=== PATIENT | female | born 1935 | race Caucasian/White ===

== ENCOUNTER → 2020-03-10 11:10 | Outpatient (CLI) | payer MEDICARE, SELFPAY ==
--- NOTE | ~2020-03-10 | XR_ITS ---
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 TECHNIQUE: Right foot dorsoplantar, lateral and oblique projections obtained and reviewed. There is no prior study for comparison. FINDINGS: There is moderate right hallux valgus and 1st MTP primary osteoarthritis. There is an ulcer overlying 1st metatarsal head medially which has a bandage. There are no bony erosions identified. There are no acute fractures identified. IMPRESSION: 1. Right 1st toe moderate hallux valgus, moderate 1st MTP osteoarthritis. 2. Soft tissue ulceration. Reviewed, dictated and finalized at location B. SALES ADVISOR
== END ==
PROVIDERS: PCP Internal Medicine; Visit Provider Internal Medicine
DX: L97.509 Non-pressure chronic ulcer of other part of unspecified foot with unspecified severity (principal); M19.071 Primary osteoarthritis, right ankle and foot; M20.11 Hallux valgus (acquired), right foot
CPT/HCPCS: 73630

== ENCOUNTER 2020-04-22 07:37 | Outpatient (RCR) | payer MEDICARE, BC, SELFPAY ==
[2020-03-16 10:38] VITALS: BMI 26.6
--- NOTE | 2020-05-11 10:03 | PCWOUND ---
WOCN NOTE spoke with Mariela, patient's daughter who was calling to cancel appointment for 05/13/20. Patient had vascular procedure done on Monday05/08/[address] Zambrano. Patient has a followup appointment tomorrow with Dr Zambrano. Patient's daughter will contact the wound center if they need another appointment.
== END 2020-06-14 23:59 | disposition home or self-care (01) ==
LOC: ANHWOC 07:37
PROVIDERS: PCP Internal Medicine; Visit Provider Internal Medicine
DX: L98.499 Non-pressure chronic ulcer of skin of other sites with unspecified severity (principal)
CPT/HCPCS: 99212; G0463

== ENCOUNTER 2020-05-12 09:23 | Outpatient (CLI) | payer MEDICARE, BC, SELFPAY | END 2020-05-12 09:24 | disposition home or self-care (01) | LOC: ANHCOVIDVC 09:23 | PROVIDERS: PCP Internal Medicine | DX: Z23 Encounter for immunization (principal) | CPT/HCPCS: 0001A; 91300 ==

== ENCOUNTER → 2020-05-20 12:42 | Outpatient (CLI) | payer MEDICARE, SELFPAY ==
--- NOTE | ~2020-05-20 | MR_ITS ---
EXAMINATION: MR foot RT wo con DATE: 05/20/2020 14:36 INDICATION: Peripheral vascular disease with open wound/ulceration and worsening pain at the medial a spect of the great toe. TECHNIQUE: Magnetic resonance imaging (MRI) of the right fore/mid foot was performed without intraven ous contrast. Sequences axial, sagittal and coronal sagittal T1-weighted FSE, axial and coronal T2-we ighted FS FSE and sagittal fluid sensitive FSE STIR. COMPARISON: Radiographs dated 03/10/2020 FINDINGS: Moderate hallux valgus including lateral subluxation of the first metatarsal sesamoids. Moderate oste oarthritis at the first metatarsophalangeal joint along with hypertrophic changes along the medial he ad of the first metatarsal. There is bandaging at a shallow skin ulceration overlying the medial head of the first metatarsal. There is prominent marrow edema at the head of the first metatarsal bone wi thout definitive cortical erosion or geographic loss of T1 marrow fat signal to more specifically sug gest osteomyelitis. No fracture. Additional moderate osteoarthritis at the second-fifth tarsal metata rsal joints with scattered subarticular edema and cystic changes. Mild osteoarthritis of the first ta rsal metatarsal joint. The medial collateral ligament at the first metatarsophalangeal joint appears intact but stretched and attenuated consistent with likely chronic degeneration. Remaining collateral ligament complex at the metatarsophalangeal joints appear normal. The flexor and extensor tendons ap pear normal. Mild subcutaneous edema over the dorsum of the foot and about the head of the first meta tarsal. Physiologic amount fluid in the joint spaces. No tenosynovitis, abscess or other abnormal flu id collections. IMPRESSION: 1. Likely reactive marrow edema at the head of the right first metatarsal underlying a shallow skin u lceration. Early osteomyelitis cannot be excluded although there is no evident cortical erosion or ge ographic loss of T1 fat signal to more specifically suggest this. 2. Hallux valgus with moderate osteoarthritis at the first metatarsophalangeal joint. 3. Additional moderate polyarticular osteoarthritis at the tarsal metatarsal joints. Reviewed, dictated and finalized at location A. IMPRESSION: 1. Likely reactive marrow edema at the head of the right first metatarsal under lying a shallow skin ulceration. Early osteomyelitis cannot be excluded althoug h there is no evident cortical erosion or geographic loss of T1 fat signal to m ore specifically suggest this. 2. Hallux valgus with moderate osteoarthritis at the first metatarsophalangeal joint. 3. Additional moderate polyarticular osteoarthritis at the tarsal metatarsal wilfredo ints.
== END ==
PROVIDERS: PCP Internal Medicine; Visit Provider Internal Medicine
DX: I73.9 Peripheral vascular disease, unspecified (principal); L97.509 Non-pressure chronic ulcer of other part of unspecified foot with unspecified severity; M79.89 Other specified soft tissue disorders; M20.11 Hallux valgus (acquired), right foot; M19.071 Primary osteoarthritis, right ankle and foot
CPT/HCPCS: 73718

== ENCOUNTER 2020-08-10 11:55 | Outpatient (CLI) | payer MEDICARE, BC, SELFPAY ==
--- NOTE | ~2020-08-10 | MR_ITS ---
EXAMINATION: MR foot RT wo/w con DATE: 08/10/2020 13:29 INDICATION: Osteomyelitis TECHNIQUE: Magnetic resonance imaging (MRI) of the right fore/mid foot was performed without and with 15 mL Multihance intravenous contrast. Sequences included axial, sagittal and coronal T1-weighted FS E and T2-weighted FS FSE, axial T1-weighted FS FSE and post contrast axial, sagittal and coronal T1-w eighted FS FSE. COMPARISON: 05/20/2020 FINDINGS: There is no ulceration medial to the head of the first metatarsal with prominent surrounding soft tis cherry edema and enhancement consistent with cellulitis. There is a nonenhancing sinus tract extending f rom the ulceration to the plantar aspect of the first metatarsophalangeal joint space between the hea d of the first metatarsal and the tibial sesamoid. There is cortical erosion and osteolysis at the me dial head of the first metatarsal. There is diffuse intramedullary enhancement on loss of T1 marrow f at signal throughout the head of the first metatarsal consistent with advanced osteomyelitis. Similar loss of T1 fat signal and enhancement within the tibial sesamoid and at the base of the first proxim al phalanx consistent additional osteomyelitis and by implication associated septic arthritis. Modera te osteoarthritis at the second-fifth tarsal metatarsal joints with mild subarticular edema and cysti c changes. Mild osteoarthritis at the first tarsal metatarsal joint. Prominent soft tissue swelling a nd subcutaneous edema over the dorsum of the foot. There is also diffuse edema and enhancement throug hout the intrinsic musculature of the forefoot which is new since the prior study consistent with lester sitis which could be either septic or aseptic and reactive. No abscess. The flexor and extensor tendo ns remain normal. No tenosynovitis. IMPRESSION: 1. Septic arthritis at the first metatarsophalangeal joint with osteomyelitis throughout the head of the first metatarsal, at the base of the first proximal phalanx involving the tibial sesamoid. Reviewed, dictated and finalized at location A. IMPRESSION: 1. Septic arthritis at the first metatarsophalangeal joint with osteomyelitis t hroughout the head of the first metatarsal, at the base of the first proximal p halanx involving the tibial sesamoid.
[2020-08-10 12:50] LABS: Estimated Glomerular Filt Rate > 60
== END 2020-08-10 11:56 | disposition home or self-care (01) ==
PROVIDERS: PCP Internal Medicine; Visit Provider Internal Medicine
DX: M86.9 Osteomyelitis, unspecified (principal); M00.9 Pyogenic arthritis, unspecified
CPT/HCPCS: 73720; A9577

== ENCOUNTER 2020-09-18 08:29 | Outpatient (CLI) | payer MEDICARE, BC, SELFPAY ==
--- NOTE | ~2020-09-18 | MR_ITS ---
EXAMINATION: MR foot RT wo con DATE: 09/18/2020 09:34 INDICATION: Right foot osteomyelitis TECHNIQUE: Magnetic resonance imaging (MRI) of the right fore/mid foot was performed without intraven ous contrast. Sequences included sagittal T1-weighted FSE, sagittal fluid sensitive FSE STIR, coronal PD-weighted FS FSE, coronal T1-weighted FSE, axial PD-weighted FS FSE, and axial PD-weighted FSE. COMPARISON: 08/10/2020 FINDINGS: Interval transmetatarsal amputation at the proximal metadiaphyseal region of the first metatarsal. No rmal marrow signal appears to extend all the way to the relatively sharply marginated osteotomy macho n without significant edema or geographic loss of T1 marrow fat signal to suggest residual osteomyeli tis. Bone alignment is otherwise normal. Moderate osteoarthritis at the second and third tarsal metat arsal joints with minimal subarticular edema and subarticular cystic changes. A severe mild osteoarth ritis at the remaining tarsal metatarsal joints as well as at several of the interphalangeal joints. No joint effusions. Lisfranc ligament complex is normal. The collateral ligament complex at the metat arsophalangeal and interphalangeal joints appear unremarkable. Aside from the surgically transected f lexor and extensor tendons to the amputated great toe at the remaining flexor and extensor tendons in the foot are normal. There is soft tissue swelling with subcutaneous edema over the dorsum of the fo ot. Intermediate signal intensity likely healing granulation tissue at the amputation bed distal to t he first metatarsal osteotomy. No abscess. IMPRESSION: 1. 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 If not previously obtained following the surgery would consider obtaining plain radiog raphs to establish a baseline for any future assessment for osteomyelitis. Reviewed, dictated and finalized at location A. IMPRESSION: 1. 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 If not previously obtained following the s urgery would consider obtaining plain radiographs to establish a baseline for a ny future assessment for osteomyelitis.
== END 2020-09-18 08:30 | disposition home or self-care (01) ==
PROVIDERS: PCP Internal Medicine; Visit Provider Specialist
DX: M86.68 Other chronic osteomyelitis, other site (principal); Z89.411 Acquired absence of right great toe
CPT/HCPCS: 73718

== ENCOUNTER 2020-09-23 08:33 | Outpatient (CLI) | payer MEDICARE, BC, SELFPAY ==
[2020-09-23 09:09] LABS: Basophils Absolute Auto 0.1 K/mm3 (0.0-0.1); Basophils Percent Auto 1.1 % (0.2-1.2); Eosinophils Absolute Auto 0.1 K/mm3 (0-0.3); Eosinophils Percent Auto 1.3 % (0-4.4); Hematocrit 36.6 % (37.0-47.0); Hemoglobin 11.8 g/dL (12.0-15.0); Immature Granulocyte Absolute 0.01 K/mm3 (0.00-0.031); Immature Granulocyte Percent A 0.1 % (0-0.5); Lymphocytes Absolute Auto 2.59 K/mm3 (0.9-3.2); Lymphocytes Percent Auto 36.6 % (18.3-44.2); Mean Corpuscular HGB Conc 32.2 g/dl (32-36); Mean Corpuscular Hemoglobin 31.4 pg (26-34); Mean Corpuscular Volume 97.3 fl (80-100); Mean Platelet Volume 8.4 fl (7.4-10.4); Monocytes Absolute Auto 0.9 K/mm3 (0.1-0.6); Monocytes Percent Auto 12.4 % (2.6-8.5); Neutrophils Absolute Auto 3.4 K/mm3 (1.3-6.7); Neutrophils Percent Auto 48.5 % (45.5-73.1); Platelet Count Result 352 k/mm3 (150-375); Red Blood Count 3.76 M/mm3 (4.2-5.4); Red Cell Distribution Width 15.1 % (11.5-14.5); White Blood Count 7.1 K/mm3 (4.5-10.0)
[2020-09-23 10:33] LABS: Folic Acid 5.7 ng/mL (2.76->20)
[2020-09-23 10:38] LABS: Creatinine Urine 58.1 mg/dL; MALB Creatinine Ratio 11.2 mg/g (0-30); Microalbumin Urine Random 6.5 mg/L (0-16.7)
[2020-09-23 11:19] LABS: Hemoglobin A1C 6.3 % (<5.7)
[2020-09-23 11:23] LABS: Alanine Aminotransferase 12 U/L (4-35); Albumin Level 4.3 g/dL (3.5-5.1); Alkaline Phosphatase 65 U/L (38-126); Anion Gap 12 mmol/L (8-16); Aspartate Amino Transferase 26 U/L (14-36); Bilirubin,Total 0.5 mg/dL (0.2-1.3); Blood Urea Nitrogen 17 mg/dL (7-17); Calcium 9.6 mg/dL (8.4-10.2); Carbon Dioxide 20 mmol/L (22-30); Chloride 107 mmol/L (98-107); Estimated Glomerular Filt Rate > 60; Glucose 99 mg/dL (65-110); Potassium 4.8 mmol/L (3.4-5.0); Sodium 139 mmol/L (137-145)
[2020-09-23 11:25] LABS: Free T4 Free Thyroxine 1.31 ng/mL (0.78-2.19)
== END 2020-09-23 08:34 | disposition home or self-care (01) ==
PROVIDERS: PCP Internal Medicine; Visit Provider Internal Medicine
DX: E11.9 Type 2 diabetes mellitus without complications (principal); R53.83 Other fatigue; E03.8 Other specified hypothyroidism; E78.5 Hyperlipidemia, unspecified
CPT/HCPCS: 36415; 80053; 82043; 82607; 82746; 83036; 84439; 84443; 85025

== ENCOUNTER → 2021-01-11 14:22 | Outpatient (CLI) | payer MEDICARE, SELFPAY ==
--- NOTE | ~2021-01-11 | XR_ITS ---
EXAMINATION: XR shoulder LT min 2V DATE: 01/11/2021 14:48 INDICATION: Left shoulder pain. TECHNIQUE: 6 views of left shoulder were obtained. COMPARISON: None. FINDINGS: Bone alignment is normal. No fracture. There is moderate osteoarthritis of glenohumeral skylar nt and severe osteoarthritis of acromioclavicular joint. IMPRESSION: 1. Polyarticular osteoarthritis. Reviewed, dictated and finalized at location A. ING MACHINE MECHANIC
== END ==
PROVIDERS: PCP Internal Medicine; Visit Provider Internal Medicine
DX: M19.012 Primary osteoarthritis, left shoulder (principal)
CPT/HCPCS: 73030

== ENCOUNTER 2021-04-13 12:14 | Outpatient (CLI) | payer MEDICARE, BC, SELFPAY ==
[2021-04-13 14:59] LABS: Add Urine Microscopic? YES; Appearance Urine Cloudy (Clear); Bacteria Urine 2+ /hpf; Bilirubin Urine Negative (Negative); Blood Urine Negative (Negative); Color Urine Yellow (Yellow); Glucose Urine UA 3+ mg/dL (Negative); Ketones Urine Negative (Negative); Leukocyte Esterase Ur 3+ LEU/UL (NEGATIVE); Mucus Urine Rare /lpf; Nitrate Urine Positive (Negative); Protein Urine Negative (Negative); Specific Grav Ur 1.013 (1.001-1.035); Squamous Epithelial Cell Urine Occasional /hpf (Few); Urobilinogen Urine Negative mg/dL (<2.0); WBC Clumps Urine Present /HPF; WBC Urine >75 /hpf (0-3)
== END 2021-04-13 12:15 | disposition home or self-care (01) ==
PROVIDERS: PCP Internal Medicine; Visit Provider Physician Assistant
DX: R30.0 Dysuria (principal)
CPT/HCPCS: 81001; 87077; 87086; 87186

== ENCOUNTER 2021-04-29 09:12 | Outpatient (CLI) | payer MEDICARE, BC, SELFPAY ==
[2021-04-29 09:51] LABS: Basophils Absolute Auto 0.1 K/mm3 (0.0-0.1); Basophils Percent Auto 0.8 % (0.2-1.2); Eosinophils Absolute Auto 0.2 K/mm3 (0-0.3); Eosinophils Percent Auto 1.6 % (0-4.4); Hematocrit 38.4 % (37.0-47.0); Immature Granulocyte Absolute 0.04 K/mm3 (0.00-0.031); Immature Granulocyte Percent A 0.4 % (0-0.5); Lymphocytes Absolute Auto 3.08 K/mm3 (0.9-3.2); Lymphocytes Percent Auto 33.2 % (18.3-44.2); Mean Corpuscular HGB Conc 31.3 g/dl (32-36); Mean Corpuscular Hemoglobin 31.2 pg (26-34); Mean Corpuscular Volume 99.7 fl (80-100); Mean Platelet Volume 8.5 fl (7.4-10.4); Monocytes Percent Auto 10.5 % (2.6-8.5); Neutrophils Percent Auto 53.5 % (45.5-73.1); Platelet Count Result 450 k/mm3 (150-375); Red Blood Count 3.85 M/mm3 (4.2-5.4); White Blood Count 9.3 K/mm3 (4.5-10.0)
[2021-04-29 10:30] LABS: Creatinine Urine 69.5 mg/dL
[2021-04-29 10:33] LABS: MALB Creatinine Ratio 21.7 mg/g (0-30); Microalbumin Urine Random 15.1 mg/L (0-16.7)
[2021-04-29 10:42] LABS: Alanine Aminotransferase 14 U/L (4-35); Albumin Level 4.4 g/dL (3.5-5.1); Alkaline Phosphatase 93 U/L (38-126); Anion Gap 14 mmol/L (8-16); Aspartate Amino Transferase 28 U/L (14-36); Bilirubin,Total 0.5 mg/dL (0.2-1.3); Blood Urea Nitrogen 10 mg/dL (7-17); Calcium 9.1 mg/dL (8.4-10.2); Carbon Dioxide 19 mmol/L (22-30); Chloride 106 mmol/L (98-107); Cholesterol 190 mg/dL (0-200); Estimated Glomerular Filt Rate > 60; Glucose 146 mg/dL (65-110); HDL Direct 46 mg/dL; Potassium 4.9 mmol/L (3.4-5.0); Sodium 139 mmol/L (137-145); Triglycerides 159 mg/dL (<150)
[2021-04-29 10:49] LABS: LDL Cholesterol Direct 110 mg/dL
[2021-04-29 10:52] LABS: Free T4 Free Thyroxine 1.32 ng/mL (0.78-2.19)
[2021-04-29 11:13] LABS: Folic Acid 12.4 ng/mL (2.76->20)
== END 2021-04-29 09:13 | disposition home or self-care (01) ==
LOC: ANHLAB 09:13
PROVIDERS: PCP Internal Medicine; Visit Provider Internal Medicine
DX: E03.9 Hypothyroidism, unspecified (principal); M25.519 Pain in unspecified shoulder; E11.9 Type 2 diabetes mellitus without complications; R53.83 Other fatigue
CPT/HCPCS: 36415; 80053; 80061; 82043; 82607; 82746; 84439; 84443; 85025

== ENCOUNTER 2021-05-31 08:45 | Outpatient (CLI) | payer MEDICARE, BC, SELFPAY ==
--- NOTE | ~2021-05-31 | NM_ITS ---
EXAMINATION: NM miles stress w perfusion DATE: 05/31/2021 11:19 INDICATION: Chest pain TECHNIQUE: Rest images were obtained following intravenous administration of 10.6 mCi Tc99m tetrofosm in (Myoview). The patient was infused intravenously with Lexiscan (Regadenoson). Then, 33.6 mCi Tc99m tetrofosmin (Myoview) was administered intravenously, and stress images were obtained. Data was nelli nstructed into short axis and horizontal and vertical long axis SPECT images. Gated SPECT images were also obtained. COMPARISON: None. FINDINGS: There is no definite reversible or fixed perfusion abnormality to suggest ischemia or infar ction. There is normal left ventricular chamber size, wall motion and ejection fraction. Left ventr icular ejection fraction measures >70%. IMPRESSION: 1. Normal myocardial perfusion at rest and during stress. 2. Left ventricular ejection fraction measuring >70%. Reviewed, dictated and finalized at location B.
--- NOTE | 2021-05-31 09:31 | EST_ITS ---
Patient Info Name: Marisela Franz Age: 85 years : 1935 Gender: Female Ht: 64 in Wt: 160 lbs BSA: 1.83 m2 HR: 77 bpm BP: 146 / 82 mmHg Heart Rhythm: Sinus Rhythm Exam Date: 05/31/2021 10:19 AM Exam Location: [facility] Stress Patient Status: Outpatient Admit Date: 05/31/2021 Staff Ordering Physician: Joseph Meeks DO Attending Provider: Joseph Meeks DO Exercise Technologist: Sheree Guzman CT Exercise Physician: Kee Melgar DO Exam Type: CA stress miles w NM Study Info Indications R06.02 - Shortness of breath A regadenoson stress test was performed. Summary 1. 1. Negative lexiscan stress test for ischemic ST changes by ECG criteria. 2. 2. Baseline hypertension. 3. 3. Nuclear scan to follow and will be reported separately. Please correlate with it. 4. 4. Patient informed of the above results. Protocol: Lexiscan Stress ECG Details Stage: REST Duration (min): 11 min : 58 sec HR (bpm): 74 SBP (mmHg): 146 DBP (mmHg): 82 Stage: REST Duration (min): 12 min : 16 sec HR (bpm): 78 SBP (mmHg): 146 DBP (mmHg): 82 Stage: STAGE 1 Duration (min): 1 min : 0 sec HR (bpm): 89 SBP (mmHg): 142 DBP (mmHg): 86 Stage: RECOVERY Duration (min): 1 min : 0 sec HR (bpm): 99 SBP (mmHg): 142 DBP (mmHg): 86 Stage: RECOVERY Duration (min): 2 min : 0 sec HR (bpm): 101 SBP (mmHg): 156 DBP (mmHg): 74 Stage: RECOVERY Duration (min): 2 min : 1 sec HR (bpm): 101 SBP (mmHg): 156 DBP (mmHg): 74 Rest HR: 78 bpm Peak HR: 101 bpm Rest Sys BP: 146 mmHg Peak Sys BP: 156 mmHg Max Pred HR: 136 bpm % Max Pred HR: 74 % Target HR: 116 bpm Max RPP: 15,756 bpm*mmHg Termination Reason: Completed protocol Cardiac Symptoms: Shortness of breath Total Time: 1 min : 0 sec Rest Weller BP: 82 mmHg Peak Weller BP: 74 mmHg Total Dose: 0.4 mg Resting ECG Sinus rhythm, borderline ST-T wave in diffuse leads. Stress ECG No ST changes. Arrhythmias None. Report Signatures
== END 2021-05-31 08:46 | disposition home or self-care (01) ==
LOC: ANHCARD 08:47
PROVIDERS: PCP Internal Medicine; Visit Provider Internal Medicine
DX: R07.9 Chest pain, unspecified (principal)
CPT/HCPCS: 78452; 93017; A9502; J2785

== ENCOUNTER 2023-08-01 10:53 | Outpatient (CLI) | payer MEDICARE, SELFPAY ==
[2023-08-01 13:27] LABS: Basophils Absolute Auto 0.1 K/mm3 (0.0-0.1); Basophils Percent Auto 0.9 % (0.2-1.2); Eosinophils Absolute Auto 0.1 K/mm3 (0-0.3); Eosinophils Percent Auto 1.4 % (0-4.4); Hematocrit 38.3 % (37.0-47.0); Hemoglobin 12.3 g/dL (12.0-15.0); Immature Granulocyte Absolute 0.02 K/mm3 (0.00-0.031); Immature Granulocyte Percent A 0.3 % (0-0.5); Lymphocytes Absolute Auto 1.75 K/mm3 (0.9-3.2); Lymphocytes Percent Auto 27.3 % (18.3-44.2); Mean Corpuscular HGB Conc 32.1 g/dl (32-36); Mean Corpuscular Hemoglobin 31.8 pg (26-34); Mean Platelet Volume 9.3 fl (7.4-10.4); Monocytes Percent Auto 15.2 % (2.6-8.5); Neutrophils Absolute Auto 3.5 K/mm3 (1.3-6.7); Neutrophils Percent Auto 54.9 % (45.5-73.1); Platelet Count Result 285 k/mm3 (150-375); Red Blood Count 3.87 M/mm3 (4.2-5.4); Red Cell Distribution Width 15.4 % (11.5-14.5); White Blood Count 6.4 K/mm3 (4.5-10.0)
[2023-08-01 13:33] LABS: Alanine Aminotransferase 11 U/L (6-35); Albumin Level 4.4 g/dL (3.5-5.1); Alkaline Phosphatase 66 U/L (38-126); Anion Gap 9 mmol/L (4-12); Aspartate Amino Transferase 36 U/L (14-36); Bilirubin,Total 0.8 mg/dL (0.2-1.3); Blood Urea Nitrogen 16 mg/dL (7-17); Calcium 9.1 mg/dL (8.4-10.2); Carbon Dioxide 24 mmol/L (22-30); Chloride 107 mmol/L (98-107); Cholesterol 165 mg/dL (0-200); Estimated Glomerular Filt Rate 47; Glucose 162 mg/dL (65-110); HDL Direct 35 mg/dL; Potassium 4.1 mmol/L (3.4-5.0); Sodium 140 mmol/L (137-145); Triglycerides 158 mg/dL (<150)
[2023-08-01 13:44] LABS: LDL Cholesterol Direct 93 mg/dL
[2023-08-01 13:48] LABS: Hemoglobin A1C 6.3 % (<5.7)
[2023-08-01 13:54] LABS: Creatinine Urine 71.9 mg/dL
[2023-08-01 16:10] LABS: MALB Creatinine Ratio < 8.3 mg/g (0-30); Microalbumin Urine Random < 6.0 mg/L (0-16.7)
== END 2023-08-01 10:54 | disposition home or self-care (01) ==
PROVIDERS: PCP Family Medicine; Visit Provider Family Medicine
DX: E03.9 Hypothyroidism, unspecified (principal); E11.9 Type 2 diabetes mellitus without complications
CPT/HCPCS: 36415; 80053; 80061; 82043; 82607; 83036; 84443; 85025

== ENCOUNTER 2023-11-07 11:23 | Outpatient (CLI) | payer MEDICARE, SELFPAY ==
[2023-11-07 12:08] LABS: Basophils Percent Auto 1.3 % (0.2-1.2); Eosinophils Absolute Auto 0.1 K/mm3 (0-0.3); Eosinophils Percent Auto 2.5 % (0-4.4); Hematocrit 34.1 % (37.0-47.0); Hemoglobin 10.9 g/dL (12.0-15.0); Immature Granulocyte Absolute 0.01 K/mm3 (0.00-0.031); Immature Granulocyte Percent A 0.3 % (0-0.5); Lymphocytes Absolute Auto 1.29 K/mm3 (0.9-3.2); Lymphocytes Percent Auto 41.1 % (18.3-44.2); Mean Corpuscular Hemoglobin 31.9 pg (26-34); Mean Corpuscular Volume 99.7 fl (80-100); Mean Platelet Volume 9.3 fl (7.4-10.4); Monocytes Absolute Auto 0.3 K/mm3 (0.1-0.6); Monocytes Percent Auto 8.6 % (2.6-8.5); Neutrophils Absolute Auto 1.5 K/mm3 (1.3-6.7); Neutrophils Percent Auto 46.2 % (45.5-73.1); Platelet Count Result 152 k/mm3 (150-375); Red Blood Count 3.42 M/mm3 (4.2-5.4); Red Cell Distribution Width 16.8 % (11.5-14.5); White Blood Count 3.1 K/mm3 (4.5-10.0)
[2023-11-07 12:22] LABS: Alanine Aminotransferase 12 U/L (6-35); Albumin Level 3.8 g/dL (3.5-5.1); Alkaline Phosphatase 66 U/L (38-126); Anion Gap 12 mmol/L (4-12); Aspartate Amino Transferase 31 U/L (14-36); Bilirubin,Total 0.8 mg/dL (0.2-1.3); Blood Urea Nitrogen 14 mg/dL (7-17); Calcium 8.8 mg/dL (8.4-10.2); Carbon Dioxide 22 mmol/L (22-30); Chloride 102 mmol/L (98-107); Estimated Glomerular Filt Rate 59; Glucose 168 mg/dL (65-110); Potassium 4.5 mmol/L (3.4-5.0); Sodium 136 mmol/L (137-145)
[2023-11-07 14:03] LABS: Amylase 67 U/L (30-110); Lipase 65 U/L (23-300)
[2023-11-09 11:05] LABS: NIL 0.04 IU/mL; Quantiferon TB Plus, 1T NEGATIVE (NEGATIVE); TB1-NIL <0.00 IU/mL; TB2-NIL <0.00 IU/mL
== END 2023-11-07 11:24 | disposition home or self-care (01) ==
LOC: ANHLAB 11:35
PROVIDERS: PCP Family Medicine; Visit Provider Student in an Organized Health Care Education/Training Program
DX: Z11.1 Encounter for screening for respiratory tuberculosis (principal); E11.9 Type 2 diabetes mellitus without complications; R53.1 Weakness; R63.0 Anorexia; R63.4 Abnormal weight loss
CPT/HCPCS: 36415; 80053; 82150; 82607; 83690; 85025; 86480

== ENCOUNTER 2023-11-23 09:13 | Outpatient (CLI) | payer MEDICARE, SELFPAY ==
--- NOTE | ~2023-11-23 | US_ITS ---
EXAMINATION: US abdomen complete DATE: 11/23/2023 09:44 INDICATION: R63.4 - Abnormal weight loss TECHNIQUE: Multiple grayscale and Doppler ultrasound images of the abdomen were obtained. COMPARISON: None available. FINDINGS: The visualized portions of the pancreas are normal. The liver is normal with normal echogen icity and echotexture. No surface nodularity. Normal hepatopetal flow in the main portal vein. The ga llbladder is surgically absent. The common bile duct measures 3 mm. There was no sonographic Chang s ign. The visualized portions of the aorta and inferior vena cava are normal. The right kidney measures 8.2 x 3.9 x 4.7 cm. The left kidney measures 9.2 x 4.4 x 4.3 cm. The kidney s demonstrate normal parenchymal echogenicity. Simple bilateral renal cysts There is no hydronephrosi s. The spleen is normal in appearance and measures 9.6 cm. IMPRESSION: Status post cholecystectomy. Otherwise normal abdominal ultrasound findings. Reviewed, dictated and finalized at location K.
== END 2023-11-23 09:14 | disposition home or self-care (01) ==
LOC: MICIMG 09:15
PROVIDERS: PCP Family Medicine; Visit Provider Student in an Organized Health Care Education/Training Program
DX: R63.4 Abnormal weight loss (principal); Z90.49 Acquired absence of other specified parts of digestive tract
CPT/HCPCS: 76700

== ENCOUNTER 2024-05-09 09:18 | Outpatient (RCR) | payer MEDICARE, SELFPAY ==
[2024-05-09 10:08] VITALS: BMI 23.6
--- NOTE | 2024-05-22 08:36 | PCWOUND ---
WOCN NOTE Voicemail left by daughter to cancel appointment for 05/23/24 as wound to leg is healing well.
== END 2024-07-29 10:30 | disposition home or self-care (01) ==
LOC: ANHWOC 09:18
PROVIDERS: PCP Family Medicine; Visit Provider Family Medicine
DX: S81.802A Unspecified open wound, left lower leg, initial encounter (principal); Z48.00 Encounter for change or removal of nonsurgical wound dressing
CPT/HCPCS: 99213; G0463

== ENCOUNTER 2024-09-02 11:41 | Outpatient (CLI) | payer MEDICARE, SELFPAY ==
--- OUTSIDE RECORDS SUMMARY | 2024-09-02 11:46 | XMS_ITS | Clinical Summary ---
Author Organization [facility] Address [address] [place] [address] Care Team Providers Care Logistics Planning Engineer Name Role Phone Unavailable Primary Care Provider Unavailabl e Source Comments [facility],non-[facility] Affiliates and Associated Physician Practices is amultiple site organization consisting of ambulatory clinics and hospital sitesin [place], [place], [place] and [place]. This disclosure is being madepursuant to the Care Everywhere program and may not contain all information available regarding this patient. Last updated 17.[facility] Social History Tobacco Use Types Packs/Day Years Used Date Smoking Tobacco: Never Assessed Comments Unknown Sex and Gender Information Value Date Recorded Sex Assigned at Not on file Legal Sex Female 4:27 PM CDT Gender Identity Not on file Sexual Orientation Not on file Plan of Treatment Health Maintenance Due Date Last Done Comments BONE DENSITY TESTING 1935 DTAP/TDAP/TD VACCINES (1 - Tdap) 12/11/1954 PNEUMOCOCCAL VACCINE 50+ (1 of 1 - PCV) 1986 ZOSTER VACCINE (1 of 2) 1986 Respiratory Syncytial Virus (RSV) Vaccine Pt: or over 60 yrs (1 - 1-dose 75+ series) 12/11/2011 COVID-19 VACCINE ( - 2023-2 5 season) 2023 DEPRESSION SCREENING 02/28/2024 INFLUENZA VACCINE (#1) 2024 HEPATITIS B VACCINE Aged Out No longe r eligible based on patient's age to complete this topic HIB VACCINE Aged Out No longer eligi ble based on patient's age to complete this topic HPV VACCINE Aged Out No longer eligi ble based on patient's age to complete this topic MENINGOCOCCAL (Group B) VACC INE SHARED DECISION-MAKING Aged Out No longer eligibl e based on patient's age to complete this topic MENINGOCOCCAL GROUPS A/C/Y/W VACCINE Aged Out No longer eligible b ased on patient's age to complete this topic Insurance MEDICARE [facility]
--- OUTSIDE RECORDS SUMMARY | 2024-09-02 11:46 | XMS_ITS | Patient Health Record ---
Author Organization [facility], [facility] Address [address] [place] [id number] Care Team Providers Care Tape Cutting Machine Operator Name Role Phone Provider, Outside Primary Care Provider [phone] Reason For Referral No Information Plan Of Treatment No Information
--- OUTSIDE RECORDS SUMMARY | 2024-09-02 11:47 | XMS_ITS | Clinical Summary ---
Author Organization [facility] Address [address] [place] [address] Care Team Providers Care Customer Business Manager Name Role Phone Joseph Meeks MD Primary Care Provider [phone] Raheem Zambrano MD Unavailable Allergies No known active allergies Medications pravastatin 40 MG tablet Take 40 mg by mouth nightly at bedtime. Active metFORMIN 1000 MG tablet Take 1,000 mg by mouth 2 (two) times daily with meals. Active clonazePAM 1 MG tablet Take 1 mg by mouth nightly as needed. Active gabapentin 600 MG tablet Take 1,200 mg by mouth 3 (three) times daily. Active levothyroxine 50 MCG tablet Take 50 mcg by mouth every morning. Active lisinopril 40 MG tablet Take 40 mg by mouth daily. Active Semaglutide (RYBELSUS) 7 MG Tab Take 7 mg by mouth daily. Active mirabegron ER 50 MG 24 hr tablet Take 50 mg by mouth daily. Active hydrALAZINE 50 MG tablet Take 50 mg by mouth 3 (three) times daily. Active loperamide 2 MG capsule Take 2 mg by mouth 4 (four) times daily as needed for Diarrhea. Active warfarin 3 MG tablet Take 3 mg by mouth daily. Active oxyCODONE-aceta minophen 5-325 MG tabletIndicatio ns:Acute Pain < 7 Day Supply Take 1-2 tablets by mouth every 6 (six) hours as needed for Pain. Indications: Acute Pain < 7 Day Supply 20 tablet 08/14/2020 Active Active Problems Problem Noted Date Diagnosed Date Osteomyelitis ([facility]) 06/01/2020 Family History Medical History Relation Comments Hypertension Mother Relation Status Comments Mother Social History Tobacco Use Types Packs/Day Years Used Date Smoking Tobacco: Former Cigarettes Smokeless Tobacco: Never Comments:after loss of husba nd, socially Alcohol Use Standard Drinks/Week Comments Never 0 (1 standard drink = 0.6 oz pur e alcohol) AUDIT-C Answer Date Recorded Q1: How often do you have a drink containing alc ohol? 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 Gender Identity Not on file Sexual Orientation Not on file Last Filed Vital Signs Vital Sign Reading Time Taken Comments Blood Pressure 133/67 08/14/2020 8:27 AM CDT Pulse 87 08/14/2020 8:27 AM CDT Temperature 37.4 C (99.3 F) 08/14/2020 8:27 AM CDT Respiratory Rate 20 08/14/2020 8:27 AM CDT Oxygen Saturation 96% 08/14/2020 8:27 AM CDT Inhaled Oxygen Concentration - - Weight 72.5 kg (159 lb 13.3 oz) 08/14/2020 4:11 AM CDT Height 162.6 cm (5' 4) 08/11/2020 2:57 PM CDT Body Mass Index 27.44 08/11/2020 2:57 PM CDT Plan of Treatment Health Maintenance Due Date Last Done Comments DTaP, Tdap and Td Vaccines ( 1 - Tdap) 12[birth year]11/1954 Pneumococcal Vaccine: 50+ Ye ars (1 of 1 - PCV) 1986 Zoster Vaccines (1 of 2) 1986 Annual Medicare Wellness Visit 2001 RSV Immunization or 60+ Years (1 - 1-dose 75+ series) 12/11/2011 COVID-19 Vaccine (2 - 2023-2 5 season) 2023 05/12/2020 Meningococcal B Vaccine Aged Out No l onger eligible based on patient's age to complete this topic Meningococcal Vaccine Aged Out No kinsey tiny eligible based on patient's age to complete this topic RSV Immunizations Under 20 Months Aged Out No longer eligible based on patient's age to complete this topic Goals Goal Patient Goal Type Associated Problems Recent Progress Patient-Stated? Author Monitor - able to maintain pain control General No Elsie Perea RN Health - patient able to perform ADLs independently General No Dagmar Zapien, HOSIERY PAIRER Additional Health Concerns Infection Onset Date Last Indicated MRSA Comment:08/12/2020 +MRSA Toe 08/14/2020 08/14/2020 Insurance MEDICARE [facility] Advance Directives * Full Code (Latest Code Status on File) Date Activated Date Inactivated Comments 08/12/2020 4:25 PM 08/14/2020 2:42 PM * Full Code Date Activated Date Inactivated Comments 08/11/2020 9:27 PM 08/12/2020 4:24 PM * Full Code Date Activated Date Inactivated Comments 06/01/2020 1:19 PM 06/05/2020 5:23 PM * Full Code Date Activated Date Inactivated Comments 05/08/2020 2:19 PM 05/09/2020 12:47 AM Care Teams Customer Business Manager Relationship Specialty Start Date End Date Joseph Meeks MD [address] [place] [address] PCP - General INTERNAL MEDICINE 05/08/20 Raheem Zambrano MD [address] [place] [address] [address] [place] [address] Vascular/Brim Plater VASCULAR SURGERY 07/30/20
--- OUTSIDE RECORDS SUMMARY | 2024-09-02 11:47 | XMS_ITS | Encounter Summary ---
Author Organization [facility] Address [address] [place] [address] Care Team Providers Care Carry Out Clerk And Shelf Stocker Name Role Phone Unavailable Primary Care Provider Unavailabl e Encounter Details Date Type Department Care Team (Late st Contact Info) Description 09/07/2020 Lab Requisition [facility] DermPath Lab [address] [place] [address] Mendoza Galdamez MD [address] [place] [address] Social History Tobacco Use Types Packs/Day Years Used Date Smoking Tobacco: Never Assessed Comments Unknown Sex and Gender Information Value Date Recorded Sex Assigned at Not on file Legal Sex Female 4:27 PM CDT Gender Identity Not on file Sexual Orientation Not on file documented as of this encounter Plan of Treatment Not on file documented as of this encounter Procedures Procedure Name Priority Date/Time Associated Diagnosis Comments DERMATOPATHOLOGY Routine 09/03/2020 3:33 AM CDT documented in this encounter Results * DERMATOPATHOLOGY (09/03/2020 3:33 AM CDT) Case Report Dermatopathology Report Case: [id number] Authorizing Provider: Mendoza Galdamez MD Collected: 09/03/2020 03:33 AM Ordering Location: [facility] Derm[facility] Lab Received: 09/07/2020 06:54 AM Pathologist: Diana Eastman MD Specimens: A) - Skin, left nasal SW B) - Skin, lower mid chest 5:27 PM CDT DERMATOPATHOLOGY LABORATORY Final Diagnosis Specimen A. SKIN, left nasal SW: BASAL CELL CARCINOMA, NODULAR TYPE (C44.311) Specimen B. SKIN, lower mid chest: SQUAMOUS CELL CARCINOMA IN SITU, PRESENT AT THE BASE OF THE SPECIMEN (D04.5) (see microscopic description and comment) 5:27 PM T DERMATOPATHOLOGY LABORATORY at 1727 CDT Clinical History A: BCCA. Path# [id number]. B: AK vs SCCA vs SK. Path# [id number]. 1 5:27 PM CDT DERMATOPATHOLOGY LABORATORY Gross Description Specimen A: Received is one formalin filled container labeled with the patient's name and designated left nasal SW. The specimen consists of a shave biopsy measuring [id number]. Jar 0. Specimen B: Received is one formalin filled container labeled with the patient's name and designated lower mid chest. The specimen consists of a shave biopsy measuring [id number]. Jar 0. 1 5:27 PM CDT DERMATOPATHOLOGY LABORATORY Microscopic Description Specimen A. SKIN, left nasal SW: Within the dermis there are aggregates of basaloid cells with a high nuclear to cytoplasmic ratio and peripheral palisading. Specimen B. SKIN, lower mid chest: The epidermis shows parakeratosis, full thickness disorderly maturation of keratinocytes, mitoses at different levels, and dyskeratotic cells. The lesion extends to the base of the biopsy. COMMENT: An invasive squamous cell carcinoma cannot be ruled out. Additional deeper sections were obtained and reviewed. 1 5:27 PM T DERMATOPATHOLOGY LABORATORY Disclaimer An external and internal positive and negative controls are appropriate for the histochemical, immunohistochemical and immunofluorescence stain(s) in this case (if any), except where stated explicitly. The performance characteristics of the stain(s) cited in this report were developed and its performance characteristic determined by the Dermatopathology Laboratory at [facility], directed by Dr. Frankie Eastman. These tests need not be, and therefore are not, approved by the [place] Food and Drug Administration. The tests are used for clinical purposes. Billing Codes Specimen Charges Stain Charges 76276 81210 1 1 1 5:27 PM CDT DERMATOPATHOLOGY LABORATORY Embedded Images 1 5:27 PM CDT DERMATOPATHOLOGY LABORATORY Pathology/Cytology TISSUE SPECIMEN FROM SKIN / Unknown 09/03/2020 3:33 AM CDT 09/07/2020 6:54 AM CDT Miscellaneous samples (specimen) TISSUE SPECIMEN FROM SKIN / Unknown 09/03/2020 3:33 AM CDT 09/07/2020 6:54 AM CDT us Mendoza Galdamez MD LAB - PATHOLOGY/CYTOLOGY ORDER MARISABEL Final Result DERMATOPATHOLOGY LABORATORY [facility] - Department of Dermatology [facility] [address] [place] [address], [address] [phone] documented in this encounter Visit Diagnoses Not on filedocumented in this encounter
--- OUTSIDE RECORDS SUMMARY | 2024-09-02 11:47 | XMS_ITS | Encounter Summary ---
Author Organization [facility] Address [address] [place] [address] Care Team Providers Care Conveyor System Dispatcher Name Role Phone Unavailable Primary Care Provider Unavailabl e Encounter Details Date Type Department Care Team (Late st Contact Info) Description 05/06/2021 Lab Requisition [facility] DermPath Lab [address] [place] [address] Mendoza Galdamez MD [address] [address] Social History Tobacco Use Types Packs/Day Years [...] Priority Date/Time Associated Diagnosis Comments DERMATOPATHOLOGY Routine 05/06/2021 12:0 0 AM CAR 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 Path # [id number]. B: SK vs lentigo vs MM. Path # [id number]. C: SK vs lentigo vs MM. Path # [id number]. 2 4:31 PM T DERMATOPATHOLOGY LABORATORY Gross Description Specimen A: Received is one formalin filled container labeled with the patient's name and designated right forearm. The specimen consists of a shave biopsy measuring [id number], bisected. Jar 0. Specimen B: Received is one formalin filled container labeled with the patient's name and designated right shoulder. The specimen consists of a shave biopsy measuring 0p5j9ct. Jar 0. Specimen C: Received is one formalin filled container labeled with the patient's name and designated right postauricular. The specimen consists of a shave biopsy measuring 7u3a3wj. Jar 0. 4:31 PM [facility] DERMATOPATHOLOGY LABORATORY Microscopic Description Specimen A. SKIN, right forearm: The epidermis shows parakeratosis, full thickness disorderly maturation of keratinocytes, mitoses at different levels, and dyskeratotic cells. There is a column of marked compact hyperkeratosis. Specimen B. SKIN, right shoulder: The epidermis shows parakeratosis, full thickness disorderly maturation of keratinocytes, mitoses at different levels, and dyskeratotic cells. There is prominent pigmentation in some of the keratinocytes. Specimen C. SKIN, right postauricular: Sections show a junctional melanocytic proliferation. There is a lentiginous proliferation of melanocytes between irregular nests. Scattered melanocytes show evidence of upward migration within the epidermis. The melanocytes are highlighted by MART-1/Melan-A.This lesion is present at the margin of the specimen. COMMENT: Because this lesion is present at the margin of the specimen, symmetry and circumscription cannot be evaluated. Therefore, a complete but conservative re-excision is recommended to evaluate this lesion in its entirety. This case was shared with Dr. Carla Cool who agrees. 2 4:31 PM CDT DERMATOPATHOLOGY LABORATORY Disclaimer An external and internal positive and negative controls are appropriate for the histochemical, immunohistochemical and immunofluorescence stain(s) in this case (if any), except where stated explicitly. The performance characteristics of the stain(s) cited in this report were developed and its performance characteristic determined by the Dermatopathology Laboratory at [facility], directed by Dr. Frankie Eastman. These tests need not be, and therefore are not, approved by the [place] Food and Drug Administration. The tests are used for clinical purposes. Billing Codes Specimen Charges Stain Charges 35735 55414 46288 1 1 1 54998 1 2 4:31 PM CDT DERMATOPATHOLOGY LABORATORY Embedded Images 2 4:31 PM CDT DERMATOPATHOLOGY LABORATORY Pathology/Cytology TISSUE SPECIMEN FROM SKIN / Unknown 05/06/2021 05/06/2021 5:00 PM CAR WORKER HELPER Miscellaneous samples (specimen) TISSUE SPECIMEN FROM SKIN / Unknown 05/06/2021 05/06/2021 5:00 PM CAR WORKER HELPER Miscellaneous samples (specimen) TISSUE SPECIMEN FROM SKIN / Unknown 05/06/2021 05/06/2021 5:00 PM CAR WORKER HELPER us Mendoza Galdamez MD LAB - PATHOLOGY/CYTOLOGY ORDER MARISABEL Final Result DERMATOPATHOLOGY LABORATORY [facility] - Department of Dermatology [address], [address] [phone] documented in this encounter Visit Diagnoses Not on filedocumented in this encounter
--- OUTSIDE RECORDS SUMMARY | 2024-09-02 11:47 | XMS_ITS | Data Portability ---
Author Organization [place] [facility] [place], [place] Home Patient Address [address] [place] [address] Care Team Providers Care Agile Scrum Coach Name Role Phone [facility] OTHER Assessment Encounter Date Assessment Date Assessment LastModified by Organization Details LastModified Time 04/18/2023 04/18/2023 spent 60 minutes time discussing care with caregiver, medication reconciliation, physical examination, documenting progress note, reviewing EMR, discussing care with daughter. [email or web address] Not available 04/18/2023 14:22:29 04/25/2023 04/25/2023 spent 75 minutes time discussing care with caregiver, medication reconciliation, physical examination, documenting progress note, reviewing EMR, discussing care with daughter, calling in medications jhartt Not available 04/25/2023 10:46:39 05/23/2023 05/23/2023 Total time spent, exclusive of procedures, for patient care was a minimum of 110 minutes , reviewing test results, discussing findings with patient, examining and evaluating the patient, counseling the patient, reviewing previous provider notes, discussion with PT, medication reconciliation, documenting the progress note, speaking with facility staff and coordinating additional care as needed. [email or web address] Not available 05/23/2023 14:11:20 06/01/2023 06/01/2023 Total time spent, exclusive of procedures, for patient care was a minimum of 60 minutes , reviewing test results, discussing findings with patient, examining and evaluating the patient, counseling the patient, documenting the progress note, speaking with daughter, speaking with facility staff and coordinating additional care as needed. [email or web address] Not available 06/02/2023 18:19:32 Plan of Treatment Reminders Order Date Submit Date Provider Last Modified By Organization Details Last Modified Time Details Appointments None recorded. Lab None recorded. Referral None recorded. Procedures None recorded. Surgeries None recorded. Imaging None recorded. Medication Orders azithromyci n 250 mg tablet 2023 024 [facility] #[id number], [address], [place], [place], [id number], 4 13:32:50 benzonatate 200 mg capsule 2023 024 [facility] #[id number], [address], [place], [place], [id number], 4 13:33:41 prednisone 5 mg tablets in a dose pack 2023 024 [facility] #[id number], [address], [place], [place], [id number], 4 13:36:30 prednisone 5 mg tablets in a dose pack 2023 024 [facility] #[id number], [address], [place], [place], [id number], 4 13:36:40 Patient TargetsNo targets recorded. Patient InstructionsNo instructions recorded. Reason for Referral None Reported. Results Created Date Observation Date Name Description Value Unit Range Abnormal Flag Note LastModifiedBy Organization Detail LastModifiedTime 01/08/20 24 11/04/2022 imagi ng/janice rivera tic resul t No observ ation record ed. [email or web address] Not Available 03:36:45 Result Notes None recorded. Problems Name Problem SNOMED Code Status Onset Date Resolution Date Notes Provider Name and Address Organization Details Recorded Time Type 2 diabetes mellitus without complicatio n 867872446 Active 2023 Elsie Richardson MD [address], [place], [address] , [facility] 17:47:20 Blood coagulation disorder 47831970 Active 2023 Elsie Richardson MD [address], [place], [address], [facility] 4 17:47:20 Adjustment disorder with anxious mood 24242714 Active 2023 Elsie Richardson MD [address], [place], [address], [facility] 4 17:47:20 Major depressive disorder 930144906 Active 2023 Elsie Richardson MD [address], [place], [address], [facility] 4 17:47:20 Chronic pain syndrome 954051548 Active 2023 Elsie Richardson MD [address], [place], [address], [facility] 4 15:33:15 Polyneuropa thy 61393138 Active 2023 Elsie Richardson MD [address], [place], [address], [facility] 4 15:34:02 Type 2 diabetes mellitus 85947265 Active 2023 Elsie Richardson MD [address], [place], [address], [facility] 4 15:34:19 Chronic kidney disease stage 2 026087676 Active 2023 Elsie Richardson MD [address], [place], [address], [facility] 4 15:35:57 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 3209453464197 Active 2023 Elsie Richardson MD [address], [place], [address], [facility] 4 15:36:07 Essential hypertensio n 62972157 Active Elsie Richardson MD [address], [place], [address], [facility] 3 13:56:50 Diabetes mellitus 93167473 Active Elsie MD [address], [place], [address], [facility] 3 13:57:38 Spinal stenosis 87302832 MD [address], [place], [address], [facility] 3 13:57:56 Protein S deficiency disease 0148933 MD [address], [place], [address], [facility] 3 13:58:16 Hypothyroid ism 39255421 MD [address], [place], [address], [facility] 3 13:59:02 Anxiety 43856655 MD [address], [place], [address], [facility] 3 13:59:16 Insomnia 554388367 MD [address], [place], [address], [facility] 3 13:59:33 Retention of urine 605117316 MD [address], [place], [address], [facility] 3 13:59:48 Recurrent urinary tract infection 615815971 MD [address], [place], [address], [facility] 3 14:00:06 Hyperlipide keli 76943360 MD [address], [place], [address], [facility] 3 14:00:20 Depressive disorder 82529793 MD [address], [place], [address], [facility] 3 14:00:34 Problem Notes None recorded. Procedures Surgical History Date Name Laterality Status Provider Name and Address Organization Details Recorded Time replacement of bilateral knee joints completed [facility] 02/21/2023 13:45:42 replacement of bilateral hip joints completed [facility] 02/21/2023 13:45:53 hysterectomy completed [facility] 02/21/2023 13:46:01 partial replacement of joint of right shoulder completed [facility] 02/21/2023 13:46:31 Cholecystectomy completed [facility] 02/21/2023 13:46:45 laminectomy completed [facility] 02/21/2023 13:46:58 Imaging Results None recorded. Procedure Notes None recorded. Medical Equipment None Reported. Allergies No known drug allergies Medications Name Sig Start Date Stop Date Status Note LastModified by Organization Details LastModified Time Prescript ion - Renewal 05/28 completed Prescrip tion Request Not Available Not Available Not Available cyclobenz aprine 10 mg tablet Take 1 tablet 3 times a day by oral route as needed for 90 days. 05/28 completed Not Available Not Available Not Available gabapenti n 600 mg tablet TAKE 1 TABLET BY MOUTH FOUR TIMES DAILY active Not Available Not Available No t Available azithromy edie 250 mg tablet TAKE 2 TABLETS (500 MG) BY ORAL ROUTE ONCE DAILY FOR 1 DAY THEN 1 TABLET (250 MG) BY ORAL ROUTE ONCE DAILY FOR 4 DAYS 05/28 completed Not Available Not Available Not Available pravastat in 40 mg tablet TAKE 1 TABLET BY MOUTH ONCE DAILY Dx:HYPER LIPIDEMI A SELF 2023 active Renewal Request Not Available Not Available Not Available benzonata te 200 mg capsule Take 1 capsule 3 times a day by oral route as needed for 5 days. 05/28 completed Not Available Not Available Not Available clonazepa m 1 mg tablet Take 1 tablet every other day by oral route for 30 days. 05/28 completed Not Available Not Available Not Available acetamino phen 500 mg tablet Take 1 tablet 3 times a day by oral route as needed for 90 days. 05/28 completed Not Available Not Available Not Available glimepiri de 2 mg tablet TAKE 1 TABLET BY MOUTH EVERY DAY WITH A MEAL X 30 DYAS active Renewal Request Not Available Not Available Not Available trazodone 100 mg tablet Take 1 tablet every day by oral route at bedtime for 30 days. 2023 active Not Available Not Available Not Avai lable levothyro xine 50 mcg tablet TAKE 1 TABLET BY MOUTH EVERY MORNING active Renewal Request Not Available Not Available Not Available metformin 1,000 mg tablet Take 1 tablet twice a day by oral route for 90 days. 04/18 completed Not Available Not Available Not Available oxybutyni n chloride ER 5 mg tablet,ex tended release 24 hr Take 1 tablet every day by oral route for 30 days. 2023 active Not Available Not Available Not Avai lable hydralazi ne 50 mg tablet TAKE 1 TABLET BY MOUTH THREE TIMES DAILY DX: HYPERTEN ALYSSA *SELF* 2023 active Renewal Request Not Available Not Available Not Available prednison e 5 mg tablets in a dose pack Take 1 tablet 3 times a day by oral route for 5 days. 05/28 completed Not Available Not Available Not Available lisinopri l 40 mg tablet TAKE 1 TABLET BY MOUTH EVERY DAY DIRECTED active Renewal Request Not Available Not Available Not Available acetamino phen 500 mg capsule Take 2 capsules twice a day by oral route for 90 days. 05/28 completed Not Available Not Available Not Available clonazepa m 1 mg disintegr ating tablet Place 1 tablet every day by translin gual route. 02/06 completed Not Available Not Available Not Available escitalop keyana 5 mg tablet TAKE 1 TABLET BY MOUTH EVERY DAY active Renewal Request Not Available Not Available Not Available levothyro xine 03/23 completed Sodium (50 MCG Tablet)1 tablet in the morning on an empty stomach Once a day , Orally Not Available Not Available Not Available cyclobenz aprine 02/06 completed HCl (10 MG Tablet)1 tablet three times daily as needed for muscle spasm , Orally Not Available Not Available Not Available trazodone 02/21 completed HCl (50 MG Tablet)2 tablet at bedtime as needed Once a day , Orally Not Available Not Available Not Available Myrbetriq 50 mg tablet,ex tended release Take 1 tablet as needed by oral route as directed . 03/31 completed Not Available Not Available Not Available Eliquis 5 mg tablet TAKE 1 TABLET BY MOUTH TWICE DAILY DIRECTED active Renewal Request Not Available Not Available Not Available Rybelsus 14 mg tablet Take 1 tablet every day by oral route. 05/28 completed give at least 30 minutes prior to injestin g food Not Available Not Available Not Available Vitals Date Recorded Oxygen saturation Oxygen saturation in Arterial blood by Pulse oximetry Heart rate Respiratory rate Systolic And Diastolic Provider Name and Address Organization Details Last Updated DateTime 4 95 % 95 % 78 /min 18 /min 142/83 mm[Hg] Elsie Richardson MD [address], [place], [address], [place] [facility] 4 15:22:54 Date Recorded Oxygen saturation Oxygen saturation in Arterial blood by Pulse oximetry Heart rate Respiratory rate Body temperature Systolic And Diastolic Provider Name and Address Organization Details Last Updated DateTime 4 96 % 96 % 66 /min 16 /min 97.8 [degF] 115/61 mm[Hg] Tristona Darian [facility] 4 14:04:16 Date Recorded Oxygen saturation Oxygen saturation in Arterial blood by Pulse oximetry Heart rate Respiratory rate Body temperature Systolic And Diastolic Provider Name and Address Organization Details Last Updated DateTime 4 92 % 92 % 75 /min 16 /min 98.6 [degF] 126/77 mm[Hg] Ronaldoa Hartjh [facility] 4 10:32:47 Date Recorded Oxygen saturation Oxygen saturation in Arterial blood by Pulse oximetry Heart rate Respiratory rate Systolic And Diastolic Provider Name and Address Organization Details Last Updated DateTime 4 98 % 98 % 65 /min 17 /min 115/54 mm[Hg] GAURANG Orta-LETI [address], [place], [address], [place] [facility] 4 14:03:49 Date Recorded Oxygen saturation Oxygen saturation in Arterial blood by Pulse oximetry Heart rate Respiratory rate Systolic And Diastolic Provider Name and Address Organization Details Last Updated DateTime 4 99 % 99 % 70 /min 18 /min 142/66 mm[Hg] Nayeli Sampson [facility] [address], [place], [address], [place] [facility] 4 18:05:33 Social History None recorded. Functional Status None recorded. Mental Status None recorded. Family History Nothing Reported. Medical History No medical history recorded. Gynecological HistoryNo gynecological history recorded. Obstetrics History GPAL:G 0 P 0 0 0 0 Past Encounters Encounter ID Performer Location Encounter Start Date Encounter Closed Date Diagnosis/Indication Diagnosis SNOMED-CT Code Diagnosis ICD10 Code Diagnosis Note 800 Elsie Richardson MD [facility] Main Office [address] [place] [address] 02/06/2023 12:54:48 02/07/2023 13:06:01 Type 2 diabetes mellitus without complication 263321551 E11.9 check A1c - off rybelsus - on glimiperid e Essential hypertension 06715865 I10 BP elevated today but did not take hydralazin e as daughter had refill - given at visit today - monitor 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 h/o protein S - on eliquis Hypothyroidism 66882803 E03.9 continue levothyrox ine - TSH Adjustment disorder with anxious mood 99269275 F43.22 stable History of recurrent urinary tract infection 921028858 Z87.440 stable Hyperlipidemia 63265270 E78.5 continue statin Major depr essive disorder 659870047 F32.9 stable on lexapro Total time spent, including prolonged additional time, exclusive of procedures , for patient care was a minimum of 165 minutes prepping chart the day before, reviewing test results, discussing findings with patient, examining and evaluating the patient, counseling the patient, documentin g the progress note and coordinati ng additional care as needed. Total time was prolonged due prolonged counseling , discussion with daughter, review of labs, ordering labs, chart review 02/05 prior to visit, discussion with facility staff, medication reconcilia tion, pain assessment , review of POC. [id number] Shi Farmer PA-C [facility] Main Office [address] [place] [address] 02/21/2023 13:41:46 02/28/2023 10:11:36 Type 2 diabetes mellitus 82185244 E11.9 educated on diet low in complex carbohydra darron and concentrat ed sweets Protein S deficiency disease 1077321 D68.59 symptoms stable. continue with current eliquis. Recurrent urinary tract infection 224622263 N39.0 symptoms stable today. inform staff of any changes in symptoms. [id number] Shi Farmer PA-C [facility] Main Office [facility] [place] [address] 03/23/2023 15:30:10 03/23/2023 16:00:01 Essential hypertension 62358147 I10 levels elevated on todays visit. patient educated to take her morning meds. will assess levels each visit. Hyperlipidemia 79167013 E78.5 educated on avoiding processed carbohydra darron like crackers, cereal and pasta. will assess levels each lab draw. Hypothyroidism 51777787 E03.9 continue with current medication regiemn. report any changes in symptoms. will assess with each lab draw. [id number] Elsie Richardson MD [facility] Main Office [address] [facility] [place] [address] 04/14/2023 15:31:19 04/17/2023 10:20:34 Blood coagulation disorder 80598744 D53.0 h/o protein S - on eliquis Hypothyroidism 61563748 E03.9 continue levothyrox ine - TSH 2.015 Adjustment disorder with anxious mood 96644486 F43.22 stable History of recurrent urinary tract infection 860149326 Z87.440 stable Hyperlipidemia 14941620 E78.5 continue statin Major depr essive disorder 414612139 F32.9 stable on lexapro Total time spent, including prolonged additional time, exclusive of procedures , for patient care was a minimum of 90 minutes prepping chart the day before, reviewing test results, discussing findings with patient, examining and evaluating the patient, counseling the patient, documentin g the progress note and coordinati ng additional care as needed. Total time was prolonged due prolonged counseling , review of labs, pain assessment , chart review 04/13 prior to visit, discussion with facility staff, medication reconcilia tion, review of POC. Chronic pain syndrome 37 3567276 G89.4 stable on tylenol, flexeril Polyneuropathy 30152454 G62.9 Type 2 hector betes mellitus 68785135 E11.42 A1c 7 good control for age and comorbids - continue metformin, glimiperid e - monitor CrCl Chronic ki dney disease stage 2 290995050 N18.2 Cr 0.9 - avoid nephrotoxi ns Hypertensi ve heart and chronic kidney disease 8890593960 104 I13.10 BP fair control on current regimen [id number] Shi Farmer PA-C [facility] Main Office [address] [place] [address] 04/18/2023 14:03:37 04/18/2023 14:22:59 Protein S deficiency disease 9636285 D68.59 symptoms stable. continue with current eliquis. will continue to monitor for dizziness/ syncope. Type 2 hector betes mellitus 70067312 E11.9 educated on diet low in complex carbohydra darron and concentrat ed sweets. off metformin. Diarrhea 79107107 R19.7 symptoms stable. only to use immodium prn. [id number] Shi Farmer PA-C [facility] Main Office [address] [place] [address] 04/25/2023 10:32:16 04/25/2023 10:48:16 Acute upper respiratory infection 37649736 J06.9 staff to continue to monitor oxygen levels. educated when to send to ED Type 2 hector betes mellitus 09928684 E11.9 monitor blood sugar. educated on diet low in complex carbohydra darron and concentrat ed sweets. off metformin. Essential hypertension 44877570 I10 levels WNL on todays visit. will assess levels each visit. [id number] Nayeli Sampson [facility] Main Office [address] [place] [address] 05/23/2023 14:03:07 05/23/2023 14:12:14 Type 2 diabetes mellitus without complication 299495830 E11.9 Continue medication s as prescribed . Blood sugar control emphasized . Avoid concentrat ed sweets, sweetened beverages and limit intake of complex carbohydra darron, breads, crackers, cereals, pasta, rice, and alcohol. Monitor for symptoms or mental status changes, excessive thirst, or excessive urination. Polyneuropathy 91003952 G62.9 Stable. Monitor for worsening. Hypertensi ve heart and chronic kidney disease 4923743784 104 I13.10 Avoid sodium in diet and use of NSAIDs if possible. Report any swelling, lung congestion , change in mental status. Will monitor lab work and adjust treatment accordingl y. Chronic ki dney disease stage 2 680696923 N18.2 Avoid sodium in diet and use of NSAIDs if possible. Report any swelling, lung congestion , change in mental status. Will monitor lab work and adjust treatment accordingl y. Chronic pain syndrome 37 1379264 G89.4 Stable. Monitor for worsening. Major depr essive disorder 654403569 F32.9 Report worsening depression /anxiety/s leep disturbanc e. Report significan t changes in appetite or weight. 911 for suicidal ideations. Monitor for possible medication side effects. Referral to psych provider as indicated (stable on current mediation regimen). Adjustment disorder with anxious mood 03288500 F43.22 Identify triggers for anxiety and impact of anxious thinking on functionin g. Discussed strategies to regulate symptoms. Avoid stressful situations . Continue medication s as ordered. Monitor for worsening anxiety. Hyperlipidemia 54863693 E78.5 Continue statin as prescribed . Educated on low fat, low cholestero l diet. Limit intake of complex carbohydra darron, bread, crackers, cereal, pasta, rice, and alcohol. Will follow up with labs and manage treatment accordingl y. Essential hypertension 34232665 I10 Educated on low sodium diet. Continue medication s as prescribed . Report vision changes, dizziness, nose bleeds, headache. Call 911 for chest pain, trouble breathing, or signs of stroke. Insomnia 004113641 G47.0 1 Report worsening of symptoms or sleepwalki ng. Encouraged sleep hygiene. Promote adequate sleep, adequate PO intake. Continue medication s as prescribed . Report ineffectiv eness of medication . Nayeli Sampson [facility] Main Office [address] [place] [address] 06/02/2023 18:02:25 06/02/2023 18:20:15 Anxiety 30666034 F41.9 Continue medication s as prescribed . Bleeding precaution s. 911 for signs/symp toms of stroke. Report palpitatio ns, dizziness, light headedness , fatigue, weakness, impaired exercises intoleranc e, angina, dyspnea, and/or irregularl y irregular rhythm. Depressive disorder 1658 900 F32.A Report worsening depression /anxiety/s tete moseley. Report significan t changes in appetite or weight. 911 for suicidal ideations. Monitor for possible medication side effects. Referral to psych provider as indicated (stable on current mediation regimen). Diabetes mellitus 300971 09 E11.9 Continue medication s as prescribed . Blood sugar control emphasized . Avoid concentrat ed sweets, sweetened beverages and limit intake of complex carbohydra darron, breads, crackers, cereals, pasta, rice, and alcohol. Monitor for symptoms or mental status changes, excessive thirst, or excessive urination. Essential hypertension 04494684 I10 Educated on low sodium diet. Continue medication s as prescribed . Report vision changes, dizziness, nose bleeds, headache. Call 911 for chest pain, trouble breathing, or signs of stroke. Hyperlipidemia 58784053 E78.5 Continue statin as prescribed . Educated on low fat, low cholestero l diet. Limit intake of complex carbohydra darron, bread, crackers, cereal, pasta, rice, and alcohol. Will follow up with labs and manage treatment accordingl y. Hypothyroidism 13875679 E03.9 Continue levothyrox ine. Monitor TSH to ensure adequate replacemen t and dose adjustment s as necessary. Report increase in fatigue, changes to bowel pattern, sleep pattern, appetite, or weight. Chronic ki dney disease stage 2 029935208 N18.2 Avoid sodium in diet and use of NSAIDs if possible. Report any swelling, lung congestion , change in mental status. Will monitor lab work and adjust treatment accordingl y. Hypertensi ve heart and chronic kidney disease 0223200936 104 I13.10 Avoid sodium in diet and use of NSAIDs if possible. Report any swelling, lung congestion , change in mental status. Will monitor lab work and adjust treatment accordingl y. Health Concerns Section Related Observation LastModified by Organization Detai ls LastModified Time None Recorded Concern Status LastModified by Organization Details LastModified Time None Recorded Advance Directives Directive None Recorded Payers Insurance Date Sequence Insurance Name Policy Number Policy Fox Covered Member ID Fox Member ID Guarantor Name 08/08/2023 1 [place] Marisela Franz [id number] Marisela Franz 08/08/2023 2 [place] [id number] Marisela Franz [id number] Marisela Franz Notes Date Note Type Note Provider Name and Address Organization Details Recorded Time 04/14/2023 text/html Pleasant 87 year old female with history of DM, HTN, HLD, hypothyroidism, protein S deficiency, OA, recurrent UTI, depression, anxiety, falls, spinal stenosis seen at [facility] for MD followup of comorbidities. The patient is homebound due to functional deficits from above conditions. Transportation to a physician's office is taxing and a barrier to care necessitating home health services. The patient is a fair historian but history also obtained from facility records/staff, MPS progess notes, medical records. The patient continues to do well. She has minimal L>R shoulder pain. Getting scheduled tylenol, flexeril prn, prn voltaren. Using gabapentin for neuropathy. Sitting outside today and feels well. No complaints. Denies SOB, CP. No resumption of dizzy spells. No falls since last visit. Fall safety precautions reviewed. Has a good appetite. Some occasional trouble with swallowing cutting meats. No issues with bowels. Sleep improved. She was having some increased BP in Feb on [facility] visit but did not take am meds. Labs 02/07 reviewed Labs 02/07Cr 0.9Glucose 148TSH 2.015WBC 4.8hgb 11.2Plt 295 Labs 11/25 INR 1.52 Labs 10/07 Cr 0.8 Glucose 178 TC 205 TG 168 LDL 125 TSH 1.28 WBC 4.6 Hgb 12.1 Plt 317 PTT 24.7 INR 2.2. Elsie Richardson MD [address], [place], [address], [facility] 04/14/2023 15:37:28 04/18/2023 text/html 87 year old sada mims is being seen as a follow up patient for management of chronic conditions. patient is home bound due to multiple chronic conditions, qualifying her for home bound services.-*discussed care with staff today. staff denies any changes in appetite, medication non compliance, changes in behaviors or mentation. staff to inform me of any changes in conditions. PROTEIN S DEF - symptoms are stable. patient is doing well on current eliquis, although some dizziness was reported. patient and daughter were educated on side effect of dizziness and syncope with eliquis. will continue to monitor.DM2 - symptoms are stable. patient is no longer taking metformin due to adverse effects. she is now on rybelsus for her condition. will check A1C each blood draw.DIARRHEA - patient was taking immodium for diarrhea. patient reports she is now having BM every other day. daughter manages medications and we discussed holding the immodium and to use PRN for symptoms. LANETTE Cuellar - [facility] 04/18/2023 14:22:43 04/25/2023 text/html 87 year old sada mims is being seen as a follow up patient for management of chronic conditions. patient is home bound due to multiple chronic conditions, qualifying her for home bound services.-*discussed care with staff and daughter today. daughter requests today visit due to patients recent cold. COUGH - patient has had acute cough for about a week now. chest x-ray was done and there were no acute changes found. patient denies any fevers, but reports she cannot stop coughing. discussed antibiotic with daughter for URI, with addition of cough suppresant medications. daughter agrees. staff to check oxygen levels as it was lower than normal today.DM2 - discussed with daughter steriod may be helpful due to acute inflammation of lungs, but steriod will increase the blood sugar. daughter is aware and agrees with continuation of periodically checking blood sugar levels.HTN - levels are well controlled today. educated on hydration due to acute illness. will have staff periodically check levels to ensure properly hydrated. LANETTE Cuellar - [facility] 04/25/2023 10:48:09 05/23/2023 text/html Patient is homeb ound due to multiple chronic conditions requiring the assistance of others for transportation to appointments outside the home. This is taxing on the patient necessitating home care visits.*Patient is a fair historian. History obtained with assistance from EMR and facility staff.*MPS provider notes reviewed.*Pleasant patient being seen face to face for the following: HTN, DM, insomnia.Patient was found up working with PT. No acute distress noted. Denies any worsening in pain, shortness of breath, or changes in sensation. Notes to be eating and sleeping well. Staff denies any concern for mood, mentation, or behavior.HTN - No reported adverse effects to medications. Patient denies any headache, visual changes, dizziness, dyspnea, chest pain, or sensory/motor deficits outside of baseline.Dementia - Patient has a long history of dementia; exact onset unknown. Staff denies any acute concerns or changes to mood, memory, or behavior. No identified concerns with appetite or nutritional intake.Insomnia - Encouraged sleep hygiene. Stable. GAURANG OrtaBC [address], [place], [address], [facility] 05/23/2023 14:11:58 06/01/2023 text/html Patient is homeb ound due to multiple chronic conditions requiring the assistance of others for transportation to appointments outside the home. This is taxing on the patient necessitating home care visits.*Patient is a poor historian. History obtained with assistance from EMR and daughter.*MPS provider notes reviewed.*Pleasant patient being seen face to face in private room for the following: wound, CKD, HLD. Patient was found sitting up in recliner chair. No acute distress noted. Denies any worsening in pain, shortness of breath, or changes in sensation. Notes to be eating and sleeping well. Staff/daughter denies any concern for mood, mentation, or behavior.Wound - Patient with wound to LLE. Patient states that she was attempting to get out of bed and accidentally hit against a part of her walker. Area is tender to palpation. Wound care as ordered.CKD - Patient follows low sodium diet. No history of diabetes. He has well controlled hypertension. Denies oliguria, pruritis, hematuria, abdominal pain or change in mental status.HLD - Denies abdominal pain, nausea/vomiting, increasing muscle weakness or myalgia, chest pain, shortness of breath, or syncope. BALWINDER OrtaBC [address], [place], [address], [facility] 06/02/2023 18:20:03 OBGyn Episode No OBEpisode recorded.
--- OUTSIDE RECORDS SUMMARY | 2024-09-02 11:47 | XMS_ITS | Patient Health Record ---
Author Organization [facility] Address [address] [place] [address] Care Team Providers Care Purchasing Buyer Name Role Phone Manuel Fitch Unavailable [phone] Internet, internet Unavailable Unavailable Reason For Referral No Information Plan Of Treatment No Information Insurance Providers Payer Name Payer Address Payer Phone Subscriber Number Group Number Insured Name Patient Relationship to Insured Coverage Start Date Coverage End Date Medicare Part B [address] [place] [phone] [id number] Marisela Franz Self - patient is the insured [facility] [address] [place] [address] [id number] Marisela Franz Self - patient is the insured
--- OUTSIDE RECORDS SUMMARY | 2024-09-02 11:47 | XMS_ITS | Encounter Summary ---
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 No / Unsure 05/28/2020 3:16 PM CDT documented as of this encounter Functional Status documented as of this encounter Plan of Treatment Not on file documented as of this encounter Results * PRE-SURGICAL/PRE-PROCEDURE CORONAVIRUS (COVID 19) (05/29/2020 10:11 AM CDT) CORONAVIRUS SARS COV 2 PCR (RESP) NOT DETECTED NOT DETECTED 05/30/2020 2:16 PM CDT [facility] Comment: A Not Detected (negative) test result for this test means that SARS-CoV-2 RNA was not present in the specimen above the limit of detection. A negative result does not rule out the possibility of COVID-19 and should not be used as the sole basis for treatment or patient management decisions. If COVID-19 is still suspected, based on exposure history together with other clinical findings, re-testing should be considered in consultation with public health authorities. Laboratory test results should always be considered in the context of clinical observations and epidemiological data in making a final diagnosis and patient management decisions. This patient specimen was tested using an FDA EUA pooling method. Negative results from pooled testing should not be treated as definitive. If the patient's clinical signs and symptoms are inconsistent with a negative result or results are necessary for patient management, then the patient should be considered for individual testing. In very rare cases, estimated at about 8 in 1,000 (0.8%) or less patient specimens with low viral loads may not be detected in sample pools due to the decreased sensitivity of pooled testing. Please review the Fact Sheets and FDA authorized labeling available for health care providers and patients using the following websites: https://www.dxcare.com.com/home/Covid-19/HCP/rc- ymal-miv5-pqlx-sheet.html https://www.dxcare.com.com/home/Covid-19/Patients/ hp-rsyt-hsa0-fact-sheet.html This test has been authorized by the FDA under an Emergency Use Authorization (EUA) for use by authorized laboratories. Due to the current public health emergency, [facility] is receiving a high volume of samples from a wide variety of swabs and media for COVID-19 testing. In order to serve patients during this public health crisis, samples from appropriate clinical sources are being tested. Negative test results derived from specimens received in non-commercially manufactured viral collection and transport media, or in media and sample collection kits not yet authorized by FDA for COVID-19 testing should be cautiously evaluated and the patient potentially subjected to extra precautions such as additional clinical monitoring, including collection of an additional specimen. Methodology: Nucleic Acid Amplification Test (NAAT) includes RT-PCR or TMA Additional information about COVID-19 can be found at the [facility] website: www.[facility].com/Covid19. Test performed at [facility] [address] [address] Director: TONI CISNEROS DO,MPH FIRST TEST NO 05/29/2020 1:59 PM CDT [facility] EMPLOYED IN HEALTHCARE NO 05/29/2020 1:59 PM CDT [facility] SYMPTOMATIC DEFINED BY CDC NO 05/29/2020 1:59 PM CDT [facility] DATE OF SYMPTOM ONSET NO 05/29/2020 2:01 PM CDT [facility] HOSPITALIZATION STATUS NO 05/29/2020 1:59 PM CDT [facility] PATIENT IN ICU NO 05/29/2020 1:59 PM CDT [facility] RESIDENT OF [facility] CARE NO 05/29/2020 1:59 PM CDT [facility] NOT 05/29/2020 2:01 PM CDT [facility] PATIENT'S RACE WHITE OR 05/29/2020 1:59 PM CDT [facility] ETHNICITY NONHISPANIC 05/29/2020 1:59 PM CDT [facility] SOURCE (QST) NASOPHARYNGEAL SWAB 05/29/2020 1:59 PM CDT [facility] NASOPHARYNGEAL SWAB / Unknown 05/29/2020 10:11 AM CDT us Raheem Zambrano MD MICROBIOLOGY - GENERAL ORDERABLE S Final Result [facility] [address] 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
[2024-09-02 13:20] LABS: Hematocrit 37.1 % (37.0-47.0); Hemoglobin 12.0 g/dL (12.0-15.0); Immature Granulocyte Percent A 0.5 % (0-0.5); Lymphocytes Absolute Auto 2.13 K/mm3 (0.9-3.2); Mean Corpuscular HGB Conc 32.3 g/dl (32-36); Mean Corpuscular Hemoglobin 32.0 pg (26-34); Mean Corpuscular Volume 98.9 fl (80-100); Nucleated Red Blood Cells Absolute Auto 0.000 K/mm3 (0.0-0.012); Nucleated Red Blood Cells Perc 0.0 % (0.0-0.2); Platelet Count Result 314 k/mm3 (150-375); Red Blood Count 3.75 M/mm3 (4.2-5.4); White Blood Count 7.8 K/mm3 (4.5-10.0)
[2024-09-02 13:39] LABS: Alanine Aminotransferase 12 U/L (6-35); Albumin Level 4.0 g/dL (3.5-5.1); Alkaline Phosphatase 66 U/L (38-126); Anion Gap 8 mmol/L (4-12); Aspartate Amino Transferase 31 U/L (14-36); Bilirubin,Total 0.5 mg/dL (0.2-1.3); Blood Urea Nitrogen 11 mg/dL (7-17); Calcium 9.2 mg/dL (8.4-10.2); Carbon Dioxide 27 mmol/L (22-30); Chloride 104 mmol/L (98-107); Cholesterol 280 mg/dL (0-200); Estimated Glomerular Filt Rate 54; Glucose 150 mg/dL (65-110); HDL Direct 37 mg/dL; Potassium 4.2 mmol/L (3.4-5.0); Sodium 139 mmol/L (137-145); Total Protein 8.5 g/dL (6.3-8.2); Triglycerides 180 mg/dL (<150)
[2024-09-02 14:00] LABS: MALB Creatinine Ratio < 11.0 mg/g (0-30)
[2024-09-02 14:14] LABS: Thyroid Stimulating Hormone 1.550 uIU/mL (0.465-4.680)
[2024-09-02 14:20] LABS: Ferritin 32.00 ng/mL (11.1-264)
[2024-09-02 14:32] LABS: Vitamin B12 297.0 pg/mL (239-931)
[2024-09-02 17:35] LABS: Hemoglobin A1C 6.7 % (<5.7)
== END 2024-09-02 11:42 | disposition home or self-care (01) ==
PROVIDERS: PCP Family Medicine; Visit Provider Family Medicine
DX: D64.9 Anemia, unspecified (principal); E03.9 Hypothyroidism, unspecified; E78.2 Mixed hyperlipidemia; E11.9 Type 2 diabetes mellitus without complications; R77.9 Abnormality of plasma protein, unspecified; G62.9 Polyneuropathy, unspecified; Z79.01 Long term (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
CPT/HCPCS: 36415; 80053; 80061; 82043; 82607; 82728; 83036; 84443; 85025

== ENCOUNTER 2024-12-12 09:25 | Outpatient (CLI) | payer MEDICARE, SELFPAY ==
--- OUTSIDE RECORDS SUMMARY | 2024-12-12 10:22 | XMS_ITS | Clinical Summary ---
Author Organization [facility] Address [address] [place] [address] Care Team Providers Care Photographic Machine Operator Name Role Phone Unavailable Primary Care Provider Unavailabl e Source Comments [facility],non-[facility] Affiliates and Associated Physician Practices is amultiple site organization consisting of ambulatory clinics and hospital sitesin [place], [place], [place] and [place]. This disclosure is being madepursuant to the Care Everywhere program and may not contain all information available regarding this patient. Last updated 17.[facility] Social History Tobacco Use Types Packs/Day Years [...] yrs (1 - 1-dose 75+ series) 12/11/2011 DEPRESSION SCREENING 02/28/2024 COVID-19 VACCINE (1 - 2023-2 5 season) 2024 INFLUENZA VACCINE (#1) 2024 HEPATITIS B VACCINE [...] age to complete this topic Insurance MEDICARE [facility]
--- OUTSIDE RECORDS SUMMARY | 2024-12-12 10:22 | XMS_ITS | Patient Health Record ---
Author Organization [facility], [facility] Address [address] [place] [address] Care Team Providers Care Wafer Machine Operator Name Role Phone Provider, Outside Primary Care Provider [phone] Reason For Referral No Information Plan Of Treatment No Information
--- OUTSIDE RECORDS SUMMARY | 2024-12-12 10:23 | XMS_ITS | Patient Health Record ---
Author Organization [facility] Address [address] [place] [address] Care Team Providers Care Intake Man Name Role Phone Manuel Fitch Unavailable [phone] Internet, internet Unavailable Unavailable Reason For Referral No Information Plan Of Treatment No Information Insurance Providers Payer Name Payer Address Payer Phone Subscriber Number Group Number Insured Name Patient Relationship to Insured Coverage Start Date Coverage End Date Medicare Part B [address] [place] [phone] [id number] Marisela Franz Self - patient is the insured [facility] [address] [place] [address] [id number] Marisela Franz Self - patient is the insured
--- OUTSIDE RECORDS SUMMARY | 2024-12-12 10:23 | XMS_ITS | Encounter Summary ---
Author Organization [facility] Address [address] [place] [address] Care Team Providers Care Rn Anesthesiology Name Role Phone Unavailable Primary Care Provider Unavailabl e Encounter Details Date Type Department Care Team (Late st Contact Info) Description 09/07/2020 Lab Requisition [facility] [address] [place] [address] Mendoza Galdamez MD [address] [place] [address] Social History Tobacco Use Types Packs/Day Years [...] AM CDT) Case Report Dermatopathology Report Case: [id number] Authorizing Provider: Mendoza Galdamez MD Collected: 09/03/2020 03:33 AM Ordering Location: [facility] Received: 09/07/2020 06:54 AM Pathologist: [...] SPECIMEN (D04.5) (see microscopic description and comment) 1 5:27 PM T DERMATOPATHOLOGY LABORATORY at 1727 CDT 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 B: AK vs SCCA vs SK. Path# [id number]. 1 5:27 PM T DERMATOPATHOLOGY LABORATORY Gross Description Specimen A: Received is one formalin filled container labeled with the patient's name and designated left nasal SW. The specimen consists of a shave biopsy measuring 7m1b5bq. Jar 0. Specimen B: Received is one formalin filled container labeled with the patient's name and designated lower mid chest. The specimen consists of a shave biopsy measuring 1r0p5hx. Jar 0. 5:27 PM T DERMATOPATHOLOGY LABORATORY Microscopic Description Specimen A. SKIN, [...] Additional deeper sections were obtained and reviewed. 5:27 PM T DERMATOPATHOLOGY LABORATORY Disclaimer An external and internal positive and negative controls are appropriate for the histochemical, immunohistochemical and immunofluorescence stain(s) in this case (if any), except where stated explicitly. The performance characteristics of the stain(s) cited in this report were developed and its performance characteristic determined by the Dermatopathology Laboratory at [facility], directed by Dr. Frankie Eastman. These tests need not be, and therefore are not, approved by the [place] Food and Drug Administration. The tests are used for clinical purposes. Billing Codes Specimen Charges Stain Charges 66930 10960 1 1 1 5:27 PM CDT DERMATOPATHOLOGY LABORATORY Embedded Images 5:27 PM CDT DERMATOPATHOLOGY LABORATORY Pathology/Cytology TISSUE SPECIMEN FROM SKIN / Unknown 09/03/2020 3:33 AM CDT 09/07/2020 6:54 AM CDT Miscellaneous samples (specimen) TISSUE SPECIMEN FROM SKIN / Unknown 09/03/2020 3:33 AM CDT 09/07/2020 6:54 AM CDT us Mendoza Galdamez MD LAB - PATHOLOGY/CYTOLOGY ORDER MARISABEL Final Result DERMATOPATHOLOGY LABORATORY [facility] - Department of Dermatology [facility] Specialized Medicine [address] [place] [address], [address] [phone] documented in this encounter Visit Diagnoses Not on filedocumented in this encounter
--- OUTSIDE RECORDS SUMMARY | 2024-12-12 10:23 | XMS_ITS | Clinical Summary ---
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 Gender Identity Not on file Sexual Orientation [...] 75+ series) 12/11/2011 COVID-19 Vaccine (2 - 2024-2 6 season) 2024 05/12/2020 Influenza Adult (#1) 2024 Hepatitis A Vaccines Aged Out No long er eligible based on patient's age to complete this topic Meningococcal B Vaccine Aged Out No l [...] to maintain pain control General No Elsie Perea, RN Health - patient able to perform ADLs independently General No Dagmar Zapien, YOUTH SERVICES SPECIALIST Additional Health Concerns Infection Onset Date Last Indicated MRSA Comment:08/12/2020 +MRSA Toe 08/14/2020 08/14/2020 Insurance MEDICARE [facility] Advance Directives * Full Code (Latest Code [...] 2:19 PM 05/09/2020 12:47 AM Care Teams Application Development Director Relationship Specialty Start Date End Date Joseph Meeks MD [address] [place] [address] PCP - General INTERNAL MEDICINE 05/08/20 Raheem Zambrano MD [address] [place] [address] [address] [place] [address] Vascular/Casino Games Dealer VASCULAR SURGERY 07/30/20
--- OUTSIDE RECORDS SUMMARY | 2024-12-12 10:23 | XMS_ITS | Encounter Summary ---
Author Organization [facility] Address [address] [facility] [place] [address] Care Team Providers Care Tube Coverer Name Role Phone Unavailable Primary Care Provider Unavailabl e Encounter Details Date Type Department Care Team (Late st Contact Info) Description 05/06/2021 Lab Requisition [facility] [address] [place] [address] Mendoza Galdamez MD [address] [place] [address] Social History Tobacco Use Types Packs/Day Years [...] Comments DERMATOPATHOLOGY Routine 05/06/2021 12:0 0 AM PHOTOENGRAVER documented in this encounter Results * DERMATOPATHOLOGY (05/06/2021 12:00 AM PHOTOENGRAVER) Case Report Dermatopathology Report Case: [id number] Authorizing Provider: Mendoza Galdamez MD Collected: 05/06/2021 12:00 AM Ordering Location: [facility] Received: 05/06/2021 05:00 PM [...] MARGIN (D48.5) (see microscopic description and comment) 2 4:31 PM [facility] DERMATOPATHOLOGY LABORATORY at 1631 CDT Clinical History A: AK vs SCCA. Path # [id number]. B: SK vs lentigo vs MM. Path # [id number]. C: SK vs lentigo vs MM. Path # [id number]. 2 4:31 PM [facility] DERMATOPATHOLOGY LABORATORY Gross Description Specimen A: Received is one formalin filled container labeled with the patient's name and designated right forearm. The specimen consists of a shave biopsy measuring 24p1d2nd, bisected. Jar 0. Specimen B: Received is one formalin filled container labeled with the patient's name and designated right shoulder. The specimen consists of a shave biopsy measuring 4w2j4if. Jar 0. Specimen C: Received is one formalin filled container labeled with the patient's name and designated right postauricular. The specimen consists of a shave biopsy measuring 4l4m7mf. Jar 0. 2 4:31 PM [facility] DERMATOPATHOLOGY LABORATORY Microscopic Description Specimen A. SKIN, [...] characteristic determined by the Dermatopathology Laboratory at [facility], directed by Dr. Frankie Eastman. These tests need not be, and therefore are not, approved by the [place] Food and Drug Administration. The tests are used for clinical purposes. Billing Codes Specimen Charges Stain Charges 95194 38812 10458 1 1 1 70507 1 2 4:31 PM CDT DERMATOPATHOLOGY LABORATORY Embedded Images 2 4:31 PM CDT DERMATOPATHOLOGY LABORATORY Pathology/Cytology TISSUE SPECIMEN FROM SKIN / Unknown 05/06/2021 05/06/2021 5:00 PM PHOTOENGRAVER Miscellaneous samples (specimen) TISSUE SPECIMEN FROM SKIN / Unknown 05/06/2021 05/06/2021 5:00 PM PHOTOENGRAVER Miscellaneous samples (specimen) TISSUE SPECIMEN FROM SKIN / Unknown 05/06/2021 05/06/2021 5:00 PM PHOTOENGRAVER us Mendoza Galdamez MD LAB - PATHOLOGY/CYTOLOGY ORDER MARISABEL Final Result DERMATOPATHOLOGY LABORATORY [facility] Department of Dermatology [address], [address] [phone] documented in this encounter Visit Diagnoses Not on filedocumented in this encounter
--- OUTSIDE RECORDS SUMMARY | 2024-12-12 10:23 | XMS_ITS | Encounter Summary ---
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 Due to the current public health emergency, [facility] is receiving a high volume of samples [...] about COVID-19 can be found at the [facility] website: www.[employer].[email or web address]/Covid19. Test performed at [facility] [address] [id number] Director: TONI CISNEROS DO,MPH FIRST TEST NO 05/29/2020 1:[address] [facility] EMPLOYED IN HEALTHCARE NO 05/29/2020 1:[address] [facility] SYMPTOMATIC DEFINED BY CDC NO 05/29/2020 1:[address] [facility] DATE OF SYMPTOM ONSET NO 05/29/2020 2:[address] [facility] HOSPITALIZATION STATUS NO 05/29/2020 1:[address] [facility] PATIENT IN ICU NO 05/29/2020 1:[address] [facility] RESIDENT OF CRITICAL ACCESS HOSPITAL CARE NO 05/29/2020 1:[address] [facility] NOT 05/29/2020 2:[address] [facility] PATIENT'S RACE WHITE OR 05/29/2020 1:[address] [facility] ETHNICITY NONHISPANIC 05/29/2020 1:[address] [facility] SOURCE (QST) NASOPHARYNGEAL SWAB 05/29/2020 1:[address] [facility] NASOPHARYNGEAL SWAB / Unknown 05/29/2020 10:11 AM CDT us Raheem Zambrano MD MICROBIOLOGY - GENERAL ORDERABLE S Final Result [facility] [address] [facility] [place] [address], [facility] [address] [place] [address], documented in this encounter Visit Diagnoses Diagnosis [...] documented as of this encounter Care Teams Industrial Psychology Professor Relationship Specialty Start Date End Date Joseph Meeks MD [id number] [place] [address] PCP - General INTERNAL MEDICINE 05/08/20 Raheem Zambrano MD [address] [place] [address] [address] [place] [address] Vascular/Director Supply VASCULAR SURGERY 07/30/20 documented as of this encounter
[2024-12-12 19:47] LABS: Alanine Aminotransferase 12 U/L (6-35); Albumin Level 4.1 g/dL (3.5-5.1); Alkaline Phosphatase 76 U/L (38-126); Anion Gap 10 mmol/L (4-12); Aspartate Amino Transferase 28 U/L (14-36); Bilirubin,Total 0.5 mg/dL (0.2-1.3); Blood Urea Nitrogen 9 mg/dL (7-17); Calcium 8.8 mg/dL (8.4-10.2); Carbon Dioxide 26 mmol/L (22-30); Chloride 102 mmol/L (98-107); Cholesterol 157 mg/dL (0-200); Estimated Glomerular Filt Rate 60; Glucose 172 mg/dL (65-110); HDL Direct 50 mg/dL; Potassium 4.3 mmol/L (3.4-5.0); Sodium 138 mmol/L (137-145); Total Protein 8.3 g/dL (6.3-8.2); Triglycerides 106 mg/dL (<150)
[2024-12-12 21:57] LABS: Hemoglobin A1C 6.9 % (<5.7)
[2024-12-12 23:42] LABS: MALB Creatinine Ratio 68.6 mg/g (0-30)
== END 2024-12-12 09:26 | disposition home or self-care (01) ==
LOC: ANHGOSHLAB 09:26
PROVIDERS: PCP Family Medicine; Visit Provider Family Medicine
DX: E11.40 Type 2 diabetes mellitus with diabetic neuropathy, unspecified (principal)
CPT/HCPCS: 36415; 80053; 80061; 82043; 83036

== ENCOUNTER 2025-01-10 11:51 | Inpatient (IN) | payer MEDICARE, SELFPAY ==
--- NOTE | ~2025-01-10 | XR_ITS ---
PROCEDURE/PROCEDURES: XR hip RT 2V w AP pelvis HISTORY: Injury and pain COMPARISON(S): None. TECHNIQUE: 3 radiographic images were submitted for interpretation. FINDINGS: Bones: There are no fractures seen. There are no destructive lesions or other lesions identified. Joints: There are no dislocations identified. There is been total hip arthroplasty on both sides. There is marked vascular calcification. Severe degenerative changes in the lower lumbar spine. IMPRESSION: No acute abnormalities are seen. Reviewed, dictated and finalized at location A. STRIAL PAINTER
--- NOTE | ~2025-01-10 | CT_ITS ---
EXAMINATION: CT pelvis wo con COMPARISON: None HISTORY: R hip pain s/p fall TECHNIQUE: Axial images were obtained without IV contrast. Sagittal, coronal reconstruction images were obtained from the axial views. CT scan performed using dose optimization techniques including the following automated exposure control; adjustment of mA and/or kV; use of iterative reconstruction technique. Automatic exposure control was used to reduce radiation dose. Permanent radiation dose record is archived to PACS. FINDINGS: There are moderate to severe degenerative changes of the visualized lumbar spine and sacroiliac joints bilaterally. Bilateral hip arthroplasties appear intact. There is no dislocation. There is a nondisplaced fracture of the right inferior pubic ramus. No aneurysm or lymphadenopathy. The bladder is distended. There is no free fluid. Moderate fecal content. No colitis or diverticulitis. The appendix appears normal. Soft tissues are unremarkable. IMPRESSION: Right inferior pubic ramus fracture. Reviewed, dictated and finalized at location P. RRAGE CLERK
[2025-01-10 11:54] VITALS: BP 149/84; PULSE 69; RESP 18; TEMP 36.6; O2SAT 96
--- NOTE | 2025-01-10 14:19 | ED_ITS ---
HPI - Fall General Chief Complaint: Fall <TORRIE Wheeler Last Filed: 01/10/25 18:48> Stated Complaint: fall <TORRIE Wheeler Last Filed: 01/10/25 18:48> Time Seen by Provider: 01/10/25 13:16 <TORRIE Wheeler Last Filed: 01/10/25 18:48> Source: patient and family <TORRIE Wheeler Last Filed: 01/10/25 18:48> Mode of arrival: ambulatory <TORRIE Wheeler Last Filed: 01/10/25 18:48> Limitations: no limitations <TORRIE Wheeler Last Filed: 01/10/25 18:48> History of Present Illness HPI Narrative: Patient is an 89-year-old female who presents the ED with report of right hip pain. Patient reports she lost her balance and fell onto her right hip this morning. Denied syncope, head injury, LOC. Was unable to bear weight on her right hip throughout the day today. 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 Denies numbness. Denies any other areas of pain. Currently lives at [facility]. Family is wanting patient to transition to assisted living. <TORRIE Wheeler Last Filed: 01/10/25 18:48> Related Data Home Medications: Home Medications ?Medication ?Instructions ?Recorded ?Confirmed ?Last Taken ?Type loperamide 2 mg capsule (Imodium 2 mg PO Q6H PRN loose stool 07/26/23 01/10/25 Unknown History A-D) <TORRIE Wheeler Last Filed: 01/10/25 18:48> Allergies/Adverse Reactions: Allergies Allergy/AdvReac Type Severity Reaction Status Date / Time No Known Allergies Allergy Verified 01/10/25 18:44 <TORRIE Wheeler Last Filed: 01/10/25 18:48> Review of Systems 2 Review of Systems: All systems reviewed & are unremarkable except as noted in HPI. 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 Mother No problems noted. Sibling Myeloma Other Heart disease Thyroid disorder <Vanesa Reeder PA-C - Last Filed: 01/10/25 18:48> Social History Social History: Social History Smoking packs per day: 0.01 Smoking cigarettes per day: 0.2 Years smoked: 4 Smoking pack-years: 0.04 Smoking status: Current some day smoker Tobacco type: cigarettes Additional smoking assessment comments: a pack may last a month, no longer smoking everyday Alcohol intake: never Substance use: never Substance use type: does not use Do You Feel Safe in your Home?: Yes Lack of Transportation: No Lack of Food: Never True Current Housing: I Have Housing Concerned About Future Housing: No Difficulty Paying Gas/Electric Bills: No Difficulty Paying for Meds: No Currently Unemployed: No Education: Trade/Vocational Certificate Difficulty w/ Childcare or Family Care: No Living arrangements: with family Gender identity (if verbalized by the patient): Female Spiritual care concerns: No <TORRIE Wheeler Last Filed: 01/10/25 18:48> Exam 2 Narrative: GENERAL: Elderly, well-nourished, non-toxic, in no acute distress. HEAD: Normocephalic, atraumatic. RESPIRATORY: Airway patent, respirations nonlabored. Clear to auscultation bilaterally, no rales, rhonchi, wheezing. CARDIOVASCULAR: Regular rate and rhythm without murmurs, rubs, or gallops. Pedal pulses intact and easily palpable MUSCULOSKELETAL: Moves all extremities. No gross deformities. Tenderness to palpation over right hip joint. Discomfort reported with any movement of RLE. Sensation intact throughout right lower extremity. Able to wiggle toes. 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 SKIN: Warm, dry, normal color. NEURO: A&O X3. Speech clear. Cranial nerves II-XII grossly intact. No ataxic movements. PSYCHIATRIC: Appropriate mood and affect. Normal interaction. <TORRIE Wheeler Last Filed: 01/10/25 18:48> Course GUEST RELATIONS COORDINATOR/PA Physician Supervision This visit was performed by both a physician and an Advanced Practice Provider. I performed all aspects of the Medical Decision Making as documented. <Rigoberto Murphy DO - Last Filed: 01/10/25 19:37> Vital Signs Vital signs: Vital Signs Temperature 97.8 F 01/10/25 11:54 Pulse Rate 69 01/10/25 11:54 Respiratory Rate 18 01/10/25 11:54 Blood Pressure 149/84 H 01/10/25 11:54 Pulse Oximetry 96 01/10/25 11:54 Oxygen Delivery Room Air 01/10/25 11:54 Temperature 97.8 F 01/10/25 11:54 Pulse Rate 67 01/10/25 16:40 Respiratory Rate 14 01/10/25 16:40 Blood Pressure 140/72 01/10/25 16:40 Pulse Oximetry 93 01/10/25 16:40 Oxygen Delivery Room Air 01/10/25 18:48 <TORRIE Wheeler Last Filed: 01/10/25 18:48> Vital Signs Temperature 97.8 F 01/10/25 11:54 Pulse Rate 69 01/10/25 11:54 Respiratory Rate 18 01/10/25 11:54 Blood Pressure 149/84 H 01/10/25 11:54 Pulse Oximetry 96 01/10/25 11:54 Oxygen Delivery Room Air 01/10/25 11:54 Temperature 97.8 F 01/10/25 11:54 Pulse Rate 67 01/10/25 16:40 Respiratory Rate 14 01/10/25 16:40 Blood Pressure 140/72 01/10/25 16:40 Pulse Oximetry 93 01/10/25 16:40 Oxygen Delivery Room Air 01/10/25 18:48 <Rigoberto Murphy DO - Last Filed: 01/10/25 19:37> MDM - Fall MDM Narrative Medical decision making narrative: Patient presented to ED status post ground level mechanical fall today with pain to right hip, unable to ambulate. History of previous hip replacement. Vital signs stable upon arrival. Patient in no marked distress. Neurovascularly intact. X-ray of right hip with out obvious fracture. Bilateral total hip arthroplasty CT of pelvis was obtained and showing right-sided inferior pubic rami fracture Patient feeling improved after pain medication however still unable to ambulate. Will require admission for PT/OT/possible rehab placement versus care coordination to help facilitate patient to be transitioned to assisted living. Discussed case with Dr. Hopson, orthopedics, will consult Discussed case with Ryele Osorio GUEST RELATIONS COORDINATOR hospitalist, accepted patient for admission. Patient and family in agreement with plan and admission. Care coordination consult, consults for PT/OT placed. <Vanesa Reeder PA-C - Last Filed: 01/10/25 18:48> Patient presented to ED status post ground level mechanical fall today with pain to right hip, unable to ambulate. History of previous hip replacement. Vital signs stable upon arrival. Patient in no marked distress. Neurovascularly intact. X-ray of right hip with out obvious fracture. Bilateral total hip arthroplasty CT of pelvis was obtained and showing right-sided inferior pubic rami fracture Patient feeling improved after pain medication however still unable to ambulate. Will require admission for PT/OT/possible rehab placement versus care coordination to help facilitate patient to be transitioned to assisted living. Discussed case with Dr. Hopson, orthopedics, will consult Discussed case with Rylee Osorio GUEST RELATIONS COORDINATOR hospitalist, accepted patient for admission. Patient and family in agreement with plan and admission. Care coordination consult, consults for PT/OT placed. This visit was performed by both a physician and an Advanced Practice Provider. I performed all aspects of the Medical Decision Making as documented. <Rigoberto Murphy DO - Last Filed: 01/10/25 19:37> Differential Diagnosis Differential diagnosis: Likely other (Fracture, sprain, strain, contusion) <Rigoberto Murphy DO - Last Filed: 01/10/25 19:37> Medical Records Attestation: I reviewed the patient's medical records. <Vanesa Reeder PA-C - Last Filed: 01/10/25 18:48> Lab Data Attestation: I reviewed the patient's lab results. <Vanesa Reeder PA-C - Last Filed: 01/10/25 18:48> Result diagrams: 01/10/25 15:08 01/10/25 15:08 <Vanesa Reeder PA-C - Last Filed: 01/10/25 18:48> Labs: Lab Results 01/10/25 Range/Units 15:08 WBC 12.9 H (4.5-10.0) K/mm3 RBC 3.85 L (4.2-5.4) M/mm3 Hgb 12.4 (12.0-15.0) g/dL Hct 37.7 (37.0-47.0) % MCV 97.9 (80-100) fl MCH 32.2 (26-34) pg MCHC 32.9 (32-36) g/dl RDW 14.4 (11.5-14.5) % Plt Count 280 (150-375) k/mm3 MPV 8.5 (7.4-10.4) fl Immature Gran % (Auto) 0.8 H (0-0.5) % Neut % (Auto) 72.7 (45.5-73.1) % Lymph % (Auto) 15.2 L (18.3-44.2) % [place] % (Auto) 10.4 H (2.6-8.5) % Eos % (Auto) 0.3 (0-4.4) % Baso % (Auto) 0.6 (0.2-1.2) % Lymph # (Auto) 1.96 (0.9-3.2) K/mm3 [place] # (Auto) 1.3 H (0.1-0.6) K/mm3 Eos # (Auto) 0.0 (0-0.3) K/mm3 Baso # (Auto) 0.1 (0.0-0.1) K/mm3 Abs Immat Gran (auto) 0.10 H (0.00-0.031) K/mm3 Absolute Neuts (auto) 9.4 H (1.3-6.7) K/mm3 Absolute Nucleated RBC 0.000 (0.0-0.012) K/mm3 Nucleated RBC % 0.0 (0.0-0.2) % Sodium 137 (137-145) mmol/L Potassium 4.7 (3.4-5.0) mmol/L Chloride 100 (98-107) mmol/L Carbon Dioxide 28 (22-30) mmol/L Anion Gap 9 (4-12) mmol/L BUN 10 (7-17) mg/dL Creatinine 0.94 (0.7-1.0) mg/dL Estim Creat Clear Calc 31 ml/min Estimated GFR 56 L (59 - ) Glucose 139 H (65-110) mg/dL Calcium 9.3 (8.4-10.2) mg/dL Total Bilirubin 0.8 (0.2-1.3) mg/dL AST 27 (14-36) U/L ALT 15 (6-35) U/L Alkaline Phosphatase 74 (38-126) U/L Total Protein 8.3 H (6.3-8.2) g/dL Albumin 4.4 (3.5-5.1) g/dL <Vanesa Reeder PA-C - Last Filed: 01/10/25 18:48> Lab Results 01/10/25 Range/Units 15:08 WBC 12.9 H (4.5-10.0) K/mm3 RBC 3.85 L (4.2-5.4) M/mm3 Hgb 12.4 (12.0-15.0) g/dL Hct 37.7 (37.0-47.0) % MCV 97.9 (80-100) fl MCH 32.2 (26-34) pg MCHC 32.9 (32-36) g/dl RDW 14.4 (11.5-14.5) % Plt Count 280 (150-375) k/mm3 MPV 8.5 (7.4-10.4) fl Immature Gran % (Auto) 0.8 H (0-0.5) % Neut % (Auto) 72.7 (45.5-73.1) % Lymph % (Auto) 15.2 L (18.3-44.2) % Becker % (Auto) 10.4 H (2.6-8.5) % Eos % (Auto) 0.3 (0-4.4) % Baso % (Auto) 0.6 (0.2-1.2) % Lymph # (Auto) 1.96 (0.9-3.2) K/mm3 Becker # (Auto) 1.3 H (0.1-0.6) K/mm3 Eos # (Auto) 0.0 (0-0.3) K/mm3 Baso # (Auto) 0.1 (0.0-0.1) K/mm3 Abs Immat Gran (auto) 0.10 H (0.00-0.031) K/mm3 Absolute Neuts (auto) 9.4 H (1.3-6.7) K/mm3 Absolute Nucleated RBC 0.000 (0.0-0.012) K/mm3 Nucleated RBC % 0.0 (0.0-0.2) % Sodium 137 (137-145) mmol/L Potassium 4.7 (3.4-5.0) mmol/L Chloride 100 (98-107) mmol/L Carbon Dioxide 28 (22-30) mmol/L Anion Gap 9 (4-12) mmol/L BUN 10 (7-17) mg/dL Creatinine 0.94 (0.7-1.0) mg/dL Estim Creat Clear Calc 31 ml/min Estimated GFR 56 L (59 - ) Glucose 139 H (65-110) mg/dL Calcium 9.3 (8.4-10.2) mg/dL Total Bilirubin 0.8 (0.2-1.3) mg/dL AST 27 (14-36) U/L ALT 15 (6-35) U/L Alkaline Phosphatase 74 (38-126) U/L Total Protein 8.3 H (6.3-8.2) g/dL Albumin 4.4 (3.5-5.1) g/dL <Rigoberto Murphy DO - Last Filed: 01/10/25 19:37> Imaging Data Attestation: I personally reviewed and interpreted this imaging study as follows: < TORRIE Wheeler Last Filed: 01/10/25 18:48> Radiologist's impression: ITS Impressions Hip/Pelvis X-Ray 01/10/25 14:00 IMPRESSION: No acute abnormalities are seen. Pelvis CT 01/10/25 15:33 IMPRESSION: Right inferior pubic ramus fracture. <TORRIE Wheeler Last Filed: 01/10/25 18:48> Discharge Plan Discharge Clinical Impression: Fall from ground level, Unable to ambulate Closed fracture of right inferior pubic ramus Qualifiers: Encounter type: initial encounter Qualified Code(s): S32.591A - Other specified fracture of right pubis, initial encounter for closed fracture <TORRIE Wheeler Last Filed: 01/10/25 18:48> Patient Disposition: Still a Patient <TORRIE Wheeler Last Filed: 01/10/25 18:48> Condition: Stable <TORRIE Wheeler Last Filed: 01/10/25 18:48>
--- NOTE | 2025-01-10 14:20 | PC.NURSE ---
Pt. assisted with using the bed pain. Pt. then cleaned with soap and water. Will apply depend after pain medicine has been given.
--- NOTE | 2025-01-10 14:34 | PC.NURSE ---
Vascular access called for IV on pt.
[2025-01-10] MEDS: ACETAMINOPHEN 500 MG TABLET 1000 MG PO (15:03)
[2025-01-10] MEDS: ONDANSETRON INJ 4 MG/2 ML VIAL IV PUSH (15:03)
[2025-01-10] MEDS: MORPHINE SULFATE (*CRX) 4 MG/ML INJ 2 MG IV PUSH (15:03)
[2025-01-10 15:15] LABS: Hematocrit 37.7 % (37.0-47.0); Hemoglobin 12.4 g/dL (12.0-15.0); Immature Granulocyte Percent A 0.8 % (0-0.5); Lymphocytes Absolute Auto 1.96 K/mm3 (0.9-3.2); Mean Corpuscular HGB Conc 32.9 g/dl (32-36); Mean Corpuscular Hemoglobin 32.2 pg (26-34); Mean Corpuscular Volume 97.9 fl (80-100); Nucleated Red Blood Cells Absolute Auto 0.000 K/mm3 (0.0-0.012); Nucleated Red Blood Cells Perc 0.0 % (0.0-0.2); Platelet Count Result 280 k/mm3 (150-375); Red Blood Count 3.85 M/mm3 (4.2-5.4); White Blood Count 12.9 K/mm3 (4.5-10.0)
[2025-01-10 15:26] LABS: Alanine Aminotransferase 15 U/L (6-35); Albumin Level 4.4 g/dL (3.5-5.1); Alkaline Phosphatase 74 U/L (38-126); Anion Gap 9 mmol/L (4-12); Aspartate Amino Transferase 27 U/L (14-36); Bilirubin,Total 0.8 mg/dL (0.2-1.3); Blood Urea Nitrogen 10 mg/dL (7-17); Calcium 9.3 mg/dL (8.4-10.2); Carbon Dioxide 28 mmol/L (22-30); Chloride 100 mmol/L (98-107); Estimated CRCL calculation 31 ml/min; Estimated Glomerular Filt Rate 56; Glucose 139 mg/dL (65-110); Potassium 4.7 mmol/L (3.4-5.0); Sodium 137 mmol/L (137-145); Total Protein 8.3 g/dL (6.3-8.2)
[2025-01-10 16:40] VITALS: BP 140/72; PULSE 67; RESP 14; O2SAT 93
--- NOTE | 2025-01-10 16:44 | PC.NURSE ---
Family of pt. notified this RN at nurses station that pt. had urinated and would need linens changed. Dirty linens removed and clean ones applied. Pt. cleaned with soap and water. Clean depend applied. Pt. tolerated this very well. Pt. refusing a hospital gown at this time stating she prefers the sweatshirt she is in.
--- NOTE | 2025-01-10 17:03 | PC.NURSE ---
Pt. repositioned. Pt. also assisted with finding the [employer] on TV. Pt. has no additional requests at this time. Call light with pt.
--- NOTE | 2025-01-10 17:49 | PC.NURSE ---
Meal tray ordered for pt. to be delivered to bedside.
--- NOTE | 2025-01-10 17:59 | WPCEDHO ---
ED Hand Off Checklist All vitals saved:yes IV Site documented:yes All med administrations documented:yes Triage Note Triage Note Patient to the ED with complaints 01/10/25 13:21 of right hip pain after a fall that occurred this morning. Patient denies head injury. Patient states she landed on her bottom and denies any other complaints. Pt already has 2 artificial hips and 2 knees. Allergies No Known Allergies Allergy (Verified 01/10/25 11:56) Family History (Last Reviewed 01/10/25 @ 17:09 by Vanesa Reeder PA-C) Father No problems noted. Mother No problems noted. Sibling Myeloma Other Heart disease Thyroid disorder Administered/Completed Medications Discontinued Medications Acetaminophen (Acetaminophen 500 Mg Tablet) 1,000 mg PO ONCE STA Stop: 01/10/25 14:18 Last Admin: 01/10/25 15:03 Dose: 1,000 mg Documented By: NORMAN Morphine Sulfate (Morphine Sulfate (*Crx) 4 Mg/Ml Inj) 2 mg IV PUSH ONCE STA Stop: 01/10/25 14:18 Last Admin: 01/10/25 15:03 Dose: 2 mg Documented By: NORMAN Ondansetron HCl (Ondansetron Inj 4 Mg/2 Ml Vial) 4 mg IV PUSH ONCE STA Stop: 01/10/25 14:18 Last Admin: 01/10/25 15:03 Dose: 4 mg Documented By: NORMAN Notes 01/10/25 17:49 Nurse Note by Paula Wilson Meal tray ordered for pt. to be delivered to bedside. Initialized on 01/10/25 17:49 - END OF NOTE 01/10/25 17:03 Nurse Note by Paula Wilson Pt. repositioned. Pt. also assisted with finding the [employer] on TV. Pt. has no additional requests at this time. Call light with pt. Initialized on 01/10/25 17:03 - END OF NOTE 01/10/25 16:44 Nurse Note by Paula Wilson Family of pt. notified this RN at nurses station that pt. had urinated and would need linens changed. Dirty linens removed and clean ones applied. Pt. cleaned with soap and water. Clean depend applied. Pt. tolerated this very well. Pt. refusing a hospital gown at this time stating she prefers the sweatshirt she is in. Initialized on 01/10/25 16:44 - END OF NOTE 01/10/25 14:34 Nurse Note by Deepali Correa Vascular access called for IV on pt. Initialized on 01/10/25 14:34 - END OF NOTE 01/10/25 14:20 Nurse Note by Paula Wilsno Pt. assisted with using the bed pain. Pt. then cleaned with soap and water. Will apply depend after pain medicine has been given. Initialized on 01/10/25 14:20 - END OF NOTE Interventions/Assessments IV / Saline Lock, Insert Start: 01/10/25 14:17 Freq: ONCE Status: Active Protocol: Document 01/10/25 14:17 NORMAN (Rec: 01/10/25 16:00 NORMAN [id number]) IV Assessment Peripheral Access Left Antecubital IV Catheter Access Initiated IV Insertion Date 01/10/25 IV Insertion Time 14:40 Catheter Gauge 20 Ultrasound Used for Yes Placement IV Site Assessment WNL IV Care and WNL Maintenance Last Vital Signs Temperature 97.8 F 01/10/25 11:54 Pulse Rate 67 01/10/25 16:40 Respiratory Rate 14 01/10/25 16:40 Pulse Oximetry 93 01/10/25 16:40 Blood Pressure 140/72 01/10/25 16:40 Blood Pressure Mean 94 01/10/25 16:40 Blood Pressure Position Sitting 01/10/25 16:40 Oxygen Delivery Room Air 01/10/25 11:54 Weight 63.5 kg 01/10/25 13:21 Last Result - Abnormals Only WBC 12.9 K/mm3 (4.5-10.0) H 01/10/25 15:08 RBC 3.85 M/mm3 (4.2-5.4) L 01/10/25 15:08 Immature Gran % (Auto) 0.8 % (0-0.5) H 01/10/25 15:08 Lymph % (Auto) 15.2 % (18.3-44.2) L 01/10/25 15:08 [place] % (Auto) 10.4 % (2.6-8.5) H 01/10/25 15:08 [place] # (Auto) 1.3 K/mm3 (0.1-0.6) H 01/10/25 15:08 Abs Immat Gran (auto) 0.10 K/mm3 (0.00-0.031) H 01/10/25 15:08 Absolute Neuts (auto) 9.4 K/mm3 (1.3-6.7) H 01/10/25 15:08 Estimated GFR 56 (59-) L 01/10/25 15:08 Glucose 139 mg/dL (65-110) H 01/10/25 15:08 Total Protein 8.3 g/dL (6.3-8.2) H 01/10/25 15:08 Most Recent Suicide Severity Rating Suicide Severity Rating NO RISK INDICATED 01/10/25 13:21
[2025-01-10 18:27] VITALS: BMI 25.7
--- NOTE | 2025-01-10 18:40 | ADMGEN ---
This patient, Marisela Franz, was admitted to 3 [facility] Surg Room 317-01. Patient/family oriented to hospital policies and general routines including ID bracelet, bed and alarms, visiting hours, pain management, procedures, bathroom and other care routines, personal items, smoking policy, room service/diet, and visiting hours. Information on how to activate the Rapid Response Team has been discussed. Patient/Family are encouraged to report perceived risks to care and to ask questions if they do not understand what they are told or what they should do.
[2025-01-10] MEDS: traMADol HCL (*CRX) 50 MG TABLET PO (19:27)
[2025-01-10 20:00] VITALS: PULSE 67; RESP 16; O2SAT 90
[2025-01-10 21:46] VITALS: BP 151/61; PULSE 67; RESP 16; TEMP 36.5; O2SAT 90
--- NOTE | 2025-01-10 22:13 | PM.IMHP ---
H&P: HPI History of Present Illness Date/Time: 01/10/25 22:13 Chief Complaint: Fall Narrative: 81-year-old female presents to [facility] ER on 01/10/2025 after a ground level fall on right hip pain. She lost her balance. Lives at [facility]. PMH CKD, peripheral artery disease, osteomyelitis status post amputation of right foot 1st toe, history of CVA, insomnia, [id number] diabetes mellitus, protein S deficiency on Eliquis, tobacco use disorder. ER revealed leukocytosis 12,900, pelvis CT demonstrates right inferior pubic ramus fracture, orthopedic surgery consulted from ER. Administer morphine 2 mg IV x1, Zofran, Tylenol. Review of Systems Review of Systems: All systems reviewed & are unremarkable except as noted in HPI and below (Subjective) [facility] Past Medical History Medical History Allergies Kidney disease Trigger finger of right hand Osteomyelitis Leg wound, right Stroke History of bruising easily Surgical History Surgical History H/O kyphoplasty 08/2022 History of amputation of toe 6.16.21 (PAD/osteomyelitis) History of laminectomy 1967 History of cholecystectomy 1966 History of hysterectomy Total 1980 History of shoulder replacement Right 2013 History of hip replacement Bilateral 2004, 2007 History of knee replacement Bilateral 2002, 2003 Family History Family History Father No problems noted. Mother No problems noted. Sibling Myeloma Other Heart disease Thyroid disorder Social History Social History Smoking packs per day: 0.01 Smoking cigarettes per day: 0.2 Years smoked: 4 Smoking pack-years: 0.04 Smoking status: Current some day smoker Tobacco type: cigarettes Additional smoking assessment comments: a pack may last a month, no longer smoking everyday Alcohol intake: never Substance use: never Substance use type: does not use Do You Feel Safe in your Home?: Yes Lack of Transportation: No Lack of Food: Never True Current Housing: I Have Housing Concerned About Future Housing: No Difficulty Paying Gas/Electric Bills: No Difficulty Paying for Meds: No Currently Unemployed: No Education: Trade/Vocational Certificate Difficulty w/ Childcare or Family Care: No Living arrangements: with family Gender identity (if verbalized by the patient): Female Spiritual care concerns: No Meds Home Medications and Allergies Home Medications ?Medication ?Instructions ?Recorded ?Confirmed ?Type loperamide 2 mg capsule (Imodium 2 mg PO Q6H PRN loose stool 07/26/23 01/10/25 History A-D) orthopedic shoes #1 ea 07/27/23 01/10/25 Rx oxybutynin chloride 5 mg tablet 5 mg PO BID #180 tabs 07/26/24 01/10/25 Rx rosuvastatin 10 mg tablet 10 mg PO DAILY #90 tabs 09/04/24 01/10/25 Rx lisinopril 40 mg tablet 20 mg (1/2 x 40 mg) PO DAILY 3 09/23/24 01/10/25 Rx months #45 tabs gabapentin 600 mg tablet 1,200 mg (2 x 600 mg) PO TID #540 10/18/24 01/10/25 Rx tabs escitalopram oxalate 5 mg tablet See Rx Instructions .Route 10/29/24 01/10/25 Rx .COMPLEX #90 tabs levothyroxine 50 mcg tablet See Rx Instructions .Route 10/29/24 01/10/25 Rx .COMPLEX #90 tabs apixaban 5 mg tablet (Eliquis) See Rx Instructions .Route 11/06/24 01/10/25 Rx .COMPLEX #180 tabs trazodone 100 mg tablet 100 mg PO QHS #90 tabs 11/07/24 01/10/25 Rx semaglutide 7 mg tablet 7 mg PO DAILY #90 tabs 12/17/24 01/10/25 Rx Allergies Allergy/AdvReac Type Severity Reaction Status Date / Time No Known Allergies Allergy Verified 01/10/25 18:44 Vital Signs Vital Signs - 24 hr 01/10/25 11:54 01/10/25 16:40 01/10/25 18:48 Temperature 97.8 F Pulse Rate 69 67 Respiratory Rate 18 14 Blood Pressure 149/84 H 140/72 Pulse Oximetry 96 93 Oxygen Delivery Room Air Room Air 01/10/25 21:46 Temperature 97.7 F Pulse Rate 67 Respiratory Rate 16 Blood Pressure 151/61 H Pulse Oximetry 90 Oxygen Delivery Exam Const: General: comfortable and no acute distress HENMT: Mouth: Yes moist mucous membranes Eyes: Pupils: Equal, round and reactive pupils present Neck: Neck: supple Resp: Effort & Inspection: normal respiratory effort Auscultation: clear to auscultation bilaterally Cardio: Rate: regular rate Rhythm: regular rhythm GI: Inspection: non-distended GI Palp: Yes Soft to palpation Extrem: General: no edema H&P: Results Labs Labs: Short CBC 01/10/25 Range/Units 15:08 WBC 12.9 H (4.5-10.0) K/mm3 Hgb 12.4 (12.0-15.0) g/dL Hct 37.7 (37.0-47.0) % Plt Count 280 (150-375) k/mm3 BMP 01/10/25 15:08 Sodium 137 Potassium 4.7 Chloride 100 Carbon Dioxide 28 BUN 10 Creatinine 0.94 Glucose 139 H Calcium 9.3 Liver Function 01/10/25 Range/Units 15:08 Total Bilirubin 0.8 (0.2-1.3) mg/dL AST 27 (14-36) U/L ALT 15 (6-35) U/L Alkaline Phosphatase 74 (38-126) U/L Albumin 4.4 (3.5-5.1) g/dL Assessment and Plan Assessment and plan (1) Diabetes mellitus with diabetic neuropathy, without long-term current use of insulin: Qualifiers: Diabetes mellitus type: type 2 Qualified Code(s): E11.40 - Type 2 diabetes mellitus with diabetic neuropathy, unspecified Code(s): E11.40 - Type 2 diabetes mellitus with diabetic neuropathy, unspecified Status: Acute (2) Closed fracture of right inferior pubic ramus: Qualifiers: Encounter type: initial encounter Qualified Code(s): S32.591A - Other specified fracture of right pubis, initial encounter for closed fracture Code(s): S32.591A - Other specified fracture of right pubis, initial encounter for closed fracture Status: Acute (3) Leukocytosis: Code(s): D72.829 - Elevated white blood cell count, unspecified Status: Acute Plan 81-year-old female presents to [facility] ER on 01/10/2025 after a ground level fall on right hip pain. She lost her balance. Lives at [facility]. PMH CKD, peripheral artery disease, osteomyelitis status post amputation of right foot 1st toe, history of CVA, insomnia, [id number] diabetes mellitus, hypothyroidism, protein S deficiency on Eliquis, tobacco use disorder. ER revealed leukocytosis 12,900, pelvis CT demonstrates right inferior pubic ramus fracture, orthopedic surgery consulted from ER. Administer morphine 2 mg IV x1, Zofran, Tylenol. ----- Patient declines operative intervention. Wants to pursue medical management, PT/OT. Family believe she should not be an independent living anymore. Pain is controlled with tramadol. Continue Tylenol, tramadol p.r.n.. Patient wants to continue all of her home meds, we discussed she is on a very high dose of gabapentin for the risk versus benefits. Leukocytosis, could be reactive. Check urinalysis. No symptomatology to indicate infection otherwise on comprehensive review systems. 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 SCDs. Diabetic heart healthy diet. Saline lock IV. Accu-Cheks a.c. HS with low-dose insulin sliding scale and hypoglycemia protocol. Patient wishes to be DNR. Fall precautions, ambulate with assistance, PT/OT evaluations. Hospitalist [facility] Advance Care Plan I have confirmed that the patient's Advanced Care Plan is present, code status is documented, or surrogate decision maker is listed in patient medical record.: Yes Medication Reconciliation I have utilized all available resources to obtain, update and review the patients current medications (includes all prescriptions, OTC, herbals, cannabis, and nutritional supplements).: Yes
[2025-01-11] MEDS: ESCITALOPRAM OXALATE 5 MG TABLET BY MOUTH ×2 (00:09→08:08)
[2025-01-11] MEDS: APIXABAN 5 MG TABLET BY MOUTH ×3 (00:09→20:10)
[2025-01-11 01:58] LABS: Add Urine Microscopic? YES; Appearance Urine Clear (Clear); Glucose Urine UA Negative (Negative); Leukocyte Esterase Ur Trace LEU/UL (Negative); Nitrate Urine Negative (Negative); Non Pathogenic Casts 0-2; Specific Grav Ur 1.006 (1.001-1.035)
[2025-01-11] MEDS: traMADol HCL (*CRX) 50 MG TABLET PO ×2 (02:55→10:41)
[2025-01-11] MEDS: HYDROcodone/acetaminophen (*CRX) 10-325 MG TABLET 1 TAB PO (04:15)
[2025-01-11] MEDS: LEVOTHYROXINE SODIUM 50 MCG TABLET BY MOUTH (05:13)
[2025-01-11 06:00] VITALS: BP 138/66; PULSE 55; RESP 16; TEMP 36.9; O2SAT 91
[2025-01-11 06:05] LABS: Hematocrit 33.0 % (37.0-47.0); Hemoglobin 10.7 g/dL (12.0-15.0); Immature Granulocyte Percent A 0.4 % (0-0.5); Lymphocytes Absolute Auto 2.03 K/mm3 (0.9-3.2); Mean Corpuscular HGB Conc 32.4 g/dl (32-36); Mean Corpuscular Hemoglobin 32.0 pg (26-34); Mean Corpuscular Volume 98.8 fl (80-100); Nucleated Red Blood Cells Absolute Auto 0.000 K/mm3 (0.0-0.012); Nucleated Red Blood Cells Perc 0.0 % (0.0-0.2); Platelet Count Result 215 k/mm3 (150-375); Red Blood Count 3.34 M/mm3 (4.2-5.4); White Blood Count 7.1 K/mm3 (4.5-10.0)
[2025-01-11 06:34] LABS: Anion Gap 6 mmol/L (4-12); Blood Urea Nitrogen 9 mg/dL (7-17); Calcium 8.4 mg/dL (8.4-10.2); Carbon Dioxide 27 mmol/L (22-30); Chloride 102 mmol/L (98-107); Estimated CRCL calculation 32 ml/min; Estimated Glomerular Filt Rate 58; Glucose 141 mg/dL (65-110); Magnesium 1.8 mg/dL (1.6-2.3); Potassium 3.8 mmol/L (3.4-5.0); Sodium 135 mmol/L (137-145)
[2025-01-11 06:49] LABS: Procalcitonin 0.1 ng/mL
[2025-01-11] MEDS: ROSUVASTATIN 10 MG TABLET PO (08:08)
--- NOTE | 2025-01-11 11:03 | P.PNIM_ITS ---
Progress Note: A&P Assessment and Plan (1) Closed fracture of right inferior pubic ramus: Qualifiers: Encounter type: initial encounter Qualified Code(s): S32.591A - Other specified fracture of right pubis, initial encounter for closed fracture Code(s): S32.591A - Other specified fracture of right pubis, initial encounter for closed fracture Status: Acute Time Spent With Patient Time: Mechanical fall Closed right inferior pubic rami fracture -patient lives independently and had a mechanical fall leading to a right pubic rami fracture -CT pelvis 01/10: right inferior pubic ramus fracture. however not seen on x-ray -weight-bearing as tolerated -PT OT consulted -orthopedics consulted -pain control: Tramadol, Benson, breakthrough pain with morphine -with mechanical fall, no further workup indicated Chronic conditions -CKD: on acei -history of CVA, HLD: Statin -non insulin-dependent type 2 diabetes: Sliding scale insulin, Accu-Cheks a.c. HS, hypoglycemia protocol. 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 Care coordination consulted Social: Daughter updated bedside Subjective Date/time seen: 01/11/25 11:03 Interval history: Patient seen and examined. She was admitted last night after mechanical ground level fall with right hip pain. She sustained a right inferior pubic rami closed fracture. She is to be weight-bearing as tolerated. She lives in independent living facility and may need to go to short-term rehab (her home can do assisted living but not rehab). PT and OT consult. We will continue with pain control and non operative management. Patient's daughter updated bedside. Review of Systems Review of Systems: 10 point ROS complete, negative other th an what is specified in HPI. Exam Narrative: - GENERAL: Pleasant older woman in No a cute distress. - EYES: EOMI. - HENT: Moist mucous membranes. Hard of hearing - LUNGS: Clear to auscultation bilateral ly, no wheezing - CARDIOVASCULAR: Regular rate and rhyth m - ABDOMEN: Soft, non-tender and non-dist ended. - EXTREMITIES: No edema. Peripheral puls es 2+. - NEUROLOGIC: No focal neurological defi cits. - PSYCHIATRIC: Awake, Alert and oriented x 3. Limited medical understanding Objective Data Vital Signs Vital Signs: Vital Signs - 24 hr 01/10/25 11:54 01/10/25 16:40 01/10/25 18:48 Temperature 36.6 C Pulse Rate 69 67 Respiratory Rate 18 14 Blood Pressure 149/84 H 140/72 Pulse Oximetry 96 93 Oxygen Delivery Room Air Room Air 01/10/25 20:00 01/10/25 21:46 01/11/25 06:00 Temperature 36.5 C 36.9 C Pulse Rate 67 67 55 L Respiratory Rate 16 16 16 Blood Pressure 151/61 H 138/66 Pulse Oximetry 90 90 91 Oxygen Delivery Room Air 01/11/25 08:00 Temperature Pulse Rate Respiratory Rate Blood Pressure Pulse Oximetry Oxygen Delivery Room Air Intake/Output Intake/Output: Intake & Output 01/08/25 01/09/25 01/10/25 01/11/25 23:59 23:59 23:59 23:59 Intake Total 300 Output Total 850 Balance -550 Meds/Results Medications: Active Medications Generic Name Dose Route Start Last Admin Trade Name Freq PRN Reason Stop Dose Admin Acetaminophen 650 mg 01/10/25 17:28 Acetaminophen 325 Mg Tablet PO Q4H PRN Mild Pain (1-3) or Fever Apixaban 5 mg 01/10/25 22:10 01/11/25 08:08 Apixaban 5 Mg Tablet BY MOUTH 5 mg Q12HR OSEAS Administration Dextrose 12.5 gm 01/10/25 22:12 Dextrose 50% 25 Gm/50 Ml Syringe IV PUSH PRN PRN Hypoglycemia Protocol Escitalopram Oxalate 5 mg 01/10/25 22:10 01/11/25 08:08 Escitalopram Oxalate 5 Mg Tablet BY MOUTH 5 mg DAILY OSEAS Administration Gabapentin 1,200 mg 01/11/25 09:00 01/11/25 09:44 Gabapentin 400 Mg Capsule PO Not Given TID OSEAS Glucose 15 gm 01/10/25 22:12 Glucose Oral Gel 15 Gm Of Glucse In 37.5 Gm Tube PO PRN PRN Hypoglycemia Protocol Dextrose 1,000 mls @ 100 mls/hr 01/10/25 22:12 Dextrose 5% 1,000 Ml IVPB PRN PRN Hypoglycemia Protocol Insulin Aspart 2 - 5 units 01/11/25 08:00 01/11/25 08:09 Insulin Aspart (*Bkc) 100 Units/Ml SUB-Q Not Given TIDWM [facility] Protocol Insulin Aspart 1 - 2 units 01/11/25 21:00 Insulin Aspart (*Bkc) 100 Units/Ml SUB-Q HS [facility] Protocol Levothyroxine Sodium 50 mcg 01/11/25 06:30 01/11/25 05:13 Levothyroxine Sodium 50 Mcg Tablet BY MOUTH 50 mcg DAILY@0630 [facility] Administration Lisinopril 20 mg 01/11/25 09:00 01/11/25 08:09 Lisinopril 20 Mg Tablet PO 20 mg DAILY [facility] Administration Loperamide HCl 2 mg 01/11/25 08:17 Loperamide Hcl 2 Mg Capsule PO Q6H PRN Loose Stool Morphine Sulfate 2 mg 01/10/25 17:28 Morphine Sulfate (*Crx) 4 Mg/Ml Inj IV PUSH Q2H PRN Pain Rated 7-10 Oxybutynin Chloride 5 mg 01/11/25 09:00 01/11/25 08:08 Oxybutynin Chloride 5 Mg Tablet PO 5 mg BID [facility] Administration Rosuvastatin Calcium 10 mg 01/11/25 09:00 01/11/25 08:08 Rosuvastatin 10 Mg Tablet PO 10 mg DAILY [facility] Administration Tramadol HCl 50 mg 01/10/25 17:31 01/11/25 10:41 Tramadol Hcl (*Crx) 50 Mg Tablet PO 50 mg Q6H PRN Administration Pain Rated 4-6 Trazodone HCl 100 mg 01/10/25 22:10 01/11/25 00:09 Trazodone Hcl 50 Mg Tablet PO 100 mg QHS OSEAS Administration Radiology Results: ITS Impressions Hip/Pelvis X-Ray 01/10/25 14:00 IMPRESSION: No acute abnormalities are seen. Pelvis CT 01/10/25 15:33 IMPRESSION: Right inferior pubic ramus fracture. Labs Labs: Laboratory Results - last 24 hr 01/10/25 01/10/25 01/11/25 01:41 15:08 05:54 WBC 12.9 H 7.1 RBC 3.85 L 3.34 L Hgb 12.4 10.7 L Hct 37.7 33.0 L MCV 97.9 98.8 MCH 32.2 32.0 MCHC 32.9 32.4 RDW 14.4 14.3 Plt Count 280 215 MPV 8.5 8.3 Immature Gran % (Auto) 0.8 H 0.4 Neut % (Auto) 72.7 51.1 Lymph % (Auto) 15.2 L 28.7 Rooks % (Auto) 10.4 H 16.1 H Eos % (Auto) 0.3 3.0 Baso % (Auto) 0.6 0.7 Lymph # (Auto) 1.96 2.03 Rooks # (Auto) 1.3 H 1.1 H Eos # (Auto) 0.0 0.2 Baso # (Auto) 0.1 0.1 Abs Immat Gran (auto) 0.10 H 0.03 Absolute Neuts (auto) 9.4 H 3.6 Absolute Nucleated RBC 0.000 0.000 Nucleated RBC % 0.0 0.0 Sodium 137 135 L Potassium 4.7 3.8 Chloride 100 102 Carbon Dioxide 28 27 Anion Gap 9 6 BUN 10 9 Creatinine 0.94 0.91 Estim Creat Clear Calc 31 32 Estimated GFR 56 L 58 L Glucose 139 H 141 H POC Capillary Glucose Calcium 9.3 8.4 Magnesium 1.8 Total Bilirubin 0.8 AST 27 ALT 15 Alkaline Phosphatase 74 Total Protein 8.3 H Albumin 4.4 Procalcitonin 0.1 Urine Color Yellow Urine Appearance Clear Urine pH 6.5 Ur Specific Mcguffey 1.006 Urine Protein Negative Urine Glucose (UA) Negative Urine Ketones Negative Ur Blood (Man) Negative Urine Nitrate Negative Urine Bilirubin Negative Urine Urobilinogen 0.2 Ur Leukocyte Esterase Trace H Urine RBC 0-2 Urine WBC 0-5 Ur Squamous Epith Cells None seen Urine Bacteria None seen Urine Casts 0-2 01/11/25 07:37 WBC RBC Hgb Hct MCV MCH MCHC RDW Plt Count MPV Immature Gran % (Auto) Neut % (Auto) Lymph % (Auto) Rooks % (Auto) Eos % (Auto) Baso % (Auto) Lymph # (Auto) Rooks # (Auto) Eos # (Auto) Baso # (Auto) Abs Immat Gran (auto) Absolute Neuts (auto) Absolute Nucleated RBC Nucleated RBC % Sodium Potassium Chloride Carbon Dioxide Anion Gap BUN Creatinine Estim Creat Clear Calc Estimated GFR Glucose POC Capillary Glucose 143 H Calcium Magnesium Total Bilirubin AST ALT Alkaline Phosphatase Total Protein Albumin Procalcitonin Urine Color Urine Appearance Urine pH Ur Specific Mcguffey Urine Protein Urine Glucose (UA) Urine Ketones Ur Blood (Man) Urine Nitrate Urine Bilirubin Urine Urobilinogen Ur Leukocyte Esterase Urine RBC Urine WBC Ur Squamous Epith Cells Urine Bacteria Urine Casts Quality VTE Prophylaxis VTE prophylaxis: pharmacologic ordered
[2025-01-11] MEDS: INSULIN ASPART (*BKC) 100 UNITS/ML SUB-Q (11:41)
[2025-01-11] MEDS: HYDROcodone/acetaminophen (*CRX) 5-325 MG TABLET 1 TAB PO ×2 (11:42→18:25)
[2025-01-11 14:00] VITALS: BP 101/67; PULSE 54; RESP 12; TEMP 36.8; O2SAT 93
--- NOTE | 2025-01-11 15:51 | PM.CNOR ---
Assessment and Plan Assessment and plan (1) Closed fracture of right inferior pubic ramus: Qualifiers: Encounter type: initial encounter Qualified Code(s): S32.591A - Other specified fracture of right pubis, initial encounter for closed fracture Code(s): S32.591A - Other specified fracture of right pubis, initial encounter for closed fracture Status: Acute Plan 89-year-old female with right inferior pubic ramus fracture by CAT scan. Stable with a history of bilateral total hip replacements done many years ago in [place]. recommendation for the patient to be weight-bearing is tolerated, and I'll see her in my office about one week after her discharge History of Present Illness HPI Consult date: 01/11/25 Chief complaint: pelvic fracture,unable to anemia Narrative: The patient is an 89-year-old female who presents to the emergency room after a fall onto her right hip while in her bathroom. She lives at an assisted living center. She has a history of CVA, and she does ambulate with a walker almost exclusively. After landing on her right hip, she was seen in the emergency room and diagnosed (eventually) with a CAT scan-confirmed diagnosis of right pubic ramus fracture. She has a history of bilateral total hip replacement done many years ago in [place]. She has a daughter who lives in [place]. On my exam today, she has significant tenderness over the pubic symphysis to the right side, and she does have groin pain with range of motion over her right hip. She has no swelling, tenderness, or deformity bilateral knees and bilateral ankles or bilateral extremities, including no pathology noted at her elbows, wrists, or shoulders. Review of the patient's x-rays of her hips bilaterally shows a well-positioned total hip arthroplasty on both sides. Treatment recommendation for the patient to be weight-bearing is tolerated; it is a very stable fracture. We recommend a follow-up with my office at about 10:30, one or two weeks after her discharge. [facility] Past Medical History Medical History Allergies Kidney disease Trigger finger of right hand Osteomyelitis Leg wound, right Stroke History of bruising easily Surgical History Surgical History H/O kyphoplasty 08/2022 History of amputation of toe 6.16.21 (PAD/osteomyelitis) History of laminectomy 1967 History of cholecystectomy 1966 History of hysterectomy Total 1980 History of shoulder replacement Right 2013 History of hip replacement Bilateral 2004, 2007 History of knee replacement Bilateral 2002, 2003 Family History Family History Father No problems noted. Mother No problems noted. Sibling Myeloma Other Heart disease Thyroid disorder Social History Social History Smoking packs per day: 0.01 Smoking cigarettes per day: 0.2 Years smoked: 4 Smoking pack-years: 0.04 Smoking status: Current some day smoker Tobacco type: cigarettes Additional smoking assessment comments: a pack may last a month, no longer smoking everyday Alcohol intake: never Substance use: never Substance use type: does not use Do You Feel Safe in your Home?: Yes Lack of Transportation: No Lack of Food: Never True Current Housing: I Have Housing Concerned About Future Housing: No Difficulty Paying Gas/Electric Bills: No Difficulty Paying for Meds: No Currently Unemployed: No Education: Trade/Vocational Certificate Difficulty w/ Childcare or Family Care: No Living arrangements: with family Gender identity (if verbalized by the patient): Female Spiritual care concerns: No Meds Home Medications and Allergies Home Medications ?Medication ?Instructions ?Recorded ?Confirmed ?Type loperamide 2 mg capsule (Imodium 2 mg PO Q6H PRN loose stool 07/26/23 01/10/25 History A-D) orthopedic shoes #1 ea 07/27/23 01/10/25 Rx oxybutynin chloride 5 mg tablet 5 mg PO BID #180 tabs 07/26/24 01/10/25 Rx rosuvastatin 10 mg tablet 10 mg PO DAILY #90 tabs 09/04/24 01/10/25 Rx lisinopril 40 mg tablet 20 mg (1/2 x 40 mg) PO DAILY 3 09/23/24 01/10/25 Rx months #45 tabs gabapentin 600 mg tablet 1,200 mg (2 x 600 mg) PO TID #540 10/18/24 01/10/25 Rx tabs escitalopram oxalate 5 mg tablet See Rx Instructions .Route 10/29/24 01/10/25 Rx .COMPLEX #90 tabs levothyroxine 50 mcg tablet See Rx Instructions .Route 10/29/24 01/10/25 Rx .COMPLEX #90 tabs apixaban 5 mg tablet (Eliquis) See Rx Instructions .Route 11/06/24 01/10/25 Rx .COMPLEX #180 tabs trazodone 100 mg tablet 100 mg PO QHS #90 tabs 11/07/24 01/10/25 Rx semaglutide 7 mg tablet 7 mg PO DAILY #90 tabs 12/17/24 01/10/25 Rx Allergies Allergy/AdvReac Type Severity Reaction Status Date / Time No Known Allergies Allergy Verified 01/10/25 18:44 Vital Signs Vital Signs - 24 hr 01/10/25 16:40 01/10/25 18:48 01/10/25 20:00 Temperature Pulse Rate 67 67 Respiratory Rate 14 16 Blood Pressure 140/72 Pulse Oximetry 93 90 Oxygen Delivery Room Air Room Air 01/10/25 21:46 01/11/25 06:00 01/11/25 08:00 Temperature 36.5 C 36.9 C Pulse Rate 67 55 L Respiratory Rate 16 16 Blood Pressure 151/61 H 138/66 Pulse Oximetry 90 91 Oxygen Delivery Room Air 01/11/25 14:00 Temperature 36.8 C Pulse Rate 54 L Respiratory Rate 12 Blood Pressure 101/67 Pulse Oximetry 93 Oxygen Delivery Exam Narrative: On exam of the patient's bilateral extremities, she does have some groin pain with rotational movement of her right hip, no groin pain with rotation of her left hip, and no swelling, tenderness, or deformity of the knees or the ankles bilaterally Const: General: cooperative, awake and confusion Nutritional Appearance: cachectic Orientation/consciousness: oriented to person and oriented to place Results Labs 01/11/25 05:54 01/11/25 05:54 Labs: Abnormal lab results 01/10/25 01/11/25 01/11/25 Range/Units 01:41 05:54 07:37 RBC 3.34 L (4.2-5.4) M/mm3 Hgb 10.7 L (12.0-15.0) g/dL Hct 33.0 L (37.0-47.0) % [place] % (Auto) 16.1 H (2.6-8.5) % [place] # (Auto) 1.1 H (0.1-0.6) K/mm3 Sodium 135 L (137-145) mmol/L Estimated GFR 58 L (59 - ) Glucose 141 H (65-110) mg/dL POC Capillary Glucose 143 H (65-105) mg/dl Ur Leukocyte Esterase Trace H (Negative) MORIS/UL 01/11/25 Range/Units 11:32 RBC (4.2-5.4) M/mm3 Hgb (12.0-15.0) g/dL Hct (37.0-47.0) % [place] % (Auto) (2.6-8.5) % [place] # (Auto) (0.1-0.6) K/mm3 Sodium (137-145) mmol/L Estimated GFR (59 - ) Glucose (65-110) mg/dL POC Capillary Glucose 217 H (65-105) mg/dl Ur Leukocyte Esterase (Negative) MORIS/UL H & H 01/10/25 01/11/25 Range/Units 15:08 05:54 Hgb 12.4 10.7 L (12.0-15.0) g/dL Hct 37.7 33.0 L (37.0-47.0) % All other labs normal.
[2025-01-11] MEDS: MORPHINE SULFATE (*CRX) 4 MG/ML INJ 2 MG IV PUSH ×2 (16:04→23:40)
[2025-01-11] MEDS: GABAPENTIN 400 MG CAPSULE 1200 MG PO (16:05)
[2025-01-11 21:21] VITALS: BP 104/60; PULSE 62; RESP 18; TEMP 36.7; O2SAT 94
[2025-01-12] MEDS: HYDROcodone/acetaminophen (*CRX) 5-325 MG TABLET 1 TAB PO (04:08)
[2025-01-12] MEDS: LEVOTHYROXINE SODIUM 50 MCG TABLET BY MOUTH (05:44)
[2025-01-12 05:47] VITALS: PULSE 68; RESP 17; TEMP 37.3; O2SAT 96
[2025-01-12] MEDS: GABAPENTIN 400 MG CAPSULE 1200 MG PO ×3 (07:44→16:48)
[2025-01-12] MEDS: ESCITALOPRAM OXALATE 5 MG TABLET BY MOUTH (07:45)
[2025-01-12] MEDS: APIXABAN 5 MG TABLET BY MOUTH ×2 (07:45→21:08)
[2025-01-12] MEDS: ROSUVASTATIN 10 MG TABLET PO (07:45)
[2025-01-12] MEDS: MORPHINE SULFATE (*CRX) 4 MG/ML INJ 2 MG IV PUSH (09:37)
--- NOTE | 2025-01-12 11:48 | P.PNIM_ITS ---
Progress Note: A&P Assessment and Plan (1) Closed fracture of right inferior pubic ramus: Qualifiers: Encounter type: initial encounter Qualified Code(s): S32.591A - Other specified fracture of right pubis, initial encounter for closed fracture Code(s): S32.591A - Other specified fracture of right pubis, initial encounter for closed fracture Status: Acute Plan Mechanical fall Closed right inferior pubic rami fracture -patient lives independently and had a mechanical fall leading to a right pubic rami fracture -CT pelvis 01/10: right inferior pubic ramus fracture. however not seen on x-ray -weight-bearing as tolerated -PT OT consulted -orthopedics consulted: Recommendation for weight-bearing as tolerated, outpatient follow-up in 1 week -pain control: Tramadol, [place], breakthrough pain with morphine -with mechanical fall, no further workup indicated -pain is well controlled Chronic conditions-home meds resumed -CKD: on acei -history of CVA, HLD: Statin -non insulin-dependent type 2 diabetes: Sliding scale insulin, Accu-Cheks a.c. HS, hypoglycemia protocol. 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 Care coordination consulted, no change of plan Social: Daughter updated bedside Time Spent With Patient Time: 35 minutes Subjective Date/time seen: 01/12/25 11:48 Interval history: Patient seen and examined. She is doing well with no new complaints. Patient has fever, chills, nausea vomiting diarrhea. Her pain is well controlled on the current regimen. We are working on discharge planning to snf facility for rehab. Family updated bedside. Review of Systems Review of Systems: 10 point ROS complete, negative other th an what is specified in HPI. Exam Narrative: - GENERAL: Pleasant older woman in No a cute distress. Hard of hearing - EYES: EOMI. - HENT: Moist mucous membranes. Hard of hearing - LUNGS: Clear to auscultation bilateral ly, no wheezing - CARDIOVASCULAR: Regular rate and rhyth m - ABDOMEN: Soft, non-tender and non-dist ended. - EXTREMITIES: No edema. Peripheral puls es 2+. - NEUROLOGIC: No focal neurological defi cits. - PSYCHIATRIC: Awake, Alert and oriented x 3. Limited medical understanding Objective Data Vital Signs Vital Signs: Vital Signs - 24 hr 01/11/25 14:00 01/11/25 20:00 01/11/25 21:21 Temperature 36.8 C 36.7 C Pulse Rate 54 L 62 Respiratory Rate 12 18 Blood Pressure 101/67 104/60 Pulse Oximetry 93 94 Oxygen Delivery Room Air 01/12/25 05:47 01/12/25 08:00 01/12/25 08:00 Temperature 37.3 C Pulse Rate 68 Respiratory Rate 17 Blood Pressure Pulse Oximetry 96 Oxygen Delivery Room Air Room Air 01/12/25 08:14 Temperature Pulse Rate Respiratory Rate Blood Pressure Pulse Oximetry Oxygen Delivery Room Air Intake/Output Intake/Output: Intake & Output 01/09/25 01/10/25 01/11/25 01/12/25 23:59 23:59 23:59 23:59 Intake Total 500 240 Output Total 1250 350 Balance -750 -110 Meds/Results Medications: Active Medications Generic Name Dose Route Start Last Admin Trade Name Freq PRN Reason Stop Dose Admin Acetaminophen 650 mg 01/10/25 17:28 Acetaminophen 325 Mg Tablet PO Q4H PRN Mild Pain (1-3) or Fever Hydrocodone Bitart/Acetaminophen 1 tab 01/11/25 11:11 01/12/25 04:08 Hydrocodone/Acetaminophen (*Crx) 5-325 Mg Tablet PO 1 tab Q6H PRN Administration Pain Rated 7-10 Apixaban 5 mg 01/10/25 22:10 01/12/25 07:45 Apixaban 5 Mg Tablet BY MOUTH 5 mg Q12HR [facility] Administration Dextrose 12.5 gm 01/10/25 22:12 Dextrose 50% 25 Gm/50 Ml Syringe IV PUSH PRN PRN Hypoglycemia Protocol Escitalopram Oxalate 5 mg 01/10/25 22:10 01/12/25 07:45 Escitalopram Oxalate 5 Mg Tablet BY MOUTH 5 mg DAILY [facility] Administration Gabapentin 1,200 mg 01/11/25 09:00 01/12/25 07:44 Gabapentin 400 Mg Capsule PO 1,200 mg TID OSE[facility] Administration Glucose 15 gm 01/10/25 22:12 Glucose Oral Gel 15 Gm Of Glucse In 37.5 Gm Tube PO PRN PRN Hypoglycemia Protocol Dextrose 1,000 mls @ 100 mls/hr 01/10/25 22:12 Dextrose 5% 1,000 Ml IVPB PRN PRN Hypoglycemia Protocol Insulin Aspart 2 - 5 units 01/11/25 08:00 01/12/25 09:49 Insulin Aspart (*Bkc) 100 Units/Ml SUB-Q Not Given TIDWM [facility] Protocol Insulin Aspart 1 - 2 units 01/11/25 21:00 01/11/25 20:08 Insulin Aspart (*Bkc) 100 Units/Ml SUB-Q Not Given HS [facility] Protocol Levothyroxine Sodium 50 mcg 01/11/25 06:30 01/12/25 05:44 Levothyroxine Sodium 50 Mcg Tablet BY MOUTH 50 mcg DAILY@0630 O[facility] Administration Lisinopril 20 mg 01/11/25 09:00 01/12/25 07:45 Lisinopril 20 Mg Tablet PO 20 mg DAILY OSE[facility] Administration Loperamide HCl 2 mg 01/11/25 08:17 Loperamide Hcl 2 Mg Capsule PO Q6H PRN Loose Stool Morphine Sulfate 2 mg 01/11/25 11:11 01/12/25 09:37 Morphine Sulfate (*Crx) 4 Mg/Ml Inj IV PUSH 2 mg Q3H PRN Administration Breakthrough Pain Oxybutynin Chloride 5 mg 01/11/25 09:00 01/12/25 07:44 Oxybutynin Chloride 5 Mg Tablet PO 5 mg BID [facility] Administration Rosuvastatin Calcium 10 mg 01/11/25 09:00 01/12/25 07:45 Rosuvastatin 10 Mg Tablet PO 10 mg DAILY [facility] Administration Tramadol HCl 50 mg 01/10/25 17:31 01/11/25 10:41 Tramadol Hcl (*Crx) 50 Mg Tablet PO 50 mg Q6H PRN Administration Pain Rated 4-6 Trazodone HCl 100 mg 01/10/25 22:10 01/11/25 20:10 Trazodone Hcl 50 Mg Tablet PO 100 mg QHS OSE[facility] Administration Radiology Results: ITS Impressions Hip/Pelvis X-Ray 01/10/25 14:00 IMPRESSION: No acute abnormalities are seen. Pelvis CT 01/10/25 15:33 IMPRESSION: Right inferior pubic ramus fracture. Labs Labs: Laboratory Results - last 24 hr 01/11/25 01/11/25 01/12/25 16:29 20:02 07:25 POC Capillary Glucose 96 140 H 130 H 01/12/25 11:31 POC Capillary Glucose 187 H
[2025-01-12 14:00] VITALS: BP 115/53; PULSE 70; RESP 16; TEMP 36.1; O2SAT 92
[2025-01-12] MEDS: INSULIN ASPART (*BKC) 100 UNITS/ML SUB-Q (16:48)
[2025-01-12 21:23] VITALS: BP 114/47; PULSE 17; RESP 16; TEMP 36.7; O2SAT 93
[2025-01-13 06:00] VITALS: BP 105/44; PULSE 68; RESP 17; TEMP 36.2; O2SAT 93
[2025-01-13] MEDS: LEVOTHYROXINE SODIUM 50 MCG TABLET BY MOUTH (06:45)
[2025-01-13] MEDS: GABAPENTIN 400 MG CAPSULE 1200 MG PO ×2 (08:20→17:12)
[2025-01-13] MEDS: ROSUVASTATIN 10 MG TABLET PO (08:21)
[2025-01-13] MEDS: APIXABAN 5 MG TABLET BY MOUTH ×2 (08:21→21:51)
[2025-01-13] MEDS: ESCITALOPRAM OXALATE 5 MG TABLET BY MOUTH (08:21)
[2025-01-13 08:30] VITALS: PULSE 68; RESP 17; O2SAT 93
--- NOTE | 2025-01-13 10:23 | PM.IMPN ---
Progress Note: A&P Assessment and Plan (1) Closed fracture of right inferior pubic ramus: Qualifiers: Encounter type: initial encounter Qualified Code(s): S32.591A - Other specified fracture of right pubis, initial encounter for closed fracture Code(s): S32.591A - Other specified fracture of right pubis, initial encounter for closed fracture Status: Acute Plan Mechanical fall Closed right inferior pubic rami fracture -patient lives independently and had a mechanical fall leading to a right pubic rami fracture -CT pelvis 01/10: right inferior pubic ramus fracture. however not seen on x-ray -weight-bearing as tolerated -PT OT consulted -orthopedics consulted: Recommendation for weight-bearing as tolerated, outpatient follow-up in 1 week -pain control: Tramadol, [place], breakthrough pain with morphine -with mechanical fall, no further workup indicated -pain is well controlled Chronic conditions -CKD3a: avoid nephrotoxic agents -history of CVA, HLD: Statin -non insulin-dependent type 2 diabetes: Sliding scale insulin, Accu-Cheks a.c. HS, hypoglycemia protocol. 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 Care coordination consulted Social: Daughter Time Spent With Patient Time: 35 minutes Subjective Date/time seen: 01/13/25 10:23 Interval history: Patient seen examined. Blood pressure was slightly low 105/44, holding lisinopril, may have low blood pressure secondary to opiates. Patient otherwise able to proceed with therapy. Patient has right pelvic pain controlled by opiates. Patient denies fever, chills, nausea vomiting, diarrhea. Awaiting placement to rehab. Review of Systems Review of Systems: 10 point ROS complete, negative other than what is specified in HPI. Exam Narrative: - GENERAL: Pleasant elder woman in no acute distress - HENT: Moist mucous membranes. Hard of hearing - LUNGS: Clear to auscultation bilaterally, no wheezing - CARDIOVASCULAR: Regular rate and rhythm - ABDOMEN: Soft, non-tender and non-distended. - EXTREMITIES: No edema. Peripheral pulses 2+. - NEUROLOGIC: No focal neurological deficits. - PSYCHIATRIC: Awake, Alert and oriented x 3. Limited medical understanding Objective Data Vital Signs Vital Signs: Vital Signs - 24 hr 01/12/25 14:00 01/12/25 20:00 01/12/25 21:23 Temperature 36.1 C L 36.7 C Pulse Rate 70 17 L Respiratory Rate 16 16 Blood Pressure 115/53 L 114/47 L Pulse Oximetry 92 93 Oxygen Delivery Room Air 01/13/25 06:00 01/13/25 08:30 Temperature 36.2 C L Pulse Rate 68 68 Respiratory Rate 17 17 Blood Pressure 105/44 L Pulse Oximetry 93 93 Oxygen Delivery Room Air Intake/Output Intake/Output: Intake & Output 01/10/25 01/11/25 01/12/25 01/13/25 23:59 23:59 23:59 23:59 Intake Total 500 1070 344 Output Total 1250 350 Balance -750 720 344 Meds/Results Medications: Active Medications Generic Name Dose Route Start Last Admin Trade Name Freq PRN Reason Stop Dose Admin Acetaminophen 650 mg 01/10/25 17:28 Acetaminophen 325 Mg Tablet PO Q4H PRN Mild Pain (1-3) or Fever Hydrocodone Bitart/Acetaminophen 1 tab 01/11/25 11:11 01/12/25 04:08 Hydrocodone/Acetaminophen (*Crx) 5-325 Mg Tablet PO 1 tab Q6H PRN Administration Pain Rated 7-10 Apixaban 5 mg 01/10/25 22:10 01/13/25 08:21 Apixaban 5 Mg Tablet BY MOUTH 5 mg Q12HR [facility]SE[facility] Administration Dextrose 12.5 gm 01/10/25 22:12 Dextrose 50% 25 Gm/50 Ml Syringe IV PUSH PRN PRN Hypoglycemia Protocol Escitalopram Oxalate 5 mg 01/10/25 22:10 01/13/25 08:21 Escitalopram Oxalate 5 Mg Tablet BY MOUTH 5 mg DAILY [facility] Administration Gabapentin 1,200 mg 01/11/25 09:00 01/13/25 08:20 Gabapentin 400 Mg Capsule PO 1,200 mg TID OSE[facility] Administration Glucose 15 gm 01/10/25 22:12 Glucose Oral Gel 15 Gm Of Glucse In 37.5 Gm Tube PO PRN PRN Hypoglycemia Protocol Dextrose 1,000 mls @ 100 mls/hr 01/10/25 22:12 Dextrose 5% 1,000 Ml IVPB PRN PRN Hypoglycemia Protocol Insulin Aspart 2 - 5 units 01/11/25 08:00 01/13/25 08:21 Insulin Aspart (*Bkc) 100 Units/Ml SUB-Q Not Given TIDWM [facility] Protocol Insulin Aspart 1 - 2 units 01/11/25 21:00 01/12/25 21:09 Insulin Aspart (*Bkc) 100 Units/Ml SUB-Q Not Given HS [facility] Protocol Levothyroxine Sodium 50 mcg 01/11/25 06:30 01/13/25 06:45 Levothyroxine Sodium 50 Mcg Tablet BY MOUTH 50 mcg DAILY@0630 OSE[facility] Administration Lisinopril 20 mg 01/11/25 09:00 01/12/25 07:45 Lisinopril 20 Mg Tablet PO 20 mg On Hold: 01/13/25 07:58 DAILY O[facility] Administration Loperamide HCl 2 mg 01/11/25 08:17 Loperamide Hcl 2 Mg Capsule PO Q6H PRN Loose Stool Morphine Sulfate 2 mg 01/11/25 11:11 01/12/25 09:37 Morphine Sulfate (*Crx) 4 Mg/Ml Inj IV PUSH 2 mg Q3H PRN Administration Breakthrough Pain Oxybutynin Chloride 5 mg 01/11/25 09:00 01/13/25 08:21 Oxybutynin Chloride 5 Mg Tablet PO 5 mg BID OSE[facility] Administration Rosuvastatin Calcium 10 mg 01/11/25 09:00 01/13/25 08:21 Rosuvastatin 10 Mg Tablet PO 10 mg DAILY [facility] Administration Tramadol HCl 50 mg 01/10/25 17:31 01/11/25 10:41 Tramadol Hcl (*Crx) 50 Mg Tablet PO 50 mg Q6H PRN Administration Pain Rated 4-6 Trazodone HCl 100 mg 01/10/25 22:10 01/12/25 21:08 Trazodone Hcl 50 Mg Tablet PO 100 mg QHS OSE[facility] Administration Radiology Results: ITS Impressions Hip/Pelvis X-Ray 01/10/25 14:00 IMPRESSION: No acute abnormalities are seen. Pelvis CT 01/10/25 15:33 IMPRESSION: Right inferior pubic ramus fracture. Labs Labs: Laboratory Results - last 24 hr 01/12/25 01/12/25 01/12/25 11:31 16:39 21:21 POC Capillary Glucose 187 H 244 H 183 H 01/13/25 07:30 POC Capillary Glucose 160 H
[2025-01-13] MEDS: MORPHINE SULFATE (*CRX) 4 MG/ML INJ 2 MG IV PUSH (10:39)
[2025-01-13 14:00] VITALS: BP 107/61; PULSE 64; RESP 16; TEMP 36.3; O2SAT 94
[2025-01-13 20:50] VITALS: BP 118/59; PULSE 62; RESP 17; TEMP 36.8; O2SAT 94
[2025-01-14] MEDS: LEVOTHYROXINE SODIUM 50 MCG TABLET BY MOUTH (05:35)
[2025-01-14 06:00] VITALS: BP 144/68; PULSE 59; RESP 18; O2SAT 100
[2025-01-14] MEDS: ESCITALOPRAM OXALATE 5 MG TABLET BY MOUTH (08:46)
[2025-01-14] MEDS: APIXABAN 5 MG TABLET BY MOUTH (08:47)
[2025-01-14] MEDS: ROSUVASTATIN 10 MG TABLET PO (08:47)
[2025-01-14] MEDS: GABAPENTIN 400 MG CAPSULE 1200 MG PO ×2 (08:47→12:56)
--- NOTE | 2025-01-14 09:17 | PM.IMPN ---
Progress Note: A&P Assessment and Plan (1) Closed fracture of right inferior pubic ramus: Qualifiers: Encounter type: initial encounter Qualified Code(s): S32.591A - Other specified fracture of right pubis, initial encounter for closed fracture Code(s): S32.591A - Other specified fracture of right pubis, initial encounter for closed fracture Status: Acute Plan Mechanical fall Closed right inferior pubic rami fracture -patient lives independently and had a mechanical fall leading to a right pubic rami fracture -CT pelvis 01/10: right inferior pubic ramus fracture. however not seen on x-ray -weight-bearing as tolerated -PT OT consulted -orthopedics consulted: Recommendation for weight-bearing as tolerated, outpatient follow-up in 1 week -pain control: Tramadol, [place], breakthrough pain with morphine -with mechanical fall, no further workup indicated -pain is well controlled Chronic conditions -CKD3a: avoid nephrotoxic agents -history of CVA, HLD: Statin -non insulin-dependent type 2 diabetes: Sliding scale insulin, Accu-Cheks a.c. HS, hypoglycemia protocol. 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 Care coordination consulted Social: Daughter Subjective Date/time seen: 01/14/25 09:17 Interval history: Patient seen examined. Blood pressure was slightly low 105/44, holding lisinopril, may have low blood pressure secondary to opiates. Patient otherwise able to proceed with therapy. Patient has right pelvic pain controlled by opiates. Patient denies fever, chills, nausea vomiting, diarrhea. Awaiting placement to rehab. Review of Systems Review of Systems: 10 point ROS complete, negative other than what is specified in HPI. All systems reviewed & are unremarkable except as noted in HPI and below (Subjective) Exam Narrative: - GENERAL: Pleasant elder woman in no acute distress - HENT: Moist mucous membranes. Hard of hearing - LUNGS: Clear to auscultation bilaterally, no wheezing - CARDIOVASCULAR: Regular rate and rhythm - ABDOMEN: Soft, non-tender and non-distended. - EXTREMITIES: No edema. Peripheral pulses 2+. - NEUROLOGIC: No focal neurological deficits. - PSYCHIATRIC: Awake, Alert and oriented x 3. Limited medical understanding Const: General: comfortable and no acute distress HENMT: Mouth: Yes moist mucous membranes Eyes: Pupils: Equal, round and reactive pupils present Neck: Neck: supple Resp: Effort & Inspection: normal respiratory effort Auscultation: clear to auscultation bilaterally Cardio: Rate: regular rate Rhythm: regular rhythm GI: Inspection: non-distended Neuro: Cranial nerves: Yes Equal, round and reactive pupils present Extrem: General: no edema Objective Data Vital Signs Vital Signs: Vital Signs - 24 hr 01/13/25 14:00 01/13/25 20:00 01/13/25 20:50 Temperature 97.4 F L 98.3 F Pulse Rate 64 62 Respiratory Rate 16 17 Blood Pressure 107/61 118/59 L Pulse Oximetry 94 94 Oxygen Delivery Room Air 01/14/25 06:00 Temperature Pulse Rate 59 L Respiratory Rate 18 Blood Pressure 144/68 H Pulse Oximetry 100 Oxygen Delivery Intake/Output Intake/Output: Intake & Output 01/11/25 01/12/25 01/13/25 01/14/25 23:59 23:59 23:59 23:59 Intake Total 500 1070 1044 540 Output Total 1250 350 750 850 Balance -750 720 294 -310 Meds/Results Medications: Active Medications Generic Name Dose Route Start Last Admin Trade Name Freq PRN Reason Stop Dose Admin Acetaminophen 650 mg 01/10/25 17:28 Acetaminophen 325 Mg Tablet PO Q4H PRN Mild Pain (1-3) or Fever Hydrocodone Bitart/Acetaminophen 1 tab 01/11/25 11:11 01/12/25 04:08 Hydrocodone/Acetaminophen (*Crx) 5-325 Mg Tablet PO 1 tab Q6H PRN Administration Pain Rated 7-10 Apixaban 5 mg 01/10/25 22:10 01/14/25 08:47 Apixaban 5 Mg Tablet BY MOUTH 5 mg Q12HR OSE[facility] Administration Dextrose 12.5 gm 01/10/25 22:12 Dextrose 50% 25 Gm/50 Ml Syringe IV PUSH PRN PRN Hypoglycemia Protocol Escitalopram Oxalate 5 mg 01/10/25 22:10 01/14/25 08:46 Escitalopram Oxalate 5 Mg Tablet BY MOUTH 5 mg DAILY OSE[facility] Administration Gabapentin 1,200 mg 01/11/25 09:00 01/14/25 08:47 Gabapentin 400 Mg Capsule PO 800 mg TID [facility] Administration Glucose 15 gm 01/10/25 22:12 Glucose Oral Gel 15 Gm Of Glucse In 37.5 Gm Tube PO PRN PRN Hypoglycemia Protocol Dextrose 1,000 mls @ 100 mls/hr 01/10/25 22:12 Dextrose 5% 1,000 Ml IVPB PRN PRN Hypoglycemia Protocol Insulin Aspart 2 - 5 units 01/11/25 08:00 01/14/25 08:43 Insulin Aspart (*Bkc) 100 Units/Ml SUB-Q Not Given TIDWM [facility] Protocol Insulin Aspart 1 - 2 units 01/11/25 21:00 01/13/25 21:49 Insulin Aspart (*Bkc) 100 Units/Ml SUB-Q Not Given HS [facility] Protocol Levothyroxine Sodium 50 mcg 01/11/25 06:30 01/14/25 05:35 Levothyroxine Sodium 50 Mcg Tablet BY MOUTH 50 mcg DAILY@0630 [facility] Administration Lisinopril 20 mg 01/11/25 09:00 01/12/25 07:45 Lisinopril 20 Mg Tablet PO 20 mg On Hold: 01/13/25 07:58 DAILY [facility] Administration Loperamide HCl 2 mg 01/11/25 08:17 Loperamide Hcl 2 Mg Capsule PO Q6H PRN Loose Stool Morphine Sulfate 2 mg 01/11/25 11:11 01/13/25 10:39 Morphine Sulfate (*Crx) 4 Mg/Ml Inj IV PUSH 2 mg Q3H PRN Administration Breakthrough Pain Oxybutynin Chloride 5 mg 01/11/25 09:00 01/14/25 08:48 Oxybutynin Chloride 5 Mg Tablet PO 5 mg BID [facility] Administration Rosuvastatin Calcium 10 mg 01/11/25 09:00 01/14/25 08:47 Rosuvastatin 10 Mg Tablet PO 10 mg DAILY [facility] Administration Tramadol HCl 50 mg 01/10/25 17:31 01/11/25 10:41 Tramadol Hcl (*Crx) 50 Mg Tablet PO 50 mg Q6H PRN Administration Pain Rated 4-6 Trazodone HCl 100 mg 01/10/25 22:10 01/13/25 21:50 Trazodone Hcl 50 Mg Tablet PO 100 mg QHS [facility] Administration Radiology Results: ITS Impressions Hip/Pelvis X-Ray 01/10/25 14:00 IMPRESSION: No acute abnormalities are seen. Pelvis CT 01/10/25 15:33 IMPRESSION: Right inferior pubic ramus fracture. Labs Labs: Laboratory Results - last 24 hr 01/13/25 01/13/25 01/13/25 11:21 16:41 21:54 POC Capillary Glucose 163 H 162 H 181 H 01/14/25 07:52 POC Capillary Glucose 158 H Quality VTE Prophylaxis VTE prophylaxis: pharmacologic ordered
[2025-01-14] MEDS: HYDROcodone/acetaminophen (*CRX) 5-325 MG TABLET 1 TAB PO (10:15)
[2025-01-14 10:43] LABS: Hematocrit 36.5 % (37.0-47.0); Hemoglobin 12.1 g/dL (12.0-15.0); Mean Corpuscular HGB Conc 33.2 g/dl (32-36); Mean Corpuscular Hemoglobin 32.2 pg (26-34); Mean Corpuscular Volume 97.1 fl (80-100); Platelet Count Result 274 k/mm3 (150-375); Red Blood Count 3.76 M/mm3 (4.2-5.4); White Blood Count 9.5 K/mm3 (4.5-10.0)
[2025-01-14 11:07] LABS: Alanine Aminotransferase 15 U/L (6-35); Albumin Level 4.0 g/dL (3.5-5.1); Alkaline Phosphatase 75 U/L (38-126); Anion Gap 8 mmol/L (4-12); Aspartate Amino Transferase 29 U/L (14-36); Bilirubin,Total 1.0 mg/dL (0.2-1.3); Blood Urea Nitrogen 17 mg/dL (7-17); Calcium 8.6 mg/dL (8.4-10.2); Carbon Dioxide 26 mmol/L (22-30); Chloride 97 mmol/L (98-107); Estimated CRCL calculation 26 ml/min; Estimated Glomerular Filt Rate 45; Glucose 238 mg/dL (65-110); Potassium 4.3 mmol/L (3.4-5.0); Sodium 131 mmol/L (137-145); Total Protein 7.9 g/dL (6.3-8.2)
[2025-01-14] MEDS: INSULIN ASPART (*BKC) 100 UNITS/ML SUB-Q (11:54)
--- NOTE | 2025-01-14 13:03 | PM.DS ---
DS: Admitting Diagnosis Discharge Date 01/14/2025 Admitting Diagnosis Closed fracture of right inferior pubic ramus DS: Discharge Diagnosis Discharge Diagnosis (1) Closed fracture of right inferior pubic ramus: Qualifiers: Encounter type: initial encounter Qualified Code(s): S32.591A - Other specified fracture of right pubis, initial encounter for closed fracture Code(s): S32.591A - Other specified fracture of right pubis, initial encounter for closed fracture Status: Acute Plan Mechanical fall Closed right inferior pubic rami fracture -patient lives independently and had a mechanical fall leading to a right pubic rami fracture -CT pelvis 01/10: right inferior pubic ramus fracture. however not seen on x-ray -weight-bearing as tolerated -PT OT consulted -orthopedics consulted: Recommendation for weight-bearing as tolerated, outpatient follow-up in 1 week -pain control: Tramadol, [place], breakthrough pain with morphine -with mechanical fall, no further workup indicated -pain is well controlled Chronic conditions -CKD3a: avoid nephrotoxic agents -history of CVA, HLD: Statin -non insulin-dependent type 2 diabetes: Sliding scale insulin, Accu-Cheks a.c. HS, hypoglycemia protocol. 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 Care coordination consulted Social: Daughter DS: Summary Hospital Course Hospital Course: 81-year-old female presents to [facility] ER on 01/10/2025 after a ground level fall on right hip pain. She lost her balance. Lives at [facility]. PMH CKD, peripheral artery disease, osteomyelitis status post amputation of right foot 1st toe, history of CVA, insomnia, ofy-ifzekfq-ajchiqiai diabetes mellitus, protein S deficiency on Eliquis, tobacco use disorder. ER revealed leukocytosis 12,900, pelvis CT demonstrates right inferior pubic ramus fracture, orthopedic surgery consulted from ER. Ortho evaluated the patient and advised weight-bearing and follow-up in the office within a week upon discharge Status at Discharge Cognitive/behavioral status at discharge: Stable Time Spent with Patient Time attestation: Total time spent providing and/or coordinating discharge services: 45 minutes Exam Narrative: - GENERAL: Pleasant elder woman in no acute distress - HENT: Moist mucous membranes. Hard of hearing - LUNGS: Clear to auscultation bilaterally, no wheezing - CARDIOVASCULAR: Regular rate and rhythm - ABDOMEN: Soft, non-tender and non-distended. - EXTREMITIES: No edema. Peripheral pulses 2+. - NEUROLOGIC: No focal neurological deficits. - PSYCHIATRIC: Awake, Alert and oriented x 3. Limited medical understanding DS: Data Data Completed and Pending Labs on day of discharge: Labs from last 24 hours 01/14/25 01/14/25 01/14/25 11:32 10:30 07:52 WBC 9.5 RBC 3.76 L Hgb 12.1 Hct 36.5 L MCV 97.1 MCH 32.2 MCHC 33.2 RDW 14.3 Plt Count 274 MPV 8.8 Sodium 131 L Potassium 4.3 Chloride 97 L Carbon Dioxide 26 Anion Gap 8 BUN 17 Creatinine 1.13 H Estim Creat Clear Calc 26 Estimated GFR 45 L Glucose 238 H POC Capillary Glucose 215 H 158 H Calcium 8.6 Total Bilirubin 1.0 AST 29 ALT 15 Alkaline Phosphatase 75 Total Protein 7.9 Albumin 4.0 01/13/25 01/13/25 21:54 16:41 WBC RBC Hgb Hct MCV MCH MCHC RDW Plt Count MPV Sodium Potassium Chloride Carbon Dioxide Anion Gap BUN Creatinine Estim Creat Clear Calc Estimated GFR Glucose POC Capillary Glucose 181 H 162 H Calcium Total Bilirubin AST ALT Alkaline Phosphatase Total Protein Albumin Discharge Plan Discharge Attending physician on discharge: Ernie Balderrama Consulting providers: Mario Hopson Discharging Clinician: Ernie Balderrama Anticipated Discharge Date/Time: 01/14/25 12:53 Patient Disposition: Inpatient Rehab Facility Activity: other - see discharge instructions Diet: diabetic Discharge Instructions: Please follow-up with orthopedics within a week upon discharge Please follow-up with PCP within a week upon discharge In the event of concerning symptoms please return to ED Patient Instructions: Apixaban (By mouth), How to Stop Smoking (DC) Patient Language: French Stand Alone Forms: General Discharge Information Follow-up/Referrals: Kait Zhao MD [Primary Care Provider, [facility]] Mario Hopson MD [Physician, Orthopedics] Discharge Medications: New hydrocodone-acetaminophen 5-325 mg Tablet 1 tablet PO Q6H PRN (Reason: Pain Rated 7-10) Qty: 10 0RF Continued (DME) orthopedic shoes See Rx Instructions .Route .MEDSUPPLY Qty: 1 0RF Rx Instructions: As directed semaglutide 7 mg tablet 7 mg PO DAILY Qty: 90 3RF loperamide [Imodium A-D] 2 mg capsule 2 mg PO Q6H PRN (Reason: loose stool) oxybutynin chloride 5 mg tablet 5 mg PO BID Qty: 180 1RF rosuvastatin 10 mg tablet 10 mg PO DAILY Qty: 90 3RF lisinopril 40 mg tablet 20 mg PO DAILY 90 Days Qty: 45 2RF gabapentin 600 mg tablet 1,200 mg PO TID Qty: 540 1RF levothyroxine 50 mcg tablet See Rx Instructions .ROUTE .COMPLEX Qty: 90 1RF Dose Instruction: TAKE 1 TABLET BY MOUTH DAILY Rx Instructions: TAKE 1 TABLET BY MOUTH DAILY escitalopram oxalate 5 mg tablet See Rx Instructions .ROUTE .COMPLEX Qty: 90 1RF Dose Instruction: TAKE 1 TABLET BY MOUTH DAILY Rx Instructions: TAKE 1 TABLET BY MOUTH DAILY Eliquis 5 mg tablet See Rx Instructions .ROUTE .COMPLEX Qty: 180 1RF Dose Instruction: TAKE 1 TABLET BY MOUTH TWICE DAILY Rx Instructions: TAKE 1 TABLET BY MOUTH TWICE DAILY trazodone 100 mg tablet 100 mg PO QHS Qty: 90 1RF Date of admission: 01/11/25 11:37 Primary Care Provider: Kait Zhao Admitting Provider: Henrietta Rodriguez Attending physician on admission: Henrietta Rodriguez Condition: Stable
== END 2025-01-14 17:00 | DRG 536 ==
LOC: ANHED 13:58 → ANH3MEDSUR 18:01
PROVIDERS: General Practice; Admitting Provider Internal Medicine; Emergency Provider Physician Assistant; PCP Family Medicine; Visit Provider General Practice
DX: S32.591A Other specified fracture of right pubis, initial encounter for closed fracture (principal); D68.59 Other primary thrombophilia; I12.9 Hypertensive chronic kidney disease with stage 1 through stage 4 chronic kidney disease, or unspecified chronic kidney disease; N18.9 Chronic kidney disease, unspecified; E11.22 Type 2 diabetes mellitus with diabetic chronic kidney disease; E11.40 Type 2 diabetes mellitus with diabetic neuropathy, unspecified; E03.9 Hypothyroidism, unspecified; E78.5 Hyperlipidemia, unspecified; F32.A Depression, unspecified; W19.XXXA Unspecified fall, initial encounter; Z96.643 Presence of artificial hip joint, bilateral; Z96.611 Presence of right artificial shoulder joint; Z96.653 Presence of artificial knee joint, bilateral; Z72.0 Tobacco use; Z89.429 Acquired absence of other toe(s), unspecified side; Z79.01 Long term (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
CPT/HCPCS: 36415; 72192; 73502; 80048; 80053; 81001; 82948; 83735; 84145; 85025; 85027; 96374; 96375; 97110; 97162; 97166; 97530; 97535; 99285; A9270; G0378; J1815; J2270; J2405

== ENCOUNTER 2025-02-03 21:44 | Inpatient (IN) | payer MEDICARE, SELFPAY ==
--- NOTE | ~2025-02-03 | XR_ITS ---
EXAM/PROCEDURE: XR fl Dobhoff insert/rad w img HISTORY: Nausea, inadequate intake, primarily achalasia COMPARISON: None available. TECHNIQUE: Fluoroscopic guided Dobbhoff catheter placement. Fluoroscopy time: 6.1 minutes Number of images: 1 DAP: 38.850 Zepeda per square centimeter PROCEDURE: Timeout performed. The Dobbhoff catheter was lubricated and was passed through the right nares. Passage into the stomach was quick and uneventful. Several attempts were made to pass the catheter beyond the antrum into the duodenum without success. Some redundancy was left with the catheter in the distal body/antrum portion of the stomach. No immediate complication. IMPRESSION: Patient status post Dobbhoff placement as above. Follow-up KUB later tonight or tomorrow morning recommended to reevaluate positioning. Reviewed, dictated and finalized at location A. E SUPERVISOR
--- NOTE | ~2025-02-03 | CT_ITS ---
EXAMINATION: CT abdomen pelvis wo con DATE: 02/04/2025 00:35 INDICATION: Vomiting. Diarrhea. Leukocytosis. TECHNIQUE: Computed tomography (CT) of the abdomen and pelvis was performed without intravenous contrast. Automated exposure control and iterative reconstruction technique were employed. The dose-length product was 422.50 mGy-cm. COMPARISON: Pelvis CT 01/10/2025 FINDINGS: The visualized portions of the lung bases demonstrate mild atelectasis. No pleural effusion. The heart size is normal. No pericardial effusion. There are calcifications of the aortic valve. The liver is normal. Calcifications in the spleen are consistent with old granulomatous disease. There are changes of cholecystectomy. The common duct is dilated to 14 mm, likely not clinically significant given the normal liver function tests . The pancreas, adrenal glands, and right kidney are normal. There is an 8 mm cyst in left kidney. There is no urolithiasis. There is diverticulosis of the colon without evidence of diverticulitis. The appendix is normal. There are no pathologically enlarged lymph nodes. There is no free intraperitoneal fluid. There are bilateral hip arthroplasties. Again seen is a comminuted fracture of right inferior pubic ramus with early callus formation. There is thoracolumbar dextroscoliosis and severe spondylosis. There are chronic bilateral L5 pars defects. There is 5 mm anterolisthesis of L5 on S1. There are chronic fractures of T12 and L1 vertebral bodies with changes of vertebroplasty. IMPRESSION: 1. No specific etiology for the patient's symptoms. 2. Healing subacute fracture of right inferior pubic ramus. Reviewed, dictated and finalized at location E. RANCE VERIFICATION REPRESENTATIVE
--- OUTSIDE RECORDS SUMMARY | 2025-02-03 21:46 | XMS_ITS | Continuity of Care Document ---
Author Organization [facility], 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 Schedule APAP TID. Have requested home med list from Dr. Zhao. Nursing to schedule ortho Dr. Hopson f/u in 1 week. [email or web address] Not available 01/16/2025 15:53:47 Plan of Treatment Reminders Order Date Submit Date Provider Last Modified By Organization Details Last Modified Time Details Appointments None record ed. Lab None record ed. Referral None record ed. Procedures None record ed. Surgeries None record ed. Imaging None record ed. Medication Orders None record ed. Patient TargetsNo targets recorded. Patient Instructions Encounter Date Encounter Id Patient Instructions Last Modified By Organization Details Last Modified Time 01/16/2025 [id number] I spent 38 minutes providing care to the patient today. More than 50% of that time was spent in discussing the expected course of the disease, discussing prognosis, coordinating care and counseling of the patient/family. [email or web address] Not available 01/16/2025 15:53:52 Reason for Referral None Reported. Results Created Date Observation Date Name Description Value Unit Range Abnormal Flag Note LastModifiedBy Organization Detail LastModifiedTime Result Notes None recorded. Procedures Surgical History Date Name Laterality Status Provider Name and Address Organization Details Recorded Time 08/28/19 23 vertebroplasty completed Aiden Colindres [facility] 01/14/2025 22:04:57 08/13/19 21 [place] [address] [place], [address], [place] [facility] 02/01/2025 13:46:36 02/27/19 13 arthroplasty of shoulder completed Aiden Dinero [place] [facility] 01/14/2025 22:06:06 02/27/19 07 total replacement of hip completed Aiden Dinero [place] [facility] 01/14/2025 22:06:31 02/27/19 05 total replacement of hip completed Aiden Dinero [place] [facility] 01/14/2025 22:06:28 02/27/19 04 arthroplasty of knee completed Aiden Dinero [place] [facility] 01/14/2025 22:06:47 02/27/19 03 arthroplasty of knee completed Aiden Dinero [place] [facility] 01/14/2025 22:06:43 02/27/18 80 hysterectomy completed Aiden MORFIN - [facility] 01/14/2025 22:05:48 02/27/18 67 laminectomy completed Aiden MORFIN - [facility] 01/14/2025 22:05:27 02/27/18 66 [facility] 01/14/2025 22:05:39 Imaging Results None recorded. Procedure Notes None recorded. Medical Equipment None Reported. Allergies No known drug allergies Medications Name Sig Start Date Stop Date Status Note LastModified by Organization Details LastModified Time atorvastati n 40 mg tablet Take 1 tablet every day by oral route. 01/29 completed Not Available Not Available Not Available gabapentin 600 mg tablet Take 1 tablet (600 mg) every morning and 2 tablets (1,200 mg) every evening. active Not Available Not Available No t Available loperamide 2 mg capsule Take 1 capsule every 6 hours by oral route as needed. active Not Available Not Available No t Available hydrocodone 5 mg-acetamin ophen 325 mg tablet Take 1 tablet every 6 hours by oral route as needed. 2024 active Not Available Not Available Not Avai lable lisinopril 20 mg tablet Take 1 tablet every day by oral route. active Not Available Not Available No t Available acetaminoph en 500 mg tablet Take 2 tablets 3 times a day by oral route. active Not Available Not Available No t Available trazodone 100 mg tablet Take 1 tablet every day by oral route at bedtime. active Not Available Not Available No t Available levothyroxi ne 50 mcg tablet Take 1 tablet every day by oral route. active Not Available Not Available No t Available docusate sodium 100 mg capsule Take 1 capsule every day by oral route. active Not Available Not Available No t Available oxybutynin chloride 5 mg tablet Take 1 tablet twice a day by oral route. active Not Available Not Available No t Available rosuvastati n 10 mg tablet Take 1 tablet every day by oral route. active Not Available Not Available No t Available escitalopra m 5 mg tablet Take 1 tablet every day by oral route. active Not Available Not Available No t Available Glutose-15 40 % oral gel Take 15 g by oral route as needed. active Not Available Not Available No t Available Humalog KwikPen (U-100) Insulin 100 unit/mL subcutaneou s Inject 1 unit 3 times a day by subcutane ous route as directed. 01/16 completed Not Available Not Available Not Available Vitamin D3 50 mcg (2,000 unit) tablet Take 1 tablet every day by oral route. active Not Available Not Available No t Available Eliquis 5 mg tablet Take 1 tablet twice a day by oral route. active Not Available Not Available No t Available Rybelsus 7 mg tablet Take 1 tablet every day by oral route. active Not Available Not Available No t Available Vitals Date Recorded Heart rate Body temperature Respiratory rate Oxygen saturation Body weight Systolic And Diastolic Provider Name and Address Organization Details Last Updated DateTime 76 /min 96.7 [degF] 16 /min 98 % 03574.6 g 158/84 mm[Hg] Areli Payan, [place] [address] [place], [address], [place] [facility] 15:14:11 Social History None recorded. Functional Status Question Answer Note LastModified by Organizat ion Details LastModified Time Do you use any illicit or recreational drugs? No Information not available 01/14/2025 What is your level of alcohol consumption? None Information not available 01/14/2025 Mental Status None recorded. Family History Relationship Description Onset Age of this Age Resolved Age Notes LastModified by Organization Details LastModified Time Unspecified Relation Multiple myeloma siblin g Not available 01/14/2025 22:07:17 Unspecified Relation Disorder of thyroid gland Not available 2024 22:07:31 Unspecified Relation Heart disease Not available 2024 22:07:37 Medical History Condition Response Diabetes Y Stroke (CVA) Y Osteomyelitis Y Chronic Kidney Disease (CKD) Y Peripheral Vascular Disease (PVD) Y Insomnia Y Gynecological HistoryNo gynecological history recorded. Obstetrics History GPAL:G 0 P 0 0 0 0 Past Encounters Encounter ID Performer Location Encounter Start Date Encounter Closed Date Diagnosis/Indication Diagnosis SNOMED-CT Code Diagnosis ICD10 Code Diagnosis IMO Codes Diagnosis Note [id number] Kait Laina, DO [place] [address] [address] [place] [address] 01/15/2025 07:11:23 01/16/2025 21:34:23 Closed fracture pubis 010392691 S32.591D 92142266 related to mechanical / ground level fall in her [facility] apartmento rthopedics consulted with recommenda tions for non operative measuresWB AT to LEcurrentl y pain is controlled continue prn norco for now related to pain - would transition to non narcotic meds if pain remains controlled continue therapieso rtho f/u with Dr. Hopson 1 week Chronic ki dney disease 889097087 N18.9 [id number] unclear baseline - creatinine ranged from 0.91-1.13 while inpatienta void nephrotoxi ns and continue to trend labs Peripheral arterial disease 601229603 I73.9 408106 encourage continued smoking cessation, continue statin/opt imal blood pressure control and anticoagul ation History of cerebrovascular accident 914527753 Z86.73 339026 details unclear - patient denies residual deficits related to thiscontin ue statin / good blood pressure control and anticoagul ation Type 2 hector betes mellitus 63518866 E11.22 49847625 no recent HbA1c - will check with next lab drawcontin ue Rybelsus, check blood sugars BID Acquired hypothyroidism 127451875 E03.9 24635 presumed stable - continue synthroidw ill check thyroid studies with next lab draw Protein S deficiency disease 9359598 D68.59 020102 continue eliquis Primary insomnia 5490070 F51.01 52455 continue trazodone Overactive urinary bladder 023893792 N32.81 175823 continue oxybutynin - monitor for need - might consider trial of dose reduction or d/c altogether due to high risk med/concer shiela side effects in this elderly patient Tobacco user 364657474 Z 72.0 24609 smokes an occasional cigarette - says a few / month - does not feel that she needs nicotine replacemen t at this timemonito r for need 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 45309381 continue neurontin - will confirm with PCP this is correct outpatient dose History of osteomyelitis 743565683 Z87.39 955754 s/p right great toe amputation Essential hypertension 47481870 I10 16467 continue lisinopril trend pressures and adjust meds as clinically indicated Hyperlipidemia 00346050 E78.5 91283888 presumed stable - continue statin therapy Diarrhea 91615510 R19.7 42038441 continue prn imodium Mild major depression, single episode 96520248 F32.0 3594818932 continue low dose escitalopr am Physical deconditioning 7273628001 9102 R53.81 326294 related to advanced age, recent fall/pelvi c fracture/c omorbiditi estherapie s have been initiated - will monitor progress and work with SS/family regarding safest d/c plan History of fall 01962640 9 Z91.81 9582231 monitor for reversible causes - will check thyroid studies/B1 2, vitamin D level with next lab draw [id number] Kait Marina, DO [address] [address] 01/16/2025 13:20:25 01/16/2025 21:33:46 Closed fracture pubis 681732771 S32.591D 23815312 Related to mechanical / ground level fall in her [facility] apartment. Orthopedic s consulted with recommenda tions for non operative measures.W BAT to BLE.Schedu le APAP TID. Continue PRN [place] for now.Contin ue therapies. Nursing to schedule ortho Dr. Hopson f/u in 1 week. Peripheral arterial disease 259205432 I73.9 951832 Encourage continued smoking cessation. Continue statin, Eliquis, and optimal blood pressure control. History of cerebrovascular accident 559639882 Z86.73 277919 Details unclear. Patient denies residual deficits related to this.Braden nue statin, Eliquis, and optimal blood pressure control. Type 2 hector betes mellitus 28493507 E11.22 N18.31 9805788705 No recent HbA1c. Will check with next lab draw.Braden cardozalorelei Chan.H ave stopped SSI for now.Contin ue to monitor blood sugars and encourage LCS diet. Acquired hypothyroidism 667530988 E03.9 66020 Presumed stable. Continue Synthroid. Checking thyroid studies with next lab draw. Protein S deficiency disease 8390243 D68.59 993308 Presumed stable. Continue Eliquis. Primary insomnia 8614239 F51.01 47618 SEE ABOVE... Overactive urinary bladder 264853197 N32.81 579141 Continue Oxybutynin for now.Monito r for need - might consider trial of dose reduction or d/c altogether due to high risk med/concer shiela side effects in this elderly patient. Tobacco user 665493512 Z 72.0 00708 Smokes an occasional cigarette, a few/month, does not feel that she needs nicotine replacemen t at this time.Monit or for need and encourage complete cessation. Polyneurop athy associated with another disorder 500298933 G63 21533516 Stable. Continue Neurontin and pain medication s as above.Need to confirm with PCP this is correct outpatient dose as very high. History of osteomyelitis 510695653 Z87.39 726538 s/p right great toe amputation . No recent concerns per pt. Hyperlipidemia 45566759 E78.5 13981529 Presumed stable. Continue statin. Diarrhea 44910054 R19.7 70467251 Stable at present. Continue PRN Imodium. Mild major depression, single episode 45178642 F32.0 0683642932 Stable. Continue low-dose Escitalopr am and Trazodone. History of fall 48226969 9 Z91.81 2804071 monitor for reversible causes - will check thyroid studies/B1 2, vitamin D level with next lab draw Physical deconditioning 3362412689 9102 R53.81 938000 Related to advanced age, recent fall/pelvi c fracture/c omorbiditi es.Continu e therapies - monitor progress and work with SS/family regarding safest d/c plan. Hypertensi ve renal disease 47564672 I12.9 N18.31 1854794844 Unclear baseline. Cr ranged from 0.91-1.13 while inpatient. Stable. Continue Lisinopril .Avoid additional nephrotoxi ns and continue to trend labs.Braden nue to trend blood pressures, monitor lytes and renal function, and adjust meds as clinically indicated. Health Concerns Section Related Observation LastModified by Organization Detai ls LastModified Time None Recorded Concern Status LastModified by Organization Details LastModified Time None Recorded Payers Encounter Date Sequence Insurance Name Policy Number Policy Fox Covered Member ID Fox Member ID Guarantor Name 01/16/2025 1 [place] Marisela Franz [id number] Marisela De Leon Florianvandana 01/16/2025 2 [id number] [id number] Marisela De Leon Florianvandana [id number] Marisela B Florianvandana Notes Date Note Type Note Provider Name and Address Organization Details Recorded Time 01/16/2025 text/html F/U fall with right inferior pubic ramus fracture, leukocytosis, weakness/decondit ioning, and chronic medical conditions.--- patient is lying in her bed this afternoon - she has the covers pulled over her head upon my entry. She is a fair historian with some forgetfulness. She is tired as she says therapy has worn her out today. Per staff, she is requiring MOD/MAX A with mobility, only AMB a few feet at this time. The patient states she plans to return to [facility] at [facility] - per staff, she may need higher level of care upon d/c from SNF.---01/16/25Lo la is seated in her recliner in her room, doing well today, without concerns. She does report tenderness to her right hip, for which she has just received a PRN [place]. She is noted to have removed her left shoe. When I ask why, she reports the top of her 2nd toe was uncomfortable. Examination is without concern for injury, ulceration, erythema, edema, warmth, etc. She does have hammertoe changes of this toe and the area she is indicating is the PIP joint, Will monitor. She has soft toed shoes with give. VSS. Staff is without concerns today. Per therapy notes = facilitated STS practice from EOB with modx1 with cues for safe UE placement and adequate anterior weight shift. Areli Payan, [place] [address] [facility], [place], [address], [place] [facility] 01/16/2025 15:54:01 OBGyn Episode No OBEpisode recorded.
--- OUTSIDE RECORDS SUMMARY | 2025-02-03 21:47 | XMS_ITS | Continuity of Care Document ---
Author Organization [facility], [facility] Address [address] [place] [address] Care Team Providers Care Is Manager Name Role Phone [facility] FAX OTHER Assessment Encounter Date Assessment Date Assessment LastModified by Organization Details LastModified Time 01/22/2025 01/22/2025 Nursing to schedule ortho Dr. Hopson f/u. Start Vit D supplement at next visit. [email or web address] Not available 01/22/2025 20:11:57 Plan of Treatment Reminders Order Date Submit [...] Modified By Organization Details Last Modified Time 01/22/2025 [id number] I spent 37 minutes providing care to the patient today. More than 50% of that time was spent in discussing the expected course of the disease, discussing prognosis, coordinating care and counseling of the patient/family. [email or web address] Not available 01/22/2025 20:12:07 Reason for Referral None Reported. Results Created Date Observation Date Name Description Value Unit Range Abnormal Flag Note LastModifiedBy Organization Detail LastModifiedTime Result Notes None recorded. Procedures Surgical History Date Name Laterality Status Provider Name and Address Organization Details Recorded Time 08/28/19 23 vertebroplasty completed Aiden Col[facility] 01/14/2025 22:04:57 08/13/19 21 [place] [address] [place], [address], [facility] 02/01/2025 13:46:36 02/27/19 13 arthroplasty of shoulder completed Aiden Dinero [place] [facility] 01/14/2025 22:06:06 02/27/19 07 total replacement of hip completed Aiden MORFIN - [facility] 01/14/2025 22:06:31 02/27/19 05 total replacement of hip completed Aiden Dinero [place] [facility] 01/14/2025 22:06:28 02/27/19 04 arthroplasty of knee completed Aiden MORFIN - [facility] 01/14/2025 22:06:47 02/27/19 03 arthroplasty of knee completed Aiden Dinero [place] [facility] 01/14/2025 22:06:43 02/27/18 80 hysterectomy completed Aiden MORFIN - [facility] 01/14/2025 22:05:48 02/27/18 67 laminectomy completed Aiden MORFIN - [facility] 01/14/2025 22:05:27 02/27/18 66 cholecystectomy completed Aiden MORFIN [facility] 01/14/2025 22:05:39 Imaging Results None [...] and Address Organization Details Last Updated DateTime 61 /min 97.4 [degF] 18 /min 98 % 82858.5 2 g 108/69 mm[Hg] [place] [address] [place], [address], [place] [facility] 19:59:28 Social History None recorded. Functional Status Question [...] Details LastModified Time Unspecified Relation Multiple myeloma aroldo king Not available 01/14/2025 22:07:17 Unspecified Relation Disorder of thyroid gland Not available 2024 22:07:31 Unspecified Relation Heart disease Not available 2024 22:07:37 Medical History Condition Response Diabetes Y Stroke (CVA) Y Osteomyelitis Y Chronic Kidney Disease (CKD) Y Insomnia Y Peripheral Vascular Disease (PVD) Y Gynecological HistoryNo gynecological history recorded. Obstetrics History GPAL:G 0 P 0 0 0 0 Past Encounters Encounter ID Performer Location Encounter Start Date Encounter Closed Date Diagnosis/Indication Diagnosis SNOMED-CT Code Diagnosis ICD10 Code Diagnosis IMO Codes Diagnosis Note [id number] Kait Marina, DO [place] [address] [place] [address] 01/15/2025 07:11:23 01/16/2025 21:34:23 Closed fracture pubis 422771016 S32.591D [id number] related to mechanical / ground level fall in her [facility] apartmento rthopedics consulted with recommenda tions for non operative measuresWB AT to LEcurrentl y pain is controlled continue prn norco for now related to pain - would transition to non narcotic meds if pain remains controlled continue therapieso rtho f/u with Dr. Hopson 1 week Chronic ki dney disease 037772921 N18.9 [id number] unclear baseline - creatinine ranged from 0.91-1.13 while inpatienta void nephrotoxi ns and continue to trend labs Peripheral arterial disease 113807027 I73.9 796621 encourage continued smoking cessation, continue statin/opt imal blood pressure control and anticoagul ation History of cerebrovascular accident 441773907 Z86.73 978657 details unclear - patient denies residual deficits related to thiscontin ue statin / good blood pressure control and anticoagul ation Type 2 hector betes mellitus 35122320 E11.22 78665359 no recent HbA1c - will check with next lab drawcontin ue Rybelsus, check blood sugars BID Acquired hypothyroidism 240989280 E03.9 42066 presumed stable - continue synthroidw ill check thyroid studies with next lab draw Protein S deficiency disease 6468611 D68.59 158723 continue eliquis Primary insomnia 6634775 F51.01 85245 continue trazodone Overactive urinary bladder 170877840 N32.81 386000 continue oxybutynin - monitor for need - might consider trial of dose reduction or d/c altogether due to high risk med/concer shiela side effects in this elderly patient Tobacco user 102189508 Z 72.0 60347 smokes an occasional cigarette - says a few / month - does not feel that she needs nicotine replacemen t at this timemonito r for need 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 96705534 continue neurontin - will confirm with PCP this is correct outpatient dose History of osteomyelitis 637698994 Z87.39 927675 s/p right great toe amputation Essential hypertension 26446378 I10 75843 continue lisinopril trend pressures and adjust meds as clinically indicated Hyperlipidemia 52502938 E78.5 81779156 presumed stable - continue statin therapy Diarrhea 25885584 R19.7 90566664 continue prn imodium Mild major depression, single episode 30292801 F32.0 4772923267 continue low dose escitalopr am Physical deconditioning 8516232756 9102 R53.81 891569 related to advanced age, recent fall/pelvi c fracture/c omorbiditi estherapie s have been initiated - will monitor progress and work with SS/family regarding safest d/c plan History of fall 32699769 9 Z91.81 4872669 monitor for reversible causes - will check thyroid studies/B1 2, vitamin D level with next lab draw [id number] Kait Marina, DO [address] [address] 01/16/2025 13:20:25 01/16/2025 21:33:46 Closed fracture pubis 374599754 S32.591D 23124513 Related to mechanical / ground level fall in her [facility] apartment. Orthopedic s consulted with recommenda tions for non operative measures.W BAT to BLE.Schedu le APAP TID. Continue PRN Reading for now.Contin ue therapies. Nursing to schedule ortho Dr. Hopson f/u in 1 week. Peripheral arterial disease 224430773 I73.9 219768 Encourage continued smoking cessation. Continue statin, Eliquis, and optimal blood pressure control. History of cerebrovascular accident 800202989 Z86.73 262507 Details unclear. Patient denies residual deficits related to this.Braden nue statin, Eliquis, and optimal blood pressure control. Type 2 hector betes mellitus 43422955 E11.22 N18.31 3181802624 No recent HbA1c. Will check with next lab draw.Braden leodan Giles.H ave stopped SSI for now.Contin ue to monitor blood sugars and encourage LCS diet. Acquired hypothyroidism 021588694 E03.9 65110 Presumed stable. Continue Synthroid. Checking thyroid studies with next lab draw. Protein S deficiency disease 1098649 D68.59 778411 Presumed stable. Continue Eliquis. Primary insomnia 5947088 F51.01 86831 SEE ABOVE... Overactive urinary bladder 209976293 N32.81 556933 Continue Oxybutynin for now.Monito r for need - might consider trial of dose reduction or d/c altogether due to high risk med/concer shiela side effects in this elderly patient. Tobacco user 212754329 Z 72.0 53638 Smokes an occasional cigarette, a few/month, does not feel that she needs nicotine replacemen t at this time.Monit or for need and encourage complete cessation. Polyneurop athy associated with another disorder 704597104 G63 10837201 Stable. Continue Neurontin and pain medication s as above.Need to confirm with PCP this is correct outpatient dose as very high. History of osteomyelitis 055831003 Z87.39 327266 s/p right great toe amputation . No recent concerns per pt. Hyperlipidemia 66090006 E78.5 29089242 Presumed stable. Continue statin. Diarrhea 87359626 R19.7 36281103 Stable at present. Continue PRN Imodium. Mild major depression, single episode 84125880 F32.0 4709987560 Stable. Continue low-dose Escitalopr am and Trazodone. History of fall 09712600 9 Z91.81 2489370 monitor for reversible causes - will check thyroid studies/B1 2, vitamin D level with next lab draw Physical deconditioning 0394957762 9102 R53.81 655314 Related to advanced age, recent fall/pelvi c fracture/c omorbiditi es.Continu e therapies - monitor progress and work with SS/family regarding safest d/c plan. Hypertensi ve renal disease 10084797 I12.9 N18.31 3068813092 Unclear baseline. Cr ranged from 0.91-1.13 while inpatient. Stable. Continue Lisinopril .Avoid additional nephrotoxi ns and continue to trend labs.Braden nue to trend blood pressures, monitor lytes and renal function, and adjust meds as clinically indicated. [id number] Kait Marina, [place] [address] [place] [address] 01/20/2025 10:14:27 01/23/2025 20:44:42 Closed fracture pubis 832487667 S32.591D 32415713 Related to mechanical / ground level fall in her [facility] apartment. Orthopedic s consulted with recommenda tions for non operative measures.W BAT to BLE.Contin ue routine APAP and PRN Reading for now.Taperi ng down on Gabapentin to better mimic OP dosing (typically takes 1,500 mg at bedtime only).Cont inue therapies. Nursing to schedule ortho Dr. Hopson f/u in 1 week. Hypertensi ve renal disease 44387223 I12.9 N18.31 0225262969 Unclear baseline. Cr ranged from 0.91-1.13 while inpatient. Stable. Continue Lisinopril .Avoid additional nephrotoxi ns and continue to trend labs.Braden nue to trend blood pressures, monitor lytes and renal function, and adjust meds as clinically indicated. Peripheral arterial disease 571500043 I73.9 423644 Encourage continued smoking cessation. Continue statin, Eliquis, and optimal blood pressure control. Hyperlipidemia 52673508 E78.5 77782862 Presumed stable. Continue statin. Type 2 hector betes mellitus 03959464 E11.22 N18.31 0642096068 No recent HbA1c. Will check with next lab draw.Braden nue Rybelsus.H ave stopped SSI.Contin ue to monitor blood sugars and encourage LCS diet. Polyneurop athy associated with another disorder 151020687 G63 41082101 Stable. Continue pain medication s as above.Tape ring down on Gabapentin to better mimic OP dosing (typically takes 1,500 mg at bedtime only). History of osteomyelitis 922787467 Z87.39 978351 s/p right great toe amputation . No recent concerns per pt. Acquired hypothyroidism 202081133 E03.9 05870 Presumed stable. Continue Synthroid. Checking thyroid studies with next lab draw. Protein S deficiency disease 9074588 D68.59 584635 Presumed stable. Continue Eliquis. Mild major depression, single episode 74962922 F32.0 8172797137 Stable. Continue low-dose Escitalopr am and Trazodone. Primary insomnia 1969295 F51.01 04595 SEE ABOVE... Overactive urinary bladder 138143426 N32.81 375307 Continue Oxybutynin for now.Monito r for need - might consider trial of dose reduction or d/c altogether due to high risk med/concer shiela side effects in this elderly patient. Diarrhea 50681195 R19.7 96283148 Stable at present. Continue PRN Imodium. Tobacco user 103702729 Z 72.0 54480 Smokes an occasional cigarette, a few/month, does not feel that she needs nicotine replacemen t at this time.Monit or for need and encourage complete cessation. History of cerebrovascular accident 421293345 Z86.73 232019 Details unclear. Patient denies residual deficits related to this.Braden nue statin, Eliquis, and optimal blood pressure control. History of fall 83594023 9 Z91.81 2312572 Monitor for reversible causes. Checking thyroid studies, VIt B12, vitamin D level with next lab draw Physical deconditioning 0740748682 9102 R53.81 310775 Related to advanced age, recent fall/pelvi c fracture/c omorbiditi es.Continu e therapies - monitor progress and work with SS/family regarding safest d/c plan. [id number] Kait Marina, DO [address] [address] 01/22/2025 14:34:48 01/23/2025 20:45:25 Closed fracture pubis 455333824 S32.591D 76840404 Related to mechanical / ground level fall in her [facility] apartment. Orthopedic s consulted with recommenda tions for non operative measures.W BAT to BLE.Contin ue routine APAP and PRN Reading for now.Taperi ng down on Gabapentin to better mimic OP dosing (typically takes 1,500 mg at bedtime only).Cont inue therapies. Nursing to schedule ortho Dr. Hopson f/u. Hypertensi ve renal disease 11886719 I12.9 N18.31 1226256364 Unclear baseline. Cr ranged from 0.91-1.13 while inpatient. Stable. Continue Lisinopril .Avoid additional nephrotoxi ns and continue to trend labs.Braden nue to trend blood pressures, monitor lytes and renal function, and adjust meds as clinically indicated. Peripheral arterial disease 190572961 I73.9 896589 Encourage continued smoking cessation. Continue statin, Eliquis, and optimal blood pressure control. Hyperlipidemia 66301381 E78.5 02747317 Presumed stable. Continue statin. Type 2 hector betes mellitus 28147876 E11.22 N18.31 3115811074 01/22/25 = HgA1c 7.1%. Within a good range for age/comorb idities. Stopped SSI.Contin ue Rybelsus.C ontinue to monitor blood sugars and encourage LCS diet. Polyneurop athy associated with another disorder 746771897 G63 72189977 Stable. Continue pain medication s as above. History of osteomyelitis 254664405 Z87.39 216077 s/p right great toe amputation . No recent concerns per pt. Acquired hypothyroidism 275289634 E03.9 63368 Stable. Thyroid panel WNL. Continue Synthroid. Protein S deficiency disease 8772170 D68.59 834449 Presumed stable. Continue Eliquis. Mild major depression, single episode 60501548 F32.0 2767651941 Stable. Continue low-dose Escitalopr am and Trazodone. Primary insomnia 0673300 F51.01 57654 SEE ABOVE... Overactive urinary bladder 121917157 N32.81 403659 Continue Oxybutynin for now.Monito r for need - might consider trial of dose reduction or d/c altogether due to high risk med/concer shiela side effects in this elderly patient. Diarrhea 79365256 R19.7 38501357 Stable at present. Continue PRN Imodium. Tobacco user 701007176 Z 72.0 08794 Smokes an occasional cigarette, a few/month, does not feel that she needs nicotine replacemen t at this time.Monit or for need and encourage complete cessation. History of cerebrovascular accident 680793308 Z86.73 665122 Details unclear. Patient denies residual deficits related to this.Rbaden nue statin, Eliquis, and optimal blood pressure control. History of fall 56658340 9 Z91.81 8378286 Monitor for reversible causes. Checking thyroid studies, VIt B12, vitamin D level with next lab draw Physical deconditioning 0986902483 9102 R53.81 800605 Related to advanced age, recent fall/pelvi c fracture/c omorbiditi es.Continu e therapies - monitor progress and work with SS/family regarding safest d/c plan. Vitamin D deficiency 347 03559 E55.9 35224 Vit D level 20. Start Vit D supplement at next visit. Health Concerns Section Related Observation LastModified by Organization Detai ls LastModified Time None Recorded Concern Status LastModified by Organization Details LastModified Time None Recorded Payers Encounter Date Sequence Insurance Name Policy Number Policy Fox Covered Member ID Fox Member ID Guarantor Name 01/22/2025 1 [place] Mariseal Franz [id number] Marisela Franz 01/22/2025 2 [id number]PP[place]) [id number] Marisela Franz [id number] Marisela Franz Notes Date Note Type Note Provider Name and Address Organization Details Recorded Time 01/22/2025 text/html F/U fall with right inferior pubic [...] patient states she plans to return to [facility] at [place] - per staff, she may need higher level of care upon d/c from SNF.---01/16/25Lo la is seated in her recliner in her room, doing well today, without concerns. She does report tenderness to her right hip, for which she has just received a PRN Reading. She is noted to have removed her [...] safe UE placement and adequate anterior weight shift.--- Sofya is doing fairly well today, seated in her w/c, confused, without concerns or pain to report at this time. We discuss her home medication list and plan to taper down on her Gabapentin per her family's request, to which she is in agreement. VSS. Staff is without concerns at this time. Per therapy notes = gait training for up to 40 ft with cGA with FWW with cues for pursed lip breathing thorughout to reudce SOB and anxiety. STS practice from WC to FWW with minx1.--- Sofya is resting in bed, lying down for a short while before dinner. She denies concerns or pain at this time. VSS. Staff is without concerns at this time, as well. Per therapy notes = Patient instructed in skilled self-care retraining focused on bed mobility supine to sit EOB with MOD, LB dressing with MOD using lithograph press feeder, UB dressing with setup, functional transfers with MIN, toileting with MAX for cleanup after bowel and bladder incontinence, hygiene and grooming at sink with setup while seated at sink. Areli Payan, [place] [address] [facility], [place], [address], [place] [facility] 01/22/2025 20:12:22 OBGyn Episode No OBEpisode recorded.
--- OUTSIDE RECORDS SUMMARY | 2025-02-03 21:49 | XMS_ITS | Continuity of Care Document ---
Author Organization [place] [facility] Address [address] [place] [address] Care Team Providers Care Border Guard Name Role Phone [facility] FAX OTHER Assessment Encounter Date Assessment Date Assessment LastModified by Organization Details LastModified Time 01/15/2025 01/15/2025 f/u labs 01/20 get home med list from Dr. Zhao ortho f/u with Dr. Hopson 1 week [email or web address] Not available 01/16/2025 04:41:03 Plan of Treatment Reminders Order Date Submit [...] Modified By Organization Details Last Modified Time 01/15/2025 [id number] I spent >50 minutes providing care to the patient today. More than 50% of that time was spent in discussing the expected course of the disease, discussing prognosis, coordinating care and counseling of the patient/family. I spent 16 minutes counseling and discussing advance directives and/or end of life care planning and decisions with the patient today. I reviewed the current relevant diagnoses, treatment options, natural history, and prognosis and clarified the patient's goals of care. code status is DNR [email or web address] Not available 01/16/2025 05:07:23 Reason for Referral None Reported. Results Created Date Observation Date Name Description Value Unit Range Abnormal Flag Note LastModifiedBy Organization Detail LastModifiedTime Result Notes None recorded. Procedures Surgical History Date Name Laterality Status Provider Name and Address Organization Details Recorded Time 08/28/19 vertebroplasty completed Aiden Dinero [place] [facility] 01/14/2025 22:04:57 08/13/19 21 amputation of toe completed Areli Payan, NORMA [address] [place], [address], [place] [facility] 02/01/2025 13:46:36 [...] 01/14/2025 22:06:43 02/27/18 80 hysterectomy completed Aiden Dinero [place] [facility] 01/14/2025 22:05:48 02/27/18 67 laminectomy completed Aiden Dinero [place] [facility] 01/14/2025 22:05:27 02/27/18 66 cholecystectomy completed Aiden Dinero [place] [facility] 01/14/2025 22:05:39 [...] and Address Organization Details Last Updated DateTime 5 69 /min 98.1 [degF] 18 /min 92 % 47166.5 7 g 141/90 mm[Hg] [place] [address] [place], [address], [facility] 5 03:43:47 Date Recorded Heart rate Body temperature Respiratory rate Oxygen saturation Body weight Systolic And Diastolic Provider Name and Address Organization Details Last Updated DateTime 5 76 /min 96.7 [degF] 16 /min 98 % 87115.6 g 158/84 mm[Hg] Areli Payan, [place] [address] [place], [address], [place] [facility] 15:14:11 [...] ICD10 Code Diagnosis IMO Codes Diagnosis Note [id number] Kait Laina, DO [address] [address] 01/15/2025 07:11:23 01/16/2025 21:34:23 Closed fracture pubis 219452694 S32.591D [id number] related to mechanical / ground level fall in her [facility] apartmento rthopedics consulted with recommenda tions for non operative measuresWB AT to LEcurrentl y pain is controlled continue prn norco for now related to pain - would transition to non narcotic meds if pain remains controlled continue therapieso rtho f/u with Dr. 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.22 77464498 no recent HbA1c - will check with next lab drawcontin ue Jew[place], check blood sugars BID Acquired hypothyroidism 380008811 E03.9 92476 presumed stable - continue synthroidw ill check thyroid studies with next lab draw Protein S deficiency disease 1750249 D68.59 606000 continue eliquis Primary insomnia 3335178 F51.01 62873 continue trazodone Overactive urinary bladder 381666181 N32.81 064503 continue oxybutynin - monitor for need - might consider trial of dose reduction or d/c altogether due to high risk med/concer shiela side effects in this elderly patient Tobacco user 736431024 Z 72.0 89397 smokes an occasional cigarette - says a few / month - does not feel that she needs nicotine replacemen t at this timemonito r for need Polyneurop athy associated with another disorder 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 97476838 continue neurontin - will confirm with PCP this is correct outpatient dose History of osteomyelitis 015061158 Z87.39 075978 s/p right great toe amputation Essential hypertension 02017927 I10 22420 continue lisinopril trend pressures and adjust meds as clinically indicated Hyperlipidemia 57120339 E78.5 52477811 presumed stable - continue statin therapy Diarrhea 28055282 R19.7 91980182 continue prn imodium Mild major depression, single episode 64233241 F32.0 2200582062 continue low dose escitalopr am Physical deconditioning 4366413223 9102 R53.81 550355 related to advanced age, recent fall/pelvi c fracture/c omorbiditi estherapie s have been initiated - will monitor progress and work with SS/family regarding safest d/c plan History of fall 08687029 9 Z91.81 8584311 monitor for reversible causes - will check thyroid studies/B1 2, vitamin D level with next lab draw Health Concerns Section Related Observation LastModified by Organization Detai ls LastModified Time None Recorded Concern Status LastModified by Organization Details LastModified Time None Recorded Payers Encounter Date Sequence Insurance Name Policy Number Policy Fox Covered Member ID Fox Member ID Guarantor Name 01/15/2025 1 [place] Marisela Franz [id number] Mairsela Franz 01/15/2025 2 [id number]MED[place]ARE [place]PPLE[place]) [id number] Marisela Franz [id number] Marisela Franz Notes Date Note Type Note Provider Name and Address Organization Details Recorded Time 01/15/2025 text/html 89 Y/O female with a history of CKD, PAD, osteomyelitis s/p right great toe amputation, CVA, insomnia, DM, protein S deficiency on eliquis, HTN, HLD, overactive bladder, depression and tobacco use admitted to [facility] for post acute rehab subsequent to an inpatient stay at [facility] 01/10-01/14/2025 following a fall at her IL[facility], [place], resulting in a non-operative right inferior pubic ramus fracture. The patient reports she lost her balance while in her bathroom falling onto her right side. NO LOC, no head trauma. EMS transported her to [facility] where imaging was c/w a right inferior pubic ramus fracture. Labs notable for a WBC of 12.9 - infectious w/u negative. WBC improved to 9.5 by hospital discharge. She was admitted to the hospitalist service with orthopedic consultation. Ortho recommended conservative measures related to fracture with WBAT, PT/OT, pain control and outpatient f/u 1 week. She has been transferred to [facility] for skilled therapy services. New meds: [place] Skinny discontinued or dose adjusted medications. PCP Kait Zhao - sees podiatry, no other specialistsCode status is DNRAlternate contact/mPOA: Daughter Mariela lives locallyPLOF: MOD IND with walker for mobility and ADLs The patient is lying in her bed this [...] patient states she plans to return to [facility] at [place] - per staff, she may need higher level of care upon d/[place] [address] [facility], [place], [address], [facility] [place] [facility] 01/16/2025 05:09:16 01/16/2025 text/html F/U fall with right inferior pubic ramus fracture, leukocytosis, weakness/deconditioni ng, and chronic medical conditions.--- 5The patient is lying in her bed this [...] patient states she plans to return to [facility] at [place] - per staff, she may need higher level of care upon d/c from SNF.---01/16/25Lomiguel is seated in her recliner in her room, doing well today, without concerns. She does report tenderness to her right hip, for which she has just received a PRN [place]. She is noted to have removed her [...] adequate anterior weight shift. Areli Payan, [place] [address] [facility], [place], [address], [facility] 01/16/2025 15:54:01 OBGyn Episode No OBEpisode recorded.
--- OUTSIDE RECORDS SUMMARY | 2025-02-03 21:49 | XMS_ITS | Encounter Summary ---
Author Organization [facility] Address [address] [place] [address] Care Team Providers Care Integration Assistant Name Role Phone Unavailable Primary Care Provider Unavailabl e Encounter Details Date Type Department Care Team (Late st Contact Info) Description 09/07/2020 Lab Requisition [facility] DermPath Lab [address] [facility] [place] [address] Mendoza Galdamez MD [address] [place] [address] Social History Tobacco Use Types Packs/Day Years [...] AM CDT) Case Report Dermatopathology Report Case: [id number] Authorizing Provider: Mendoza Galdamez MD Collected: 09/03/2020 03:33 AM Ordering Location: [facility] DermPath Lab Received: 09/07/2020 06:54 AM [...] 1727 CDT Clinical History A: BCCA. Path# [id number]. B: AK vs SCCA vs SK. Path# [id number]. 1 5:27 PM T DERMATOPATHOLOGY LABORATORY Gross Description Specimen A: Received is one formalin filled container labeled with the patient's name and designated left nasal SW. The specimen consists of a shave biopsy measuring 5i7k1ye. Jar 0. Specimen B: Received is one formalin filled container labeled with the patient's name and designated lower mid chest. The specimen consists of a shave biopsy measuring 1t3u0dc. Jar 0. 5:27 PM T DERMATOPATHOLOGY LABORATORY [...] characteristic determined by the Dermatopathology Laboratory at [facility], directed by Dr. Frankie Eastman. These tests need not be, and therefore are not, approved by the [place] Food and Drug Administration. The tests are used for clinical purposes. Billing Codes Specimen Charges Stain Charges 38950 68006 1 1 1 5:27 PM CDT DERMATOPATHOLOGY LABORATORY Embedded Images 5:27 PM CDT DERMATOPATHOLOGY LABORATORY Pathology/Cytology TISSUE SPECIMEN FROM SKIN / Unknown 09/03/2020 3:33 AM CDT 09/07/2020 6:54 AM CDT Miscellaneous samples (specimen) TISSUE SPECIMEN FROM SKIN / Unknown 09/03/2020 3:33 AM CDT 09/07/2020 6:54 AM CDT us Mendoza Galdamez MD LAB - PATHOLOGY/CYTOLOGY ORDER MARISABEL Final Result DERMATOPATHOLOGY LABORATORY [facility] - Department of Dermatology [facility] [address] [place] [address], [address] [phone] documented in this encounter Visit Diagnoses Not on filedocumented in this encounter
--- OUTSIDE RECORDS SUMMARY | 2025-02-03 21:49 | XMS_ITS | Encounter Summary ---
Author Organization [facility] Address [address] [place] [address] Care Team Providers Care Plant Operations Manager Name Role Phone Unavailable Primary Care Provider Unavailabl e Encounter Details Date Type Department Care Team (Late st Contact Info) Description 05/06/2021 Lab Requisition [facility] DermPath Lab [address] [facility] [place] [address] Mendoza Galdamez MD [address] [place] [address] Social History Tobacco Use Types Packs/Day Years [...] Comments DERMATOPATHOLOGY Routine 05/06/2021 12:0 0 AM SMALL BUSINESS DIRECTOR documented in this encounter Results * DERMATOPATHOLOGY (05/06/2021 12:00 AM SMALL BUSINESS DIRECTOR) Case Report Dermatopathology Report Case: [id number] Authorizing Provider: Mendoza Galdamez MD Collected: 05/06/2021 12:00 AM Ordering Location: [facility] DermPath Lab Received: 05/06/2021 05:00 PM Pathologist: [...] microscopic description and comment) 2 4:31 PM [facility] DERMATOPATHOLOGY LABORATORY at 1631 CDT Clinical History A: AK vs SCCA. Path # [id number]. B: SK vs lentigo vs MM. Path # [id number]. C: SK vs lentigo vs MM. Path # [id number]. 2 4:31 PM [facility] DERMATOPATHOLOGY LABORATORY Gross Description Specimen A: Received is one formalin filled container labeled with the patient's name and designated right forearm. The specimen consists of a shave biopsy measuring 37k3p0oe, bisected. Jar 0. Specimen B: Received is one formalin filled container labeled with the patient's name and designated right shoulder. The specimen consists of a shave biopsy measuring 1s4x0wj. Jar 0. Specimen C: Received is one formalin filled container labeled with the patient's name and designated right postauricular. The specimen consists of a shave biopsy measuring 8e6n6st. Jar 0. 2 4:31 PM [facility] DERMATOPATHOLOGY LABORATORY Microscopic Description Specimen A. SKIN, [...] characteristic determined by the Dermatopathology Laboratory at [facility], directed by Dr. Frankie Eastman. These tests need not be, and therefore are not, approved by the [place] Food and Drug Administration. The tests are used for clinical purposes. Billing Codes Specimen Charges Stain Charges 11878 51986 51881 1 1 1 32680 1 2 4:31 PM CDT DERMATOPATHOLOGY LABORATORY Embedded Images 2 4:31 PM CDT DERMATOPATHOLOGY LABORATORY Pathology/Cytology TISSUE SPECIMEN FROM SKIN / Unknown 05/06/2021 05/06/2021 5:00 PM SMALL BUSINESS DIRECTOR Miscellaneous samples (specimen) TISSUE SPECIMEN FROM SKIN / Unknown 05/06/2021 05/06/2021 5:00 PM SMALL BUSINESS DIRECTOR Miscellaneous samples (specimen) TISSUE SPECIMEN FROM SKIN / Unknown 05/06/2021 05/06/2021 5:00 PM SMALL BUSINESS DIRECTOR us Mendoza Galdamez MD LAB - PATHOLOGY/CYTOLOGY ORDER MARISABEL Final Result DERMATOPATHOLOGY LABORATORY [facility] Department of Dermatology [address], [address] [phone] documented in this encounter Visit Diagnoses Not on filedocumented in this encounter
--- OUTSIDE RECORDS SUMMARY | 2025-02-03 21:49 | XMS_ITS | Data Portability ---
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 F/U labs on 01/20. Reconciled home med list from Dr. Zhao. Nursing to schedule ortho Dr. Hopson fjessika in 1 week. mike Not available 01/20/2025 17:13:06 01/22/2025 01/22/2025 Nursing to schedule ortho Dr. Emiliana bailey. Start Vit D supplement at next visit. mike Not available 01/22/2025 20:11:57 01/27/2025 01/27/2025 Nursing to schedule ortho Dr. Hopson fjessika. mike Not available 01/27/2025 16:54:31 01/29/2025 01/29/2025 Nursing to schedule ortho Dr. Emiliana bailey. mike Not available 01/29/2025 17:46:07 01/31/2025 01/31/2025 Nursing to schedule ortho Dr. Emiliana bailey. mike Not available 02/01/2025 13:45:14 Plan of Treatment Reminders Order Date Submit [...] Modified By Organization Details Last Modified Time 01/20/2025 [id number] I spent 38 minutes providing care to the patient today. More than 50% of that time was spent in discussing the expected course of the disease, discussing prognosis, coordinating care and counseling of the patient/family. Not available 01/20/2025 17:13:10 01/22/2025 [id number] I spent 37 minutes providing care to the patient today. More than 50% of that time was spent in discussing the expected course of the disease, discussing prognosis, coordinating care and counseling of the patient/family. Not available 01/22/2025 20:12:07 01/27/2025 [id number] I spent minutes providing care to the patient today. More than 50% of that time was spent in discussing the expected course of the disease, discussing prognosis, coordinating care and counseling of the patient/family. Not available 01/27/2025 16:55:05 01/29/2025 [id number] I spent 37 minutes providing care to the patient today. More than 50% of that time was spent in discussing the expected course of the disease, discussing prognosis, coordinating care and counseling of the patient/family. Not available 01/29/2025 17:46:57 01/31/2025 [id number] I spent 37 minutes providing care to the patient today. More than 50% of that time was spent in discussing the expected course of the disease, discussing prognosis, coordinating care and counseling of the patient/family. Not available 02/01/2025 13:47:28 Reason for Referral None Reported. Results Created Date Observation Date Name Description Value Unit Range Abnormal Flag Note LastModifiedBy Organization Detail LastModifiedTime Result Notes None recorded. Procedures Surgical History Date Name Laterality Status Provider Name and Address Organization Details Recorded Time 08/28/19 23 vertebroplasty completed Aiden [facility] 01/14/2025 22:04:57 08/13/19 21 [place] [address] [facility], [place], [address], [place] [facility] 02/01/2025 13:46:36 02/27/19 13 arthroplasty of shoulder completed Aiden Dinero [place] [facility] 01/14/2025 22:06:06 02/27/19 07 total replacement of hip completed Aiden Dinero [place] [facility] 01/14/2025 22:06:31 02/27/19 05 total replacement of hip completed Aiden MORFIN - [facility] 01/14/2025 22:06:28 02/27/19 04 arthroplasty of knee completed Aiden MORFIN - [facility] 01/14/2025 22:06:47 02/27/19 03 arthroplasty of knee completed Aiden MORFIN - [facility] 01/14/2025 22:06:43 02/27/18 80 hysterectomy completed Aiden MORFIN - [facility] 01/14/2025 22:05:48 02/27/18 67 laminectomy completed Aiden MORFIN - [facility] 01/14/2025 22:05:27 02/27/18 66 cholecystectomy completed Aiden MORFIN - [facility] 01/14/2025 22:05:39 Imaging Results [...] Address Organization Details Last Updated DateTime 5 68 /min 97.7 [degF] 18 /min 95 % 98137.0 8 g 144/89 mm[Hg] [place] [address] [place], [address], [facility] 17:01:36 Date Recorded Heart rate Body temperature Respiratory rate Oxygen saturation Body weight Systolic And Diastolic Provider Name and Address Organization Details Last Updated DateTime 5 61 /min 97.4 [degF] 18 /min 98 % 20065.5 2 g 108/69 mm[Hg] [place] [address] [place], [address] , [facility] 5 19:59:28 Date Recorded Heart rate Body temperature Respiratory rate Oxygen saturation Body weight Systolic And Diastolic Provider Name and Address Organization Details Last Updated DateTime 5 67 /min 97.9 [degF] 16 /min 94 % 28373 g 120/73 mm[Hg] [place] [address] [place], [address], [facility] 16:44:49 Date Recorded Heart rate Body temperature Oxygen saturation Respiratory rate Body weight Body mass index (BMI) Body height Systolic And Diastolic Provider Name and Address Organization Details Last Updated DateTime 89 /min 97.6 [degF] 97 % 16 /min 74226.8 g 25.3 kg/m2 162.56 cm 110/64 mm[Hg] [place] [address] [place], [address], [facility] 17:39:24 Date Recorded Body height Heart rate Body temperature Respiratory rate Oxygen saturation Body mass index (BMI) Body weight Systolic And Diastolic Provider Name and Address Organization Details Last Updated DateTime 162.56 cm 69 /min 98.6 [degF] 18 /min 95 % 25.1 kg/m2 17830.2 g 115/66 mm[Hg] [place] [address] [place], [address], [facility] 13:40:43 Social History None recorded. Functional Status Question [...] ICD10 Code Diagnosis IMO Codes Diagnosis Note [id number] Kait Marina DO [place] [address] [place] [address] 01/15/2025 07:11:23 01/16/2025 21:34:23 Closed fracture pubis 085922655 S32.591D [id number] related to mechanical / ground level fall [place] rthopedics consulted with recommenda tions for non operative measuresWB AT to LEcurrentl y pain is controlled continue prn norco for now related to pain - would transition to non narcotic meds if pain remains controlled continue therapieso rtho f/u with Dr. 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.22 85592113 no recent HbA1c - will check with next lab drawcontin ue Jewelsus, check blood sugars BID Acquired hypothyroidism 687394748 E03.9 30131 presumed stable - continue synthroidw ill check thyroid studies with next lab draw Protein S deficiency disease 4358446 D68.59 346522 continue eliquis Primary insomnia 1844280 F51.01 68677 continue trazodone Overactive urinary bladder 024286708 N32.81 828491 continue oxybutynin - monitor for need - might consider trial of dose reduction or d/c altogether due to high risk med/concer shiela side effects in this elderly patient Tobacco user 965614752 Z 72.0 92902 smokes an occasional cigarette - says a few / month - does not feel that she needs nicotine replacemen t at this timemonito r for need 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 52248060 continue neurontin - will confirm with PCP this is correct outpatient dose History of osteomyelitis 518734119 Z87.39 669414 s/p right great toe amputation Essential hypertension 90997644 I10 32558 continue lisinopril trend pressures and adjust meds as clinically indicated Hyperlipidemia 04229937 E78.5 63466402 presumed stable - continue statin therapy Diarrhea 01447007 R19.7 93944140 continue prn imodium Mild major depression, single episode 87690204 F32.0 2365634092 continue low dose escitalopr am Physical deconditioning 6235601962 9102 R53.81 675869 related to advanced age, recent fall/pelvi c fracture/c omorbiditi estherapie s have been initiated - will monitor progress and work with SS/family regarding safest d/c plan History of fall 06815762 9 Z91.81 4153005 monitor for reversible causes - will check thyroid studies/B1 2, vitamin D level with next lab draw [id number] Kait Marina, [address] [address] 01/16/2025 13:20:25 01/16/2025 21:33:46 Closed fracture pubis 579587587 S32.591D 23727094 Related to mechanical / ground level fall in her [facility] apartment. Orthopedic s consulted with recommenda tions for non operative measures.W BAT to BLE.[place] APAP TID. Continue PRN [place] for now.Contin ue therapies. Nursing to schedule ortho Dr. Hopson f/u in 1 week. Peripheral arterial disease 672212942 I73.9 176930 Encourage continued smoking cessation. Continue statin, Eliquis, and optimal blood pressure control. History of cerebrovascular accident 811436575 Z86.73 501799 Details unclear. Patient denies residual deficits related to this.Braden nue statin, Eliquis, and optimal blood pressure control. Type 2 hector betes mellitus 94197823 E11.22 N18.31 2546586555 No recent HbA1c. Will check with next lab draw.Braden nue Rybelsus.H ave stopped SSI for now.Contin ue to monitor blood sugars and encourage LCS diet. Acquired hypothyroidism 538632074 E03.9 03645 Presumed stable. Continue Synthroid. Checking thyroid studies with next lab draw. Protein S deficiency disease 5317649 D68.59 365389 Presumed stable. Continue Eliquis. Primary insomnia 2754729 F51.01 85636 SEE ABOVE... Overactive urinary bladder 752791112 N32.81 902230 Continue Oxybutynin for now.Monito r for need - might consider trial of dose reduction or d/c altogether due to high risk med/concer shiela side effects in this elderly patient. Tobacco user 898612534 Z 72.0 73000 Smokes an occasional cigarette, a few/month, does not feel that she needs nicotine replacemen t at this time.Monit or for need and encourage complete cessation. Polyneurop athy associated with another disorder 887937579 G63 23458488 Stable. Continue Neurontin and pain medication s as above.Need to confirm with PCP this is correct outpatient dose as very high. History of osteomyelitis 253638385 Z87.39 963525 s/p right great toe amputation . No recent concerns per pt. Hyperlipidemia 15093069 E78.5 27442625 Presumed stable. Continue statin. Diarrhea 38113437 R19.7 72110507 Stable at present. Continue PRN Imodium. Mild major depression, single episode 17763564 F32.0 6103339005 Stable. Continue low-dose Escitalopr am and Trazodone. History of fall 18220721 9 Z91.81 8473524 monitor for reversible causes - will check thyroid studies/B1 2, vitamin D level with next lab draw Physical deconditioning 0273265905 9102 R53.81 820177 Related to advanced age, recent fall/pelvi c fracture/c omorbiditi es.Continu e therapies - monitor progress and work with SS/family regarding safest d/c plan. Hypertensi ve renal disease 52745413 I12.9 N18.31 4670433757 Unclear baseline. Cr ranged from 0.91-1.13 while inpatient. Stable. Continue Lisinopril .Avoid additional nephrotoxi ns and continue to trend labs.Braden nue to trend blood pressures, monitor lytes and renal function, and adjust meds as clinically indicated. [id number] Kait Marina, DO [place] [address] [place] [address] 01/20/2025 10:14:27 01/23/2025 20:44:42 Closed fracture pubis 097481102 S32.591D 67067844 Related to mechanical / ground level fall in her [facility] apartment. Orthopedic s consulted with ena duke for non operative measures.W BAT to BLE.Contin ue routine APAP and PRN [place] for now.Taperi ng down on Gabapentin to better mimic OP dosing (typically takes 1,500 mg at bedtime only).Cont inue therapies. Nursing to schedule ortho Dr. Hopson f/u in 1 week. Hypertensi ve renal disease 56455516 I12.9 N18.31 2317185100 Unclear baseline. Cr ranged from 0.91-1.13 while inpatient. Stable. Continue Lisinopril .Avoid additional nephrotoxi ns and continue to trend labs.Braden nue to trend blood pressures, monitor lytes and renal function, and adjust meds as clinically indicated. Peripheral arterial disease 628460059 I73.9 721836 Encourage continued smoking cessation. Continue statin, Eliquis, and optimal blood pressure control. Hyperlipidemia 67833267 E78.5 22569605 Presumed stable. Continue statin. Type 2 hector betes mellitus 79870340 E11.22 N18.31 9460770189 No recent HbA1c. Will check with next lab draw.Braden nue Rybelsus.H ave stopped SSI.Contin ue to monitor blood sugars and encourage LCS diet. Polyneurop athy associated with another disorder 982777262 G63 02749058 Stable. Continue pain medication s as above.Tape ring down on Gabapentin to better mimic OP dosing (typically takes 1,500 mg at bedtime only). History of osteomyelitis 912041804 Z87.39 462181 s/p right great toe amputation . No recent concerns per pt. Acquired hypothyroidism 416335060 E03.9 75419 Presumed stable. Continue Synthroid. Checking thyroid studies with next lab draw. Protein S deficiency disease 2788396 D68.59 061229 Presumed stable. Continue Eliquis. Mild major depression, single episode 55993740 F32.0 2029418516 Stable. Continue low-dose Escitalopr am and Trazodone. Primary insomnia 8340921 F51.01 23739 SEE ABOVE... Overactive urinary bladder 053640559 N32.81 261198 Continue Oxybutynin for now.Monito r for need - might consider trial of dose reduction or d/c altogether due to high risk med/concer shiela side effects in this elderly patient. Diarrhea 92643592 R19.7 51680826 Stable at present. Continue PRN Imodium. Tobacco user 715961145 Z 72.0 44523 Smokes an occasional cigarette, a few/month, does not feel that she needs nicotine replacemen t at this time.Monit or for need and encourage complete cessation. History of cerebrovascular accident 951526566 Z86.73 098643 Details unclear. Patient denies residual deficits related to this.Braden nue statin, Eliquis, and optimal blood pressure control. History of fall 25947946 9 Z91.81 7155028 Monitor for reversible causes. Checking thyroid studies, VIt B12, vitamin D level with next lab draw Physical deconditioning 2699526836 9102 R53.81 543259 Related to advanced age, recent fall/pelvi c fracture/c omorbiditi es.Continu e therapies - monitor progress and work with SS/family regarding safest d/c plan. [id number] Kait Marina, [address] [address] 01/22/2025 14:34:48 01/23/2025 20:45:25 Closed fracture pubis 773602041 S32.591D 72687916 Related to mechanical / ground level fall in her [facility] apartment. Orthopedic s consulted with recommenda tions for non operative measures.W BAT to BLE.Contin ue routine APAP and PRN [place] for now.Taperi ng down on Gabapentin to better mimic OP dosing (typically takes 1,500 mg at bedtime only).Cont inue therapies. Nursing to schedule ortho Dr. Hopson f/u. Hypertensi ve renal disease 98470880 I12.9 N18.31 5065686580 Unclear baseline. Cr ranged from 0.91-1.13 while inpatient. Stable. Continue Lisinopril .Avoid additional nephrotoxi ns and continue to trend labs.Braden nue to trend blood pressures, monitor lytes and renal function, and adjust meds as clinically indicated. Peripheral arterial disease 223873925 I73.9 960930 Encourage continued smoking cessation. Continue statin, Eliquis, and optimal blood pressure control. Hyperlipidemia 28346551 E78.5 21159580 Presumed stable. Continue statin. Type 2 hector betes mellitus 26144003 E11.22 N18.31 5788046149 01/22/25 = HgA1c 7.1%. Within a good range for age/comorb idities. Stopped SSI.Contin ue Rybelsus.C ontinue to monitor blood sugars and encourage LCS diet. Polyneurop athy associated with another disorder 867215856 G63 33924315 Stable. Continue pain medication s as above. History of osteomyelitis 992750661 Z87.39 453461 s/p right great toe amputation . No recent concerns per pt. Acquired hypothyroidism 678535648 E03.9 40999 Stable. Thyroid panel WNL. Continue Synthroid. Protein S deficiency disease 6018215 D68.59 664506 Presumed stable. Continue Eliquis. Mild major depression, single episode 07157622 F32.0 9232048620 Stable. Continue low-dose Escitalopr am and Trazodone. Primary insomnia 5438599 F51.01 30513 SEE ABOVE... Overactive urinary bladder 953980912 N32.81 883528 Continue Oxybutynin for now.Monito r for need - might consider trial of dose reduction or d/c altogether due to high risk med/concer shiela side effects in this elderly patient. Diarrhea 85268309 R19.7 43346625 Stable at present. Continue PRN Imodium. Tobacco user 749337623 Z 72.0 99853 Smokes an occasional cigarette, a few/month, does not feel that she needs nicotine replacemen t at this time.Monit or for need and encourage complete cessation. History of cerebrovascular accident 980805570 Z86.73 293319 Details unclear. Patient denies residual deficits related to this.Braden nue statin, Eliquis, and optimal blood pressure control. History of fall 09283737 9 Z91.81 1429205 Monitor for reversible causes. Checking thyroid studies, VIt B12, vitamin D level with next lab draw Physical deconditioning 1521362081 9102 R53.81 898068 Related to advanced age, recent fall/pelvi c fracture/c omorbiditi es.Continu e therapies - monitor progress and work with SS/family regarding safest d/c plan. Vitamin D deficiency 347 12935 E55.9 06366 Vit D level 20. Start Vit D supplement at next visit. [id number] Kait DO Laina [place] [address] [address] [place] [address] 01/27/2025 13:30:20 01/29/2025 09:37:01 Closed fracture pubis 009149940 S32.591D 54921620 Related to mechanical / ground level fall in her [place]F apartment. Orthopedic s consulted with recommenda tions for non operative measures.W BAT to BLE.Contin ue routine APAP and PRN [place] for now.Tapere d down on Gabapentin to better mimic OP dosing (typically takes 1,500 mg at bedtime only).Cont inue therapies. Nursing to schedule ortho Dr. Hopson f/u. Hypertensi ve renal disease 98509207 I12.9 N18.31 0387316879 Unclear baseline. Cr ranged from 0.91-1.13 while inpatient. Stable. Continue Lisinopril .Avoid additional nephrotoxi ns and continue to trend labs.Braden nue to trend blood pressures, monitor lytes and renal function, and adjust meds as clinically indicated. Peripheral arterial disease 131481019 I73.9 698471 Encourage continued smoking cessation. Continue statin, Eliquis, and optimal blood pressure control. Hyperlipidemia 49615560 E78.5 12152527 Presumed stable. Continue statin. Type 2 hector betes mellitus 86882877 E11.22 N18.31 0653001864 01/22/25 = HgA1c 7.1%. Within a good range for age/comorb idities. Stopped SSI.Contin ue Rybelsus.C ontinue to monitor blood sugars and encourage LCS diet. Polyneurop athy associated with another disorder 143227958 G63 77530748 Stable. Continue pain medication s as above. History of osteomyelitis 785954698 Z87.39 061229 s/p right great toe amputation . No recent concerns per pt. Acquired hypothyroidism 581016732 E03.9 76635 Stable. Thyroid panel WNL. Continue Synthroid. Vitamin D deficiency 347 41783 E55.9 24593 Vit D level 20. Start Vit D supplement at next visit. Protein S deficiency disease 8377722 D68.59 549603 Presumed stable. Continue Eliquis. Mild major depression, single episode 33356094 F32.0 4650920233 Stable. Continue low-dose Escitalopr am and Trazodone. Primary insomnia 0880373 F51.01 11305 SEE ABOVE... Overactive urinary bladder 151027143 N32.81 574131 Continue Oxybutynin for now.Monito r for need - might consider trial of dose reduction or d/c altogether due to high risk med/concer shiela side effects in this elderly patient. Diarrhea 18962294 R19.7 88510666 Stable at present. Continue PRN Imodium. Tobacco user 711530033 Z 72.0 55425 Smokes an occasional cigarette, a few/month, does not feel that she needs nicotine replacemen t at this time.Monit or for need and encourage complete cessation. History of cerebrovascular accident 005420200 Z86.73 885609 Details unclear. Patient denies residual deficits related to this.Braden nue statin, Eliquis, and optimal blood pressure control. History of fall 84820407 9 Z91.81 0150851 Monitor for reversible causes. Checking thyroid studies, VIt B12, vitamin D level with next lab draw Physical deconditioning 1417566544 9102 R53.81 906819 Related to advanced age, recent fall/pelvi c fracture/c omorbiditi es.Continu e therapies - monitor progress and work with SS/family regarding safest d/c plan. [id number] Kait Marina, [address] [address] 01/29/2025 09:57:21 02/03/2025 05:53:29 Closed fracture pubis 122195576 S32.591D 85841443 Related to mechanical / ground level fall in her [facility] apartment. Orthopedic s consulted with recommenda tions for non operative measures.W BAT to BLE.Contin ue routine APAP and PRN [place] for now.Tapere d down on Gabapentin to better mimic OP dosing (typically takes 1,500 mg at bedtime only).Cont inue therapies. Nursing to schedule ortho Dr. Hopson f/u. Hypertensi ve renal disease 70159366 I12.9 N18.31 6682357942 Unclear baseline. Cr ranged from 0.91-1.13 while inpatient. Stable. Continue Lisinopril .Avoid additional nephrotoxi ns and continue to trend labs.Braden nue to trend blood pressures, monitor lytes and renal function, and adjust meds as clinically indicated. Hyperlipidemia 02288236 E78.5 73672349 Presumed stable. Continue statin. Peripheral arterial disease 904650921 I73.9 178576 Encourage continued smoking cessation. Continue statin, Eliquis, and optimal blood pressure control. Type 2 hector betes mellitus 75853801 E11.22 N18.31 1003089715 01/22/25 = HgA1c 7.1%. Within a good range for age/comorb idities. Stopped SSI.Contin ue Rybelsus.C ontinue to monitor blood sugars and encourage LCS diet. Polyneurop athy associated with another disorder 944957101 G63 57724753 Stable. Continue pain medication s as above. History of osteomyelitis 080217121 Z87.39 283889 s/p right great toe amputation . No recent concerns per pt. Acquired hypothyroidism 833208219 E03.9 85783 Stable. Thyroid panel WNL. Continue Synthroid. Vitamin D deficiency 347 30680 E55.9 52850 Vit D level 20. Start Vit D supplement at next visit. Protein S deficiency disease 1247833 D68.59 758214 Presumed stable. Continue Eliquis. Mild major depression, single episode 38328808 F32.0 4916142113 Stable. Continue low-dose Escitalopr am and Trazodone. Primary insomnia 5865335 F51.01 60954 SEE ABOVE... Overactive urinary bladder 657241087 N32.81 530258 Continue Oxybutynin for now.Monito r for need - might consider trial of dose reduction or d/c altogether due to high risk med/concer shiela side effects in this elderly patient. Diarrhea 19942544 R19.7 67212072 Stable at present. Continue PRN Imodium. Tobacco user 239148788 Z 72.0 06615 Smokes an occasional cigarette, a few/month, does not feel that she needs nicotine replacemen t at this time.Monit or for need and encourage complete cessation. History of cerebrovascular accident 817726851 Z86.73 217281 Details unclear. Patient denies residual deficits related to this.Braden nue statin, Eliquis, and optimal blood pressure control. History of fall 84360748 9 Z91.81 3698163 Monitor for reversible causes. Checking thyroid studies, VIt B12, vitamin D level with next lab draw Physical deconditioning 2400712486 9102 R53.81 343493 Related to advanced age, recent fall/pelvi c fracture/c omorbiditi es.Continu e therapies - monitor progress and work with SS/family regarding safest d/c plan. [id number] Kait Laina, DO [address] [place] [address] 01/31/2025 08:22:23 02/03/2025 05:54:32 Closed fracture pubis 314135745 S32.591D 84624618 Related to mechanical / [facility] [facility] apartment. Orthopedic s consulted with recommenda tions for non operative measures.W BAT to BLE.Contin ue routine APAP and PRN [place] for now.Tapere d down on Gabapentin to better mimic OP dosing (typically takes 1,500 mg at bedtime only).Cont inue therapies. Nursing to schedule ortho Dr. Hopson f/u. Hypertensi ve renal disease [id number] I12.9 N18.31 [id number] Unclear baseline. Cr ranged from 0.91-1.13 while inpatient. Stable. Continue Lisinopril .Avoid additional nephrotoxi ns and continue to trend labs.Braden nue to trend blood pressures, monitor lytes and renal function, and adjust meds as clinically indicated. Hyperlipidemia [id number] E78.5 [id number] Presumed stable. Continue statin. Peripheral arterial disease 680720396 I73.9 239791 Encourage continued smoking cessation. Continue statin, Eliquis, and optimal blood pressure control. Type 2 hector betes mellitus 25177904 E11.22 N18.31 [id number] 01/22/25 = HgA1c 7.1%. Within a good range for age/comorb idities. Stopped SSI.Contin ue Rybelsus.C ontinue to monitor blood sugars and encourage LCS diet. Polyneurop athy associated with another disorder [id number] G63 [id number] Stable. Continue pain medication s as above. History of osteomyelitis 986052471 Z87.39 312595 s/p right great toe amputation . No recent concerns per pt. Acquired hypothyroidism 559929075 E03.9 44877 Stable. Thyroid panel WNL. Continue Synthroid. Vitamin D deficiency [id number] 94920 E55.9 66037 Vit D level 20. Started Vit D supplement at next visit. Protein S deficiency disease 9688981 D68.59 809603 Presumed stable. Continue Eliquis. Mild major depression, single episode 01061837 F32.0 [id number] Stable. Continue low-dose Escitalopr am and Trazodone. Primary insomnia 5864077 F51.01 76336 SEE ABOVE... Overactive urinary bladder 411290915 N32.81 406014 Continue Oxybutynin for now.Monito r for need - might consider trial of dose reduction or d/c altogether due to high risk med/concer shiela side effects in this elderly patient. Diarrhea 93500164 R19.7 37524256 Stable at present. Continue PRN Imodium. Tobacco user 202350083 Z 72.0 52007 Smokes an occasional cigarette, a few/month, does not feel that she needs nicotine replacemen t at this time.Monit or for need and encourage complete cessation. History of cerebrovascular accident 001254889 Z86.73 395172 Details unclear. Patient denies residual deficits related to this.Braden nue statin, Eliquis, and optimal blood pressure control. History of fall 29639104 9 Z91.81 1976611 Monitor for reversible causes.Con tinue therapies & fall precaution s. Physical deconditioning [id number] 9102 R53.81 172116 Related to advanced age, recent fall/pelvi c fracture/c omorbiditi es.Continu e therapies - monitor progress and work with SS/family regarding safest d/c plan. Health Concerns Section Related Observation LastModified by Organization Detai ls LastModified Time None Recorded Concern Status LastModified by Organization Details LastModified Time None Recorded Advance Directives Directive None Recorded Payers Insurance Date Sequence Insurance Name Policy Number Policy Fox Covered Member ID Fox Member ID Guarantor Name 01/15/2025 2 [place] [employer]MED[place]LE[place]) [id number] Marisela Franz [id number] Marisela Franz 01/29/2025 1 [place] Marisela Franz [id number] Marisela Franz 02/03/2025 2 [place] [id number] Marisela Franz [id number] Marisela Haley Maria M Notes Date Note Type Note Provider Name and Address Organization Details Recorded Time 01/20/2025 text/html F/U fall with right inferior pubic ramus fracture, leukocytosis, weakness/deconditio shiela, and chronic medical conditions.---01/15 patient is lying in her bed this [...] patient states she plans to return to [facility] [place] - per staff, she may need higher level of care upon d/c from SNF.---01/16/25Marisela is seated in her recliner in her room, doing well today, without concerns. She does report tenderness to her right hip, for which she has just received a PRN [place]. She is noted to have removed her [...] safe UE placement and adequate anterior weight shift.---01/20/25 Areli Payan, NORMA [address] [facility], [place], [address], [place] [facility] [employer] [facility] 01/20/2025 17:13:18 01/22/2025 text/html F/U fall with right inferior pubic ramus fracture, leukocytosis, weakness/deconditio shiela, and chronic medical conditions.---01/15 patient is lying in her bed this [...] patient states she plans to return to [facility] [place] - per staff, she may need higher level of care upon d/c from SNF.---01/16/25Marisela is seated in her recliner in her room, doing well today, without concerns. She does report tenderness to her right hip, for which she has just received a PRN [place]. She is noted to have removed her [...] safe UE placement and adequate anterior weight shift.---01/20/25L johann is doing fairly well today, seated in [...] STS practice from WC to FWW with minx1.---01/22/25L johann is resting in bed, lying down for a short while before dinner. She denies concerns or pain at this time. VSS. Staff is without concerns at this time, as well. Per therapy notes = Patient instructed in skilled self-care retraining focused on bed mobility supine to sit EOB with MOD, LB dressing with MOD using accounts specialist, UB dressing with setup, functional transfers with MIN, toileting with MAX for cleanup after bowel and bladder incontinence, hygiene and grooming at sink with setup while seated at sink. Areli Payan, NORMA [address] [facility], [place], [address], [place] [facility] 01/22/2025 20:12:22 01/27/2025 text/html F/U fall with right inferior pubic ramus fracture, leukocytosis, weakness/deconditio shiela, and chronic medical conditions.---01/15 patient is lying in her bed this [...] patient states she plans to return to [facility] [place] - per staff, she may need higher level of care upon d/c from SNF.---01/16/25Marisela is seated in her recliner in her room, doing well today, without concerns. She does report tenderness to her right hip, for which she has just received a PRN [place]. She is noted to have removed her [...] safe UE placement and adequate anterior weight shift.---01/20/25 johann is doing fairly well today, seated in [...] STS practice from WC to FWW with minx1.---01/22/25L johann is resting in bed, lying down for a short while before dinner. She denies concerns or pain at this time. VSS. Staff is without concerns at this time, as well. Per therapy notes = Patient instructed in skilled self-care retraining focused on bed mobility supine to sit EOB with MOD, LB dressing with MOD using accounts specialist, UB dressing with setup, functional transfers with MIN, toileting with MAX for cleanup after bowel and bladder incontinence, hygiene and grooming at sink with setup while seated at sink.---01/27/25Lol a is seated in her w/c in her room, mildly confused, just got off the phone with a family member, pleasant, without concerns or pain to report at this time. VSS. Staff is without concerns today. Per therapy notes 01/24 = 'Gait training with FWW for up to 80 ft wiht CGA on various surface types, in narrow spaces, and around obstacles. blocked and distributed STS practice from WC with mod cues for proper LE setup with feet under COM and max cues for adequate anterior weight shift with pt requiring min-CGA. Areli Payan, NORMA [address] [facility], [place], [address], [place] [facility] 01/27/2025 16:55:18 01/29/2025 text/html F/U fall with right inferior pubic ramus fracture, leukocytosis, weakness/deconditio shiela, and chronic medical conditions.---01/15 patient is lying in her bed this [...] patient states she plans to return to [facility] [place] - per staff, she may need higher level of care upon d/c from SNF.---01/16/25Lola is seated in her recliner in her room, doing well today, without concerns. She does report tenderness to her right hip, for which she has just received a PRN [place]. She is noted to have removed her [...] safe UE placement and adequate anterior weight shift.---01/20/25 johann is doing fairly well today, seated in [...] STS practice from WC to FWW with minx1.---01/22/25L johann is resting in bed, lying down for a short while before dinner. She denies concerns or pain at this time. VSS. Staff is without concerns at this time, as well. Per therapy notes = Patient instructed in skilled self-care retraining focused on bed mobility supine to sit EOB with MOD, LB dressing with MOD using accounts specialist, UB dressing with setup, functional transfers with MIN, toileting with MAX for cleanup after bowel and bladder incontinence, hygiene and grooming at sink with setup while seated at sink.---01/27/25Lol leyla is seated in her w/c in her room, mildly confused, just got off the phone with a family member, pleasant, without concerns or pain to report at this time. VSS. Staff is without concerns today. Per therapy notes 01/24 = 'Gait training with FWW for up to 80 ft wiht CGA on various surface types, in narrow spaces, and around obstacles. blocked and distributed STS practice from WC with mod cues for proper LE setup with feet under COM and max cues for adequate anterior weight shift with pt requiring min-CGA.---01/29/25 Marisela is seated in her w/c in her room, confused, pleasant, without concerns or pain to report. We discuss her recent reduction in Gabapentin dosing and she reports not noticing any difference or uptick in her pain. She is tolerating well. VSS. Staff is without concerns at this time. Per therapy notes = Graded skilled interventions focused on transfer training to increase functional task performance 2 sets 5 reps requiring CGA/MIN using wheeled walker and fading verbal instruction required due to compromised balance and strength to promote increased safety and independence with transfer to toilet and EOB. Areli Payan, DIAMOND DRILLER [address] [facility], [place], [address], [place] [facility] 01/29/2025 17:47:07 01/31/2025 text/html F/U fall with right inferior pubic ramus fracture, leukocytosis, weakness/deconditio shiela, and chronic medical conditions.---01/15 patient is lying in her bed this [...] patient states she plans to return to [facility] [place] - per staff, she may need higher level of care upon d/c from SNF.---01/16/25Marisela is seated in her recliner in her room, doing well today, without concerns. She does report tenderness to her right hip, for which she has just received a PRN [place]. She is noted to have removed her [...] safe UE placement and adequate anterior weight shift.---01/20/25L johann is doing fairly well today, seated in [...] STS practice from WC to FWW with minx1.---01/22/25L johann is resting in bed, lying down for a short while before dinner. She denies concerns or pain at this time. VSS. Staff is without concerns at this time, as well. Per therapy notes = Patient instructed in skilled self-care retraining focused on bed mobility supine to sit EOB with MOD, LB dressing with MOD using accounts specialist, UB dressing with setup, functional transfers with MIN, toileting with MAX for cleanup after bowel and bladder incontinence, hygiene and grooming at sink with setup while seated at sink.---01/27/25Lol leyla is seated in her w/c in her room, mildly confused, just got off the phone with a family member, pleasant, without concerns or pain to report at this time. VSS. Staff is without concerns today. Per therapy notes 01/24 = 'Gait training with FWW for up to 80 ft wiht CGA on various surface types, in narrow spaces, and around obstacles. blocked and distributed STS practice from WC with mod cues for proper LE setup with feet under COM and max cues for adequate anterior weight shift with pt requiring min-CGA.---01/29/25 Marisela is seated in her w/c in her room, confused, pleasant, without concerns or pain to report. We discuss her recent reduction in Gabapentin dosing and she reports not noticing any difference or uptick in her pain. She is tolerating well. VSS. Staff is without concerns at this time. Per therapy notes = Graded skilled interventions focused on transfer training to increase functional task performance 2 sets 5 reps requiring CGA/MIN using wheeled walker and fading verbal instruction required due to compromised balance and strength to promote increased safety and independence with transfer to toilet and EOB.---01/31/25Marisela is doing well today, seated in her w/c in her room, with her daughter by her side. She has just had a shower and is feeling good today. She remains quite confused but pleasant, denies pain or any concerns at this time. VSS. Staff is without concerns today. Per therapy notes = Patient ambulated 80 ft on level surfaces with a rollator, requiring CGA. Patient did well with walker management and safety. Pt reports fatigue. Pt performed sit to stand and pivot [place] [address] [facility], [place], [address], [facility] 02/01/2025 13:47:38 OBGyn Episode No OBEpisode recorded.
--- OUTSIDE RECORDS SUMMARY | 2025-02-03 21:49 | XMS_ITS | Clinical Summary ---
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
--- OUTSIDE RECORDS SUMMARY | 2025-02-03 21:49 | XMS_ITS | Continuity of Care Document ---
Author Organization [facility], [facility] Address [address] [place] [address] Care Team Providers Care Call Center Operator Name Role Phone [facility] FAX OTHER Assessment Encounter Date Assessment Date Assessment LastModified by Organization Details LastModified Time 01/31/2025 01/31/2025 Nursing to schedule ortho Dr. Hopson f/uJosie [email or web address] Not available 02/01/2025 13:45:14 Plan of Treatment [...] Modified By Organization Details Last Modified Time 01/31/2025 [id number] I spent 37 minutes providing care to the patient today. More than 50% of that time was spent in discussing the expected course of the disease, discussing prognosis, coordinating care and counseling of the patient/family. mike Not available 02/01/2025 13:47:28 Reason for Referral [...] [place] [address] [place], [address], [facility] 02/01/2025 13:46:36 02/27/19 13 [...] Available No t Available Vitals Date Recorded Body height Heart rate Body temperature Respiratory rate Oxygen saturation Body mass index (BMI) Body weight Systolic And Diastolic Provider Name and Address Organization Details Last Updated DateTime 5 162.56 cm 69 /min 98.6 [degF] 18 /min 95 % 25.1 kg/m2 36107.2 g 115/66 mm[Hg] Areli Payan, [employer] [address] [place], [address], [place] - [facility] 5 13:40:43 Social History None recorded. Functional Status [...] LastModified Time Unspecified Relation Multiple myeloma aroldo g Not available 01/14/2025 22:07:17 Unspecified Relation [...] ICD10 Code Diagnosis IMO Codes Diagnosis Note [id number] Kait Marina, [place] [address] [place] [address] 01/15/2025 07:11:23 01/16/2025 21:34:23 Closed fracture pubis 851538725 S32.591D [id number] related to mechanical / ground level fall in her [facility] apartmento rthopedics consulted with recommenda tions for non operative measuresWB AT to LEcurrentl y pain is controlled continue prn norco for now related to pain - would transition to non narcotic meds if pain remains controlled continue therapieso rtho f/u with Dr. Hopson 1 week Chronic ki dney disease 438418792 N18.9 51726030 unclear baseline - creatinine ranged from 0.91-1.13 while inpatienta void nephrotoxi ns and continue to trend labs Peripheral arterial disease 791593480 I73.9 589813 encourage continued smoking cessation, continue statin/opt imal blood pressure control and anticoagul ation History of cerebrovascular accident 932514153 Z86.73 196315 details unclear - patient denies residual deficits related to thiscontin ue statin / good blood pressure control and anticoagul ation Type 2 hector betes mellitus 50161830 E11.22 99414887 no recent HbA1c - will check with next lab drawcontin ue Rybelsus, check blood sugars BID Acquired hypothyroidism 571920537 E03.9 61664 presumed stable - continue synthroidw ill check thyroid studies with next lab draw Protein S deficiency disease 7896333 D68.59 651310 continue eliquis Primary insomnia 3860812 F51.01 28182 continue trazodone Overactive urinary bladder 998427425 N32.81 966799 continue oxybutynin - monitor for need - might consider trial of dose reduction or d/c altogether due to high risk med/concer shiela side effects in this elderly patient Tobacco user 202165331 Z 72.0 55867 smokes an occasional cigarette - says a few / month - does not feel that she needs nicotine replacemen t at this timemonito r for need 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 90878692 continue neurontin - will confirm with PCP this is correct outpatient dose History of osteomyelitis 286415373 Z87.39 829403 s/p right great toe amputation Essential hypertension 63019631 I10 58296 continue lisinopril trend pressures and adjust meds as clinically indicated Hyperlipidemia 78785840 E78.5 01230193 presumed stable - continue statin therapy Diarrhea 21921779 R19.7 38979067 continue prn imodium Mild major depression, single episode 88294401 F32.0 7683898457 continue low dose escitalopr am Physical deconditioning 2741117716 9102 R53.81 438177 related to advanced age, recent fall/pelvi c fracture/c omorbiditi estherapie s have been initiated - will monitor progress and work with SS/family regarding safest d/c plan History of fall 69396952 9 Z91.81 0251792 monitor for reversible causes - will check thyroid studies/B1 2, vitamin D level with next lab draw [id number] Kait Marina DO [address] [address] 01/16/2025 13:20:25 01/16/2025 21:33:46 Closed fracture pubis 750431096 S32.591D 35704730 Related to mechanical / ground level fall in her [facility] apartment. Orthopedic s consulted with recommenda tions for non operative measures.W BAT to BLE.Schedu le APAP TID. Continue PRN [place] for now.Contin ue therapies. Nursing to schedule ortho Dr. Hopson f/u in 1 week. Peripheral arterial disease 470180712 I73.9 084577 Encourage continued smoking cessation. Continue statin, Eliquis, and optimal blood pressure control. History of cerebrovascular accident 197585168 Z86.73 581520 Details unclear. Patient denies residual deficits related to this.Braden nue statin, Eliquis, and optimal blood pressure control. Type 2 hector betes mellitus 37446435 E11.22 N18.31 3764575822 No recent HbA1c. Will check with next lab draw.Braden leodan Chan.H ave stopped SSI for now.Contin ue to monitor blood sugars and encourage LCS diet. Acquired hypothyroidism 161380356 E03.9 22827 Presumed stable. Continue Synthroid. Checking thyroid studies with next lab draw. Protein S deficiency disease 1891581 D68.59 696153 Presumed stable. Continue Eliquis. Primary insomnia 3625694 F51.01 06190 SEE ABOVE... Overactive urinary bladder 587054999 N32.81 300639 Continue Oxybutynin for now.Monito r for need - might consider trial of dose reduction or d/c altogether due to high risk med/concer shiela side effects in this elderly patient. Tobacco user 501647958 Z 72.0 10501 Smokes an occasional cigarette, a few/month, does not feel that she needs nicotine replacemen t at this time.Monit or for need and encourage complete cessation. Polyneurop athy associated with another disorder 541377383 G63 92281821 Stable. Continue Neurontin and pain medication s as above.Need to confirm with PCP this is correct outpatient dose as very high. History of osteomyelitis 160716596 Z87.39 024755 s/p right great toe amputation . No recent concerns per pt. Hyperlipidemia 61754394 E78.5 34097434 Presumed stable. Continue statin. Diarrhea 54956917 R19.7 04577724 Stable at present. Continue PRN Imodium. Mild major depression, single episode 27275168 F32.0 2904892019 Stable. Continue low-dose Escitalopr am and Trazodone. History of fall 00705293 9 Z91.81 6259109 monitor for reversible causes - will check thyroid studies/B1 2, vitamin D level with next lab draw Physical deconditioning 4313510115 9102 R53.81 813231 Related to advanced age, recent fall/pelvi c fracture/c omorbiditi es.Continu e therapies - monitor progress and work with SS/family regarding safest d/c plan. Hypertensi ve renal disease 85800678 I12.9 N18.31 2297472271 Unclear baseline. Cr ranged from 0.91-1.13 while inpatient. Stable. Continue Lisinopril .Avoid additional nephrotoxi ns and continue to trend labs.Braden nue to trend blood pressures, monitor lytes and renal function, and adjust meds as clinically indicated. [id number] Kait Marina DO [place] [address] [place] [address] 01/20/2025 10:14:27 01/23/2025 20:44:42 Closed fracture pubis 970104515 S32.591D 41070680 Related to mechanical / ground level fall in her [facility] apartment. Orthopedic s consulted with recommenda tions for non operative measures.W BAT to BLE.Contin ue routine APAP and PRN [place] for now.Taperi ng down on Gabapentin to better mimic OP dosing (typically takes 1,500 mg at bedtime only).Cont inue therapies. Nursing to schedule ortho Dr. Hopson f/u in 1 week. Hypertensi ve renal disease 75549879 I12.9 N18.31 0586329856 Unclear baseline. Cr ranged from 0.91-1.13 while inpatient. Stable. Continue Lisinopril .Avoid additional nephrotoxi ns and continue to trend labs.Braden nue to trend blood pressures, monitor lytes and renal function, and adjust meds as clinically indicated. Peripheral arterial disease 361465661 I73.9 643564 Encourage continued smoking cessation. Continue statin, Eliquis, and optimal blood pressure control. Hyperlipidemia 60099638 E78.5 03937891 Presumed stable. Continue statin. Type 2 hector betes mellitus 77006147 E11.22 N18.31 6066622877 No recent HbA1c. Will check with next lab draw.Braden nue Rybelsus.H ave stopped SSI.Contin ue to monitor blood sugars and encourage LCS diet. Polyneurop athy associated with another disorder 092982745 G63 69273344 Stable. Continue pain medication s as above.Tape ring down on Gabapentin to better mimic OP dosing (typically takes 1,500 mg at bedtime only). History of osteomyelitis 082394956 Z87.39 467824 s/p right great toe amputation . No recent concerns per pt. Acquired hypothyroidism 913237415 E03.9 74073 Presumed stable. Continue Synthroid. Checking thyroid studies with next lab draw. Protein S deficiency disease 9101209 D68.59 156094 Presumed stable. Continue Eliquis. Mild major depression, single episode 94655476 F32.0 4574042744 Stable. Continue low-dose Escitalopr am and Trazodone. Primary insomnia 7046422 F51.01 69493 SEE ABOVE... Overactive urinary bladder 660068026 N32.81 512690 Continue Oxybutynin for now.Monito r for need - might consider trial of dose reduction or d/c altogether due to high risk med/concer shiela side effects in this elderly patient. Diarrhea 62455664 R19.7 80814944 Stable at present. Continue PRN Imodium. Tobacco user 066338175 Z 72.0 62960 Smokes an occasional cigarette, a few/month, does not feel that she needs nicotine replacemen t at this time.Monit or for need and encourage complete cessation. History of cerebrovascular accident 100770307 Z86.73 096198 Details unclear. Patient denies residual deficits related to this.Braden nue statin, Eliquis, and optimal blood pressure control. History of fall 01265613 9 Z91.81 6440112 Monitor for reversible causes. Checking thyroid studies, VIt B12, vitamin D level with next lab draw Physical deconditioning 6785842815 9102 R53.81 495445 Related to advanced age, recent fall/pelvi c fracture/c omorbiditi es.Continu e therapies - monitor progress and work with SS/family regarding safest d/c plan. [id number] Kait Marina, DO [address] [address] 01/22/2025 14:34:48 01/23/2025 20:45:25 Closed fracture pubis 033924534 S32.591D 45567034 Related to mechanical / ground level fall in her [facility] apartment. Orthopedic s consulted with recommenda tions for non operative measures.W BAT to BLE.Contin ue routine APAP and PRN [place] for now.Taperi ng down on Gabapentin to better mimic OP dosing (typically takes 1,500 mg at bedtime only).Cont inue therapies. Nursing to schedule ortho Dr. Hopson f/u. Hypertensi ve renal disease 24444049 I12.9 N18.31 3383576039 Unclear baseline. Cr ranged from 0.91-1.13 while inpatient. Stable. Continue Lisinopril .Avoid additional nephrotoxi ns and continue to trend labs.Braden nue to trend blood pressures, monitor lytes and renal function, and adjust meds as clinically indicated. Peripheral arterial disease 129199185 I73.9 267541 Encourage continued smoking cessation. Continue statin, Eliquis, and optimal blood pressure control. Hyperlipidemia 62392837 E78.5 18169417 Presumed stable. Continue statin. Type 2 hector betes mellitus 86196539 E11.22 N18.31 8727328333 01/22/25 = HgA1c 7.1%. Within a good range for age/comorb idities. Stopped SSI.Contin ue Rybelsus.C ontinue to monitor blood sugars and encourage LCS diet. Polyneurop athy associated with another disorder 379644495 G63 85320151 Stable. Continue pain medication s as above. History of osteomyelitis 120797800 Z87.39 597374 s/p right great toe amputation . No recent concerns per pt. Acquired hypothyroidism 475588475 E03.9 88064 Stable. Thyroid panel WNL. Continue Synthroid. Protein S deficiency disease 9907967 D68.59 921992 Presumed stable. Continue Eliquis. Mild major depression, single episode 43804427 F32.0 7867499834 Stable. Continue low-dose Escitalopr am and Trazodone. Primary insomnia 5874950 F51.01 91168 SEE ABOVE... Overactive urinary bladder 009750186 N32.81 483932 Continue Oxybutynin for now.Monito r for need - might consider trial of dose reduction or d/c altogether due to high risk med/concer shiela side effects in this elderly patient. Diarrhea 36745331 R19.7 31000573 Stable at present. Continue PRN Imodium. Tobacco user 552267796 Z 72.0 78824 Smokes an occasional cigarette, a few/month, does not feel that she needs nicotine replacemen t at this time.Monit or for need and encourage complete cessation. History of cerebrovascular accident 249626551 Z86.73 021025 Details unclear. Patient denies residual deficits related to this.Braden nue statin, Eliquis, and optimal blood pressure control. History of fall 59013293 9 Z91.81 1578660 Monitor for reversible causes. Checking thyroid studies, VIt B12, vitamin D level with next lab draw Physical deconditioning 4341748308 9102 R53.81 443099 Related to advanced age, recent fall/pelvi c fracture/c omorbiditi es.Continu e therapies - monitor progress and work with SS/family regarding safest d/c plan. Vitamin D deficiency 347 91708 E55.9 91760 Vit D level 20. Start Vit D supplement at next visit. [id number] Kait Marina, DO [facility] [address] [place] [address] 01/27/2025 13:30:20 01/29/2025 09:37:01 Closed fracture pubis 401887792 S32.591D 97141648 Related to mechanical / ground level fall in her [facility] apartment. Orthopedic s consulted with recommenda tions for non operative measures.W BAT to BLE.Contin ue routine APAP and PRN [place] for now.Tapere d down on Gabapentin to better mimic OP dosing (typically takes 1,500 mg at bedtime only).Cont inue therapies. Nursing to schedule ortho Dr. Hopson f/u. Hypertensi ve renal disease 43651599 I12.9 N18.31 2018735629 Unclear baseline. Cr ranged from 0.91-1.13 while inpatient. Stable. Continue Lisinopril .Avoid additional nephrotoxi ns and continue to trend labs.Braden nue to trend blood pressures, monitor lytes and renal function, and adjust meds as clinically indicated. Peripheral arterial disease 961117209 I73.9 204770 Encourage continued smoking cessation. Continue statin, Eliquis, and optimal blood pressure control. Hyperlipidemia 01179593 E78.5 77057210 Presumed stable. Continue statin. Type 2 hector betes mellitus 42064722 E11.22 N18.31 9484457160 01/22/25 = HgA1c 7.1%. Within a good range for age/comorb idities. Stopped SSI.Contin ue Rybelsus.C ontinue to monitor blood sugars and encourage LCS diet. Polyneurop athy associated with another disorder 171896542 G63 12000671 Stable. Continue pain medication s as above. History of osteomyelitis 701362515 Z87.39 075515 s/p right great toe amputation . No recent concerns per pt. Acquired hypothyroidism 474829622 E03.9 96785 Stable. Thyroid panel WNL. Continue Synthroid. Vitamin D deficiency 347 02732 E55.9 57394 Vit D level 20. Start Vit D supplement at next visit. Protein S deficiency disease 6791878 D68.59 789280 Presumed stable. Continue Eliquis. Mild major depression, single episode 65617742 F32.0 1515029580 Stable. Continue low-dose Escitalopr am and Trazodone. Primary insomnia 9588602 F51.01 06483 SEE ABOVE... Overactive urinary bladder 445495257 N32.81 545179 Continue Oxybutynin for now.Monito r for need - might consider trial of dose reduction or d/c altogether due to high risk med/concer shiela side effects in this elderly patient. Diarrhea 14018704 R19.7 75038206 Stable at present. Continue PRN Imodium. Tobacco user 080655648 Z 72.0 44542 Smokes an occasional cigarette, a few/month, does not feel that she needs nicotine replacemen t at this time.Monit or for need and encourage complete cessation. History of cerebrovascular accident 185299609 Z86.73 777970 Details unclear. Patient denies residual deficits related to this.Braden nue statin, Eliquis, and optimal blood pressure control. History of fall 88041978 9 Z91.81 5902238 Monitor for reversible causes. Checking thyroid studies, VIt B12, vitamin D level with next lab draw Physical deconditioning 7476770501 9102 R53.81 097118 Related to advanced age, recent fall/pelvi c fracture/c omorbiditi es.Continu e therapies - monitor progress and work with SS/family regarding safest d/c plan. 523504 Kait Marina, DO [place] [address] [place] [address] 01/29/2025 09:57:21 02/03/2025 05:53:29 Closed fracture pubis 992365201 S32.591D 86530442 Related to mechanical / ground level fall in her [facility] apartment. Orthopedic s consulted with recommenda tions for non operative measures.W BAT to BLE.Contin ue routine APAP and PRN [place] for now.Tapere d down on Gabapentin to better mimic OP dosing (typically takes 1,500 mg at bedtime only).Cont inue therapies. Nursing to schedule ortho Dr. Hopson f/u. Hypertensi ve renal disease 52498880 I12.9 N18.31 0368254788 Unclear baseline. Cr ranged from 0.91-1.13 while inpatient. Stable. Continue Lisinopril .Avoid additional nephrotoxi ns and continue to trend labs.Braden nue to trend blood pressures, monitor lytes and renal function, and adjust meds as clinically indicated. Hyperlipidemia 03654828 E78.5 29766538 Presumed stable. Continue statin. Peripheral arterial disease 967827203 I73.9 980632 Encourage continued smoking cessation. Continue statin, Eliquis, and optimal blood pressure control. Type 2 hector betes mellitus 94494160 E11.22 N18.31 6372636819 01/22/25 = HgA1c 7.1%. Within a good range for age/comorb idities. Stopped SSI.Contin ue Rybelsus.C ontinue to monitor blood sugars and encourage LCS diet. Polyneurop athy associated with another disorder 110710004 G63 50361458 Stable. Continue pain medication s as above. History of osteomyelitis 992681592 Z87.39 874297 s/p right great toe amputation . No recent concerns per pt. Acquired hypothyroidism 816738455 E03.9 69896 Stable. Thyroid panel WNL. Continue Synthroid. Vitamin D deficiency 347 78388 E55.9 84187 Vit D level 20. Start Vit D supplement at next visit. Protein S deficiency disease 0153977 D68.59 204607 Presumed stable. Continue Eliquis. Mild major depression, single episode 27402612 F32.0 6653379902 Stable. Continue low-dose Escitalopr am and Trazodone. Primary insomnia 3827251 F51.01 03724 SEE ABOVE... Overactive urinary bladder 751012014 N32.81 733336 Continue Oxybutynin for now.Monito r for need - might consider trial of dose reduction or d/c altogether due to high risk med/concer shiela side effects in this elderly patient. Diarrhea 09473235 R19.7 26383637 Stable at present. Continue PRN Imodium. Tobacco user 006570716 Z 72.0 39990 Smokes an occasional cigarette, a few/month, does not feel that she needs nicotine replacemen t at this time.Monit or for need and encourage complete cessation. History of cerebrovascular accident 513496428 Z86.73 716047 Details unclear. Patient denies residual deficits related to this.Braden nue statin, Eliquis, and optimal blood pressure control. History of fall 57359549 9 Z91.81 8393197 Monitor for reversible causes. Checking thyroid studies, VIt B12, vitamin D level with next lab draw Physical deconditioning 0285896595 9102 R53.81 569140 Related to advanced age, recent fall/pelvi c fracture/c omorbiditi es.Continu e therapies - monitor progress and work with SS/family regarding safest d/c plan. 283258 Kait Marina DO [address] [address] 01/31/2025 08:22:23 02/03/2025 05:54:32 Closed fracture pubis 474597674 S32.591D 74509649 Related to mechanical / ground level fall in her [facility] apartment. Orthopedic s consulted with recommenda tions for non operative measures.W BAT to BLE.Contin ue routine APAP and PRN [place] for now.Tapere d down on Gabapentin to better mimic OP dosing (typically takes 1,500 mg at bedtime only).Cont inue therapies. Nursing to schedule ortho Dr. Hopson f/u. Hypertensi ve renal disease 47037329 I12.9 N18.31 4458334604 Unclear baseline. Cr ranged from 0.91-1.13 while inpatient. Stable. Continue Lisinopril .Avoid additional nephrotoxi ns and continue to trend labs.Braden nue to trend blood pressures, monitor lytes and renal function, and adjust meds as clinically indicated. Hyperlipidemia 91558209 E78.5 54453436 Presumed stable. Continue statin. Peripheral arterial disease 090680793 I73.9 658658 Encourage continued smoking cessation. Continue statin, Eliquis, and optimal blood pressure control. Type 2 hector betes mellitus 93864656 E11.22 N18.31 8096126569 01/22/25 = HgA1c 7.1%. Within a good range for age/comorb idities. Stopped SSI.Contin ue Rybelsus.C ontinue to monitor blood sugars and encourage LCS diet. Polyneurop athy associated with another disorder 471980964 G63 77359259 Stable. Continue pain medication s as above. History of osteomyelitis 325812275 Z87.39 687440 s/p right great toe amputation . No recent concerns per pt. Acquired hypothyroidism 737773914 E03.9 12002 Stable. Thyroid panel WNL. Continue Synthroid. Vitamin D deficiency 347 54317 E55.9 70876 Vit D level 20. Started Vit D supplement at next visit. Protein S deficiency disease 1960997 D68.59 488393 Presumed stable. Continue Eliquis. Mild major depression, single episode 74390449 F32.0 0193441800 Stable. Continue low-dose Escitalopr am and Trazodone. Primary insomnia 2914677 F51.01 76382 SEE ABOVE... Overactive urinary bladder 138136129 N32.81 937259 Continue Oxybutynin for now.Monito r for need - might consider trial of dose reduction or d/c altogether due to high risk med/concer shiela side effects in this elderly patient. Diarrhea 29626767 R19.7 21437010 Stable at present. Continue PRN Imodium. Tobacco user 657895422 Z 72.0 68223 Smokes an occasional cigarette, a few/month, does not feel that she needs nicotine replacemen t at this time.Monit or for need and encourage complete cessation. History of cerebrovascular accident 332564225 Z86.73 086384 Details unclear. Patient denies residual deficits related to this.Braden nue statin, Eliquis, and optimal blood pressure control. History of fall 47318873 9 Z91.81 6805662 Monitor for reversible causes.Con tinue therapies & fall precaution s. Physical deconditioning 7727629208 9102 R53.81 142529 Related to advanced age, recent fall/pelvi c [...] Member ID Fox Member ID Guarantor Name 01/31/2025 1 [place] Marisela Franz [id number] Marisela Franz 01/31/2025 2 [place]MEDIC[place]PPLE[place]) [id number] Marisela Franz [id number] Marisela Franz Notes Date Note Type Note Provider Name and Address Organization Details Recorded Time 01/31/2025 text/html F/U fall with right inferior [...] patient states she plans to return to [facility] at [place] - per staff, she may need higher level of care upon d/c from SNF.---01/16/25Marisela is seated in her recliner in her room, doing well today, without concerns. She does report tenderness to her right hip, for which she has just received a PRN [place]. She is noted to have removed her [...] with MOD, LB dressing with MOD using chrome tanning drum operator, UB dressing with setup, functional transfers with [...] stand and pivot transfers requiring CGA. Areli Payan, NOR[place] [address] [facility], [place], [address], [facility] - [facility] 02/01/2025 13:47:38 OBGyn Episode No OBEpisode recorded.
--- OUTSIDE RECORDS SUMMARY | 2025-02-03 21:49 | XMS_ITS | Continuity of Care Document ---
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 Hopson f/uJosie mckeon Not available 01/29/2025 17:46:07 Plan of Treatment Reminders Order Date Submit [...] Modified By Organization Details Last Modified Time 01/29/2025 [id number] I spent 37 minutes providing care to the patient today. More than 50% of that time was spent in discussing the expected course of the disease, discussing prognosis, coordinating care and counseling of the patient/family. mike Not available 01/29/2025 17:46:57 Reason for Referral None Reported. Results Created Date Observation Date Name Description Value Unit Range Abnormal Flag Note LastModifiedBy Organization Detail LastModifiedTime Result Notes None recorded. Procedures Surgical History Date Name Laterality Status Provider Name and Address Organization Details Recorded Time 08/28/19 23 vertebroplasty completed Aiden Colindres [facility] 01/14/2025 22:04:57 08/13/19 21 [place]putation [place] [address] [place], [address], [facility] 02/01/2025 13:46:36 02/27/19 13 [...] Vitals Date Recorded Heart rate Body temperature Oxygen saturation Respiratory rate Body weight Body mass index (BMI) Body height Systolic And Diastolic Provider Name and Address Organization Details Last Updated DateTime 5 89 /min 97.6 [degF] 97 % 16 /min 77343.8 g 25.3 kg/m2 162.56 cm 110/64 mm[Hg] Areli Payan, INTERPRETER TRANSLATOR [address] [place], [address], [place] [facility] 5 17:39:24 Social History None recorded. Functional Status Question [...] available 2024 22:07:37 Medical History Condition Response Stroke (CVA) Y Peripheral Vascular Disease (PVD) Y Diabetes Y Osteomyelitis Y Chronic Kidney Disease (CKD) Y Insomnia Y Gynecological HistoryNo gynecological history recorded. Obstetrics History GPAL:G 0 P 0 0 0 0 Past Encounters Encounter ID Performer Location Encounter Start Date Encounter Closed Date Diagnosis/Indication Diagnosis SNOMED-CT Code Diagnosis ICD10 Code Diagnosis IMO Codes Diagnosis Note [id number] Kait Marina, [place] [address] [place] [address] 01/15/2025 07:11:23 01/16/2025 21:34:23 Closed fracture pubis 882365309 S32.591D [id number] related to mechanical / ground level fall in her [facility] apartmento rthopedics consulted with recommenda tions for non operative measuresWB AT to LEcurrentl y pain is controlled continue prn norco for now related to pain - would transition to non narcotic meds if pain remains controlled continue therapieso rtho f/u with Dr. Hopson 1 week Chronic ki dney disease 104492467 N18.9 16739702 unclear baseline - creatinine ranged from 0.91-1.13 while inpatienta void nephrotoxi ns and continue to trend labs Peripheral arterial disease 638432657 I73.9 625458 encourage continued smoking cessation, continue statin/opt imal blood pressure control and anticoagul ation History of cerebrovascular accident 903800562 Z86.73 817800 details unclear - patient denies residual deficits related to thiscontin ue statin / good blood pressure control and anticoagul ation Type 2 hector betes mellitus 42595843 E11.22 44957493 no recent HbA1c - will check with next lab drawcontin ue Rybelsus, check blood sugars BID Acquired hypothyroidism 728414068 E03.9 78179 presumed stable - continue synthroidw ill check thyroid studies with next lab draw Protein S deficiency disease 3864902 D68.59 673050 continue eliquis Primary insomnia 2171281 F51.01 81345 continue trazodone Overactive urinary bladder 106385790 N32.81 918792 continue oxybutynin - monitor for need - might consider trial of dose reduction or d/c altogether due to high risk med/concer shiela side effects in this elderly patient Tobacco user 608676211 Z 72.0 82313 smokes an occasional cigarette - says a few / month - does not feel that she needs nicotine replacemen t at this timemonito r for need Polyneurop athy associated with another disorder 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 38461677 continue neurontin - will confirm with PCP this is correct outpatient dose History of osteomyelitis 270477014 Z87.39 344484 s/p right great toe amputation Essential hypertension 99901368 I10 97631 continue lisinopril trend pressures and adjust meds as clinically indicated Hyperlipidemia 76768292 E78.5 04887284 presumed stable - continue statin therapy Diarrhea 90668684 R19.7 80622610 continue prn imodium Mild major depression, single episode 42996160 F32.0 7718874707 continue low dose escitalopr am Physical deconditioning 3379093921 9102 R53.81 423287 related to advanced age, recent fall/pelvi c fracture/c omorbiditi estherapie s have been initiated - will monitor progress and work with SS/family regarding safest d/c plan History of fall 92642852 9 Z91.81 3961269 monitor for reversible causes - will check thyroid studies/B1 2, vitamin D level with next lab draw [id number] Kait Marina DO [address] [address] 01/16/2025 13:20:25 01/16/2025 21:33:46 Closed fracture pubis 136667412 S32.591D 83712012 Related to mechanical / ground level fall in her [facility] apartment. Orthopedic s consulted with recommenda tions for non operative measures.W BAT to BLE.Schedu le APAP TID. Continue PRN [place] for now.Contin ue therapies. Nursing to schedule ortho Dr. Hopson f/u in 1 week. Peripheral arterial disease 879319209 I73.9 454177 Encourage continued smoking cessation. Continue statin, Eliquis, and optimal blood pressure control. History of cerebrovascular accident 241540651 Z86.73 408105 Details unclear. Patient denies residual deficits related to this.Braden nue statin, Eliquis, and optimal blood pressure control. Type 2 hector betes mellitus 74412788 E11.22 N18.31 5619684837 No recent HbA1c. Will check with next lab draw.Braden leodan Chan.H ave stopped SSI for now.Contin ue to monitor blood sugars and encourage LCS diet. Acquired hypothyroidism 995402447 E03.9 37907 Presumed stable. Continue Synthroid. Checking thyroid studies with next lab draw. Protein S deficiency disease 3005818 D68.59 946882 Presumed stable. Continue Eliquis. Primary insomnia 0035630 F51.01 88287 SEE ABOVE... Overactive urinary bladder 843091042 N32.81 628192 Continue Oxybutynin for now.Monito r for need - might consider trial of dose reduction or d/c altogether due to high risk med/concer shiela side effects in this elderly patient. Tobacco user 605762487 Z 72.0 63585 Smokes an occasional cigarette, a few/month, does not feel that she needs nicotine replacemen t at this time.Monit or for need and encourage complete cessation. Polyneurop athy associated with another disorder 776782351 G63 60963009 Stable. Continue Neurontin and pain medication s as above.Need to confirm with PCP this is correct outpatient dose as very high. History of osteomyelitis 823630649 Z87.39 109931 s/p right great toe amputation . No recent concerns per pt. Hyperlipidemia 95882919 E78.5 91051437 Presumed stable. Continue statin. Diarrhea 85349596 R19.7 85933504 Stable at present. Continue PRN Imodium. Mild major depression, single episode 62796666 F32.0 0301189468 Stable. Continue low-dose Escitalopr am and Trazodone. History of fall 25582591 9 Z91.81 4033495 monitor for reversible causes - will check thyroid studies/B1 2, vitamin D level with next lab draw Physical deconditioning 9198351681 9102 R53.81 332720 Related to advanced age, recent fall/pelvi c fracture/c omorbiditi es.Continu e therapies - monitor progress and work with SS/family regarding safest d/c plan. Hypertensi ve renal disease 12568806 I12.9 N18.31 1717911988 Unclear baseline. Cr ranged from 0.91-1.13 while inpatient. Stable. Continue Lisinopril .Avoid additional nephrotoxi ns and continue to trend labs.Braden nue to trend blood pressures, monitor lytes and renal function, and adjust meds as clinically indicated. [id number] Kait Marina DO [place] [address] [place] [address] 01/20/2025 10:14:27 01/23/2025 20:44:42 Closed fracture pubis 557664829 S32.591D 40600479 Related to mechanical / ground level fall in her [facility] apartment. Orthopedic s consulted with recommenda tions for non operative measures.W BAT to BLE.Contin ue routine APAP and PRN [place] for now.Taperi ng down on Gabapentin to better mimic OP dosing (typically takes 1,500 mg at bedtime only).Cont inue therapies. Nursing to schedule ortho Dr. Hopson f/u in 1 week. Hypertensi ve renal disease 41024577 I12.9 N18.31 9348716400 Unclear baseline. Cr ranged from 0.91-1.13 while inpatient. Stable. Continue Lisinopril .Avoid additional nephrotoxi ns and continue to trend labs.Braden nue to trend blood pressures, monitor lytes and renal function, and adjust meds as clinically indicated. Peripheral arterial disease 778126603 I73.9 794288 Encourage continued smoking cessation. Continue statin, Eliquis, and optimal blood pressure control. Hyperlipidemia 74871298 E78.5 46881276 Presumed stable. Continue statin. Type 2 hector betes mellitus 45304046 E11.22 N18.31 5329353430 No recent HbA1c. Will check with next lab draw.Braden nue Rybelsus.H ave stopped SSI.Contin ue to monitor blood sugars and encourage LCS diet. Polyneurop athy associated with another disorder 570900700 G63 98939353 Stable. Continue pain medication s as above.Tape ring down on Gabapentin to better mimic OP dosing (typically takes 1,500 mg at bedtime only). History of osteomyelitis 040664253 Z87.39 650606 s/p right great toe amputation . No recent concerns per pt. Acquired hypothyroidism 967182667 E03.9 35889 Presumed stable. Continue Synthroid. Checking thyroid studies with next lab draw. Protein S deficiency disease 7868955 D68.59 193474 Presumed stable. Continue Eliquis. Mild major depression, single episode 79123475 F32.0 4096690610 Stable. Continue low-dose Escitalopr am and Trazodone. Primary insomnia 5243568 F51.01 19006 SEE ABOVE... Overactive urinary bladder 869839138 N32.81 773236 Continue Oxybutynin for now.Monito r for need - might consider trial of dose reduction or d/c altogether due to high risk med/concer shiela side effects in this elderly patient. Diarrhea 14645359 R19.7 70451908 Stable at present. Continue PRN Imodium. Tobacco user 188726306 Z 72.0 12380 Smokes an occasional cigarette, a few/month, does not feel that she needs nicotine replacemen t at this time.Monit or for need and encourage complete cessation. History of cerebrovascular accident 962861279 Z86.73 504662 Details unclear. Patient denies residual deficits related to this.Braden nue statin, Eliquis, and optimal blood pressure control. History of fall 04723632 9 Z91.81 4032316 Monitor for reversible causes. Checking thyroid studies, VIt B12, vitamin D level with next lab draw Physical deconditioning 9893942536 9102 R53.81 751074 Related to advanced age, recent fall/pelvi c fracture/c omorbiditi es.Continu e therapies - monitor progress and work with SS/family regarding safest d/c plan. [id number] Kait Marina, DO [address] [address] 01/22/2025 14:34:48 01/23/2025 20:45:25 Closed fracture pubis 323737156 S32.591D 77947719 Related to mechanical / ground level fall in her [facility] apartment. Orthopedic s consulted with recommenda tions for non operative measures.W BAT to BLE.Contin ue routine APAP and PRN [place] for now.Taperi ng down on Gabapentin to better mimic OP dosing (typically takes 1,500 mg at bedtime only).Cont inue therapies. Nursing to schedule ortho Dr. Hopson f/u. Hypertensi ve renal disease 46162000 I12.9 N18.31 4722753509 Unclear baseline. Cr ranged from 0.91-1.13 while inpatient. Stable. Continue Lisinopril .Avoid additional nephrotoxi ns and continue to trend labs.Braden nue to trend blood pressures, monitor lytes and renal function, and adjust meds as clinically indicated. Peripheral arterial disease 104547779 I73.9 539400 Encourage continued smoking cessation. Continue statin, Eliquis, and optimal blood pressure control. Hyperlipidemia 72729309 E78.5 90637767 Presumed stable. Continue statin. Type 2 hector betes mellitus 54003128 E11.22 N18.31 5946342278 01/22/25 = HgA1c 7.1%. Within a good range for age/comorb idities. Stopped SSI.Contin ue Rybelsus.C ontinue to monitor blood sugars and encourage LCS diet. Polyneurop athy associated with another disorder 079056254 G63 88069694 Stable. Continue pain medication s as above. History of osteomyelitis 249074596 Z87.39 690448 s/p right great toe amputation . No recent concerns per pt. Acquired hypothyroidism 361335774 E03.9 73143 Stable. Thyroid panel WNL. Continue Synthroid. Protein S deficiency disease 0082403 D68.59 878122 Presumed stable. Continue Eliquis. Mild major depression, single episode 96867696 F32.0 4915459598 Stable. Continue low-dose Escitalopr am and Trazodone. Primary insomnia 9136756 F51.01 88595 SEE ABOVE... Overactive urinary bladder 167375790 N32.81 417790 Continue Oxybutynin for now.Monito r for need - might consider trial of dose reduction or d/c altogether due to high risk med/concer shiela side effects in this elderly patient. Diarrhea 75294118 R19.7 25480516 Stable at present. Continue PRN Imodium. Tobacco user 755199609 Z 72.0 32423 Smokes an occasional cigarette, a few/month, does not feel that she needs nicotine replacemen t at this time.Monit or for need and encourage complete cessation. History of cerebrovascular accident 342916082 Z86.73 574026 Details unclear. Patient denies residual deficits related to this.Braden nue statin, Eliquis, and optimal blood pressure control. History of fall 84144390 9 Z91.81 9912153 Monitor for reversible causes. Checking thyroid studies, VIt B12, vitamin D level with next lab draw Physical deconditioning 1973488823 9102 R53.81 667853 Related to advanced age, recent fall/pelvi c fracture/c omorbiditi es.Continu e therapies - monitor progress and work with SS/family regarding safest d/c plan. Vitamin D deficiency 347 29037 E55.9 62465 Vit D level 20. Start Vit D supplement at next visit. [id number] Kait Marina, DO [facility] [address] [place] [address] 01/27/2025 13:30:20 01/29/2025 09:37:01 Closed fracture pubis 744849949 S32.591D 08324481 Related to mechanical / ground level fall in her [facility] apartment. Orthopedic s consulted with recommenda tions for non operative measures.W BAT to BLE.Contin ue routine APAP and PRN [place] for now.Tapere d down on Gabapentin to better mimic OP dosing (typically takes 1,500 mg at bedtime only).Cont inue therapies. Nursing to schedule ortho Dr. Hopson f/u. Hypertensi ve renal disease 37541637 I12.9 N18.31 6354326543 Unclear baseline. Cr ranged from 0.91-1.13 while inpatient. Stable. Continue Lisinopril .Avoid additional nephrotoxi ns and continue to trend labs.Braden nue to trend blood pressures, monitor lytes and renal function, and adjust meds as clinically indicated. Peripheral arterial disease 035742215 I73.9 195099 Encourage continued smoking cessation. Continue statin, Eliquis, and optimal blood pressure control. Hyperlipidemia 30640626 E78.5 60329309 Presumed stable. Continue statin. Type 2 hector betes mellitus 50507655 E11.22 N18.31 1323759824 01/22/25 = HgA1c 7.1%. Within a good range for age/comorb idities. Stopped SSI.Contin ue Rybelsus.C ontinue to monitor blood sugars and encourage LCS diet. Polyneurop athy associated with another disorder 445685577 G63 06465469 Stable. Continue pain medication s as above. History of osteomyelitis 127708524 Z87.39 594774 s/p right great toe amputation . No recent concerns per pt. Acquired hypothyroidism 343771950 E03.9 60688 Stable. Thyroid panel WNL. Continue Synthroid. Vitamin D deficiency 347 93446 E55.9 08384 Vit D level 20. Start Vit D supplement at next visit. Protein S deficiency disease 3200242 D68.59 001562 Presumed stable. Continue Eliquis. Mild major depression, single episode 75426180 F32.0 4953522833 Stable. Continue low-dose Escitalopr am and Trazodone. Primary insomnia 3895679 F51.01 73002 SEE ABOVE... Overactive urinary bladder 686933051 N32.81 136785 Continue Oxybutynin for now.Monito r for need - might consider trial of dose reduction or d/c altogether due to high risk med/concer shiela side effects in this elderly patient. Diarrhea 15874134 R19.7 88518196 Stable at present. Continue PRN Imodium. Tobacco user 012589366 Z 72.0 30748 Smokes an occasional cigarette, a few/month, does not feel that she needs nicotine replacemen t at this time.Monit or for need and encourage complete cessation. History of cerebrovascular accident 670782331 Z86.73 406691 Details unclear. Patient denies residual deficits related to this.Braden nue statin, Eliquis, and optimal blood pressure control. History of fall 08648196 9 Z91.81 0257736 Monitor for reversible causes. Checking thyroid studies, VIt B12, vitamin D level with next lab draw Physical deconditioning 7327225945 9102 R53.81 781236 Related to advanced age, recent fall/pelvi c fracture/c omorbiditi es.Continu e therapies - monitor progress and work with SS/family regarding safest d/c plan. [id number] Kait Marina, DO [place] [address] [address] 01/29/2025 09:57:21 02/03/2025 05:53:29 Closed fracture pubis 656846600 S32.591D 58881425 Related to mechanical / ground level fall in her [facility] apartment. Orthopedic s consulted with recommenda tions for non operative measures.W BAT to BLE.Contin ue routine APAP and PRN [place] for now.Tapere d down on Gabapentin to better mimic OP dosing (typically takes 1,500 mg at bedtime only).Cont inue therapies. Nursing to schedule ortho Dr. Hopson f/u. Hypertensi ve renal disease 41245896 I12.9 N18.31 6834690923 Unclear baseline. Cr ranged from 0.91-1.13 while inpatient. Stable. Continue Lisinopril .Avoid additional nephrotoxi ns and continue to trend labs.Braden nue to trend blood pressures, monitor lytes and renal function, and adjust meds as clinically indicated. Hyperlipidemia 94447530 E78.5 87139646 Presumed stable. Continue statin. Peripheral arterial disease 094543204 I73.9 339313 Encourage continued smoking cessation. Continue statin, Eliquis, and optimal blood pressure control. Type 2 hector betes mellitus 81964079 E11.22 N18.31 3052161677 01/22/25 = HgA1c 7.1%. Within a good range for age/comorb idities. Stopped SSI.Contin ue Rybelsus.C ontinue to monitor blood sugars and encourage LCS diet. Polyneurop athy associated with another disorder 015857937 G63 64650188 Stable. Continue pain medication s as above. History of osteomyelitis 974914748 Z87.39 364224 s/p right great toe amputation . No recent concerns per pt. Acquired hypothyroidism 927206540 E03.9 88680 Stable. Thyroid panel WNL. Continue Synthroid. Vitamin D deficiency 347 96422 E55.9 95321 Vit D level 20. Start Vit D supplement at next visit. Protein S deficiency disease 7025465 D68.59 924538 Presumed stable. Continue Eliquis. Mild major depression, single episode 64522181 F32.0 1445989509 Stable. Continue low-dose Escitalopr am and Trazodone. Primary insomnia 2037156 F51.01 31874 SEE ABOVE... Overactive urinary bladder 003295899 N32.81 420874 Continue Oxybutynin for now.Monito r for need - might consider trial of dose reduction or d/c altogether due to high risk med/concer shiela side effects in this elderly patient. Diarrhea 83783578 R19.7 13094321 Stable at present. Continue PRN Imodium. Tobacco user 735457074 Z 72.0 07057 Smokes an occasional cigarette, a few/month, does not feel that she needs nicotine replacemen t at this time.Monit or for need and encourage complete cessation. History of cerebrovascular accident 431014387 Z86.73 194044 Details unclear. Patient denies residual deficits related to this.Braden nue statin, Eliquis, and optimal blood pressure control. History of fall 58740474 9 Z91.81 1929185 Monitor for reversible causes. Checking thyroid studies, VIt B12, vitamin D level with next lab draw Physical deconditioning 5978898519 9102 R53.81 416750 Related to advanced age, recent fall/pelvi c [...] Member ID Fox Member ID Guarantor Name 01/29/2025 1 [place] Marisela Franz [id number] Marisela Franz 01/29/2025 2 [place]PPLE[place]) [id number] Marisela Franz [id number] Marisela Franz Notes Date Note Type Note Provider Name and Address Organization Details Recorded Time 01/29/2025 text/html F/U fall with right inferior [...] she plans to return to [facility] at [place] - per staff, she may need higher level of care upon d/c from SNF.---01/16/25Lola is seated in her recliner in her room, doing well today, without concerns. She does report tenderness to her right hip, for which she has just received a PRN [place]. She is noted to have removed her [...] with MOD, LB dressing with MOD using front end web designer, UB dressing with setup, functional transfers with [...] transfer to toilet and EOB. Areli Payan, NOR[place] [address] [facility], [place], [address], [place] [facility] 01/29/2025 17:47:07 OBGyn Episode No OBEpisode recorded.
--- OUTSIDE RECORDS SUMMARY | 2025-02-03 21:49 | XMS_ITS | Continuity of Care Document ---
Author Organization [place] [facility], [facility] Address [address] [place] [address] Care Team Providers Care Flux Tube Attendant Name Role Phone [facility] FAX OTHER Assessment Encounter Date Assessment Date Assessment LastModified by Organization Details LastModified Time 01/20/2025 01/20/2025 Taper down on Gabapentin to better mimic OP dosing. F/U labs on 01/20. Reconciled home med list from Dr. Zhao. Nursing to schedule ortho Dr. Hopson f/u in 1 week. [email or web address] Not available 01/20/2025 17:13:06 Plan of Treatment Reminders Order Date Submit [...] By Organization Details Last Modified Time 01/20/2025 [id number] I spent 38 minutes providing care to the patient today. More than 50% of that time was spent in discussing the expected course of the disease, discussing prognosis, coordinating care and counseling of the patient/family. [email or web address] Not available 01/20/2025 17:13:10 Reason for Referral None Reported. Results Created Date Observation Date Name Description Value Unit Range Abnormal Flag Note LastModifiedBy Organization Detail LastModifiedTime Result Notes None recorded. Procedures Surgical History Date Name Laterality Status Provider Name and Address Organization Details Recorded Time 08/28/19 23 vertebroplasty completed Aiden Col[facility] 01/14/2025 22:04:57 08/13/19 21 [place] [address] [facility], [place], [address], [place] [facility] 02/01/2025 13:46:36 02/27/19 13 arthroplasty of shoulder completed Aiden Dinero [place] [facility] 01/14/2025 22:06:06 02/27/19 07 total replacement of hip completed Adien Dinero [place] [facility] 01/14/2025 [...] 66 cholecystectomy completed Aiden MORFIN [facility] 01/14/2025 22:05:39 Imaging Results None [...] and Address Organization Details Last Updated DateTime 68 /min 97.7 [degF] 18 /min 95 % 22788.0 8 g 144/89 mm[Hg] Areli Payan, [employer] [address] [place], [address], [place] [facility] 17:01:36 Social History None recorded. Functional Status Question [...] ICD10 Code Diagnosis IMO Codes Diagnosis Note [id number] Kait Laina, DO [place] [address] [place] [address] 01/15/2025 07:11:23 01/16/2025 21:34:23 Closed fracture pubis 129818568 S32.591D [id number] related to mechanical / ground level fall in her [employer] apartment[place] rthopedics consulted with recommenda tions for non operative measuresWB AT to LEcurrentl y pain is controlled continue prn norco for now related to pain - would transition to non narcotic meds if pain remains controlled continue therapieso rtho f/u with Dr. 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 04349421 no recent HbA1c - will check with next lab drawcontin ue Rybelsus, check blood sugars BID Acquired hypothyroidism 774113250 E03.9 48877 presumed stable - continue synthroidw ill check thyroid studies with next lab draw Protein S deficiency disease 7454119 D68.59 120115 continue eliquis Primary insomnia 0165090 F51.01 14834 continue trazodone Overactive urinary bladder 748382103 N32.81 149860 continue oxybutynin - monitor for need - might consider trial of dose reduction or d/c altogether due to high risk med/concer shiela side effects in this elderly patient Tobacco user 545493073 Z 72.0 43126 smokes an occasional cigarette - says a few / month - does not feel that she needs nicotine replacemen t at this timemonito r for need 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 48538535 continue neurontin - will confirm with PCP this is correct outpatient dose History of osteomyelitis 285457718 Z87.39 095774 s/p right great toe amputation Essential hypertension 86582903 I10 21230 continue lisinopril trend pressures and adjust meds as clinically indicated Hyperlipidemia 10451550 E78.5 31808203 presumed stable - continue statin therapy Diarrhea 14982698 R19.7 68665490 continue prn imodium Mild major depression, single episode 23509032 F32.0 6226143939 continue low dose escitalopr am Physical deconditioning 5776350867 9102 R53.81 076403 related to advanced age, recent fall/pelvi c fracture/c omorbiditi estherapie s have been initiated - will monitor progress and work with SS/family regarding safest d/c plan History of fall 24945231 9 Z91.81 4142159 monitor for reversible causes - will check thyroid studies/B1 2, vitamin D level with next lab draw [id number] Kait Marina, [address] [address] 01/16/2025 13:20:25 01/16/2025 21:33:46 Closed fracture pubis 490668850 S32.591D 75983842 Related to mechanical / ground level fall in her [facility] apartment. Orthopedic s consulted with recommenda tions for non operative measures.W BAT to BLE.Schedu le APAP TID. Continue PRN Bellwood for now.Contin ue therapies. Nursing to schedule ortho Dr. Hopson f/u in 1 week. Peripheral arterial disease 820878854 I73.9 860479 Encourage continued smoking cessation. Continue statin, Eliquis, and optimal blood pressure control. History of cerebrovascular accident 445352919 Z86.73 233531 Details unclear. Patient denies residual deficits related to this.Braden nue statin, Eliquis, and optimal blood pressure control. Type 2 hector betes mellitus 52750586 E11.22 N18.31 0140403742 No recent HbA1c. Will check with next lab draw.Braden cardozalorelei Chan.H ave stopped SSI for now.Contin ue to monitor blood sugars and encourage LCS diet. Acquired hypothyroidism 372541035 E03.9 73443 Presumed stable. Continue Synthroid. Checking thyroid studies with next lab draw. Protein S deficiency disease 5679743 D68.59 355181 Presumed stable. Continue Eliquis. Primary insomnia 7196517 F51.01 73940 SEE ABOVE... Overactive urinary bladder 829943924 N32.81 324522 Continue Oxybutynin for now.Monito r for need - might consider trial of dose reduction or d/c altogether due to high risk med/concer shiela side effects in this elderly patient. Tobacco user 935952505 Z 72.0 63689 Smokes an occasional cigarette, a few/month, does not feel that she needs nicotine replacemen t at this time.Monit or for need and encourage complete cessation. Polyneurop athy associated with another disorder 940038141 G63 41315264 Stable. Continue Neurontin and pain medication s as above.Need to confirm with PCP this is correct outpatient dose as very high. History of osteomyelitis 575654459 Z87.39 097927 s/p right great toe amputation . No recent concerns per pt. Hyperlipidemia 03384827 E78.5 11757667 Presumed stable. Continue statin. Diarrhea 82787471 R19.7 87712757 Stable at present. Continue PRN Imodium. Mild major depression, single episode 36439235 F32.0 2499526867 Stable. Continue low-dose Escitalopr am and Trazodone. History of fall 10636583 9 Z91.81 2774670 monitor for reversible causes - will check thyroid studies/B1 2, vitamin D level with next lab draw Physical deconditioning 6603510224 9102 R53.81 886257 Related to advanced age, recent fall/pelvi c fracture/c omorbiditi es.Continu e therapies - monitor progress and work with SS/family regarding safest d/c plan. Hypertensi ve renal disease 58696261 I12.9 N18.31 5488675473 Unclear baseline. Cr ranged from 0.91-1.13 while inpatient. Stable. Continue Lisinopril .Avoid additional nephrotoxi ns and continue to trend labs.Braden nue to trend blood pressures, monitor lytes and renal function, and adjust meds as clinically indicated. [id number] Kait Marina, DO [place] [address] [place] [address] 01/20/2025 10:14:27 01/23/2025 20:44:42 Closed fracture pubis 898016715 S32.591D 26535289 Related to mechanical / ground level fall in her [facility] apartment. Orthopedic s consulted with recommenda tions for non operative measures.W BAT to BLE.Contin ue routine APAP and PRN Bellwood for now.Taperi ng down on Gabapentin to better mimic OP dosing (typically takes 1,500 mg at bedtime only).Cont inue therapies. Nursing to schedule ortho Dr. Hopson f/u in 1 week. Hypertensi ve renal disease 24709627 I12.9 N18.31 6938016152 Unclear baseline. Cr ranged from 0.91-1.13 while inpatient. Stable. Continue Lisinopril .Avoid additional nephrotoxi ns and continue to trend labs.Braden nue to trend blood pressures, monitor lytes and renal function, and adjust meds as clinically indicated. Peripheral arterial disease 576379341 I73.9 526137 Encourage continued smoking cessation. Continue statin, Eliquis, and optimal blood pressure control. Hyperlipidemia 45186056 E78.5 33684382 Presumed stable. Continue statin. Type 2 hector betes mellitus 05607895 E11.22 N18.31 7076246010 No recent HbA1c. Will check with next lab draw.Braden nue Rybelsus.H ave stopped SSI.Contin ue to monitor blood sugars and encourage LCS diet. Polyneurop athy associated with another disorder 507103567 G63 14662199 Stable. Continue pain medication s as above.Tape ring down on Gabapentin to better mimic OP dosing (typically takes 1,500 mg at bedtime only). History of osteomyelitis 226249755 Z87.39 196098 s/p right great toe amputation . No recent concerns per pt. Acquired hypothyroidism 127950576 E03.9 57965 Presumed stable. Continue Synthroid. Checking thyroid studies with next lab draw. Protein S deficiency disease 4265483 D68.59 051644 Presumed stable. Continue Eliquis. Mild major depression, single episode 53359407 F32.0 9561994572 Stable. Continue low-dose Escitalopr am and Trazodone. Primary insomnia 7171388 F51.01 57541 SEE ABOVE... Overactive urinary bladder 235465611 N32.81 906096 Continue Oxybutynin for now.Monito r for need - might consider trial of dose reduction or d/c altogether due to high risk med/concer shiela side effects in this elderly patient. Diarrhea 13319807 R19.7 23911493 Stable at present. Continue PRN Imodium. Tobacco user 567034662 Z 72.0 74822 Smokes an occasional cigarette, a few/month, does not feel that she needs nicotine replacemen t at this time.Monit or for need and encourage complete cessation. History of cerebrovascular accident 757163237 Z86.73 427347 Details unclear. Patient denies residual deficits related to this.Braden nue statin, Eliquis, and optimal blood pressure control. History of fall 27810481 9 Z91.81 4688485 Monitor for reversible causes. Checking thyroid studies, VIt B12, vitamin D level with next lab draw Physical deconditioning 6623286660 9102 R53.81 094254 Related to advanced age, recent fall/pelvi c [...] Member ID Fox Member ID Guarantor Name 01/20/2025 1 [place] Marisela Franz [id number] Marisela Franz 01/20/2025 2 [id number]MED[place]PPLE[place]) [id number] Marisela Franz [id number] Marisela Franz Notes Date Note Type [...] patient states she plans to return to [facility] at [facility] - per staff, she may need higher level of care upon d/c from SNF.---01/16/25Lo la is seated in her recliner in her room, doing well today, without concerns. She does report tenderness to her right hip, for which she has just received a PRN Bellwood. She is noted to have removed her [...] UE placement and adequate anterior weight shift.--- 5 Areli Payan, [place] [address] [facility], [place], [address], [place] [facility] 01/20/2025 17:13:18 OBGyn Episode No OBEpisode recorded.
--- OUTSIDE RECORDS SUMMARY | 2025-02-03 21:49 | XMS_ITS | Patient Health Record ---
Author Organization [facility] Address [address] [place] [address] Care Team Providers Care Real Estate Consultant Name Role Phone Manuel Fitch Unavailable [phone] Internet, internet Unavailable Unavailable Reason For Referral No Information Plan Of Treatment No Information Insurance Providers Payer Name Payer Address Payer Phone Subscriber Number Group Number Insured Name Patient Relationship to Insured Coverage Start Date Coverage End Date Medicare Part B [address] [place] [id number] Marisela Franz Self - patient is the insured [facility] [address] [place] [address] [id number] Marisela Franz Self - patient is the insured
--- OUTSIDE RECORDS SUMMARY | 2025-02-03 21:49 | XMS_ITS | Data Portability ---
Author Organization [place] - Address [facility] Admin [place], [place] Home Patient Address [address] [place] [address] Care Team Providers Care Wire Stripper Name Role Phone [facility] AT [facility] OTHER Assessment Encounter Date Assessment Date Assessment [...] Orders azithromyci n 250 mg tablet 2023 [facility] #[id number], [address], [place], [place], [id number], 4 13:32:50 benzonatate 200 mg capsule 2023 [facility] #70882, [address], [place], [place], [id number], 4 13:33:41 prednisone 5 mg tablets in a dose pack 2023 [facility] #45639, [address], [place], [place], [id number], 4 13:36:30 prednisone 5 mg tablets in a dose pack 2023 024 [facility] #90235, [address], [place], [place], [id number], 4 13:36:40 Patient TargetsNo targets recorded. Patient InstructionsNo instructions recorded. Reason for Referral None Reported. Results Created Date Observation Date Name Description Value Unit Range Abnormal Flag Note LastModifiedBy Organization Detail LastModifiedTime 01/08/20 24 11/04/2022 imagi ng/janice jorgeos tic resul t No observ ation record ed. [email or web address] Not Available 03:36:45 Result Notes None recorded. Problems Name Problem SNOMED Code Status Onset Date Resolution Date Notes Provider Name and Address Organization Details Recorded Time Essential hypertensio n 42588645 Active Elsie Richardson MD [address], [place], [address], [facility] 3 13:56:50 Diabetes mellitus 49977682 Active lEsie Richardson MD [address], [place], [address], [place] [facility] 3 13:57:38 Spinal stenosis [id number] MD [address], [place], [address], [facility] Address Healthcare Admin [facility] 3 13:57:56 Protein S deficiency disease [id number] MD [address], [place], [address], [facility] Address Healthcare Admin [facility] 3 13:58:16 Hypothyroid ism 80737556 MD [address], [place], [address], [facility] Address [facility] 3 13:59:02 Anxiety 86363943 MD [address], [place], [address], [facility] 3 13:59:16 Insomnia 884046204 MD [address], [place], [address], [facility] 3 13:59:33 Retention of urine 562600792 Uday Richardson MD [address], [place], [address], [facility] 3 13:59:48 Recurrent urinary tract infection 256670841 MD [address], [place], [address], [facility] Address Healthcare Admin [facility] 3 14:00:06 Hyperlipide keli [id number] Uday Richardson MD [address], [place], [address], [facility] Address Healthcare Admin [facility] 3 14:00:20 Depressive disorder [id number] MD [address], [place], [address], [facility] Address Healthcare Admin [facility] 3 14:00:34 Type 2 diabetes mellitus without complicatio n 034072368 Active [address], [place], [address], [facility] - Address [facility] 4 17:47:20 Blood coagulation disorder 97925919 Active 2023 Elsie Richardson MD [address], [place], [address], [facility] - Address [facility] 4 17:47:20 Adjustment disorder with anxious mood 64777110 Active 2023 Elsie Richardson MD [address], [place], [address], [facility] - Address [facility] 4 17:47:20 Major depressive disorder 097582864 Active 2023 Elsie Richardson MD [address], [place], [address], [facility] - Address [facility] 4 17:47:20 Chronic pain syndrome 502963804 Active 2023 Elsie Richardson MD [address], [place], [address], [facility] - Address [facility] 4 15:33:15 Polyneuropa thy 09373062 Active 2023 Elsie Richardson MD [address], [place], [address], [facility] - Address [facility] 4 15:34:02 Type 2 diabetes mellitus 47322303 Active 2023 Elsie Richardson MD [address], [place], [address], [facility] - Address [facility] 4 15:34:19 Chronic kidney disease stage 2 296002377 Active 2023 Elsie Richardson MD [address], [place], [address], [facility] - Address [facility] 4 15:35:57 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 Procedures Surgical History Date Name Laterality Status Provider Name and Address Organization Details Recorded Time replacement of bilateral knee joints completed [facility] 02/21/2023 13:45:42 replacement of bilateral hip joints completed [facility] 02/21/2023 13:45:53 hysterectomy completed [facility] 02/21/2023 13:46:01 partial replacement of joint of right shoulder with prosthesis completed [facility] 02/21/2023 13:46:31 Cholecystectomy completed [facility] 02/21/2023 13:46:45 laminectomy completed [facility] 02/21/2023 13:46:58 Imaging Results None recorded. Procedure [...] Not Available Vitals Date Recorded Oxygen saturation Heart rate Respiratory rate Systolic And Diastolic Provider Name and Address Organization Details Last Updated DateTime 04/14/2023 95 % 78 /min 18 /min 142/83 mm[Hg] Elsie Richardson MD [address], [place], [address] , [place] - Address [facility] 4 15:22:54 Date Recorded Oxygen saturation Heart rate Respiratory rate Body temperature Systolic And Diastolic Provider Name and Address Organization Details Last Updated DateTime 4 96 % 66 /min 16 /min 97.8 [degF] 115/61 mm[Hg] ZzJenna Hartt [facility] Address Healthcare [facility] 4 14:04:16 Date Recorded Oxygen saturation Heart rate Respiratory rate Body temperature Systolic And Diastolic Provider Name and Address Organization Details Last Updated DateTime 4 92 % 75 /min 16 /min 98.6 [degF] 126/77 mm[Hg] ZzJenna Hartt [facility] Address Healthcare [facility] 4 10:32:47 Date Recorded Oxygen saturation Heart rate Respiratory rate Systolic And Diastolic Provider Name and Address Organization Details Last Updated DateTime 05/23/2023 98 % 65 /min 17 /min 115/54 mm[Hg] JOHN Orta [address], [place], [address] , [place] - Address [facility] 4 14:03:49 Date Recorded Oxygen saturation Heart rate Respiratory rate Systolic And Diastolic Provider Name and Address Organization Details Last Updated DateTime 06/01/2023 99 % 70 /min 18 /min 142/66 mm[Hg] Nayeli Sampson, [facility]- [address], [place], [address] , [place] - Address [facility] 18:05:33 Social History None recorded. Functional Status None recorded. Mental Status None recorded. Family History Nothing Reported. Medical History No medical history recorded. Gynecological HistoryNo gynecological history recorded. Obstetrics History GPAL:G 0 P 0 0 0 0 Past Encounters Encounter ID Performer Location Encounter Start Date Encounter Closed Date Diagnosis/Indication Diagnosis SNOMED-CT Code Diagnosis ICD10 Code Diagnosis IMO Codes Diagnosis Note [id number] Elsie Richardson MD [facility] Main Office [address] [place] [address] 02/06/2023 12:54:48 02/07/2023 13:06:01 Type 2 diabetes mellitus without complication 487899504 E11.9 check A1c - off rybelsus - on glimiperid e Essential hypertension 28298699 I10 BP elevated today but did not take hydralazin e as daughter had refill - given at visit today - monitor 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 [id number] Shi Farmer PA-C [facility] Main Office [address] [place] [address] 02/21/2023 13:41:46 02/28/2023 10:11:36 Type 2 diabetes mellitus 79900562 E11.9 educated on diet low in complex carbohydra darron and concentrat ed sweets Protein S deficiency disease 7007863 D68.59 symptoms stable. continue with current eliquis. Recurrent urinary tract infection 751711598 N39.0 symptoms stable today. inform staff of any changes in symptoms. [id number] Shi Farmer PA-C [facility] Main Office [address] [place] [address] 03/23/2023 15:30:10 03/23/2023 16:00:01 Essential hypertension 80326374 I10 levels elevated on todays visit. patient educated to take her morning meds. will assess levels each visit. Hyperlipidemia 61959190 E78.5 educated on avoiding processed carbohydra darron like crackers, cereal and pasta. will assess levels each lab draw. Hypothyroidism 25878681 E03.9 continue with current medication regiemn. report any changes in symptoms. will assess with each lab draw. [id number] Elsie Richardson MD [facility] Main Office [address] [place] [address] 04/14/2023 15:31:19 04/17/2023 10:20:34 Blood coagulation disorder 03944008 D53.0 h/o protein S - on eliquis Hypothyroidism 76082357 E03.9 continue levothyrox ine - TSH 2.015 Adjustment disorder with anxious mood 26280088 F43.22 stable History of recurrent urinary tract infection 916368065 Z87.440 stable Hyperlipidemia 48322932 E78.5 continue statin Major depr essive disorder 678921484 F32.9 stable on lexapro Total time spent, [...] review of POC. 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 continue with current eliquis. will continue to monitor for dizziness/ syncope. Type 2 hector betberkley mellitus 02108544 E11.9 educated on diet low in complex carbohydra darron and concentrat ed sweets. off metformin. Diarrhea 34756047 R19.7 symptoms stable. [place]ium prn. [id number] Shi Farmer PA-C [facility] Main Office [address] [place] [address] 04/25/2023 10:32:16 04/25/2023 10:48:16 Acute upper respiratory infection 72141792 J06.9 staff to continue to monitor oxygen levels. educated when to send to ED Type 2 hector sacha mellitus 38657374 E11.9 monitor blood sugar. educated on diet low in complex carbohydra darron and concentrat ed sweets. off metformin. Essential hypertension 12017732 I10 levels WNL on todays visit. will assess levels each visit. [id number] [facility] [address] [place] [address] 05/23/2023 14:03:07 05/23/2023 14:12:14 Type 2 diabetes mellitus without complication 936120833 E11.9 Continue medication s as prescribed . Blood sugar control emphasized . Avoid concentrat ed sweets, sweetened beverages and limit intake of complex carbohydra darron, breads, crackers, cereals, pasta, rice, and alcohol. Monitor for symptoms or mental status changes, excessive thirst, or excessive urination. Polyneuropathy 32958998 G62.9 Stable. Monitor for worsening. 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 Report any swelling, lung congestion , change in mental status. Will monitor lab work and adjust treatment accordingl y. Chronic ki dney disease stage 2 129831477 N18.2 Avoid sodium in diet and use of NSAIDs if possible. Report any swelling, lung congestion , change in mental status. Will monitor lab work and adjust treatment accordingl y. Chronic pain syndrome 37 1638959 G89.4 Stable. Monitor for worsening. Major depr essive disorder 658708141 F32.9 Report worsening depression /anxiety/s leep disturbanc e. Report significan t changes in appetite or weight. 911 for suicidal ideations. Monitor for possible medication side effects. Referral to psych provider as indicated (stable on current mediation regimen). Adjustment disorder with anxious mood 48116431 F43.22 Identify triggers for anxiety and impact of anxious thinking on functionin g. Discussed strategies to regulate symptoms. Avoid stressful situations . Continue medication s as ordered. Monitor for worsening anxiety. Hyperlipidemia 08581751 E78.5 Continue statin as prescribed . Educated on low fat, low cholestero l diet. Limit intake of complex carbohydra darron, bread, crackers, cereal, pasta, rice, and alcohol. Will follow up with labs and manage treatment accordingl y. Essential hypertension 93854697 I10 Educated on low sodium diet. Continue medication s as prescribed . Report vision changes, dizziness, nose bleeds, headache. Call 911 for chest pain, trouble breathing, or signs of stroke. Insomnia 733544416 G47.0 1 Report worsening of symptoms or sleepwalki ng. Encouraged sleep hygiene. Promote adequate sleep, adequate PO intake. Continue medication s as prescribed . Report ineffectiv eness of medication . Nayeli Sampson [facility] Main Office [address] [place] [address] 06/02/2023 18:02:25 06/02/2023 18:20:15 Anxiety 88079843 F41.9 Continue medication s as prescribed . Bleeding precaution s. 911 for signs/symp toms of stroke. Report palpitatio ns, dizziness, light headedness , fatigue, weakness, impaired exercises intoleranc e, angina, dyspnea, and/or irregularl y irregular rhythm. Depressive disorder 9387 9007 F32.A Report worsening depression /anxiety/s tete moseley. Report significan t changes in appetite or weight. 911 for suicidal ideations. Monitor for possible medication side effects. Referral to psych provider as indicated (stable on current mediation regimen). Diabetes mellitus 373949 09 E11.9 Continue medication s as prescribed . Blood sugar control emphasized . Avoid concentrat ed sweets, sweetened beverages and limit intake of complex carbohydra darron, breads, crackers, cereals, pasta, rice, and alcohol. Monitor for symptoms or mental status changes, excessive thirst, or excessive urination. Essential hypertension 00481876 I10 Educated on low sodium diet. Continue medication s as prescribed . Report vision changes, dizziness, nose bleeds, headache. Call 911 for chest pain, trouble breathing, or signs of stroke. Hyperlipidemia 48341653 E78.5 Continue statin as prescribed . Educated on low fat, low cholestero l diet. Limit intake of complex carbohydra darron, bread, crackers, cereal, pasta, rice, and alcohol. Will follow up with labs and manage treatment accordingl y. Hypothyroidism 97863186 E03.9 Continue levothyrox ine. Monitor TSH to ensure adequate replacemen t and dose adjustment s as necessary. Report increase in fatigue, changes to bowel pattern, sleep pattern, appetite, or weight. Chronic ki dney disease stage 2 821544665 N18.2 Avoid sodium in diet and use of NSAIDs if possible. Report any swelling, lung congestion , change in mental status. Will monitor lab work and adjust treatment accordingl y. 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 The patient [...] having some increased BP in Feb on [facility] visit but did not take am meds. Labs 02/07 reviewed Labs 02/07Cr 0.9Glucose 148TSH 2.015WBC 4.8hgb 11.2Plt 295 Labs 11/25 INR 1.52 Labs 10/07 Cr 0.8 Glucose 178 TC 205 TG 168 LDL 125 TSH 1.28 WBC 4.6 Hgb 12.1 Plt 317 PTT 24.7 INR 2.2. Elsie Richardson MD [address], [place], [address], [facility] - Address Healthcare Admin [facility] 04/14/2023 15:37:28 04/18/2023 text/html ROS as noted in the HPI 87 year old female is being seen as a follow up [...] immodium and to use PRN for symptoms. Warren Farmer dina [place] [facility] 04/18/2023 14:22:43 04/25/2023 text/html ROS as noted in the HPI 87 year old female is being seen as a follow up [...] periodically check levels to ensure properly hydrated. Warren arroyo [place] [facility] [employer] [facility] 04/25/2023 10:48:09 05/23/2023 text/html Patient is homebound due to multiple chronic conditions requiring the [...] nutritional intake.Insomnia - Encouraged sleep hygiene. Stable. BALWINDER OrtaBC [address], [place], [address], [facility] 05/23/2023 14:11:58 06/01/2023 text/html Patient is homebound due to multiple chronic conditions requiring the [...] shortness of breath, or syncope. BALWINDER OrtaBC [address], [place], [address], [facility] 06/02/2023 18:20:03 OBGyn Episode No OBEpisode recorded.
--- OUTSIDE RECORDS SUMMARY | 2025-02-03 21:49 | XMS_ITS | Clinical Summary ---
Author Organization [facility] Address [address] [place] [address] Care Team Providers Care Clerk Operator Name Role Phone Unavailable Primary Care Provider Unavailabl e Source Comments [facility],non-[facility] Affiliates and Associated Physician Practices is amultiple site organization consisting of ambulatory clinics and hospital sitesin [place], [place], [place] and [place]. This disclosure is being madepursuant to the Care Everywhere program and may not contain all information available regarding this patient. Last updated 17.[facility] Social History Tobacco Use Types Packs/Day Years [...] DEPRESSION SCREENING 02/28/2024 COVID-19 VACCINE (1 - 2024-2 6 season) 2024 INFLUENZA VACCINE (#1) 2024 HEPATITIS [...] age to complete this topic Insurance MEDICARE [facility]
--- OUTSIDE RECORDS SUMMARY | 2025-02-03 21:49 | XMS_ITS | Encounter Summary ---
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 Due to the current public health emergency, [facility] is receiving a high volume of samples [...] about COVID-19 can be found at the [facility] website: www.[employer].com/Covid19. Test performed at [facility] [address] Director: TONI CISNEROS DO,MPH FIRST TEST NO 05/29/2020 1:59 PM CDT [facility] EMPLOYED IN HEALTHCARE NO 05/29/2020 1:59 PM CDT [facility] SYMPTOMATIC DEFINED BY CDC NO 05/29/2020 1:59 PM CDT [facility] DATE OF SYMPTOM ONSET NO 05/29/2020 2:01 PM CDT [facility] HOSPITALIZATION STATUS NO 05/29/2020 1:59 PM CDT [facility] PATIENT IN ICU NO 05/29/2020 1:59 PM CDT [facility] RESIDENT OF [facility] CARE NO 05/29/2020 1:59 PM CDT [facility] NOT 05/29/2020 2:01 PM CDT [facility] PATIENT'S RACE WHITE OR 05/29/2020 1:59 PM CDT [facility] ETHNICITY NONHISPANIC 05/29/2020 1:59 PM CDT [facility] SOURCE (QST) NASOPHARYNGEAL SWAB 05/29/2020 1:59 PM CDT [facility] NASOPHARYNGEAL SWAB / Unknown 05/29/2020 10:11 AM CDT us Raheem Zambrano MD MICROBIOLOGY - GENERAL ORDERABLE S Final Result [facility] [address] [place] [address], [facility] [address] [place] [address], documented in this encounter Visit Diagnoses Diagnosis [...] documented as of this encounter Care Teams Iron Launder Operator Relationship Specialty Start Date End Date Joseph Meeks MD [address] [place] [address] PCP - General INTERNAL MEDICINE 05/08/20 Raheem Zambrano MD [address] [place] [address] [address] [place] [address] Vascular/Parts Puller VASCULAR SURGERY 07/30/20 documented as of this encounter
[2025-02-03 22:05] VITALS: BP 100/65; PULSE 85; RESP 16; TEMP 36.4; O2SAT 99
[2025-02-03 23:19] VITALS: BP 107/67; PULSE 84; TEMP 36.6; O2SAT 100
--- OUTSIDE RECORDS SUMMARY | 2025-02-03 23:42 | XMS_ITS | Continuity of Care Document ---
Author Organization [facility], [facility] Address [address] [place] [address] Care Team Providers Care Guzzler Builder Name Role Phone [facility] FAX OTHER Assessment Encounter Date Assessment Date Assessment LastModified by Organization Details LastModified Time 01/27/2025 01/27/2025 Nursing to schedule ortho Dr. Hopson f/uJosie mckeon Not available 01/27/2025 16:54:31 Plan of Treatment Reminders Order Date Submit [...] Modified By Organization Details Last Modified Time 01/27/2025 [id number] I spent minutes providing care to the patient today. More than 50% of that time was spent in discussing the expected course of the disease, discussing prognosis, coordinating care and counseling of the patient/family. mike Not available 01/27/2025 16:55:05 Reason for Referral None Reported. Results Created Date Observation Date Name Description Value Unit Range Abnormal Flag Note LastModifiedBy Organization Detail LastModifiedTime Result Notes None recorded. Procedures Surgical History Date Name Laterality Status Provider Name and Address Organization Details Recorded Time 08/28/19 23 vertebroplasty completed [facility] 01/14/2025 22:04:57 08/13/19 21 [place] [address] [place], [address], [facility] 02/01/2025 13:46:36 [...] and Address Organization Details Last Updated DateTime 67 /min 97.9 [degF] 16 /min 94 % 69372 g 120/73 mm[Hg] Areli Payan, RESTAURANT EXPEDITOR [address] [place], [address], [place] [facility] 16:44:49 Social History None recorded. Functional Status Question [...] ICD10 Code Diagnosis IMO Codes Diagnosis Note [id number] Kait Laina, DO [place] [address] [place] [address] 01/15/2025 07:11:23 01/16/2025 21:34:23 Closed fracture pubis 659233962 S32.591D [id number] related to mechanical / ground level fall in her [facility] apartmento rthopedics consulted with recommenda tions for non operative measuresWB AT to LEcurrentl y pain is controlled continue prn norco for now related to pain - would transition to non narcotic meds if pain remains controlled continue therapieso rtho f/u with Dr. Hopson 1 week Chronic ki dney disease 817593876 N18.9 [id number] unclear baseline - creatinine ranged from 0.91-1.13 while inpatienta void nephrotoxi ns and continue to trend labs Peripheral arterial disease 150792096 I73.9 786657 encourage continued smoking cessation, continue statin/opt imal blood pressure control and anticoagul ation History of cerebrovascular accident 867008611 Z86.73 027615 details unclear - patient denies residual deficits related to thiscontin ue statin / good blood pressure control and anticoagul ation Type 2 hector betes mellitus 44561993 E11.22 37096683 no recent HbA1c - will check with next lab drawcontin ue Rybelsus, check blood sugars BID Acquired hypothyroidism 739034505 E03.9 03105 presumed stable - continue synthroidw ill check thyroid studies with next lab draw Protein S deficiency disease 6552501 D68.59 943686 continue eliquis Primary insomnia 9631054 F51.01 23730 continue trazodone Overactive urinary bladder 957811227 N32.81 237756 continue oxybutynin - monitor for need - might consider trial of dose reduction or d/c altogether due to high risk med/concer shiela side effects in this elderly patient Tobacco user 407052480 Z 72.0 21817 smokes an occasional cigarette - says a few / month - does not feel that she needs nicotine replacemen t at this timemonito r for need 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 61259650 continue neurontin - will confirm with PCP this is correct outpatient dose History of osteomyelitis 353227735 Z87.39 717578 s/p right great toe amputation Essential hypertension 27585329 I10 59202 continue lisinopril trend pressures and adjust meds as clinically indicated Hyperlipidemia 51559475 E78.5 53062179 presumed stable - continue statin therapy Diarrhea 06095510 R19.7 75202641 continue prn imodium Mild major depression, single episode 60803842 F32.0 9098435040 continue low dose escitalopr am Physical deconditioning 5109456128 9102 R53.81 835327 related to advanced age, recent fall/pelvi c fracture/c omorbiditi estherapie s have been initiated - will monitor progress and work with SS/family regarding safest d/c plan History of fall 98914671 9 Z91.81 7519916 monitor for reversible causes - will check thyroid studies/B1 2, vitamin D level with next lab draw [id number] Kait Marina, [address] [address] 01/16/2025 13:20:25 01/16/2025 21:33:46 Closed fracture pubis 415874665 S32.591D 46797751 Related to mechanical / ground level fall in her [facility] apartment. Orthopedic s consulted with recommenda tions for non operative measures.W BAT to BLE.Schedu le APAP TID. Continue PRN [place] for now.Contin ue therapies. Nursing to schedule ortho Dr. Hopson f/u in 1 week. Peripheral arterial disease 775001762 I73.9 442844 Encourage continued smoking cessation. Continue statin, Eliquis, and optimal blood pressure control. History of cerebrovascular accident 904261654 Z86.73 844692 Details unclear. Patient denies residual deficits related to this.Braden nue statin, Eliquis, and optimal blood pressure control. Type 2 hector betes mellitus 72868803 E11.22 N18.31 3271834564 No recent HbA1c. Will check with next lab draw.Braden leodna Giles.H ave stopped SSI for now.Contin ue to monitor blood sugars and encourage LCS diet. Acquired hypothyroidism 640808256 E03.9 61288 Presumed stable. Continue Synthroid. Checking thyroid studies with next lab draw. Protein S deficiency disease 3237835 D68.59 964956 Presumed stable. Continue Eliquis. Primary insomnia 4379510 F51.01 81872 SEE ABOVE... Overactive urinary bladder 008172443 N32.81 276063 Continue Oxybutynin for now.Monito r for need - might consider trial of dose reduction or d/c altogether due to high risk med/concer shiela side effects in this elderly patient. Tobacco user 478435655 Z 72.0 95911 Smokes an occasional cigarette, a few/month, does not feel that she needs nicotine replacemen t at this time.Monit or for need and encourage complete cessation. Polyneurop athy associated with another disorder 780004106 G63 29041904 Stable. Continue Neurontin and pain medication s as above.Need to confirm with PCP this is correct outpatient dose as very high. History of osteomyelitis 750081577 Z87.39 311627 s/p right great toe amputation . No recent concerns per pt. Hyperlipidemia 67160028 E78.5 47868530 Presumed stable. Continue statin. Diarrhea 12308238 R19.7 96307620 Stable at present. Continue PRN Imodium. Mild major depression, single episode 30710231 F32.0 7739121520 Stable. Continue low-dose Escitalopr am and Trazodone. History of fall 51781076 9 Z91.81 5254887 monitor for reversible causes - will check thyroid studies/B1 2, vitamin D level with next lab draw Physical deconditioning 0448804575 9102 R53.81 467845 Related to advanced age, recent fall/pelvi c fracture/c omorbiditi es.Continu e therapies - monitor progress and work with SS/family regarding safest d/c plan. Hypertensi ve renal disease 39348570 I12.9 N18.31 9594699948 Unclear baseline. Cr ranged from 0.91-1.13 while inpatient. Stable. Continue Lisinopril .Avoid additional nephrotoxi ns and continue to trend labs.Braden nue to trend blood pressures, monitor lytes and renal function, and adjust meds as clinically indicated. [id number] Kait Marina, [place] [address] [place] [address] 01/20/2025 10:14:27 01/23/2025 20:44:42 Closed fracture pubis 750042241 S32.591D 62427392 Related to mechanical / ground level fall in her [facility] apartment. Orthopedic s consulted with richa tions for non operative measures.W BAT to BLE.Contin ue routine APAP and PRN [place] for now.Taperi ng down on Gabapentin to better mimic OP dosing (typically takes 1,500 mg at bedtime only).Cont inue therapies. Nursing to schedule ortho Dr. Hopson f/u in 1 week. Hypertensi ve renal disease 28725502 I12.9 N18.31 4888381793 Unclear baseline. Cr ranged from 0.91-1.13 while inpatient. Stable. Continue Lisinopril .Avoid additional nephrotoxi ns and continue to trend labs.Braden nue to trend blood pressures, monitor lytes and renal function, and adjust meds as clinically indicated. Peripheral arterial disease 522539209 I73.9 904449 Encourage continued smoking cessation. Continue statin, Eliquis, and optimal blood pressure control. Hyperlipidemia 41578164 E78.5 46182096 Presumed stable. Continue statin. Type 2 hector betes mellitus 67892194 E11.22 N18.31 3594474162 No recent HbA1c. Will check with next lab draw.Braden nue Rybelsus.H ave stopped SSI.Contin ue to monitor blood sugars and encourage LCS diet. Polyneurop athy associated with another disorder 018505284 G63 94516359 Stable. Continue pain medication s as above.Tape ring down on Gabapentin to better mimic OP dosing (typically takes 1,500 mg at bedtime only). History of osteomyelitis 774355381 Z87.39 749000 s/p right great toe amputation . No recent concerns per pt. Acquired hypothyroidism 109448544 E03.9 51426 Presumed stable. Continue Synthroid. Checking thyroid studies with next lab draw. Protein S deficiency disease 9345694 D68.59 886457 Presumed stable. Continue Eliquis. Mild major depression, single episode 08450148 F32.0 7153049856 Stable. Continue low-dose Escitalopr am and Trazodone. Primary insomnia 0538707 F51.01 18994 SEE ABOVE... Overactive urinary bladder 436148266 N32.81 959162 Continue Oxybutynin for now.Monito r for need - might consider trial of dose reduction or d/c altogether due to high risk med/concer shiela side effects in this elderly patient. Diarrhea 65202554 R19.7 38061635 Stable at present. Continue PRN Imodium. Tobacco user 472876077 Z 72.0 06888 Smokes an occasional cigarette, a few/month, does not feel that she needs nicotine replacemen t at this time.Monit or for need and encourage complete cessation. History of cerebrovascular accident 462153102 Z86.73 046240 Details unclear. Patient denies residual deficits related to this.Braden nue statin, Eliquis, and optimal blood pressure control. History of fall 37590522 9 Z91.81 0910131 Monitor for reversible causes. Checking thyroid studies, VIt B12, vitamin D level with next lab draw Physical deconditioning 8837987559 9102 R53.81 921833 Related to advanced age, recent fall/pelvi c fracture/c omorbiditi es.Continu e therapies - monitor progress and work with SS/family regarding safest d/c plan. 211942 Kait Marina, DO [address] [address] 01/22/2025 14:34:48 01/23/2025 20:45:25 Closed fracture pubis 793232013 S32.591D 48783119 Related to mechanical / ground level fall in her [facility] apartment. Orthopedic s consulted with recommenda tions for non operative measures.W BAT to BLE.Contin ue routine APAP and PRN [place] for now.Taperi ng down on Gabapentin to better mimic OP dosing (typically takes 1,500 mg at bedtime only).Cont inue therapies. Nursing to schedule ortho Dr. Hopson f/u. Hypertensi ve renal disease 72585418 I12.9 N18.31 2487027507 Unclear baseline. Cr ranged from 0.91-1.13 while inpatient. Stable. Continue Lisinopril .Avoid additional nephrotoxi ns and continue to trend labs.Braden nue to trend blood pressures, monitor lytes and renal function, and adjust meds as clinically indicated. Peripheral arterial disease 364365374 I73.9 431704 Encourage continued smoking cessation. Continue statin, Eliquis, and optimal blood pressure control. Hyperlipidemia 23061670 E78.5 71570375 Presumed stable. Continue statin. Type 2 hector betes mellitus 82738522 E11.22 N18.31 8710249399 01/22/25 = HgA1c 7.1%. Within a good range for age/comorb idities. Stopped SSI.Contin ue Rybelsus.C ontinue to monitor blood sugars and encourage LCS diet. Polyneurop athy associated with another disorder 348380697 G63 09215505 Stable. Continue pain medication s as above. History of osteomyelitis 314884751 Z87.39 302253 s/p right great toe amputation . No recent concerns per pt. Acquired hypothyroidism 410849808 E03.9 47522 Stable. Thyroid panel WNL. Continue Synthroid. Protein S deficiency disease 3525008 D68.59 771260 Presumed stable. Continue Eliquis. Mild major depression, single episode 86134015 F32.0 2507881910 Stable. Continue low-dose Escitalopr am and Trazodone. Primary insomnia 0655475 F51.01 71428 SEE ABOVE... Overactive urinary bladder 005801406 N32.81 738676 Continue Oxybutynin for now.Monito r for need - might consider trial of dose reduction or d/c altogether due to high risk med/concer shiela side effects in this elderly patient. Diarrhea 75193970 R19.7 14619980 Stable at present. Continue PRN Imodium. Tobacco user 187458762 Z 72.0 17148 Smokes an occasional cigarette, a few/month, does not feel that she needs nicotine replacemen t at this time.Monit or for need and encourage complete cessation. History of cerebrovascular accident 922970602 Z86.73 780687 Details unclear. Patient denies residual deficits related to this.Braden nue statin, Eliquis, and optimal blood pressure control. History of fall 35544069 9 Z91.81 1763205 Monitor for reversible causes. Checking thyroid studies, VIt B12, vitamin D level with next lab draw Physical deconditioning 3799649783 9102 R53.81 550947 Related to advanced age, recent fall/pelvi c fracture/c omorbiditi es.Continu e therapies - monitor progress and work with SS/family regarding safest d/c plan. Vitamin D deficiency 347 86114 E55.9 26998 Vit D level 20. Start Vit D supplement at next visit. [id number] Kait Laina, [address] [address] 01/27/2025 13:30:20 01/29/2025 09:37:01 Closed fracture pubis 535908788 S32.591D 65663669 Related to mechanical / ground level fall in her [facility] apartment. Orthopedic s consulted with recommenda tions for non operative measures.W BAT to BLE.Contin ue routine APAP and PRN [place] for now.Tapere d down on Gabapentin to better mimic OP dosing (typically takes 1,500 mg at bedtime only).Cont inue therapies. Nursing to schedule ortho Dr. Hopson f/u. Hypertensi ve renal disease 06799105 I12.9 N18.31 9595877867 Unclear baseline. Cr ranged from 0.91-1.13 while inpatient. Stable. Continue Lisinopril .Avoid additional nephrotoxi ns and continue to trend labs.Braden nue to trend blood pressures, monitor lytes and renal function, and adjust meds as clinically indicated. Peripheral arterial disease 192012377 I73.9 980209 Encourage continued smoking cessation. Continue statin, Eliquis, and optimal blood pressure control. Hyperlipidemia 19018436 E78.5 90852265 Presumed stable. Continue statin. Type 2 hector betes mellitus 29797470 E11.22 N18.31 8619235965 01/22/25 = HgA1c 7.1%. Within a good range for age/comorb idities. Stopped SSI.Contin ue Rybelsus.C ontinue to monitor blood sugars and encourage LCS diet. Polyneurop athy associated with another disorder 353494818 G63 33658057 Stable. Continue pain medication s as above. History of osteomyelitis 633880118 Z87.39 307181 s/p right great toe amputation . No recent concerns per pt. Acquired hypothyroidism 134603958 E03.9 32558 Stable. Thyroid panel WNL. Continue Synthroid. Vitamin D deficiency 347 49833 E55.9 99303 Vit D level 20. Start Vit D supplement at next visit. Protein S deficiency disease 5704653 D68.59 609830 Presumed stable. Continue Eliquis. Mild major depression, single episode 24868521 F32.0 5087882280 Stable. Continue low-dose Escitalopr am and Trazodone. Primary insomnia 8051326 F51.01 80041 SEE ABOVE... Overactive urinary bladder 259108400 N32.81 903804 Continue Oxybutynin for now.Monito r for need - might consider trial of dose reduction or d/c altogether due to high risk med/concer shiela side effects in this elderly patient. Diarrhea 09665061 R19.7 11704049 Stable at present. Continue PRN Imodium. Tobacco user 298704458 Z 72.0 59102 Smokes an occasional cigarette, a few/month, does not feel that she needs nicotine replacemen t at this time.Monit or for need and encourage complete cessation. History of cerebrovascular accident 555290181 Z86.73 629103 Details unclear. Patient denies residual deficits related to this.Braden nue statin, Eliquis, and optimal blood pressure control. History of fall 76483149 9 Z91.81 9622286 Monitor for reversible causes. Checking thyroid studies, VIt B12, vitamin D level with next lab draw Physical deconditioning 0746845203 9102 R53.81 677002 Related to advanced age, recent fall/pelvi c [...] Member ID Fox Member ID Guarantor Name 01/27/2025 1 [place] Marisela Franz [id number] Mairsela Franz 01/27/2025 2 [place]MEDICARE SUPPLEMENT) [id number] Marisela Franz [id number] Marisela Franz Notes Date Note Type Note Provider Name and Address Organization Details Recorded Time 01/27/2025 text/html F/U fall with right inferior [...] patient states she plans to return to [facility] at [place] - per staff, she may need higher level of care upon d/c from SNF.---01/16/25Lo la is seated in her recliner in her room, doing well today, without concerns. She does report tenderness to her right hip, for which she has just received a PRN [place]. She is noted to have removed her [...] UE placement and adequate anterior weight shift.--- 5Lola is doing fairly well today, seated in [...] practice from WC to FWW with minx1.--- 5Lola is resting in bed, lying down for a short while before dinner. She denies concerns or pain at this time. VSS. Staff is without concerns at this time, as well. Per therapy notes = Patient instructed in skilled self-care retraining focused on bed mobility supine to sit EOB with MOD, LB dressing with MOD using butcher assistant, UB dressing with setup, functional transfers with MIN, toileting with MAX for cleanup after bowel and bladder incontinence, hygiene and grooming at sink with setup while seated at sink.---01/27/25L johann is seated in her w/c in her [...] with pt requiring min-CGA. Areli Payan, [place] [address] [facility], [place], [address], [place] [facility] 01/27/2025 16:55:18 OBGyn Episode No OBEpisode recorded.
--- OUTSIDE RECORDS SUMMARY | 2025-02-03 23:43 | XMS_ITS | Clinical Summary ---
Author Organization [facility] Address [address] [place] [address] Care Team Providers Care Peanut Picker Name Role Phone Unavailable Primary Care Provider Unavailabl e Source Comments [facility],non-[facility] Affiliates and Associated Physician Practices is amultiple site organization consisting of ambulatory clinics and hospital sitesin [place], [place], [place] and [place]. This disclosure is being madepursuant to the Care Everywhere program and may not contain all information available regarding this patient. Last updated 17.[facility] Social History Tobacco Use Types Packs/Day Years [...] age to complete this topic Insurance MEDICARE [facility]
--- OUTSIDE RECORDS SUMMARY | 2025-02-03 23:43 | XMS_ITS | Patient Health Record ---
Author Organization [facility], [facility] Address [address] [place] [address] Care Team Providers Care Barrel Endshake Adjuster Name Role Phone Provider, Outside Primary Care Provider [phone] Reason For Referral No Information Plan Of Treatment No Information
--- OUTSIDE RECORDS SUMMARY | 2025-02-03 23:43 | XMS_ITS | Encounter Summary ---
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 Due to the current public health emergency, [facility] is receiving a high volume of samples [...] about COVID-19 can be found at the [facility] website: www.[employer].com/Covid19. Test performed at [facility] [address] [address] Director: TONI CISNEROS DO,MPH FIRST TEST NO 05/29/2020 1:59 PM CDT [facility] EMPLOYED IN HEALTHCARE NO 05/29/2020 1:59 PM CDT [facility] SYMPTOMATIC DEFINED BY CDC NO 05/29/2020 1:59 PM CDT [facility] DATE OF SYMPTOM ONSET NO 05/29/2020 2:01 PM CDT [facility] HOSPITALIZATION STATUS NO 05/29/2020 1:59 PM CDT [facility] PATIENT IN ICU NO 05/29/2020 1:59 PM CDT [facility] RESIDENT OF [facility] CARE NO 05/29/2020 1:59 PM CDT [facility] NOT 05/29/2020 2:01 PM CDT [facility] PATIENT'S RACE WHITE OR 05/29/2020 1:59 PM CDT [facility] ETHNICITY NONHISPANIC 05/29/2020 1:59 PM CDT [facility] SOURCE (QST) NASOPHARYNGEAL SWAB 05/29/2020 1:59 PM CDT [facility] NASOPHARYNGEAL SWAB / Unknown 05/29/2020 10:11 AM CDT us Raheem Zambrano MD MICROBIOLOGY - GENERAL ORDERABLE S Final Result [facility] [address] [place] [address], [employer] [facility] [address] [place] [address], documented in this encounter Visit Diagnoses Diagnosis [...] documented as of this encounter Care Teams Residential Solar Sales Consultant Relationship Specialty Start Date End Date Joseph Meeks MD [address] [place] [address] PCP - General INTERNAL MEDICINE 05/08/20 Raheem Zambrano MD [address] [place] [address] [address] [place] [address] Vascular/Costumer VASCULAR SURGERY 07/30/20 documented as of this encounter
--- OUTSIDE RECORDS SUMMARY | 2025-02-03 23:43 | XMS_ITS | Clinical Summary ---
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
--- OUTSIDE RECORDS SUMMARY | 2025-02-03 23:43 | XMS_ITS | Encounter Summary ---
Author Organization [facility] Address [address] [place] [address] Care Team Providers Care Manager Customs Name Role Phone Unavailable Primary Care Provider Unavailabl e Encounter Details Date Type Department Care Team (Late st Contact Info) Description 05/06/2021 Lab Requisition [facility] DermPath Lab [address] [place] [address] Mendoza Galdamez MD [address] [place] [address] Social History Tobacco Use Types Packs/Day Years [...] Comments DERMATOPATHOLOGY Routine 05/06/2021 12:0 0 AM DIRECTOR RECORDS MANAGEMENT documented in this encounter Results * DERMATOPATHOLOGY (05/06/2021 12:00 AM DIRECTOR RECORDS MANAGEMENT) Case Report Dermatopathology Report Case: [id number] Authorizing Provider: Mendoza Galdamez MD Collected: 05/06/2021 12:00 AM Ordering Location: [facility] Lab Received: 05/06/2021 05:00 PM Pathologist: [...] microscopic description and comment) 2 4:31 PM [facility] DERMATOPATHOLOGY [facility]ORATORY at 1631 CDT Clinical History A: AK vs SCCA. Path # [id number]. B: SK vs lentigo vs MM. Path # [id number]. C: SK vs lentigo vs MM. Path # [id number]. 2 4:31 PM [facility] DERMATOPATHOLOGY [facility]ORAT[facility] Gross Description Specimen A: Received is one formalin filled container labeled with the patient's name and designated right forearm. The specimen consists of a shave biopsy measuring [id number], bisected. Jar 0. Specimen B: Received is one formalin filled container labeled with the patient's name and designated right shoulder. The specimen consists of a shave biopsy measuring [id number]. Jar 0. Specimen C: Received is one formalin filled container labeled with the patient's name and designated right postauricular. The specimen consists of a shave biopsy measuring 2u1w0rs. Jar 0. 2 4:31 PM [facility] DERMATOPATHOLOGY [facility]ORATORY Microscopic Description Specimen [...] characteristic determined by the Dermatopathology Laboratory at [facility], directed by Dr. Frankie Eastman. These tests need not be, and therefore are not, approved by the [place] Food and Drug Administration. The tests are used for clinical purposes. Billing Codes Specimen Charges Stain Charges 05226 27055 53227 1 1 1 [id number] 1 2 4:31 PM CDT DERMATOPATHOLOGY LABORATORY Embedded Images 2 4:31 PM CDT DERMATOPATHOLOGY LABORATORY Pathology/Cytology TISSUE SPECIMEN FROM SKIN / Unknown 05/06/2021 05/06/2021 5:00 PM DIRECTOR RECORDS MANAGEMENT Miscellaneous samples (specimen) TISSUE SPECIMEN FROM SKIN / Unknown 05/06/2021 05/06/2021 5:00 PM DIRECTOR RECORDS MANAGEMENT Miscellaneous samples (specimen) TISSUE SPECIMEN FROM SKIN / Unknown 05/06/2021 05/06/2021 5:00 PM DIRECTOR RECORDS MANAGEMENT us Mendoza Galdamez MD LAB - PATHOLOGY/CYTOLOGY ORDER MARISABEL Final Result DERMATOPATHOLOGY LABORATORY [facility] Department of Dermatology [address], [address] [phone] documented in this encounter Visit Diagnoses Not on filedocumented in this encounter
[2025-02-03 23:44] LABS: Hematocrit 37.8 % (37.0-47.0); Hemoglobin 12.7 g/dL (12.0-15.0); Immature Granulocyte Percent A 0.9 % (0-0.5); Lymphocytes Absolute Auto 1.76 K/mm3 (0.9-3.2); Mean Corpuscular HGB Conc 33.6 g/dl (32-36); Mean Corpuscular Hemoglobin 32.1 pg (26-34); Mean Corpuscular Volume 95.5 fl (80-100); Nucleated Red Blood Cells Absolute Auto 0.000 K/mm3 (0.0-0.012); Nucleated Red Blood Cells Perc 0.0 % (0.0-0.2); Platelet Count Result 390 k/mm3 (150-375); Red Blood Count 3.96 M/mm3 (4.2-5.4); White Blood Count 17.9 K/mm3 (4.5-10.0)
--- OUTSIDE RECORDS SUMMARY | 2025-02-03 23:44 | XMS_ITS | Encounter Summary ---
Author Organization [facility] Address [address] [place] [address] Care Team Providers Care Livestock Yard Attendant Name Role Phone Unavailable Primary Care Provider Unavailabl e Encounter Details Date Type Department Care Team (Late st Contact Info) Description 09/07/[address] [facility] [address] [place] [address] Mendoza Galdamez MD [address] [place] [address] Social History Tobacco Use Types Packs/Day Years [...] AM CDT) Case Report Dermatopathology Report Case: [id number] Authorizing Provider: Mendoza Galdamez MD Collected: 09/03/2020 03:33 AM Ordering Location: 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 B: AK vs SCCA vs SK. Path# [id number]. 1 5:27 PM T DERMATOPATHOLOGY LABORATORY Gross Description Specimen A: Received is one formalin filled container labeled with the patient's name and designated left nasal SW. The specimen consists of a shave biopsy measuring [id number]. Jar 0. Specimen B: Received is one formalin filled container labeled with the patient's name and designated lower mid chest. The specimen consists of a shave biopsy measuring [id number]. Jar 0. 5:27 PM T DERMATOPATHOLOGY LABORATORY [...] determined by the Dermatopathology Laboratory at [facility], directed by Dr. Frankie Eastman. These tests need not be, and therefore are not, approved by the [place] Food and Drug Administration. The tests are used for clinical purposes. Billing Codes Specimen Charges Stain Charges 04677 83935 1 1 1 5:27 PM CDT DERMATOPATHOLOGY LABORATORY Embedded Images 5:27 PM CDT DERMATOPATHOLOGY LABORATORY Pathology/Cytology TISSUE SPECIMEN FROM SKIN / Unknown 09/03/2020 3:33 AM CDT 09/07/2020 6:54 AM CDT Miscellaneous samples (specimen) TISSUE SPECIMEN FROM SKIN / Unknown 09/03/2020 3:33 AM CDT 09/07/2020 6:54 AM CDT us Mendoza Galdamez MD LAB - PATHOLOGY/CYTOLOGY ORDER MARISABEL Final Result DERMATOPATHOLOGY LABORATORY [facility] - Department of Dermatology [facility] [address] [place] [address], [address] [phone] documented in this encounter Visit Diagnoses Not on filedocumented in this encounter
[2025-02-03 23:54] LABS: Alanine Aminotransferase 19 U/L (6-35); Albumin Level 4.4 g/dL (3.5-5.1); Alkaline Phosphatase 101 U/L (38-126); Anion Gap 13 mmol/L (4-12); Aspartate Amino Transferase 35 U/L (14-36); Bilirubin,Total 0.9 mg/dL (0.2-1.3); Blood Urea Nitrogen 37 mg/dL (7-17); Calcium 9.4 mg/dL (8.4-10.2); Carbon Dioxide 20 mmol/L (22-30); Chloride 99 mmol/L (98-107); Estimated CRCL calculation 14 ml/min; Estimated Glomerular Filt Rate 21; Glucose 201 mg/dL (65-110); Lipase 215 U/L (23-300); Potassium 4.0 mmol/L (3.4-5.0); Sodium 132 mmol/L (137-145); Total Protein 8.9 g/dL (6.3-8.2)
[2025-02-04] VITALS (24 sets, daily range): BP systolic 92–117; BP diastolic 48–62; PULSE 60–88; RESP 14–20; TEMP 36.4–36.7; O2SAT 93–99; BMI 25.4
--- NOTE | 2025-02-04 00:32 | PC.NURSE ---
Pt taken to CT on stretcher by tech
--- NOTE | 2025-02-04 00:47 | ED.NAVMDI ---
HPI - Nausea/Vomiting/Diarrhea General Chief complaint: Nausea/Vomiting/Diarrhea <Melanie Bruner PA-C - Last Filed: 02/04/25 02:57> Stated complaint: vomiting <Melanie Bruner PA-C - Last Filed: 02/04/25 02:57> Time Seen by Provider: 02/03/25 23:25 <Melanie Bruner PA-C - Last Filed: 02/04/25 02:57> Source: patient and family <Melanie Bruner PA-C - Last Filed: 02/04/25 02:57> Mode of arrival: EMS <Melanie Bruner PA-C - Last Filed: 02/04/25 02:57> Limitations: other (Poor historian) <Melanie Bruner PA-C - Last Filed: 02/04/25 02:57> History of Present Illness HPI Narrative: This is a 89-year-old female that presents emergency department for vomiting and diarrhea. Ongoing over the last couple of days. Daughter reports she has not been able to keep much down. She denies any abdominal pain currently. <Melanie Bruner PA-C - Last Filed: 02/04/25 02:57> This is a 89-year-old female that presents to the emergency department for vomiting and diarrhea. Ongoing over the last couple of days. Daughter reports she has not been able to keep much down. She denies any abdominal pain currently. <Oj Franklin MD - Last Filed: 02/04/25 06:39> Related Data Home medications: Home Medications ?Medication ?Instructions ?Recorded ?Confirmed ?Last Taken ?Type loperamide 2 mg capsule (Imodium 2 mg PO Q6H PRN loose stool 07/26/23 02/04/25 Unknown History A-D) gabapentin 600 mg tablet 1,200 mg PO .evening 02/04/25 02/04/25 02/03/25 History <Melanie Bruner PA-C - Last Filed: 02/04/25 02:57> Allergies/Adverse reactions: Allergies Allergy/AdvReac Type Severity Reaction Status Date / Time No Known Allergies Allergy Verified 02/04/25 03:44 <Melanie Bruner PA-C - Last Filed: 02/04/25 02:57> Review of Systems Review of Systems: All systems reviewed & are unremarkable except as noted in HPI and below <Melanie Bruner PA-C - Last Filed: 02/04/25 02:57> [facility] Past Medical History Medical History: Medical History Allergies Kidney disease Trigger finger of right hand Osteomyelitis Leg wound, right Stroke History of bruising easily <Melanie Bruner PA-C - Last Filed: 02/04/25 02:57> Surgical History Surgical History: Surgical History H/O kyphoplasty 08/2022 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 Mother No problems noted. Sibling Myeloma Other Heart disease Thyroid disorder <Melanie Bruner PA-C - Last Filed: 02/04/25 02:57> Social History Social History: Social History Smoking packs per day: 0.01 Smoking cigarettes per day: 0.2 Years smoked: 4 Smoking pack-years: 0.04 Smoking status: Former smoker Tobacco type: cigarettes Second hand tobacco smoke exposure: No Additional smoking assessment comments: a pack may last a month, no longer smoking everyday Alcohol intake: never Substance use: never Substance use type: does not use Lack of Transportation: No Lack of Food: Never True Current Housing: I Have Housing Concerned About Future Housing: No Difficulty Paying Gas/Electric Bills: No Difficulty Paying for Meds: No Currently Unemployed: No Education: Bachelor's Degree Difficulty w/ Childcare or Family Care: No Living arrangements: with family Gender identity (if verbalized by the patient): Female Spiritual care concerns: No <Melanie Bruner PA-C - Last Filed: 02/04/25 02:57> Exam Narrative: GENERAL: Elderly, well-nourished, and in no acute distress. HEAD: Normocephalic, atraumatic. EYES: EOMI. ENT: Nares clear, no rhinorrhea or epistaxis. Mucous membranes dry. Oropharynx without tonsillar hypertrophy exudate or other lesions. CHEST: Clear to auscultation. No respiratory distress. No wheezes rales or rhonchi HEART: Regular rate and rhythm. No murmur heard. Normal peripheral pulses. ABDOMEN: Soft, nontender, nondistended, normal active bowel sounds. EXTREMITIES: Normal range of motion. No edema. SKIN: Warm, dry, no rash. NEURO: No focal deficits. Alert and oriented x3. PSYCH: Normal mood and affect <Melanie Bruner PA-C - Last Filed: 02/04/25 02:57> Course IN FLIGHT TECHNICIAN/PA Physician Supervision This visit was performed by both a physician and an APC. I performed all aspects of the MDM as documented. <Oj Franklin MD - Last Filed: 02/04/25 06:39> Consultations Hospitalist: Time of Consult: 02:55 <Melanie Bruner PA-C - Last Filed: 02/04/25 02:57> I have discussed the care of this patient with the following provider: Dr. Bellamy, accepts admission <Melanie Bruner PA-C - Last Filed: 02/04/25 02:57> Vital Signs Vital signs: Vital Signs Temperature 97.6 F 02/03/25 22:05 Pulse Rate 85 02/03/25 22:05 Respiratory Rate 16 02/03/25 22:05 Blood Pressure 100/65 02/03/25 22:05 Pulse Oximetry 99 02/03/25 22:05 Oxygen Delivery Room Air 02/03/25 22:05 Temperature 97.6 F 02/04/25 05:34 Pulse Rate 70 02/04/25 05:37 Respiratory Rate 18 02/04/25 05:37 Blood Pressure 117/60 02/04/25 05:37 Pulse Oximetry 96 02/04/25 05:37 Oxygen Delivery Room Air 02/03/25 22:05 <Melanie Bruner PA-C - Last Filed: 02/04/25 02:57> Vital Signs Temperature 97.6 F 02/03/25 22:05 Pulse Rate 85 02/03/25 22:05 Respiratory Rate 16 02/03/25 22:05 Blood Pressure 100/65 02/03/25 22:05 Pulse Oximetry 99 02/03/25 22:05 Oxygen Delivery Room Air 02/03/25 22:05 Temperature 97.6 F 02/04/25 05:34 Pulse Rate 70 02/04/25 05:37 Respiratory Rate 18 02/04/25 05:37 Blood Pressure 117/60 02/04/25 05:37 Pulse Oximetry 96 02/04/25 05:37 Oxygen Delivery Room Air 02/03/25 22:05 <Oj Franklin MD - Last Filed: 02/04/25 06:39> [facility] Narrative Medical decision making narrative: Patient presents the emergency department for nausea, vomiting. Ongoing over the last couple of days. Unable to keep much down. Patient is afebrile and nontoxic appearing. Her vitals are stable. CBC with leukocytosis to 17.9. Metabolic panel with evidence of acute kidney injury, dehydration. Patient hydrated with IV fluids in the ER. Urine with evidence of infection, this will be sent for culture. Patient started on IV antibiotics. CT abdomen and pelvis showing possible colitis, urinary bladder wall thickening. Blood cultures obtained, patient started on IV antibiotics. Will be admitted to the hospital service for further management <Melanie Bruner PA-C - Last Filed: 02/04/25 02:57> Differential Diagnosis Differential Diagnosis: Colitis, diverticulitis, UTI, dehydration, acute kidney injury <Melanie Bruner PA-C - Last Filed: 02/04/25 02:57> Medical Records I have reviewed the following patient records and this information was taken into consideration when formulating the assessment and plan.: previous labs <Melanie Bruner PA-C - Last Filed: 02/04/25 02:57> Lab Data [facility] Lab Attestation statement: I personally reviewed the patient's lab results. <Melanie Bruner PA-C - Last Filed: 02/04/25 02:57> Result diagrams: 02/03/25 23:30 02/03/25 23:30 <Melanie Bruner PA-C - Last Filed: 02/04/25 02:57> Labs: Lab Results 02/03/25 02/04/25 02/04/25 Range/Units 23:30 01:04 01:06 WBC 17.9 H (4.5-10.0) K/mm3 RBC 3.96 L (4.2-5.4) M/mm3 Hgb 12.7 (12.0-15.0) g/dL Hct 37.8 (37.0-47.0) % MCV 95.5 (80-100) fl MCH 32.1 (26-34) pg MCHC 33.6 (32-36) g/dl RDW 14.6 H (11.5-14.5) % Plt Count 390 H (150-375) k/mm3 MPV 8.7 (7.4-10.4) fl Immature Gran % (Auto) 0.9 H (0-0.5) % Neut % (Auto) 79.3 H (45.5-73.1) % Lymph % (Auto) 9.8 L (18.3-44.2) % [place] % (Auto) 9.8 H (2.6-8.5) % Eos % (Auto) 0.0 (0-4.4) % Baso % (Auto) 0.2 (0.2-1.2) % Lymph # (Auto) 1.76 (0.9-3.2) K/mm3 [place] # (Auto) 1.8 H (0.1-0.6) K/mm3 Eos # (Auto) 0.0 (0-0.3) K/mm3 Baso # (Auto) 0.0 (0.0-0.1) K/mm3 Abs Immat Gran (auto) 0.16 H (0.00-0.031) K/mm3 Absolute Neuts (auto) 14.2 H (1.3-6.7) K/mm3 Absolute Nucleated RBC 0.000 (0.0-0.012) K/mm3 Nucleated RBC % 0.0 (0.0-0.2) % Sodium 132 L (137-145) mmol/L Potassium 4.0 (3.4-5.0) mmol/L Chloride 99 (98-107) mmol/L Carbon Dioxide 20 L (22-30) mmol/L Anion Gap 13 H (4-12) mmol/L BUN 37 H D (7-17) mg/dL Creatinine 2.18 H (0.7-1.0) mg/dL Estim Creat Clear Calc 14 ml/min Estimated GFR 21 L (59 - ) Glucose 201 H (65-110) mg/dL Calcium 9.4 (8.4-10.2) mg/dL Total Bilirubin 0.9 (0.2-1.3) mg/dL AST 35 (14-36) U/L ALT 19 (6-35) U/L Alkaline Phosphatase 101 (38-126) U/L Total Protein 8.9 H (6.3-8.2) g/dL Albumin 4.4 (3.5-5.1) g/dL Lipase 215 (23-300) U/L Urine Color Dark yellow (Yellow) Urine Appearance Turbid H (Clear) Urine pH 5.0 (5.0-9.0) Ur Specific [place] 1.016 (1.001-1.035) Urine Protein 2+ H (Negative) mg/dL Urine Glucose (UA) Negative (Negative) mg/dL Urine Ketones Trace H (Negative) mg/dL Ur Blood (Man) 2+ H (Negative) Urine Nitrate Negative (Negative) Urine Bilirubin Negative (Negative) Urine Urobilinogen 1.0 (<2.0) mg/dL Add Ur Microanalysis Reviewed Leukocyte Esterase Rfl 3+ H (Negative) MORIS/UL Urine RBC 0-2 (0-2) /hpf Urine WBC >100 H (0-3) /hpf Ur Squamous Epith Cells Moderate (Few) /hpf Urine Bacteria 4+ H /hpf Urine Casts >20 Influenza A (RT-PCR) Negative (Negative) Influenza B (RT-PCR) Negative (Negative) SARS-CoV-2 RNA (RT-PCR) Negative (Negative) <Melanie Bruner PA-C - Last Filed: 02/04/25 02:57> Lab Results 02/03/25 02/04/25 02/04/25 Range/Units 23:30 01:04 01:06 WBC 17.9 H (4.5-10.0) K/mm3 RBC 3.96 L (4.2-5.4) M/mm3 Hgb 12.7 (12.0-15.0) g/dL Hct 37.8 (37.0-47.0) % MCV 95.5 (80-100) fl MCH 32.1 (26-34) pg MCHC 33.6 (32-36) g/dl RDW 14.6 H (11.5-14.5) % Plt Count 390 H (150-375) k/mm3 MPV 8.7 (7.4-10.4) fl Immature Gran % (Auto) 0.9 H (0-0.5) % Neut % (Auto) 79.3 H (45.5-73.1) % Lymph % (Auto) 9.8 L (18.3-44.2) % [place] % (Auto) 9.8 H (2.6-8.5) % Eos % (Auto) 0.0 (0-4.4) % Baso % (Auto) 0.2 (0.2-1.2) % Lymph # (Auto) 1.76 (0.9-3.2) K/mm3 [place] # (Auto) 1.8 H (0.1-0.6) K/mm3 Eos # (Auto) 0.0 (0-0.3) K/mm3 Baso # (Auto) 0.0 (0.0-0.1) K/mm3 Abs Immat Gran (auto) 0.16 H (0.00-0.031) K/mm3 Absolute Neuts (auto) 14.2 H (1.3-6.7) K/mm3 Absolute Nucleated RBC 0.000 (0.0-0.012) K/mm3 Nucleated RBC % 0.0 (0.0-0.2) % Sodium 132 L (137-145) mmol/L Potassium 4.0 (3.4-5.0) mmol/L Chloride 99 (98-107) mmol/L Carbon Dioxide 20 L (22-30) mmol/L Anion Gap 13 H (4-12) mmol/L BUN 37 H D (7-17) mg/dL Creatinine 2.18 H (0.7-1.0) mg/dL Estim Creat Clear Calc 14 ml/min Estimated GFR 21 L (59 - ) Glucose 201 H (65-110) mg/dL Calcium 9.4 (8.4-10.2) mg/dL Total Bilirubin 0.9 (0.2-1.3) mg/dL AST 35 (14-36) U/L ALT 19 (6-35) U/L Alkaline Phosphatase 101 (38-126) U/L Total Protein 8.9 H (6.3-8.2) g/dL Albumin 4.4 (3.5-5.1) g/dL Lipase 215 (23-300) U/L Urine Color Dark yellow (Yellow) Urine Appearance Turbid H (Clear) Urine pH 5.0 (5.0-9.0) Ur Specific [place] 1.016 (1.001-1.035) Urine Protein 2+ H (Negative) mg/dL Urine Glucose (UA) Negative (Negative) mg/dL Urine Ketones Trace H (Negative) mg/dL Ur Blood (Man) 2+ H (Negative) Urine Nitrate Negative (Negative) Urine Bilirubin Negative (Negative) Urine Urobilinogen 1.0 (<2.0) mg/dL Add Ur Microanalysis Reviewed Leukocyte Esterase Rfl 3+ H (Negative) MORIS/UL Urine RBC 0-2 (0-2) /hpf Urine WBC >100 H (0-3) /hpf Ur Squamous Epith Cells Moderate (Few) /hpf Urine Bacteria 4+ H /hpf Urine Casts >20 Influenza A (RT-PCR) Negative (Negative) Influenza B (RT-PCR) Negative (Negative) SARS-CoV-2 RNA (RT-PCR) Negative (Negative) <Oj Franklin MD - Last Filed: 02/04/25 06:39> Imaging Data Radiologist's impression: CT abdomen and pelvis: Questionable right colonic mural thickening may reflect under distention versus colitis. No bowel obstruction. Fecal impaction. No hydronephrosis or renal calculus. Urinary bladder wall thickening. Cholecystectomy. Subacute right inferior pubic ramus fracture <Melanie Bruner PA-C - Last Filed: 02/04/25 02:57> Critical Care Time Critical Care Time Critical Care Time: Yes <Melanie Bruner PA-C - Last Filed: 02/04/25 02:57> Time Type: Intermittent <TORRIE Medrano Last Filed: 02/04/25 02:57> Initial evaluation, discuss w/ involved parties, attempting to gather old records: 10 minutes <Melanie Bruner PA-C - Last Filed: 02/04/25 02:57> Documenting medical record: 5 minutes <Melanie Bruner PA-C - Last Filed: 02/04/25 02:57> Review of results (EKG's, labs, imaging): 5 minutes <Melanie Bruner PA-C - Last Filed: 02/04/25 02:57> Serial repeat bedside evaluation: 10 minutes <Melanie Bruner PA-C - Last Filed: 02/04/25 02:57> Discussing case with multiple memebers of the care team and consultants: 5 minutes <Melanie Bruner PA-C - Last Filed: 02/04/25 02:57> Total Critical Care Time: 35 <Melanie Bruner PA-C - Last Filed: 02/04/25 02:57> 35 <Oj Franklin MD - Last Filed: 02/04/25 06:39> Discharge Plan Discharge Clinical Impression: Acute UTI, Acute kidney injury, Colitis <Melanie Bruner PA-C - Last Filed: 02/04/25 02:57> Patient Disposition: Still a Patient <Melanie Bruner PA-C - Last Filed: 02/04/25 02:57> Condition: Stable <Melanie Bruner PA-C - Last Filed: 02/04/25 02:57>
[2025-02-04] MEDS: LACTATED RINGERS 1,000 ML 999 ML IV CONT ×2 (00:53→05:36)
[2025-02-04] MEDS: PANTOPRAZOLE SODIUM IV 40 MG VIAL IV PUSH (00:54)
[2025-02-04] MEDS: ONDANSETRON INJ 4 MG/2 ML VIAL IV PUSH (00:54)
[2025-02-04 01:29] LABS: Add Urine Microscopic? YES; Appearance Urine Turbid (Clear); Glucose Urine UA Negative (Negative); Leukocyte Esterase Ur 3+ LEU/UL (Negative); Need Manual Microscopic Reviewed; Nitrate Urine Negative (Negative); Non Pathogenic Casts >20; Specific Grav Ur 1.016 (1.001-1.035)
[2025-02-04 01:49] LABS: Influenza A QL RT-PCR Negative (Negative); Influenza B QL RT-PCR Negative (Negative); SARS-CoV-2 RNA PCR Negative (Negative)
[2025-02-04] MEDS: cefTRIAXone 1 GM in SODIUM CHLORIDE 0.9% IV 50 ML 100 ML IVPB ×2 (03:44→20:25)
--- NOTE | 2025-02-04 03:45 | ADMGEN ---
This patient, Marisela Franz, was admitted to Virtual Bed 3rd Floor-3. Patient/family oriented to hospital policies and general routines including ID bracelet, bed and alarms, visiting hours, pain management, procedures, bathroom and other care routines, personal items, smoking policy, room service/diet, and visiting hours. Information on how to activate the Rapid Response Team has been discussed. Patient/Family are encouraged to report perceived risks to care and to ask questions if they do not understand what they are told or what they should do.
[2025-02-04] MEDS: metroNIDAZOLE 500 MG/ISO 100ML 500 MG/100 ML BAG 100 MG IVPB ×3 (04:30→21:06)
--- NOTE | 2025-02-04 05:42 | WPCEDHO ---
ED Hand Off Checklist All vitals saved:YES IV Site documented:YES All med administrations documented:YES Triage Note Triage Note from [facility] with c/o n+v 02/03/25 22:05 x2 days with diarrhea twice. denies any other sx. Allergies No Known Allergies Allergy (Verified 02/04/25 03:44) Family History (Last Reviewed 02/04/25 @ 03:51 by Christine Dominique RN) Father No problems noted. Mother No problems noted. Sibling Myeloma Other Heart disease Thyroid disorder Administered/Completed Medications Discontinued Medications Lactated Ringer's (Lr - Lactated Ringers Iv) 1,000 mls @ 999 mls/hr IV CONT .Q1H1M STA Stop: 02/04/25 01:04 Last Infusion: 02/04/25 03:56 Dose: 0 mls/hr Documented By: Admin: 02/04/25 00:53 Dose: 999 mls/hr Documented By: CAROLYN Ceftriaxone Sodium 1 gm/ (Sodium Chloride) 50 mls @ 100 mls/hr IVPB ONCE STA Stop: 02/04/25 02:36 Last Infusion: 02/04/25 04:36 Dose: Infused Documented By: Admin: 02/04/25 03:44 Dose: 100 mls/hr Documented By: CAROLYN Lactated Ringer's (Lr - Lactated Ringers Iv) 1,000 mls @ 999 mls/hr IV CONT .Q1H1M STA Stop: 02/04/25 03:32 Last Admin: 02/04/25 05:36 Dose: 999 mls/hr Documented By: CAROLYN Metronidazole (Flagyl 500 Mg/Iso Soln 100 Ml) 500 mg in 100 mls @ 100 mls/hr IVPB ONCE STA Stop: 02/04/25 03:34 Last Infusion: 02/04/25 05:35 Dose: Infused Documented By: Admin: 02/04/25 04:30 Dose: 100 mls/hr Documented By: CAROLYN Ondansetron HCl (Ondansetron Inj 4 Mg/2 Ml Vial) 4 mg IV PUSH ONCE STA Stop: 02/04/25 00:18 Last Admin: 02/04/25 00:54 Dose: 4 mg Documented By: CAROLYN Pantoprazole Sodium (Pantoprazole Sodium Iv 40 Mg Vial) 40 mg IV PUSH ONCE STA Stop: 02/04/25 00:18 Last Admin: 02/04/25 00:54 Dose: 40 mg Documented By: CAROLYN Notes 02/04/25 03:45 General Admission Note by Kim Serra This patient, Marisela Franz, was admitted to [facility] 3rd Floor-3. Patient/family oriented to hospital policies and general routines including ID bracelet, bed and alarms, visiting hours, pain management, procedures, bathroom and other care routines, personal items, smoking policy, room service/diet, and visiting hours. Information on how to activate the Rapid Response Team has been discussed. Patient/Family are encouraged to report perceived risks to care and to ask questions if they do not understand what they are told or what they should do. Initialized on 02/04/25 03:45 - END OF NOTE 02/04/25 03:45 General Admission Note by Kim Serra This patient, Marisela Franz, was admitted to [facility] 3rd [facility]-3. Patient/family oriented to hospital policies and general routines including ID bracelet, bed and alarms, visiting hours, pain management, procedures, bathroom and other care routines, personal items, smoking policy, room service/diet, and visiting hours. Information on how to activate the Rapid Response Team has been discussed. Patient/Family are encouraged to report perceived risks to care and to ask questions if they do not understand what they are told or what they should do. Initialized on 02/04/25 03:45 - END OF NOTE 02/04/25 00:32 Nurse Note by Martina Brink Pt taken to CT on stretcher by tech Initialized on 02/04/25 00:32 - END OF NOTE Interventions/Assessments IV / Saline Lock, Insert Start: 02/03/25 23:19 Freq: STAT Status: Complete Protocol: Document 02/04/25 00:53 CAROLYN (Rec: 02/04/25 00:54 CAROLYN [id number]) IV Assessment Peripheral Access Right Antecubital IV Catheter Access Initiated IV Insertion Date 02/04/25 IV Insertion Time 00:00 Catheter Gauge 20 IV Site Assessment WNL IV Care and WNL Maintenance PA: Gastrointestinal Assessment Start: 02/03/25 22:05 Freq: Status: Active Protocol: Document 02/04/25 01:23 EZ (Rec: 02/04/25 01:24 [facility] [id number]) GI Assessment Gastrointestinal Nausea,Pain,Vomiting Symptoms Description Soft Pattern Diarrhea Flatus Present Nausea/Vomiting Assessment Nausea Frequency Continuous Emesis Frequency None,Subsided Last Vital Signs Temperature 97.6 F 02/04/25 05:34 Pulse Rate 70 02/04/25 05:37 Respiratory Rate 18 02/04/25 05:37 Pulse Oximetry 96 02/04/25 05:37 Blood Pressure 117/60 02/04/25 05:37 Blood Pressure Mean 79 02/04/25 05:37 Blood Pressure Position Sitting 02/04/25 05:37 Oxygen Delivery Room Air 02/03/25 22:05 Weight 60 kg 02/03/25 22:05 Last Result - Abnormals Only WBC 17.9 K/mm3 (4.5-10.0) H 02/03/25 23:30 RBC 3.96 M/mm3 (4.2-5.4) L 02/03/25 23:30 RDW 14.6 % (11.5-14.5) H 02/03/25 23:30 Plt Count 390 k/mm3 (150-375) H 02/03/25 23:30 Immature Gran % (Auto) 0.9 % (0-0.5) H 02/03/25 23:30 Neut % (Auto) 79.3 % (45.5-73.1) H 02/03/25 23:30 Lymph % (Auto) 9.8 % (18.3-44.2) L 02/03/25 23:30 [place] % (Auto) 9.8 % (2.6-8.5) H 02/03/25 23:30 [place] # (Auto) 1.8 K/mm3 (0.1-0.6) H 02/03/25 23:30 Abs Immat Gran (auto) 0.16 K/mm3 (0.00-0.031) H 02/03/25 23:30 Absolute Neuts (auto) 14.2 K/mm3 (1.3-6.7) H 02/03/25 23:30 Sodium 132 mmol/L (137-145) L 02/03/25 23:30 Carbon Dioxide 20 mmol/L (22-30) L 02/03/25 23:30 Anion Gap 13 mmol/L (4-12) H 02/03/25 23:30 BUN 37 mg/dL (7-17) H D 02/03/25 23:30 Creatinine 2.18 mg/dL (0.7-1.0) H 02/03/25 23:30 Estimated GFR 21 (59-) L 02/03/25 23:30 Glucose 201 mg/dL (65-110) H 02/03/25 23:30 Total Protein 8.9 g/dL (6.3-8.2) H 02/03/25 23:30 Urine Appearance Turbid (Clear) H 02/04/25 01:06 Urine Protein 2+ mg/dL (Negative) H 02/04/25 01:06 Urine Ketones Trace mg/dL (Negative) H 02/04/25 01:06 Ur Blood (Man) 2+ (Negative) H 02/04/25 01:06 Leukocyte Esterase Rfl 3+ MORIS/UL (Negative) H 02/04/25 01:06 Urine WBC >100 /hpf (0-3) H 02/04/25 01:06 Urine Bacteria 4+ /hpf H 02/04/25 01:06 Most Recent Suicide Severity Rating Suicide Severity Rating NO RISK INDICATED 02/04/25 03:42
[2025-02-04] MEDS: SODIUM CHLORIDE 0.9% IV 1,000 ML 75 ML IV CONT (06:01)
--- NOTE | 2025-02-04 07:11 | PM.IMHP2 ---
H&P: HPI History of Present Illness Date/Time: 02/04/25 07:11 Chief Complaint: n/v Narrative: 89 y. o female with PMH/o CKD3a, osteomyelitis, stroke presented to ed for c/o n/v for the last couple of days. Of note, pt was just discharged from this hospital on 01/14/25 for Closed fracture of right inferior pubic ramus: -orthopedics consulted: Recommendation for weight-bearing as tolerated, outpatient follow-up in 1 week. pain control: Tramadol, [place], breakthrough pain with morphine. with mechanical fall, no further workup indicated. Labs: wbc 17.9, hg/hct 12.7/37.8. plt 390. Cr/BUN 2.18/37 (base line cr 0.80) glu 201. HgA1C 6.9 on 11/2024 Hip/pelvis xray: IMPRESSION: No acute abnormalities are seen. CT pelvis wo con: IMPRESSION: Right inferior pubic ramus fracture. 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 Mother No problems noted. Sibling Myeloma Other Heart disease Thyroid disorder Social History Social History Smoking packs per day: 0.01 Smoking cigarettes per day: 0.2 Years smoked: 4 Smoking pack-years: 0.04 Smoking status: Former smoker Tobacco type: cigarettes Second hand tobacco smoke exposure: No Additional smoking assessment comments: a pack may last a month, no longer smoking everyday Alcohol intake: never Substance use: never Substance use type: does not use Lack of Transportation: No Lack of Food: Never True Current Housing: I Have Housing Concerned About Future Housing: No Difficulty Paying Gas/Electric Bills: No Difficulty Paying for Meds: No Currently Unemployed: No Education: Bachelor's Degree Difficulty w/ Childcare or Family Care: No Living arrangements: with family Gender identity (if verbalized by the patient): Female Spiritual care concerns: No Meds Home Medications and Allergies Home Medications ?Medication ?Instructions ?Recorded ?Confirmed ?Type loperamide 2 mg capsule (Imodium 2 mg PO Q6H PRN loose stool 07/26/23 02/04/25 History A-D) orthopedic shoes #1 ea 07/27/23 02/04/25 Rx oxybutynin chloride 5 mg tablet 5 mg PO BID #180 tabs 07/26/24 02/04/25 Rx rosuvastatin 10 mg tablet 10 mg PO DAILY #90 tabs 09/04/24 02/04/25 Rx lisinopril 40 mg tablet 20 mg (1/2 x 40 mg) PO DAILY 3 09/23/24 02/04/25 Rx months #45 tabs escitalopram oxalate 5 mg tablet See Rx Instructions .Route 10/29/24 02/04/25 Rx .COMPLEX #90 tabs levothyroxine 50 mcg tablet See Rx Instructions .Route 10/29/24 02/04/25 Rx .COMPLEX #90 tabs apixaban 5 mg tablet (Eliquis) See Rx Instructions .Route 11/06/24 02/04/25 Rx .COMPLEX #180 tabs trazodone 100 mg tablet 100 mg PO QHS #90 tabs 11/07/24 02/04/25 Rx semaglutide 7 mg tablet 7 mg PO DAILY #90 tabs 12/17/24 02/04/25 Rx hydrocodone 5 mg-acetaminophen 325 1 tablet PO Q6H PRN Pain Rated 01/14/25 02/04/25 Rx mg tablet 7-10 #10 tabs gabapentin 600 mg tablet 1,200 mg PO .evening 02/04/25 02/04/25 History Allergies Allergy/AdvReac Type Severity Reaction Status Date / Time No Known Allergies Allergy Verified 02/04/25 03:44 Vital Signs Vital Signs - 24 hr 02/03/25 22:05 02/03/25 23:19 02/04/25 01:14 Temperature 97.6 F 97.8 F Pulse Rate 85 84 79 Respiratory Rate 16 18 Blood Pressure 100/65 107/67 Pulse Oximetry 99 100 98 Oxygen Delivery Room Air 02/04/25 01:15 02/04/25 01:30 02/04/25 01:45 Temperature Pulse Rate 82 79 88 Respiratory Rate 18 18 20 Blood Pressure Pulse Oximetry 97 96 98 Oxygen Delivery 02/04/25 02:00 02/04/25 02:15 02/04/25 02:30 Temperature Pulse Rate 84 77 88 Respiratory Rate 16 17 18 Blood Pressure Pulse Oximetry 96 95 94 Oxygen Delivery 02/04/25 02:45 02/04/25 02:50 02/04/25 03:00 Temperature Pulse Rate 85 76 Respiratory Rate 19 16 Blood Pressure 114/62 Pulse Oximetry 95 97 95 Oxygen Delivery 02/04/25 03:01 02/04/25 03:30 02/04/25 03:31 Temperature Pulse Rate 81 75 83 Respiratory Rate 17 Blood Pressure 108/54 L 92/55 L Pulse Oximetry 95 95 95 Oxygen Delivery 02/04/25 03:45 02/04/25 03:46 02/04/25 04:00 Temperature Pulse Rate 79 78 82 Respiratory Rate Blood Pressure 105/57 L Pulse Oximetry 93 96 96 Oxygen Delivery 02/04/25 04:01 02/04/25 04:15 02/04/25 05:06 Temperature Pulse Rate 81 73 80 Respiratory Rate Blood Pressure 105/59 L 100/58 L Pulse Oximetry 96 95 97 Oxygen Delivery 02/04/25 05:34 02/04/25 05:37 02/04/25 06:56 Temperature 97.6 F 97.9 F Pulse Rate 73 70 64 Respiratory Rate 18 20 Blood Pressure 117/60 117/60 108/54 L Pulse Oximetry 98 96 97 Oxygen Delivery Exam Const: General: comfortable Resp: Effort & Inspection: normal respiratory effort Auscultation: clear to auscultation bilaterally Cardio: Rate: regular rate Rhythm: regular rhythm GI: GI Palp: Yes Tenderness to palpation present (GI) Auscultation: normal bowel sounds Other: hypoactive bs Results Labs Labs: Short CBC 02/03/25 Range/Units 23:30 WBC 17.9 H (4.5-10.0) K/mm3 Hgb 12.7 (12.0-15.0) g/dL Hct 37.8 (37.0-47.0) % Plt Count 390 H (150-375) k/mm3 BMP 02/03/25 23:30 Sodium 132 L Potassium 4.0 Chloride 99 Carbon Dioxide 20 L BUN 37 H D Creatinine 2.18 H Glucose 201 H Calcium 9.4 Liver Function 02/03/25 Range/Units 23:30 Total Bilirubin 0.9 (0.2-1.3) mg/dL AST 35 (14-36) U/L ALT 19 (6-35) U/L Alkaline Phosphatase 101 (38-126) U/L Albumin 4.4 (3.5-5.1) g/dL Urine 02/04/25 Range/Units 01:06 Urine Color Dark yellow (Yellow) Urine Appearance Turbid H (Clear) Urine pH 5.0 (5.0-9.0) Ur Specific [place] 1.016 (1.001-1.035) Urine Protein 2+ H (Negative) mg/dL Urine Glucose (UA) Negative (Negative) mg/dL Quality VTE Prophylaxis VTE prophylaxis: pharmacologic ordered Assessment and Plan Assessment and plan (1) Colitis: Code(s): K52.9 - Noninfective gastroenteritis and colitis, unspecified Status: Acute (2) Acute UTI: Code(s): N39.0 - Urinary tract infection, site not specified Status: Acute (3) Diabetes mellitus with diabetic neuropathy, without long-term current use of insulin: Qualifiers: Diabetes mellitus type: type 2 Qualified Code(s): E11.40 - Type 2 diabetes mellitus with diabetic neuropathy, unspecified Code(s): E11.40 - Type 2 diabetes mellitus with diabetic neuropathy, unspecified Status: Acute (4) Essential (primary) hypertension: Code(s): I10 - Essential (primary) hypertension Status: Acute (5) PAD (peripheral artery disease): Code(s): I73.9 - Peripheral vascular disease, unspecified Status: Acute (6) Mixed hyperlipidemia: Code(s): E78.2 - Mixed hyperlipidemia Status: Acute (7) supervisor intermediates (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: Code(s): Z79.01 - supervisor intermediates (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 Status: Acute (8) Protein S deficiency: Code(s): D68.59 - Other primary thrombophilia Status: Acute (9) Hypothyroidism: Qualifiers: Hypothyroidism type: acquired Qualified Code(s): E03.9 - Hypothyroidism, unspecified Code(s): E03.9 - Hypothyroidism, unspecified Status: Acute (10) Closed fracture of right inferior pubic ramus: Qualifiers: Encounter type: initial encounter Qualified Code(s): S32.591A - Other specified fracture of right pubis, initial encounter for closed fracture Code(s): S32.591A - Other specified fracture of right pubis, initial encounter for closed fracture Status: Acute (11) Hx of TIA (transient ischemic attack) and stroke: Code(s): Z86.73 - Personal history of transient ischemic attack (TIA), and cerebral infarction without residual deficits Status: Acute (12) Neuropathy: Code(s): G62.9 - Polyneuropathy, unspecified Status: Acute Plan Will continue flagyl and rocephin started in ED, 02/04 Follow daily labs, wbc 17.9 Follow BC, urine c/s pt/ot pt is fall and bleeding risk- initiate and maintain precautions daughter was worried that she saw blood streaks in pt stool- will order stool occult daily labs IV fluids Chronic conditions -CKD3a: avoid nephrotoxic agents. 0.9 NS at 75 ml/h -history of CVA, HLD: Statin -non insulin-dependent type 2 diabetes: Sliding scale insulin, Accu-Cheks a.c. HS, hypoglycemia protocol. At home on semaglutide-holding it -protein S deficiency: On Eliquis -depression: Escitalopram -hypothyroidism: Levothyroxine -diabetic neuropathy: Gabapentin -essential hypertension: holding Lisinopril due to hypotension -bladder incontinence: Oxybutynin -insomnia: Trazodone Pt is DNR Prior Studies I have reviewed the following patient records and this information was taken into consideration when formulating the assessment and plan.: previous labs, previous ER visits, previous hospitalizations and previous clinic visits Time Spent with Patient Time with patient: 45 - 74 minutes Hospitalist MIPS Advance Care Plan I have confirmed that the patient's Advanced Care Plan is present, code status is documented, or surrogate decision maker is listed in patient medical record.: Yes Medication Reconciliation I have utilized all available resources to obtain, update and review the patients current medications (includes all prescriptions, OTC, herbals, cannabis, and nutritional supplements).: Yes
[2025-02-04] MEDS: ESCITALOPRAM OXALATE 5 MG TABLET BY MOUTH (09:19)
[2025-02-04] MEDS: LEVOTHYROXINE SODIUM 50 MCG TABLET BY MOUTH (09:19)
[2025-02-04] MEDS: APIXABAN 5 MG TABLET BY MOUTH ×2 (09:19→20:24)
[2025-02-04] MEDS: ROSUVASTATIN 10 MG TABLET PO (09:19)
[2025-02-04] MEDS: GABAPENTIN 400 MG CAPSULE 1200 MG PO (17:48)
[2025-02-05] MEDS: metroNIDAZOLE 500 MG/ISO 100ML 500 MG/100 ML BAG 100 MG IVPB ×3 (05:41→22:12)
[2025-02-05] MEDS: SODIUM CHLORIDE 0.9% IV 1,000 ML 75 ML IV CONT (05:41)
[2025-02-05] MEDS: LEVOTHYROXINE SODIUM 50 MCG TABLET BY MOUTH (05:41)
[2025-02-05 06:00] VITALS: BP 109/53; PULSE 59; RESP 20; TEMP 36.6; O2SAT 98
[2025-02-05] MEDS: APIXABAN 5 MG TABLET BY MOUTH ×2 (08:34→20:49)
[2025-02-05] MEDS: ESCITALOPRAM OXALATE 5 MG TABLET BY MOUTH (08:34)
[2025-02-05] MEDS: ROSUVASTATIN 10 MG TABLET PO (08:34)
[2025-02-05 08:37] LABS: Hematocrit 29.9 % (37.0-47.0); Hemoglobin 9.7 g/dL (12.0-15.0); Immature Granulocyte Percent A 0.5 % (0-0.5); Lymphocytes Absolute Auto 1.46 K/mm3 (0.9-3.2); Mean Corpuscular HGB Conc 32.4 g/dl (32-36); Mean Corpuscular Hemoglobin 31.7 pg (26-34); Mean Corpuscular Volume 97.7 fl (80-100); Nucleated Red Blood Cells Absolute Auto 0.000 K/mm3 (0.0-0.012); Nucleated Red Blood Cells Perc 0.0 % (0.0-0.2); Platelet Count Result 279 k/mm3 (150-375); Red Blood Count 3.06 M/mm3 (4.2-5.4); White Blood Count 8.0 K/mm3 (4.5-10.0)
[2025-02-05 09:02] LABS: Alanine Aminotransferase 11 U/L (6-35); Albumin Level 3.1 g/dL (3.5-5.1); Alkaline Phosphatase 74 U/L (38-126); Anion Gap 4 mmol/L (4-12); Aspartate Amino Transferase 27 U/L (14-36); Bilirubin,Total 0.4 mg/dL (0.2-1.3); Blood Urea Nitrogen 30 mg/dL (7-17); Calcium 8.6 mg/dL (8.4-10.2); Carbon Dioxide 23 mmol/L (22-30); Chloride 109 mmol/L (98-107); Estimated CRCL calculation 19 ml/min; Estimated Glomerular Filt Rate 33; Glucose 106 mg/dL (65-110); Potassium 3.5 mmol/L (3.4-5.0); Sodium 136 mmol/L (137-145); Total Protein 6.7 g/dL (6.3-8.2)
--- NOTE | 2025-02-05 09:44 | PM.IMPN2 ---
Assessment and Plan Assessment and Plan (1) Colitis: Code(s): K52.9 - Noninfective gastroenteritis and colitis, unspecified Status: Acute Assessment and Plan: Per CT Will continue flagyl and rocephin started in ED, 02/04 Follow daily labs, WBC WDL today Follow BC & UC Nausea mild today, denies diarrhea Per daughter, may have seen some blood streaks in stool, will obtain stool occult. -Hgb 12.7-->9.7 overnight. No signs of bleeding. Received IVF in ED and continuous since. Will correlated with physical exam and serial labs. --Repeat Hgb 10.9 -Eliquis home med (2) Acute UTI: Code(s): N39.0 - Urinary tract infection, site not specified Status: Acute Assessment and Plan: Will continue flagyl and rocephin started in ED, 02/04 Follow daily labs, wbc WDL today Follow BC & UC (3) Diabetes mellitus with diabetic neuropathy, without long-term current use of insulin: Qualifiers: Diabetes mellitus type: type 2 Qualified Code(s): E11.40 - Type 2 diabetes mellitus with diabetic neuropathy, unspecified Code(s): E11.40 - Type 2 diabetes mellitus with diabetic neuropathy, unspecified Status: Acute Assessment and Plan: Non insulin-dependent type 2 diabetes: Sliding scale insulin, Accu-Cheks a.c. HS, hypoglycemia protocol. Semaglutide on hold BS reviewed (4) Essential (primary) hypertension: Code(s): I10 - Essential (primary) hypertension Status: Acute Assessment and Plan: Holding Lisinopril due to hypotension, will continue to re-assess (5) Protein S deficiency: Code(s): D68.59 - Other primary thrombophilia Status: Acute Assessment and Plan: Continue Eliquis (6) Closed fracture of right inferior pubic ramus: Qualifiers: Encounter type: initial encounter Qualified Code(s): S32.591A - Other specified fracture of right pubis, initial encounter for closed fracture Code(s): S32.591A - Other specified fracture of right pubis, initial encounter for closed fracture Status: Acute Assessment and Plan: Recent hx of, PT/OT while inpt (7) Acute kidney injury: Code(s): N17.9 - Acute kidney failure, unspecified Status: Acute Assessment and Plan: LIZETH on CKD3a: avoid nephrotoxic agents. 0.9 NS at 75 ml/h -Daily labs Plan Continue to trend labs, treat colitis & UTI, pending PT/OT, await UC/BC Subjective Date/time seen: 02/05/25 1130 Interval history: Pt sitting up comfortably in bed upon my arrival. Only concerns today of wanting V8 juice or pineapple juice. Pt reports still be nauseous today but better than yesterday. Denies diarrhea but she does report some soft stools recently. Appetite is good. Continues to deny urinary sx. Review of Systems Review of Systems: All systems reviewed & are unremarkable except as noted in HPI and below Exam Const: General: comfortable and no acute distress HENMT: Face/Nose/Sinus: Normal nares present Mouth: Yes moist mucous membranes Eyes: General: appearance normal, both eyes and all related structures Sclera: sclerae normal Neck: Neck: supple Resp: Effort & Inspection: normal respiratory effort Auscultation: clear to auscultation bilaterally Cardio: Rate: regular rate Rhythm: regular rhythm GI: Auscultation: normal bowel sounds Skin: General skin exam: normal color and no rashes or lesions noted Neuro: Speech: normal speech Motor exam (neuro): Normal motor muscle tone present throughout Sensory Exam: normal sensation Extrem: General: normal to inspection Psych: Mental Status: mental status grossly normal Affect: normal affect Objective Data Vital Signs Vital Signs: Vital Signs - 24 hr 02/04/25 14:00 02/04/25 20:00 02/04/25 20:47 Temperature 98.0 F 97.5 F L Pulse Rate 60 69 Respiratory Rate 14 16 Blood Pressure 116/48 L 100/53 L Pulse Oximetry 99 94 Oxygen Delivery Room Air 02/05/25 06:00 02/05/25 08:00 Temperature 97.8 F Pulse Rate 59 L Respiratory Rate 20 Blood Pressure 109/53 L Pulse Oximetry 98 Oxygen Delivery Room Air Intake/Output Intake/Output: Intake & Output 02/02/25 02/03/25 02/04/25 02/05/25 23:59 23:59 23:59 23:59 Intake Total 2570 420 Output Total 400 Balance 2570 20 Meds/Results Medications: Active Medications Generic Name Dose Route Start Last Admin Trade Name Freq PRN Reason Stop Dose Admin Hydrocodone Bitart/Acetaminophen 1 tab 02/04/25 08:07 Hydrocodone/Acetaminophen (*Crx) 5-325 Mg Tablet PO Q6H PRN Pain Rated 7-10 Apixaban 5 mg 02/04/25 09:00 02/05/25 08:34 Apixaban 5 Mg Tablet BY MOUTH 5 mg Q12HR OSEAS Administration Dextrose 12.5 gm 02/04/25 08:14 Dextrose 50% 25 Gm/50 Ml Syringe IV PUSH PRN PRN Hypoglycemia Protocol Escitalopram Oxalate 5 mg 02/04/25 09:00 02/05/25 08:34 Escitalopram Oxalate 5 Mg Tablet BY MOUTH 5 mg QAM OSEAS Administration Gabapentin 1,200 mg 02/04/25 18:00 02/04/25 17:48 Gabapentin 400 Mg Capsule PO 1,200 mg QPM OSEAS Administration Glucagon 1 mg 02/04/25 08:14 Glucagon For Inj 1 Mg Vial IM PRN PRN Hypoglycemia Protocol Glucose 15 gm 02/04/25 08:14 Glucose Oral Gel 15 Gm Of Glucse In 37.5 Gm Tube PO PRN PRN Hypoglycemia Protocol Sodium Chloride 1,000 mls @ 75 mls/hr 02/04/25 02:35 02/05/25 05:41 Normal Saline Iv IV CONT 75 mls/hr .[id number] OSEAS Administration Metronidazole 500 mg in 100 mls @ 100 mls/hr 02/04/25 14:00 02/05/25 05:41 Flagyl 500 Mg/Iso Soln 100 Ml IVPB 100 mls/hr Q8H OSEAS Administration Ceftriaxone Sodium 1 gm/ 50 mls @ 100 mls/hr 02/04/25 21:00 02/04/25 20:25 Sodium Chloride IVPB 100 mls/hr Q24H OSEAS Administration Dextrose 1,000 mls @ 100 mls/hr 02/04/25 08:14 Dextrose 5% 1,000 Ml IVPB PRN PRN Hypoglycemia Protocol Insulin Aspart 2 - 5 units 02/04/25 08:30 02/05/25 08:05 Insulin Aspart (*Bkc) 100 Units/Ml SUB-Q Not Given TIDWM OSEAS Protocol Levothyroxine Sodium 50 mcg 02/04/25 08:30 02/05/25 05:41 Levothyroxine Sodium 50 Mcg Tablet BY MOUTH 50 mcg DAILY@0630 OSEAS Administration Ondansetron HCl 4 mg 02/04/25 02:32 Ondansetron Inj 4 Mg/2 Ml Vial IV PUSH Q4H PRN Nausea Oxybutynin Chloride 5 mg 02/04/25 09:00 02/05/25 08:34 Oxybutynin Chloride 5 Mg Tablet PO 5 mg Q12HR OSEAS Administration Rosuvastatin Calcium 10 mg 02/04/25 09:00 02/05/25 08:34 Rosuvastatin 10 Mg Tablet PO 10 mg DAILY OSEAS Administration Trazodone HCl 100 mg 02/04/25 21:00 02/04/25 20:24 Trazodone Hcl 50 Mg Tablet PO 100 mg QHS OSEAS Administration Radiology Results: ITS Impressions Abdomen/Pelvis CT 02/04/25 07:25 IMPRESSION: 1. No specific etiology for the patient's symptoms. 2. Healing subacute fracture of right inferior pubic ramus. Labs Labs: Laboratory Results - last 24 hr 02/04/25 02/04/25 02/04/25 11:13 16:24 20:44 WBC RBC Hgb Hct MCV MCH MCHC RDW Plt Count MPV Immature Gran % (Auto) Neut % (Auto) Lymph % (Auto) [place] % (Auto) Eos % (Auto) Baso % (Auto) Lymph # (Auto) [place] # (Auto) Eos # (Auto) Baso # (Auto) Abs Immat Gran (auto) Absolute Neuts (auto) Absolute Nucleated RBC Nucleated RBC % Sodium Potassium Chloride Carbon Dioxide Anion Gap BUN Creatinine Estim Creat Clear Calc Estimated GFR Glucose POC Capillary Glucose 98 129 H 163 H Calcium Total Bilirubin AST ALT Alkaline Phosphatase Total Protein Albumin 02/05/25 02/05/25 07:51 08:00 WBC 8.0 RBC 3.06 L Hgb 9.7 L D Hct 29.9 L MCV 97.7 MCH 31.7 MCHC 32.4 RDW 15.1 H Plt Count 279 MPV 8.7 Immature Gran % (Auto) 0.5 Neut % (Auto) 65.0 Lymph % (Auto) 18.2 L [place] % (Auto) 13.6 H Eos % (Auto) 1.7 Baso % (Auto) 1.0 Lymph # (Auto) 1.46 [place] # (Auto) 1.1 H Eos # (Auto) 0.1 Baso # (Auto) 0.1 Abs Immat Gran (auto) 0.04 H Absolute Neuts (auto) 5.2 Absolute Nucleated RBC 0.000 Nucleated RBC % 0.0 Sodium 136 L Potassium 3.5 Chloride 109 H Carbon Dioxide 23 Anion Gap 4 BUN 30 H Creatinine 1.51 H Estim Creat Clear Calc 19 Estimated GFR 33 L Glucose 106 POC Capillary Glucose 113 H Calcium 8.6 Total Bilirubin 0.4 AST 27 ALT 11 Alkaline Phosphatase 74 Total Protein 6.7 Albumin 3.1 L Quality VTE Prophylaxis VTE prophylaxis: pharmacologic ordered (home eliquis)
[2025-02-05 14:00] VITALS: BP 125/53; PULSE 61; RESP 14; TEMP 36.6; O2SAT 94
[2025-02-05 14:44] LABS: Hematocrit 36.3 % (37.0-47.0); Hemoglobin 10.9 g/dL (12.0-15.0)
[2025-02-05] MEDS: GABAPENTIN 400 MG CAPSULE 1200 MG PO (17:52)
[2025-02-05 19:28] VITALS: BP 125/59; PULSE 64; RESP 16; TEMP 35.9; O2SAT 100
[2025-02-05] MEDS: cefTRIAXone 1 GM in SODIUM CHLORIDE 0.9% IV 50 ML 100 ML IVPB (20:54)
[2025-02-06 05:23] VITALS: BP 150/65; PULSE 57; RESP 15; TEMP 36.2; O2SAT 99
[2025-02-06] MEDS: metroNIDAZOLE 500 MG/ISO 100ML 500 MG/100 ML BAG 100 MG IVPB (05:55)
[2025-02-06] MEDS: LEVOTHYROXINE SODIUM 50 MCG TABLET BY MOUTH (05:55)
[2025-02-06] MEDS: SODIUM CHLORIDE 0.9% IV 1,000 ML 75 ML IV CONT ×2 (05:59→18:24)
[2025-02-06 06:37] LABS: Hematocrit 33.2 % (37.0-47.0); Hemoglobin 11.0 g/dL (12.0-15.0); Immature Granulocyte Percent A 0.4 % (0-0.5); Lymphocytes Absolute Auto 1.72 K/mm3 (0.9-3.2); Mean Corpuscular HGB Conc 33.1 g/dl (32-36); Mean Corpuscular Hemoglobin 32.5 pg (26-34); Mean Corpuscular Volume 98.2 fl (80-100); Nucleated Red Blood Cells Absolute Auto 0.000 K/mm3 (0.0-0.012); Nucleated Red Blood Cells Perc 0.0 % (0.0-0.2); Platelet Count Result 279 k/mm3 (150-375); Red Blood Count 3.38 M/mm3 (4.2-5.4); White Blood Count 6.9 K/mm3 (4.5-10.0)
[2025-02-06 07:05] LABS: Alanine Aminotransferase 11 U/L (6-35); Albumin Level 3.4 g/dL (3.5-5.1); Alkaline Phosphatase 79 U/L (38-126); Anion Gap 4 mmol/L (4-12); Aspartate Amino Transferase 35 U/L (14-36); Bilirubin,Total 0.4 mg/dL (0.2-1.3); Blood Urea Nitrogen 17 mg/dL (7-17); Calcium 8.8 mg/dL (8.4-10.2); Carbon Dioxide 23 mmol/L (22-30); Chloride 112 mmol/L (98-107); Estimated CRCL calculation 24 ml/min; Estimated Glomerular Filt Rate 43; Glucose 105 mg/dL (65-110); Potassium 3.4 mmol/L (3.4-5.0); Sodium 139 mmol/L (137-145); Total Protein 7.2 g/dL (6.3-8.2)
[2025-02-06] MEDS: APIXABAN 5 MG TABLET BY MOUTH ×2 (08:27→21:42)
[2025-02-06] MEDS: ROSUVASTATIN 10 MG TABLET PO (08:27)
[2025-02-06] MEDS: ESCITALOPRAM OXALATE 5 MG TABLET BY MOUTH (08:27)
--- NOTE | 2025-02-06 08:44 | P.PNIM_ITS ---
Assessment and Plan Assessment and Plan (1) Colitis: Code(s): K52.9 - Noninfective gastroenteritis and colitis, unspecified Status: Acute Assessment and Plan: Per CT Will continue flagyl and rocephin started in ED, 02/04 Follow daily labs, WBC WDL today Follow BC & UC Nausea mild today, states more so prior to eating. Start Zofran ODT pre meal scheduled today to see if has any relief. -->Denies gerd, abd pain, issues chewing or swallowing, vomiting, or any other issues, she reports the sx as the smell of food making her sick to her stomach. Per daughter, may have seen some blood streaks in stool, will obtain stool occult. -Hgb normalized at 11 this AM. -Eliquis home med (2) Acute UTI: Code(s): N39.0 - Urinary tract infection, site not specified Status: Acute Assessment and Plan: Will continue flagyl and Rocephin started in ED, 02/04 Follow daily labs, WBC WDL today Follow BC & UC -UC yielding gram neg bacilli, pending sensitivities (3) Diabetes mellitus with diabetic neuropathy, without long-term current use of insulin: Qualifiers: Diabetes mellitus type: type 2 Qualified Code(s): E11.40 - Type 2 diabetes mellitus with diabetic neuropathy, unspecified Code(s): E11.40 - Type 2 diabetes mellitus with diabetic neuropathy, unspecified Status: Acute Assessment and Plan: Non insulin-dependent type 2 diabetes: Sliding scale insulin, Accu-Cheks a.c. HS, hypoglycemia protocol. Semaglutide on hold BS reviewed (4) Essential (primary) hypertension: Code(s): I10 - Essential (primary) hypertension Status: Acute Assessment and Plan: Restarted Lisinopril home med today, will continue to re-assess (5) Protein S deficiency: Code(s): D68.59 - Other primary thrombophilia Status: Acute Assessment and Plan: Continue Eliquis (6) Closed fracture of right inferior pubic ramus: Qualifiers: Encounter type: initial encounter Qualified Code(s): S32.591A - Other specified fracture of right pubis, initial encounter for closed fracture Code(s): S32.591A - Other specified fracture of right pubis, initial encounter for closed fracture Status: Acute Assessment and Plan: Recent hx of, PT/OT while inpt (7) Acute kidney injury: Code(s): N17.9 - Acute kidney failure, unspecified Status: Acute Assessment and Plan: LIZETH on CKD3a: avoid nephrotoxic agents. 0.9 NS at 75 ml/h -Daily labs, labs trending back down to baseline -Continue IVF due to kidney levels and low appetite Plan Continue to trend labs, treat colitis, UTI, & nausea, continue working with OT/PT, await UC sensitivities and BC Medical Record Review I have reviewed the following patient records and this information was taken into consideration when formulating the assessment and plan.: previous labs Time Spent With Patient Time with patient: 25 - 35 minutes Subjective Date/time seen: 02/06/25956 Interval history: Pt sitting up in her chair upon my arrival. Pt daughter on the phone and expressing concern about pt's nausea pre-meal. Pt denies gerd, abd pain, issues chewing or swallowing, vomiting, or any other issues, she reports the sx as the smell of food making her sick to her stomach. Review of Systems Review of Systems: All systems reviewed & are unremarkable except as noted in HPI and below Exam Const: General: comfortable and no acute distress HENMT: Face/Nose/Sinus: Normal nares present Mouth: Yes moist mucous membranes Eyes: General: appearance normal, both eyes and all related structures Sclera: sclerae normal Neck: Neck: supple Resp: Effort & Inspection: normal respiratory effort Auscultation: clear to auscultation bilaterally Cardio: Rate: regular rate Rhythm: regular rhythm GI: Auscultation: normal bowel sounds Skin: General skin exam: normal color and no rashes or lesions noted Neuro: Speech: normal speech Motor exam (neuro): Normal motor muscle tone present throughout Sensory Exam: normal sensation Extrem: General: normal to inspection Psych: Mental Status: mental status grossly normal Affect: normal affect Objective Data Vital Signs Vital Signs: Vital Signs - 24 hr 02/05/25 14:00 02/05/25 19:28 02/06/25 05:23 Temperature 97.9 F 96.6 F L 97.2 F L Pulse Rate 61 64 57 L Respiratory Rate 14 16 15 Blood Pressure 125/53 L 125/59 L 150/65 H Pulse Oximetry 94 100 99 Intake/Output Intake/Output: Intake & Output 02/03/25 02/04/25 02/05/2525 23:59 23:59 23:59 23:59 Intake Total 2620 2060 240 Output Total 800 700 Balance 2620 1260 -460 Meds/Results Medications: Active Medications Generic Name Dose Route Start Last Admin Trade Name Freq PRN Reason Stop Dose Admin Hydrocodone Bitart/Acetaminophen 1 tab 02/04/25 08:07 Hydrocodone/Acetaminophen (*Crx) 5-325 Mg Tablet PO Q6H PRN Pain Rated 7-10 Apixaban 5 mg 02/04/25 09:00 02/06/25 08:27 Apixaban 5 Mg Tablet BY MOUTH 5 mg Q12HR OSEAS Administration Dextrose 12.5 gm 02/04/25 08:14 Dextrose 50% 25 Gm/50 Ml Syringe IV PUSH PRN PRN Hypoglycemia Protocol Escitalopram Oxalate 5 mg 02/04/25 09:00 02/06/25 08:27 Escitalopram Oxalate 5 Mg Tablet BY MOUTH 5 mg QAM OSEAS Administration Gabapentin 1,200 mg 02/04/25 18:00 02/05/25 17:52 Gabapentin 400 Mg Capsule PO 1,200 mg QPM OSEAS Administration Glucagon 1 mg 02/04/25 08:14 Glucagon For Inj 1 Mg Vial IM PRN PRN Hypoglycemia Protocol Glucose 15 gm 02/04/25 08:14 Glucose Oral Gel 15 Gm Of Glucse In 37.5 Gm Tube PO PRN PRN Hypoglycemia Protocol Sodium Chloride 1,000 mls @ 75 mls/hr 02/04/25 02:35 02/06/25 08:34 Normal Saline Iv IV CONT Not Given .[id number] OSEAS Metronidazole 500 mg in 100 mls @ 100 mls/hr 02/04/25 14:00 02/06/25 05:55 Flagyl 500 Mg/Iso Soln 100 Ml IVPB 100 mls/hr Q8H OSEAS Administration Ceftriaxone Sodium 1 gm/ 50 mls @ 100 mls/hr 02/04/25 21:00 02/05/25 20:54 Sodium Chloride IVPB 100 mls/hr Q24H OSEAS Administration Dextrose 1,000 mls @ 100 mls/hr 02/04/25 08:14 Dextrose 5% 1,000 Ml IVPB PRN PRN Hypoglycemia Protocol Insulin Aspart 2 - 5 units 02/04/25 08:30 02/06/25 08:31 Insulin Aspart (*Bkc) 100 Units/Ml SUB-Q Not Given [facility] Protocol Levothyroxine Sodium 50 mcg 02/04/25 08:30 02/06/25 05:55 Levothyroxine Sodium 50 Mcg Tablet BY MOUTH 50 mcg DAILY@0630 OSEAS Administration Ondansetron HCl 4 mg 02/04/25 02:32 Ondansetron Inj 4 Mg/2 Ml Vial IV PUSH Q4H PRN Nausea Oxybutynin Chloride 5 mg 02/04/25 09:00 02/06/25 08:26 Oxybutynin Chloride 5 Mg Tablet PO 5 mg Q12HR OSEAS Administration Rosuvastatin Calcium 10 mg 02/04/25 09:00 02/06/25 08:27 Rosuvastatin 10 Mg Tablet PO 10 mg DAILY OSEAS Administration Trazodone HCl 100 mg 02/04/25 21:00 02/05/25 20:49 Trazodone Hcl 50 Mg Tablet PO 100 mg QHS OSEAS Administration Radiology Results: ITS Impressions Abdomen/Pelvis CT 02/04/25 07:25 IMPRESSION: 1. No specific etiology for the patient's symptoms. 2. Healing subacute fracture of right inferior pubic ramus. Labs Labs: Laboratory Results - last 24 hr 02/05/25 02/05/25 02/05/25 08:00 11:52 14:25 WBC RBC Hgb 10.9 L Hct 36.3 L MCV MCH MCHC RDW Plt Count MPV Immature Gran % (Auto) Neut % (Auto) Lymph % (Auto) Gonzales % (Auto) Eos % (Auto) Baso % (Auto) Lymph # (Auto) Gonzales # (Auto) Eos # (Auto) Baso # (Auto) Abs Immat Gran (auto) Absolute Neuts (auto) Absolute Nucleated RBC Nucleated RBC % Sodium 136 L Potassium 3.5 Chloride 109 H Carbon Dioxide 23 Anion Gap 4 BUN 30 H Creatinine 1.51 H Estim Creat Clear Calc 19 Estimated GFR 33 L Glucose 106 POC Capillary Glucose 99 Lactic Acid Calcium 8.6 Total Bilirubin 0.4 AST 27 ALT 11 Alkaline Phosphatase 74 Total Protein 6.7 Albumin 3.1 L 02/05/25 02/05/25 02/06/25 16:35 19:37 06:22 WBC 6.9 RBC 3.38 L Hgb 11.0 L Hct 33.2 L MCV 98.2 MCH 32.5 MCHC 33.1 RDW 14.9 H Plt Count 279 MPV 8.5 Immature Gran % (Auto) 0.4 Neut % (Auto) 56.9 Lymph % (Auto) 25.0 Gonzales % (Auto) 13.8 H Eos % (Auto) 3.0 Baso % (Auto) 0.9 Lymph # (Auto) 1.72 Gonzales # (Auto) 1.0 H Eos # (Auto) 0.2 Baso # (Auto) 0.1 Abs Immat Gran (auto) 0.03 Absolute Neuts (auto) 3.9 Absolute Nucleated RBC 0.000 Nucleated RBC % 0.0 Sodium 139 Potassium 3.4 Chloride 112 H Carbon Dioxide 23 Anion Gap 4 BUN 17 D Creatinine 1.18 H Estim Creat Clear Calc 24 Estimated GFR 43 L Glucose 105 POC Capillary Glucose 102 153 H Lactic Acid 1.0 Calcium 8.8 Total Bilirubin 0.4 AST 35 ALT 11 Alkaline Phosphatase 79 Total Protein 7.2 Albumin 3.4 L 02/06/25 07:34 WBC RBC Hgb Hct MCV MCH MCHC RDW Plt Count MPV Immature Gran % (Auto) Neut % (Auto) Lymph % (Auto) Gonzales % (Auto) Eos % (Auto) Baso % (Auto) Lymph # (Auto) Gonzales # (Auto) Eos # (Auto) Baso # (Auto) Abs Immat Gran (auto) Absolute Neuts (auto) Absolute Nucleated RBC Nucleated RBC % Sodium Potassium Chloride Carbon Dioxide Anion Gap BUN Creatinine Estim Creat Clear Calc Estimated GFR Glucose POC Capillary Glucose 112 H Lactic Acid Calcium Total Bilirubin AST ALT Alkaline Phosphatase Total Protein Albumin Quality VTE Prophylaxis VTE prophylaxis: pharmacologic ordered (home eliquis)
--- NOTE | 2025-02-06 11:42 | PCPTNOTE ---
Patient refused treatment this session due to patient just working with OT and reported she can not do anymore therapy today.
[2025-02-06] MEDS: ONDANSETRON HCL ODT 4 MG TABLET PO (12:09)
[2025-02-06 14:00] VITALS: BP 134/64; PULSE 64; RESP 16; TEMP 36.9; O2SAT 99
[2025-02-06] MEDS: GABAPENTIN 400 MG CAPSULE 1200 MG PO (18:20)
[2025-02-06] MEDS: METOCLOPRAMIDE HCL 10 MG TABLET PO ×2 (18:20→21:42)
[2025-02-06 21:27] VITALS: BP 124/54; PULSE 64; RESP 17; TEMP 36.8; O2SAT 97
[2025-02-06] MEDS: CIPROFLOXACIN 500 MG TAB PO (21:41)
[2025-02-06] MEDS: DOCUSATE SODIUM 100 MG CAPSULE PO (21:41)
[2025-02-07 05:46] VITALS: BP 139/53; PULSE 58; RESP 16; TEMP 36.4; O2SAT 97
[2025-02-07] MEDS: SODIUM CHLORIDE 0.9% IV 1,000 ML 75 ML IV CONT ×2 (05:50→23:46)
[2025-02-07 06:24] LABS: Hematocrit 30.1 % (37.0-47.0); Hemoglobin 10.0 g/dL (12.0-15.0); Immature Granulocyte Percent A 0.6 % (0-0.5); Lymphocytes Absolute Auto 1.72 K/mm3 (0.9-3.2); Mean Corpuscular HGB Conc 33.2 g/dl (32-36); Mean Corpuscular Hemoglobin 32.2 pg (26-34); Mean Corpuscular Volume 96.8 fl (80-100); Nucleated Red Blood Cells Absolute Auto 0.000 K/mm3 (0.0-0.012); Nucleated Red Blood Cells Perc 0.0 % (0.0-0.2); Platelet Count Result 260 k/mm3 (150-375); Red Blood Count 3.11 M/mm3 (4.2-5.4); White Blood Count 7.2 K/mm3 (4.5-10.0)
[2025-02-07] MEDS: LEVOTHYROXINE SODIUM 50 MCG TABLET BY MOUTH (06:37)
[2025-02-07] MEDS: METOCLOPRAMIDE HCL 10 MG TABLET PO ×4 (06:42→21:12)
[2025-02-07 06:55] LABS: Alanine Aminotransferase 8 U/L (6-35); Albumin Level 3.0 g/dL (3.5-5.1); Alkaline Phosphatase 70 U/L (38-126); Anion Gap 4 mmol/L (4-12); Aspartate Amino Transferase 22 U/L (14-36); Bilirubin,Total 0.4 mg/dL (0.2-1.3); Blood Urea Nitrogen 10 mg/dL (7-17); Calcium 8.5 mg/dL (8.4-10.2); Carbon Dioxide 22 mmol/L (22-30); Chloride 110 mmol/L (98-107); Estimated CRCL calculation 26 ml/min; Estimated Glomerular Filt Rate 48; Glucose 97 mg/dL (65-110); Potassium 3.1 mmol/L (3.4-5.0); Sodium 136 mmol/L (137-145); Total Protein 6.4 g/dL (6.3-8.2)
--- NOTE | 2025-02-07 08:21 | WPDGICN ---
Assessment and Plan Assessment and plan (1) Nausea & vomiting: Qualifiers: Vomiting type: hematemesis Qualified Code(s): K92.0 - Hematemesis Code(s): R11.2 - Nausea with vomiting, unspecified Status: Acute (2) Appetite loss: Code(s): R63.0 - Anorexia Status: Acute (3) Early satiety: Code(s): R68.81 - Early satiety Status: Acute (4) Normocytic anemia: Code(s): D64.9 - Anemia, unspecified Status: Acute Plan 1. Nausea/vomiting/appetite loss/early satiety/coffee-ground emesis/anemia: Patient has never had an EGD. S/p see CX. She is on Eliquis daily for history of protein S deficiency and distant history of TIA x2 patient recently hospitalized mid December for pubic ramus fracture and no surgical intervention was required. Patient has been in rehab and per family ?has not been doing well?. Since Monday she has been having frequent episodes of nausea and vomiting and per her daughter emesis was very dark in color. She denies any nausea or vomiting since admission. She has had a very poor appetite and early satiety. She has been unable to tolerate supplemental nutrition such as Ensure shakes and is eating only small amounts of food at the rehab facility. Patient was started on pain medications following her fracture but a few days prior to this admission she had been refusing the pain medications. She is on semaglutide tablets which she has been on for quite some time. Denies any current or history of acid reflux. Denies any swallowing difficulty. Labs today show HGB 11, HCT 30, MCV 97, platelets 260. CT abdomen/pelvis shows diverticulosis and common bile duct dilation to 14 mm. DDX: PUD vs motility disorder vs medication induced vs neoplasm vs biliary etiology vs functional EGD today care with NSAID's, aspirin and anticoags continue supportive care with antiemetics Patient with post cholecystectomy CBD dilation of 14 mm which higher than the average 8-10 mm dilation seen post CCX. This could be a normal variant for the patient, but may be considered if her workup is unremarkable and symptoms do not improve. LFTs are normal Thank you very much for allowing me to share in the care of this very nice patient. This report may have been done utilizing a voice recognition system. Attempts have been made to correct errors. However, there may be uncorrected grammatical, spelling, and recognition errors present. GI Consult Note Consult date/time: 02/07/25 08:21 Reason for consult: Nausea HPI: Marisela Franz is a 89 year old female with PMSH hypothyroidism, protein S deficiency, chronic kidney disease stage 3, HTN, osteomyelitis history, stroke history, see CX, hysterectomy, right shoulder replacement and bilateral knee replacement. She presented to the ER 02/04 with complaints of nausea, vomiting and diarrhea. GI has been consulted for nausea. Patient was seen with her daughter Mariela at her bedside throughout the entire visit. Patient was hospitalized January 10- for closed fracture of the right inferior pubic ramus and no surgical intervention was required. Patient has been at a rehab facility and was noted by family to ?not be doing well?. Since Monday while at rehab the patient had been experiencing episodes of nausea and vomiting of what her daughter describes is a very dark emesis. She denies any nausea or vomiting since admission. She has also had a significantly decreased appetite, early satiety and unmeasured weight loss. She has been unable to tolerate supplemental nutrition such as Ensure shakes and is not liking the food at the rehab facility?. Prior to admission the patient had 1 day of looser than normal stools but now has gone 3 days without a bowel movement. Prior to admission she typically had a loose but not liquid bowel movement every 2 days. She has chronic fecal incontinence. Denies any hematochezia or melena. Patient currently denies any abdominal pain, bloating, odynophagia, dysphagia, reflux, regurgitation. She is a nondrinker nonsmoker and denies marijuana use. She is on Eliquis for protein S deficiency and history of TIA x2 in the distant past. Family history negative for GI cancers or IBD. ENDOSCOPY HISTORY: EGD: Patient has never had an EGD COLONOSCOPY: Per patient last colonoscopy > 10 years ago LABS AND STOOL STUDIES: Labs 02/07/2025: WBC 7, Hgb 10, Hct 30, MCV 97, platelets 260 Sodium 136, potassium 3.1, BUN 10, creatinine 1.08, GFR 48, calcium 8.5 Total bilirubin 0.4, AST 22, ALT 8, Alkaline Phos 70, albumin 3.0 Labs 02/03/2025: WBC 18, Hgb 13, Hct 38, MCV 96, platelets 390 Sodium 132, potassium 4.0, BUN 37, creatinine 2.18, GFR 21, calcium 9.4 Total bilirubin 0.9, AST 35, ALT 19, Alkaline Phos 101, albumin 4.4, lipase 215 Influenza a and B negative, SARS-CoV2 negative IMAGING: CT abd/pelvis w/contrast 02/04/2025: FINDINGS: The visualized portions of the lung bases demonstrate mild atelectasis. No pleural effusion. The heart size is normal. No pericardial effusion. There are calcifications of the aortic valve. The liver is normal. Calcifications in the spleen are consistent with old granulomatous disease. There are changes of cholecystectomy. The common duct is dilated to 14 mm, likely not clinically significant given the normal liver function tests . The pancreas, adrenal glands, and right kidney are normal. There is an 8 mm cyst in left kidney. There is no urolithiasis. There is diverticulosis of the colon without evidence of diverticulitis. The appendix is normal. There are no pathologically enlarged lymph nodes. There is no free intraperitoneal fluid. There are bilateral hip arthroplasties. Again seen is a comminuted fracture of right inferior pubic ramus with early callus formation. There is thoracolumbar dextroscoliosis and severe spondylosis. There are chronic bilateral L5 pars defects. There is 5 mm anterolisthesis of L5 on S1. There are chronic fractures of T12 and L1 vertebral bodies with changes of vertebroplasty. IMPRESSION: 1. No specific etiology for the patient's symptoms. 2. Healing subacute fracture of right inferior pubic ramus. CT pelvis 01/10/2025: IMPRESSION: Right inferior pubic ramus fracture. Review of Systems Constitutional: Constitutional: Reports as per HPI, Reports fatigue and Reports lethargy ENT: Reports as per HPI Cardiovascular: Cardiovascular: Reports as per HPI, Denies chest pain and Denies dyspnea Respiratory: Respiratory: Denies cough, Denies hemoptysis and Denies dyspnea Gastrointestinal: Gastrointestinal: Reports as per HPI Musculoskeletal: Musculoskeletal: Reports as per HPI and Reports arthralgias Integumentary/Breasts: Skin/Breast: Reports as per HPI Psychiatric: Psychiatric: Reports as per HPI Endocrine: Endocrine: Reports no additional endocrine complaints Hematologic/Lymphatic: Hematologic/Lymphatic: Reports no additional hematologic/lymphatic complaints [facility] Past Medical History Medical History Allergies Kidney disease Trigger finger of right hand Osteomyelitis Leg wound, right Stroke History of bruising easily Surgical History Surgical History H/O kyphoplasty 08/2022 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 Mother No problems noted. Sibling Myeloma Other Heart disease Thyroid disorder Social History Social History Smoking packs per day: 0.01 Smoking cigarettes per day: 0.2 Years smoked: 4 Smoking pack-years: 0.04 Smoking status: Former smoker Tobacco type: cigarettes Second hand tobacco smoke exposure: No Additional smoking assessment comments: a pack may last a month, no longer smoking everyday Alcohol intake: never Substance use: never Substance use type: does not use Lack of Transportation: No Lack of Food: Never True Current Housing: I Have Housing Concerned About Future Housing: No Difficulty Paying Gas/Electric Bills: No Difficulty Paying for Meds: No Currently Unemployed: No Education: Bachelor's Degree Difficulty w/ Childcare or Family Care: No Living arrangements: with family Gender identity (if verbalized by the patient): Female Spiritual care concerns: No Meds Home Medications and Allergies Home Medications ?Medication ?Instructions ?Recorded ?Confirmed ?Type loperamide 2 mg capsule (Imodium 2 mg PO Q6H PRN loose stool 07/26/23 02/04/25 History A-D) orthopedic shoes #1 ea 07/27/23 02/04/25 Rx oxybutynin chloride 5 mg tablet 5 mg PO BID #180 tabs 07/26/24 02/04/25 Rx rosuvastatin 10 mg tablet 10 mg PO DAILY #90 tabs 09/04/24 02/04/25 Rx lisinopril 40 mg tablet 20 mg (1/2 x 40 mg) PO DAILY 3 09/23/24 02/04/25 Rx months #45 tabs escitalopram oxalate 5 mg tablet See Rx Instructions .Route 10/29/24 02/04/25 Rx .COMPLEX #90 tabs levothyroxine 50 mcg tablet See Rx Instructions .Route 10/29/24 02/04/25 Rx .COMPLEX #90 tabs apixaban 5 mg tablet (Eliquis) See Rx Instructions .Route 11/06/24 02/04/25 Rx .COMPLEX #180 tabs trazodone 100 mg tablet 100 mg PO QHS #90 tabs 11/07/24 02/04/25 Rx semaglutide 7 mg tablet 7 mg PO DAILY #90 tabs 12/17/24 02/04/25 Rx hydrocodone 5 mg-acetaminophen 325 1 tablet PO Q6H PRN Pain Rated 01/14/25 02/04/25 Rx mg tablet 7-10 #10 tabs gabapentin 600 mg tablet 1,200 mg PO .evening 02/04/25 02/04/25 History Allergies Allergy/AdvReac Type Severity Reaction Status Date / Time No Known Allergies Allergy Verified 02/04/25 03:44 Vital Signs Vital Signs - 24 hr 02/06/25 08:27 02/06/25 14:00 02/06/25 21:27 Temperature 98.5 F 98.3 F Pulse Rate 64 64 Respiratory Rate 16 17 Blood Pressure 134/64 124/54 L Pulse Oximetry 99 97 Oxygen Delivery Room Air 02/07/25 05:46 Temperature 97.5 F L Pulse Rate 58 L Respiratory Rate 16 Blood Pressure 139/53 L Pulse Oximetry 97 Oxygen Delivery Exam Const: General: cooperative, healthy appearing, comfortable, no acute distress and well developed Orientation/consciousness: oriented to person, oriented to place, oriented to time and patient oriented x3 HENMT: Head: normal to inspection, normocephalic and atraumatic Mouth: Yes Normal oral and palatal mucosa present and Yes moist mucous membranes Eyes: General: appearance normal, both eyes and all related structures Conjunctivae: conjunctivae normal Sclera: sclerae normal Pupils: Equal, round and reactive pupils present Neck: Neck: normal visual inspection Chest: Chest palpation & inspection: normal inspection of the chest Resp: Effort & Inspection: normal respiratory effort and able to speak in complete sentences Auscultation: clear to auscultation bilaterally Cardio: Jugular venous distension: no JVD Rate: regular rate Rhythm: regular rhythm Heart sounds: S1 normal heart sound present and S2 normal heart sound present GI: Inspection: normal to inspection GI Palp: Yes Soft to palpation and Yes No hepatosplenomegaly present Auscultation: normal bowel sounds Rectal Exam: deferred Skin: General skin exam: normal color and no rashes or lesions noted Neuro: General: oriented to person, oriented to place, oriented to time and patient oriented x3 Cranial nerves: Yes Equal, round and reactive pupils present Speech: normal speech Extrem: General: normal to inspection and no clubbing, cyanosis or edema Psych: Appearance: grossly normal and well kempt Affect: normal affect Results Labs 02/07/25 06:13 02/07/25 06:13 Labs: Short CBC 02/07/25 Range/Units 06:13 WBC 7.2 (4.5-10.0) K/mm3 Hgb 10.0 L (12.0-15.0) g/dL Hct 30.1 L (37.0-47.0) % Plt Count 260 (150-375) k/mm3 BMP 02/07/25 06:13 Sodium 136 L Potassium 3.1 L Chloride 110 H Carbon Dioxide 22 BUN 10 D Creatinine 1.08 H Glucose 97 Calcium 8.5 Liver Function 02/07/25 Range/Units 06:13 Total Bilirubin 0.4 (0.2-1.3) mg/dL AST 22 (14-36) U/L ALT 8 (6-35) U/L Alkaline Phosphatase 70 (38-126) U/L Albumin 3.0 L (3.5-5.1) g/dL
--- NOTE | 2025-02-07 08:59 | P.PNIM_ITS ---
Assessment and Plan Assessment and Plan (1) Colitis: Code(s): K52.9 - Noninfective gastroenteritis and colitis, unspecified Status: Acute Assessment and Plan: Per CT Will continue flagyl and rocephin started in ED, 02/04 Follow daily labs, WBC WDL today Follow BC - no growth in 24 hours Nausea mild continued, states more so prior to eating, almost a disgusted feeling when smelling the food. Start Zofran ODT pre meal scheduled 02/06 to see if has any relief. Upon reassessment after lunch, pt denied any relief. Will trial Reglan. -->Denies GERD, abd pain, issues chewing or swallowing, vomiting, or any other issues, she reports the sx as the smell of food making her sick to her stomach. -->Called to the bedside by pt family member, son-in-law Dr. Tello on 02/06. Discussed plan with him for intractable pre-meal nausea, he is requesting for a GI consult to evaluate pts nausea. Added dietary suppl ensure clears as she cannot tolerate ensure shakes, GI consult for recommendations. Pt with a hx of vomiting x1 at her outside SNF, no episodes here. Diarrhea but now constipated, started Colace 02/06. No bouts of diarrhea to be noted here nor melenic type stools. -Per daughter, may have seen some blood streaks in stool, will obtain stool occult when possible. -Hgb normalized, will continue with daily labs -Eliquis home med -Switched to Cipro on 02/06 -Spoke with GI today, plan for EGD to further assess nausea. Per GI, no need to hold eliquis due for no plan of bx or dilation. Pt will need to be NPO at [place] night prior to EGD. --Miscommunication with plans for EGD scheduling. Not done today d/t pt eating breakfast. Spoke to endo metallurgical laboratory assistant, pt to be added on Monday AM 02/09 at 0730 first thing due to high volume of cases tomorrow. Will make NPO starting MN of 02/09. Updated Natanael, daughter, on the plan. (2) Acute UTI: Code(s): N39.0 - Urinary tract infection, site not specified Status: Acute Assessment and Plan: Will continue flagyl and Rocephin started in ED, 12/09 Follow daily labs, WBC WDL today Follow BC -UC yielding E coli, switched to cipro PO on 02/06 x2 more doses (3) Diabetes mellitus with diabetic neuropathy, without long-term current use of insulin: Qualifiers: Diabetes mellitus type: type 2 Qualified Code(s): E11.40 - Type 2 diabetes mellitus with diabetic neuropathy, unspecified Code(s): E11.40 - Type 2 diabetes mellitus with diabetic neuropathy, unspecified Status: Acute Assessment and Plan: Non insulin-dependent type 2 diabetes: Sliding scale insulin, Accu-Cheks a.c. HS, hypoglycemia protocol. Semaglutide on hold BS reviewed (4) Essential (primary) hypertension: Code(s): I10 - Essential (primary) hypertension Status: Acute Assessment and Plan: Restarted Lisinopril home med 02/06, will continue to re-assess (5) Protein S deficiency: Code(s): D68.59 - Other primary thrombophilia Status: Acute Assessment and Plan: Continue Eliquis (6) Closed fracture of right inferior pubic ramus: Qualifiers: Encounter type: initial encounter Qualified Code(s): S32.591A - Other specified fracture of right pubis, initial encounter for closed fracture Code(s): S32.591A - Other specified fracture of right pubis, initial encounter for closed fracture Status: Acute Assessment and Plan: Recent hx of, PT/OT while inpt (7) Acute kidney injury: Code(s): N17.9 - Acute kidney failure, unspecified Status: Acute Assessment and Plan: LIZETH on CKD3a: avoid nephrotoxic agents. 0.9 NS at 75 ml/h -Daily labs, labs trending back down to baseline -Continue IVF due to kidney levels and low appetite -K mildly low this AM at 3.1, 40meq powder ordered this AM (Oxybutynin home meds) -Continue to encourage PO intake Plan Continue to trend labs, treat colitis, UTI, & nausea (GI consult pending EGD), continue working with OT/PT, await Medical Record Review I have reviewed the following patient records and this information was taken into consideration when formulating the assessment and plan.: previous labs Consultations Consultations: I have discussed the care of this pt with the consulting providers. Time Spent With Patient Time with patient: 25 - 35 minutes Subjective Date/time seen: 02/07/25 1130 Interval history: Pt lying in her be upon my arrival. Pt states that she is still feeling nauseous prior to eating, she ate breakfast this AM but minimal. Denies all other sx. Plan for EGD Monday. Review of Systems Review of Systems: All systems reviewed & are unremarkable except as noted in HPI and below Exam Const: General: comfortable and no acute distress HENMT: Face/Nose/Sinus: Normal nares present Mouth: Yes moist mucous membranes Eyes: General: appearance normal, both eyes and all related structures Sclera: sclerae normal Neck: Neck: supple Resp: Effort & Inspection: normal respiratory effort Auscultation: clear to auscultation bilaterally Cardio: Rate: regular rate Rhythm: regular rhythm GI: Auscultation: normal bowel sounds Skin: General skin exam: normal color and no rashes or lesions noted Neuro: Speech: normal speech Motor exam (neuro): Normal motor muscle tone present throughout Sensory Exam: normal sensation Extrem: General: normal to inspection Psych: Mental Status: mental status grossly normal Affect: normal affect Objective Data Vital Signs Vital Signs: Vital Signs - 24 hr 02/06/25 14:00 02/06/25 21:27 02/07/25 05:46 Temperature 98.5 F 98.3 F 97.5 F L Pulse Rate 64 64 58 L Respiratory Rate 16 17 16 Blood Pressure 134/64 124/54 L 139/53 L Pulse Oximetry 99 97 97 Intake/Output Intake/Output: Intake & Output 02/04/25 02/05/25 02/06/25 02/07/25 23:59 23:59 23:59 23:59 Intake Total 2620 2060 2589.3 1147.5 Output Total 800 1500 500 Balance 2620 1260 1089.3 647.5 Meds/Results Medications: Active Medications Generic Name Dose Route Start Last Admin Trade Name Freq PRN Reason Stop Dose Admin Hydrocodone Bitart/Acetaminophen 1 tab 02/04/25 08:07 Hydrocodone/Acetaminophen (*Crx) 5-325 Mg Tablet PO Q6H PRN Pain Rated 7-10 Apixaban 5 mg 02/04/25 09:00 02/06/25 21:42 Apixaban 5 Mg Tablet BY MOUTH 5 mg Q12HR OSEAS Administration Ciprofloxacin 500 mg 02/06/25 21:00 02/06/25 21:41 Ciprofloxacin 500 Mg Tab PO 02/08/25 21:01 500 mg QHS OSEAS Administration Dextrose 12.5 gm 02/04/25 08:14 Dextrose 50% 25 Gm/50 Ml Syringe IV PUSH PRN PRN Hypoglycemia Protocol Docusate Sodium 100 mg 02/06/25 21:00 02/06/25 21:41 Docusate Sodium 100 Mg Capsule PO 100 mg Q12HR OSEAS Administration Escitalopram Oxalate 5 mg 02/04/25 09:00 02/06/25 08:27 Escitalopram Oxalate 5 Mg Tablet BY MOUTH 5 mg QAM OSEAS Administration Gabapentin 1,200 mg 02/04/25 18:00 02/06/25 18:20 Gabapentin 400 Mg Capsule PO 1,200 mg QPM OSEAS Administration Glucagon 1 mg 02/04/25 08:14 Glucagon For Inj 1 Mg Vial IM PRN PRN Hypoglycemia Protocol Glucose 15 gm 02/04/25 08:14 Glucose Oral Gel 15 Gm Of Glucse In 37.5 Gm Tube PO PRN PRN Hypoglycemia Protocol Sodium Chloride 1,000 mls @ 75 mls/hr 02/04/25 02:35 02/07/25 05:50 Normal Saline Iv IV CONT 75 mls/hr .[id number] OSEAS Administration Dextrose 1,000 mls @ 100 mls/hr 02/04/25 08:14 Dextrose 5% 1,000 Ml IVPB PRN PRN Hypoglycemia Protocol Insulin Aspart 2 - 5 units 02/04/25 08:30 02/07/25 08:20 Insulin Aspart (*Bkc) 100 Units/Ml SUB-Q Not Given TIDWM OSEAS Protocol Levothyroxine Sodium 50 mcg 02/04/25 08:30 02/07/25 06:37 Levothyroxine Sodium 50 Mcg Tablet BY MOUTH 50 mcg DAILY@0630 OSEAS Administration Lisinopril 20 mg 02/06/25 09:00 02/06/25 12:09 Lisinopril 20 Mg Tablet PO 20 mg DAILY OSEAS Administration Metoclopramide HCl 10 mg 02/06/25 16:30 02/07/25 06:42 Metoclopramide Hcl 10 Mg Tablet PO 10 mg ACHS OSEAS Administration Metronidazole 500 mg 02/06/25 14:00 02/07/25 06:37 Metronidazole 500 Mg Tablet PO 02/08/25 22:01 500 mg Q8HR OSEAS Administration Oxybutynin Chloride 5 mg 02/04/25 09:00 02/06/25 21:40 Oxybutynin Chloride 5 Mg Tablet PO 5 mg Q12HR OSEAS Administration Rosuvastatin Calcium 10 mg 02/04/25 09:00 02/06/25 08:27 Rosuvastatin 10 Mg Tablet PO 10 mg DAILY OSEAS Administration Trazodone HCl 100 mg 02/04/25 21:00 02/06/25 21:41 Trazodone Hcl 50 Mg Tablet PO 100 mg QHS OSEAS Administration Radiology Results: ITS Impressions Abdomen/Pelvis CT 02/04/25 07:25 IMPRESSION: 1. No specific etiology for the patient's symptoms. 2. Healing subacute fracture of right inferior pubic ramus. Labs Labs: Laboratory Results - last 24 hr 02/06/25 02/06/25 02/06/25 11:26 16:31 20:11 WBC RBC Hgb Hct MCV MCH MCHC RDW Plt Count MPV Immature Gran % (Auto) Neut % (Auto) Lymph % (Auto) [place] % (Auto) Eos % (Auto) Baso % (Auto) Lymph # (Auto) [place] # (Auto) Eos # (Auto) Baso # (Auto) Abs Immat Gran (auto) Absolute Neuts (auto) Absolute Nucleated RBC Nucleated RBC % Sodium Potassium Chloride Carbon Dioxide Anion Gap BUN Creatinine Estim Creat Clear Calc Estimated GFR Glucose POC Capillary Glucose 131 H 96 111 H Calcium Total Bilirubin AST ALT Alkaline Phosphatase Total Protein Albumin 02/07/25 02/07/25 06:13 07:48 WBC 7.2 RBC 3.11 L Hgb 10.0 L Hct 30.1 L MCV 96.8 MCH 32.2 MCHC 33.2 RDW 14.8 H Plt Count 260 MPV 8.3 Immature Gran % (Auto) 0.6 H Neut % (Auto) 56.5 Lymph % (Auto) 23.9 [place] % (Auto) 15.0 H Eos % (Auto) 3.6 Baso % (Auto) 0.4 Lymph # (Auto) 1.72 [place] # (Auto) 1.1 H Eos # (Auto) 0.3 Baso # (Auto) 0.0 Abs Immat Gran (auto) 0.04 H Absolute Neuts (auto) 4.1 Absolute Nucleated RBC 0.000 Nucleated RBC % 0.0 Sodium 136 L Potassium 3.1 L Chloride 110 H Carbon Dioxide 22 Anion Gap 4 BUN 10 D Creatinine 1.08 H Estim Creat Clear Calc 26 Estimated GFR 48 L Glucose 97 POC Capillary Glucose 108 H Calcium 8.5 Total Bilirubin 0.4 AST 22 ALT 8 Alkaline Phosphatase 70 Total Protein 6.4 Albumin 3.0 L Quality VTE Prophylaxis VTE prophylaxis: pharmacologic ordered (home eliquis)
[2025-02-07] MEDS: ESCITALOPRAM OXALATE 5 MG TABLET BY MOUTH (09:06)
[2025-02-07] MEDS: ROSUVASTATIN 10 MG TABLET PO (09:06)
[2025-02-07] MEDS: APIXABAN 5 MG TABLET BY MOUTH (09:06)
[2025-02-07] MEDS: DOCUSATE SODIUM 100 MG CAPSULE PO ×2 (09:06→21:12)
[2025-02-07] MEDS: MEROPENEM 1 GM in SODIUM CHLORIDE 0.9% IV 100 ML 200 ML IVPB (12:25)
[2025-02-07 14:00] VITALS: BP 158/71; PULSE 62; RESP 16; TEMP 36.1; O2SAT 99
[2025-02-07 17:45] VITALS: BP 170/86; PULSE 60; O2SAT 100
[2025-02-07] MEDS: GABAPENTIN 400 MG CAPSULE 1200 MG PO (17:52)
[2025-02-07] MEDS: POTASSIUM CHLORIDE INJ 40 MEQ in SODIUM CHLORIDE 0.9% IV 500 ML 130 MEQ IVPB (18:45)
[2025-02-07] MEDS: CIPROFLOXACIN 500 MG TAB PO (21:12)
[2025-02-07 22:00] VITALS: BP 133/72; PULSE 64; RESP 19; TEMP 36.5; O2SAT 94
[2025-02-08] VITALS (8 sets, daily range): BP systolic 121–167; BP diastolic 53–74; PULSE 40–92; RESP 15–24; TEMP 36.3–36.9; O2SAT 93–100
[2025-02-08] MEDS: LEVOTHYROXINE SODIUM 50 MCG TABLET BY MOUTH (05:51)
[2025-02-08] MEDS: METOCLOPRAMIDE HCL 10 MG TABLET PO (05:54)
[2025-02-08 06:28] LABS: Hematocrit 31.5 % (37.0-47.0); Hemoglobin 10.6 g/dL (12.0-15.0); Immature Granulocyte Percent A 0.6 % (0-0.5); Lymphocytes Absolute Auto 2.33 K/mm3 (0.9-3.2); Mean Corpuscular HGB Conc 33.7 g/dl (32-36); Mean Corpuscular Hemoglobin 32.3 pg (26-34); Mean Corpuscular Volume 96.0 fl (80-100); Nucleated Red Blood Cells Absolute Auto 0.000 K/mm3 (0.0-0.012); Nucleated Red Blood Cells Perc 0.0 % (0.0-0.2); Platelet Count Result 318 k/mm3 (150-375); Red Blood Count 3.28 M/mm3 (4.2-5.4); White Blood Count 8.5 K/mm3 (4.5-10.0)
[2025-02-08 06:53] LABS: Alanine Aminotransferase 10 U/L (6-35); Albumin Level 3.1 g/dL (3.5-5.1); Alkaline Phosphatase 76 U/L (38-126); Anion Gap 7 mmol/L (4-12); Aspartate Amino Transferase 27 U/L (14-36); Bilirubin,Total 0.5 mg/dL (0.2-1.3); Blood Urea Nitrogen 6 mg/dL (7-17); Calcium 8.5 mg/dL (8.4-10.2); Carbon Dioxide 21 mmol/L (22-30); Chloride 108 mmol/L (98-107); Estimated CRCL calculation 27 ml/min; Estimated Glomerular Filt Rate 49; Glucose 93 mg/dL (65-110); Potassium 3.5 mmol/L (3.4-5.0); Sodium 136 mmol/L (137-145); Total Protein 6.7 g/dL (6.3-8.2)
--- NOTE | 2025-02-08 09:36 | P.PNIM_ITS ---
Assessment and Plan Assessment and Plan (1) Colitis: Code(s): K52.9 - Noninfective gastroenteritis and colitis, unspecified Status: Acute Assessment and Plan: Per CT Will continue flagyl and rocephin started in ED, 02/04 Follow daily labs, WBC WDL today Follow BC - no growth in 24 hours Nausea mild continued, states more so prior to eating, almost a disgusted feeling when smelling the food. Start Zofran ODT pre meal scheduled 02/06 to see if has any relief. Upon reassessment after lunch, pt denied any relief. Will trial Reglan. -->Denies GERD, abd pain, issues chewing or swallowing, vomiting, or any other issues, she reports the sx as the smell of food making her sick to her stomach. -->Called to the bedside by pt family member, son-in-law Dr. Tello on 02/06. Discussed plan with him for intractable pre-meal nausea, he is requesting for a GI consult to evaluate pts nausea. Added dietary suppl ensure clears as she cannot tolerate ensure shakes, GI consult for recommendations. Pt with a hx of vomiting x1 at her outside SNF, no episodes here. Diarrhea but now constipated, started Colace 02/06. No bouts of diarrhea to be noted here nor melenic type stools. -Per daughter, may have seen some blood streaks in stool, will obtain stool occult when possible. -Hgb normalized, will continue with daily labs -Eliquis home med -Switched to Cipro on 02/06 -Reports mildly better nausea today although has been NPO. Plan for EGD today around [address] Fritz. (2) Acute UTI: Code(s): N39.0 - Urinary tract infection, site not specified Status: Acute Assessment and Plan: Will continue flagyl and Rocephin started in ED, 02/04 Follow daily labs, WBC WDL today Follow BC - NGTD -UC yielding E coli, switched to cipro PO on 02/06 x2 more doses (3) Diabetes mellitus with diabetic neuropathy, without long-term current use of insulin: Qualifiers: Diabetes mellitus type: type 2 Qualified Code(s): E11.40 - Type 2 diabetes mellitus with diabetic neuropathy, unspecified Code(s): E11.40 - Type 2 diabetes mellitus with diabetic neuropathy, unspecified Status: Acute Assessment and Plan: Non insulin-dependent type 2 diabetes: Sliding scale insulin, Accu-Cheks a.c. HS, hypoglycemia protocol. Semaglutide on hold BS reviewed (4) Essential (primary) hypertension: Code(s): I10 - Essential (primary) hypertension Status: Acute Assessment and Plan: Restarted Lisinopril home med 02/06, will continue to re-assess (5) Protein S deficiency: Code(s): D68.59 - Other primary thrombophilia Status: Acute Assessment and Plan: Continue Eliquis (6) Closed fracture of right inferior pubic ramus: Qualifiers: Encounter type: initial encounter Qualified Code(s): S32.591A - Other specified fracture of right pubis, initial encounter for closed fracture Code(s): S32.591A - Other specified fracture of right pubis, initial encounter for closed fracture Status: Acute Assessment and Plan: Recent hx of, PT/OT while inpt (7) Acute kidney injury: Code(s): N17.9 - Acute kidney failure, unspecified Status: Acute Assessment and Plan: LIZETH on CKD3a: avoid nephrotoxic agents. 0.9 NS at 75 ml/h -Daily labs, labs trending back down to baseline -Continue IVF due to kidney levels and low appetite -K 3.5 today, refused K powder yesterday and ended up getting K 40 meq IV last night to replace value of 3.1 Plan Continue to trend labs, treat colitis, UTI, & nausea (EGD today), continue working with OT/PT, await Medical Record Review I have reviewed the following patient records and this information was taken into consideration when formulating the assessment and plan.: previous labs Consultations Consultations: I have discussed the care of this pt with the consulting providers. Time Spent With Patient Time with patient: 25 - 35 minutes Subjective Date/time seen: 02/08/25 0943 Interval history: Pt lying in her bed upon my arrival, her son, Hussein, at the bedside. Pt states that her nausea may be a little bit better this AM although she has not eaten due to NPO status (EGD at 1200). Denies any other sx including V/D, CP, SOB, or any other sx. Review of Systems Review of Systems: All systems reviewed & are unremarkable except as noted in HPI and below Exam Const: General: comfortable and no acute distress HENMT: Face/Nose/Sinus: Normal nares present Mouth: Yes moist mucous membranes Eyes: General: appearance normal, both eyes and all related structures Sclera: sclerae normal Neck: Neck: supple Resp: Effort & Inspection: normal respiratory effort Auscultation: clear to auscultation bilaterally Cardio: Rate: regular rate Rhythm: regular rhythm GI: Auscultation: normal bowel sounds Skin: General skin exam: normal color and no rashes or lesions noted Neuro: Speech: normal speech Motor exam (neuro): Normal motor muscle tone present throughout Sensory Exam: normal sensation Extrem: General: normal to inspection Psych: Mental Status: mental status grossly normal Affect: normal affect Objective Data Vital Signs Vital Signs: Vital Signs - 24 hr 02/07/25 14:00 02/07/25 17:45 02/07/25 20:00 Temperature 97.0 F L Pulse Rate 62 60 Respiratory Rate 16 Blood Pressure 158/71 H 170/86 H Pulse Oximetry 99 100 Oxygen Delivery Room Air 02/07/25 22:00 02/08/25 05:10 Temperature 97.7 F 98.5 F Pulse Rate 64 79 Respiratory Rate 19 Blood Pressure 133/72 147/53 H Pulse Oximetry 94 97 Oxygen Delivery Intake/Output Intake/Output: Intake & Output 02/05/25 02/06/25 02/07/25 02/08/25 23:59 23:59 23:59 23:59 Intake Total 2060 2589.3 2627.5 Output Total 800 1500 1500 Balance 1260 1089.3 1127.5 Meds/Results Medications: Active Medications Generic Name Dose Route Start Last Admin Trade Name Freq PRN Reason Stop Dose Admin Hydrocodone Bitart/Acetaminophen 1 tab 02/04/25 08:07 Hydrocodone/Acetaminophen (*Crx) 5-325 Mg Tablet PO Q6H PRN Pain Rated 7-10 Ciprofloxacin 500 mg 02/06/25 21:00 02/07/25 21:12 Ciprofloxacin 500 Mg Tab PO 02/08/25 21:01 500 mg QHS OSEAS Administration Dextrose 12.5 gm 02/04/25 08:14 Dextrose 50% 25 Gm/50 Ml Syringe IV PUSH PRN PRN Hypoglycemia Protocol Docusate Sodium 100 mg 02/06/25 21:00 02/07/25 21:12 Docusate Sodium 100 Mg Capsule PO 100 mg Q12HR OSEAS Administration Escitalopram Oxalate 5 mg 02/04/25 09:00 02/07/25 09:06 Escitalopram Oxalate 5 Mg Tablet BY MOUTH 5 mg QAM OSEAS Administration Gabapentin 1,200 mg 02/04/25 18:00 02/07/25 17:52 Gabapentin 400 Mg Capsule PO 1,200 mg QPM OSEAS Administration Glucagon 1 mg 02/04/25 08:14 Glucagon For Inj 1 Mg Vial IM PRN PRN Hypoglycemia Protocol Glucose 15 gm 02/04/25 08:14 Glucose Oral Gel 15 Gm Of Glucse In 37.5 Gm Tube PO PRN PRN Hypoglycemia Protocol Sodium Chloride 1,000 mls @ 75 mls/hr 02/04/25 02:35 02/07/25 23:46 Normal Saline Iv IV CONT 75 mls/hr .[id number] OSEAS Administration Dextrose 1,000 mls @ 100 mls/hr 02/04/25 08:14 Dextrose 5% 1,000 Ml IVPB PRN PRN Hypoglycemia Protocol Insulin Aspart 2 - 5 units 02/04/25 08:30 02/08/25 07:50 Insulin Aspart (*Bkc) 100 Units/Ml SUB-Q Not Given TIDWM OSEAS Protocol Levothyroxine Sodium 50 mcg 02/04/25 08:30 02/08/25 05:51 Levothyroxine Sodium 50 Mcg Tablet BY MOUTH 50 mcg DAILY@0630 OSEAS Administration Lisinopril 20 mg 02/06/25 09:00 02/07/25 09:06 Lisinopril 20 Mg Tablet PO 20 mg DAILY OSEAS Administration Metoclopramide HCl 10 mg 02/06/25 16:30 02/08/25 05:54 Metoclopramide Hcl 10 Mg Tablet PO 10 mg ACHS OSEAS Administration Metronidazole 500 mg 02/06/25 14:00 02/08/25 05:51 Metronidazole 500 Mg Tablet PO 02/08/25 22:01 500 mg Q8HR OSEAS Administration Ondansetron HCl 4 mg 02/07/25 18:34 Ondansetron Inj 4 Mg/2 Ml Vial IV PUSH Q6H PRN Nausea And Vomiting Oxybutynin Chloride 5 mg 02/04/25 09:00 02/07/25 21:12 Oxybutynin Chloride 5 Mg Tablet PO 5 mg Q12HR OSEAS Administration Pantoprazole Sodium 40 mg 02/08/25 09:00 Pantoprazole 40 Mg Tablet PO QAM OSEAS Rosuvastatin Calcium 10 mg 02/04/25 09:00 02/07/25 09:06 Rosuvastatin 10 Mg Tablet PO 10 mg DAILY [facility] Administration Trazodone HCl 100 mg 02/04/25 21:00 02/07/25 21:12 Trazodone Hcl 50 Mg Tablet PO 100 mg QHS OSEAS Administration Radiology Results: ITS Impressions Abdomen/Pelvis CT 02/04/25 07:25 IMPRESSION: 1. No specific etiology for the patient's symptoms. 2. Healing subacute fracture of right inferior pubic ramus. Labs Labs: Laboratory Results - last 24 hr 02/07/25 02/07/25 02/07/25 11:37 16:16 20:10 WBC RBC Hgb Hct MCV MCH MCHC RDW Plt Count MPV Immature Gran % (Auto) Neut % (Auto) Lymph % (Auto) [place] % (Auto) Eos % (Auto) Baso % (Auto) Lymph # (Auto) [place] # (Auto) Eos # (Auto) Baso # (Auto) Abs Immat Gran (auto) Absolute Neuts (auto) Absolute Nucleated RBC Nucleated RBC % Sodium Potassium Chloride Carbon Dioxide Anion Gap BUN Creatinine Estim Creat Clear Calc Estimated GFR Glucose POC Capillary Glucose 111 H 84 105 Calcium Total Bilirubin AST ALT Alkaline Phosphatase Total Protein Albumin 02/08/25 02/08/25 06:10 07:36 WBC 8.5 RBC 3.28 L Hgb 10.6 L Hct 31.5 L MCV 96.0 MCH 32.3 MCHC 33.7 RDW 14.6 H Plt Count 318 MPV 8.3 Immature Gran % (Auto) 0.6 H Neut % (Auto) 53.3 Lymph % (Auto) 27.5 [place] % (Auto) 14.1 H Eos % (Auto) 3.9 Baso % (Auto) 0.6 Lymph # (Auto) 2.33 [place] # (Auto) 1.2 H Eos # (Auto) 0.3 Baso # (Auto) 0.1 Abs Immat Gran (auto) 0.05 H Absolute Neuts (auto) 4.5 Absolute Nucleated RBC 0.000 Nucleated RBC % 0.0 Sodium 136 L Potassium 3.5 Chloride 108 H Carbon Dioxide 21 L Anion Gap 7 BUN 6 L Creatinine 1.05 H Estim Creat Clear Calc 27 Estimated GFR 49 L Glucose 93 POC Capillary Glucose 96 Calcium 8.5 Total Bilirubin 0.5 AST 27 ALT 10 Alkaline Phosphatase 76 Total Protein 6.7 Albumin 3.1 L Quality VTE Prophylaxis VTE prophylaxis: pharmacologic ordered (home eliquis)
--- NOTE | 2025-02-08 10:29 | PCPTNOTE ---
Pt refused physical therapy at this time due to not getting any sleep. Pt's stated that she will be going out for an endoscopy in the afternoon. RN Itzel stated that pt should be okay to have PT in the afternoon if pt is willing to. Will check back this afternoon and continue to follow.
--- NOTE | 2025-02-08 13:12 | WPDANESEPPF ---
[facility] - Initial Pre Proc Eval Procedure: Operation Date: 02/08/25 07:30 Proposed Procedures p Esophagogastroduodenoscopy - Keith Blake MD Date/Time: 02/08/25 13:12 Surgeon: Dr. Blake Pre Op Diagnosis: LIZETH/Acute UTI/Colitis Patient Data Age: 89 Gender: F Height: 1.6 m Weight: 65 kg Last Vital Signs Temp 36.9 C 02/08/25 05:10 Pulse 79 02/08/25 05:10 Resp 19 02/07/25 22:00 BP 147/53 H 02/08/25 05:10 Pulse Ox 97 02/08/25 05:10 O2 Del Method Room Air 02/08/25 09:30 Allergies Allergy/AdvReac Type Severity Reaction Status Date / Time No Known Allergies Allergy Verified 02/04/25 03:44 Home Medications ?Medication ?Instructions ?Recorded ?Confirmed ?Type loperamide 2 mg capsule (Imodium 2 mg PO Q6H PRN loose stool 07/26/23 02/04/25 History A-D) orthopedic shoes #1 ea 07/27/23 02/04/25 Rx oxybutynin chloride 5 mg tablet 5 mg PO BID #180 tabs 07/26/24 02/04/25 Rx rosuvastatin 10 mg tablet 10 mg PO DAILY #90 tabs 09/04/24 02/04/25 Rx lisinopril 40 mg tablet 20 mg (1/2 x 40 mg) PO DAILY 3 09/23/24 02/04/25 Rx months #45 tabs escitalopram oxalate 5 mg tablet See Rx Instructions .Route 10/29/24 02/04/25 Rx .COMPLEX #90 tabs levothyroxine 50 mcg tablet See Rx Instructions .Route 10/29/24 02/04/25 Rx .COMPLEX #90 tabs apixaban 5 mg tablet (Eliquis) See Rx Instructions .Route 11/06/24 02/04/25 Rx .COMPLEX #180 tabs trazodone 100 mg tablet 100 mg PO QHS #90 tabs 11/07/24 02/04/25 Rx semaglutide 7 mg tablet 7 mg PO DAILY #90 tabs 12/17/24 02/04/25 Rx hydrocodone 5 mg-acetaminophen 325 1 tablet PO Q6H PRN Pain Rated 01/14/25 02/04/25 Rx mg tablet 7-10 #10 tabs gabapentin 600 mg tablet 1,200 mg PO .evening 02/04/25 02/04/25 History Laboratory Tests 02/07/25 02/07/25 02/08/25 16:16 20:10 06:10 WBC 8.5 K/mm3 (4.5-10.0) RBC 3.28 L M/mm3 (4.2-5.4) Hgb 10.6 L g/dL (12.0-15.0) Hct 31.5 L % (37.0-47.0) MCV 96.0 fl (80-100) MCH 32.3 pg (26-34) MCHC 33.7 g/dl (32-36) RDW 14.6 H % (11.5-14.5) Plt Count 318 k/mm3 (150-375) MPV 8.3 fl (7.4-10.4) Immature Gran % (Auto) 0.6 H % (0-0.5) Neut % (Auto) 53.3 % (45.5-73.1) Lymph % (Auto) 27.5 % (18.3-44.2) [place] % (Auto) 14.1 H % (2.6-8.5) Eos % (Auto) 3.9 % (0-4.4) Baso % (Auto) 0.6 % (0.2-1.2) Lymph # (Auto) 2.33 K/mm3 (0.9-3.2) [place] # (Auto) 1.2 H K/mm3 (0.1-0.6) Eos # (Auto) 0.3 K/mm3 (0-0.3) Baso # (Auto) 0.1 K/mm3 (0.0-0.1) Abs Immat Gran (auto) 0.05 H K/mm3 (0.00-0.031) Absolute Neuts (auto) 4.5 K/mm3 (1.3-6.7) Absolute Nucleated RBC 0.000 K/mm3 (0.0-0.012) Nucleated RBC % 0.0 % (0.0-0.2) Sodium 136 L mmol/L (137-145) Potassium 3.5 mmol/L (3.4-5.0) Chloride 108 H mmol/L (98-107) Carbon Dioxide 21 L mmol/L (22-30) Anion Gap 7 mmol/L (4-12) BUN 6 L mg/dL (7-17) Creatinine 1.05 H mg/dL (0.7-1.0) Estim Creat Clear Calc 27 ml/min Estimated GFR 49 L (59 - ) Glucose 93 mg/dL (65-110) POC Capillary Glucose 84 mg/dl 105 mg/dl (65-105) (65-105) Calcium 8.5 mg/dL (8.4-10.2) Total Bilirubin 0.5 mg/dL (0.2-1.3) AST 27 U/L (14-36) ALT 10 U/L (6-35) Alkaline Phosphatase 76 U/L (38-126) Total Protein 6.7 g/dL (6.3-8.2) Albumin 3.1 L g/dL (3.5-5.1) 02/08/25 02/08/25 07:36 11:38 WBC RBC Hgb Hct MCV MCH MCHC RDW Plt Count MPV Immature Gran % (Auto) Neut % (Auto) Lymph % (Auto) [place] % (Auto) Eos % (Auto) Baso % (Auto) Lymph # (Auto) [place] # (Auto) Eos # (Auto) Baso # (Auto) Abs Immat Gran (auto) Absolute Neuts (auto) Absolute Nucleated RBC Nucleated RBC % Sodium Potassium Chloride Carbon Dioxide Anion Gap BUN Creatinine Estim Creat Clear Calc Estimated GFR Glucose POC Capillary Glucose 96 mg/dl 92 mg/dl (65-105) (65-105) Calcium Total Bilirubin AST ALT Alkaline Phosphatase Total Protein Albumin Results Review: All pre-operative results and documents have been reviewed as part of the pre-operative evaluation. 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 Mother No problems noted. Sibling Myeloma Other Heart disease Thyroid disorder Social History Social History Smoking packs per day: 0.01 Smoking cigarettes per day: 0.2 Years smoked: 4 Smoking pack-years: 0.04 Smoking status: Former smoker Tobacco type: cigarettes Second hand tobacco smoke exposure: No Additional smoking assessment comments: a pack may last a month, no longer smoking everyday Alcohol intake: never Substance use: never Substance use type: does not use Lack of Transportation: No Lack of Food: Never True Current Housing: I Have Housing Concerned About Future Housing: No Difficulty Paying Gas/Electric Bills: No Difficulty Paying for Meds: No Currently Unemployed: No Education: Bachelor's Degree Difficulty w/ Childcare or Family Care: No Living arrangements: with family Gender identity (if verbalized by the patient): Female Spiritual care concerns: No Anes - Eval Final PreProcedure Day of Procedure 02/08/25 13:12 Patient weight: overweight Heart: regular rate and rhythm Lungs: clear to auscultation Airway: Mallampati scale class II Neurological: alert and oriented Last oral intake: >/= 8 hours ASA classification: III Emergent: no Anesthetic plan: proceed Anesthesia type and monitoring: general GIVS and standard monitoring Results Review: All pre-operative results and documents have been reviewed as part of the pre-operative evaluation. Informed Consent: The patient's anesthetic plan and its attendant risks and benefits were discussed with the patient/family/POA. Questions were solicited and answers provided to the satisfaction of the patient/family/POA.
[2025-02-08] MEDS: SODIUM CHLORIDE 0.9% IV 1,000 ML 75 ML IV CONT (13:16)
[2025-02-08] MEDS: LACTATED RINGERS 1,000 ML 150 ML IV CONT (14:08)
--- NOTE | 2025-02-08 14:12 | S_PTH ---
PATIENT: Marisela Franz LOC: [id number] U#:[id number] AGE/SX: 89/F ROOM: 321 RE02/04/[address]: Kandi Saunders APRN : [id number] BED: 02 DIS: 02/11/2025 SPEC #: [id number] RECD: 02/10/25 07:49 STATUS: VANE CARDONA #: [id number] LUKE: 02/08/25 14:[address]: Keith Blake DEPT: [facility] Surgical RECD BY: Tori Donohue ENTERED: 02/10/25 07:49 SP TYPE: Surgical OTHR DR: DO Kandi Quintana APRN Michelle P. Mulligan, MD Tissues: A - Esophageal Biopsy Procedures: Hematoxylin and Eosin Stain Gross and Microscopic Level 4
--- NOTE | 2025-02-08 14:31 | P.PNGI_ITS ---
Progress Note: A&P Assessment and Plan (1) Nausea: Code(s): R11.0 - Nausea Status: Acute Assessment and Plan: - EGD revealed retained food material in the upper esophagus and a dilated esophageal diameter, findings highly suggestive of an underlying esophageal motility disorder, primarily achalasia. Confirmation requires esophageal manometry, and a referral to [facility] will be placed for this procedure; should achalasia be confirmed, an endoscopic peroral endoscopic myotomy (POEM) can be performed at the same institution. - The patient's persistent upper GI symptoms, including nausea and vomiting, are believed to be directly related to this motility disorder. The patient is medically stable and cleared for discharge from our service, but the need for continuation of antibiotics upon discharge should be critically reviewed by the primary team since this may be a contributing factor for nausea. Subjective Date/time seen: 02/08/25 14:31 Interval history: See EGD report. The patient has significant nausea and some oral intolerance. Review of Systems Review of Systems: All systems reviewed & are unremarkable except as noted in HPI and below Objective Data Vital Signs Vital Signs: Vital Signs - 24 hr 02/07/25 17:45 02/07/25 20:00 02/07/25 22:00 Temperature 97.7 F Pulse Rate 60 64 Respiratory Rate 19 Blood Pressure 170/86 H 133/72 Pulse Oximetry 100 94 Oxygen Delivery Room Air Oxygen Flow Rate 02/08/25 05:10 02/08/25 09:30 02/08/25 13:54 Temperature 98.5 F 98.0 F Pulse Rate 79 92 Respiratory Rate 24 H Blood Pressure 147/53 H 140/70 Pulse Oximetry 97 100 Oxygen Delivery Room Air Room Air Oxygen Flow Rate 02/08/25 14:15 02/08/25 14:25 Temperature Pulse Rate 65 63 Respiratory Rate 18 15 Blood Pressure 121/63 138/67 Pulse Oximetry 100 100 Oxygen Delivery Nasal Cannula Nasal Cannula Oxygen Flow Rate 4 4 Intake/Output Intake/Output: Intake & Output 02/05/25 02/06/25 02/07/25 02/08/25 23:59 23:59 23:59 23:59 Intake Total 2060 2589.3 2627.5 1000 Output Total 800 1500 1500 850 Balance 1260 1089.3 1127.5 150 Meds/Results Medications: Active Medications Generic Name Dose Route Start Last Admin Trade Name Freq PRN Reason Stop Dose Admin Hydrocodone Bitart/Acetaminophen 1 tab 02/04/25 08:07 Hydrocodone/Acetaminophen (*Crx) 5-325 Mg Tablet PO Q6H PRN Pain Rated 7-10 Ciprofloxacin 500 mg 02/06/25 21:00 02/07/25 21:12 Ciprofloxacin 500 Mg Tab PO 02/08/25 21:01 500 mg QHS OSEAS Administration Dextrose 12.5 gm 02/04/25 08:14 Dextrose 50% 25 Gm/50 Ml Syringe IV PUSH PRN PRN Hypoglycemia Protocol Docusate Sodium 100 mg 02/06/25 21:00 02/08/25 10:25 Docusate Sodium 100 Mg Capsule PO Not Given Q12HR OSEAS Escitalopram Oxalate 5 mg 02/04/25 09:00 02/08/25 10:25 Escitalopram Oxalate 5 Mg Tablet BY MOUTH Not Given QAM OSEAS Gabapentin 1,200 mg 02/04/25 18:00 02/07/25 17:52 Gabapentin 400 Mg Capsule PO 1,200 mg QPM OSEAS Administration Glucagon 1 mg 02/04/25 08:14 Glucagon For Inj 1 Mg Vial IM PRN PRN Hypoglycemia Protocol Glucose 15 gm 02/04/25 08:14 Glucose Oral Gel 15 Gm Of Glucse In 37.5 Gm Tube PO PRN PRN Hypoglycemia Protocol Sodium Chloride 1,000 mls @ 75 mls/hr 02/04/25 02:35 02/08/25 13:16 Normal Saline Iv IV CONT 75 mls/hr .[id number] OSEAS Administration Dextrose 1,000 mls @ 100 mls/hr 02/04/25 08:14 Dextrose 5% 1,000 Ml IVPB PRN PRN Hypoglycemia Protocol Lactated Ringer's 1,000 mls @ 150 mls/hr 02/08/25 13:35 02/08/25 14:13 Lr - Lactated Ringers Iv IV CONT 150 mls/hr .Q6H40M OSEAS Infusion Insulin Aspart 2 - 5 units 02/04/25 08:30 02/08/25 11:28 Insulin Aspart (*Bkc) 100 Units/Ml SUB-Q Not Given TIDWM OSEAS Protocol Levothyroxine Sodium 50 mcg 02/04/25 08:30 02/08/25 05:51 Levothyroxine Sodium 50 Mcg Tablet BY MOUTH 50 mcg DAILY@0630 OSE[facility] Administration Lisinopril 20 mg 02/06/25 09:00 02/08/25 09:36 Lisinopril 20 Mg Tablet PO 20 mg DAILY OSEAS Administration Metoclopramide HCl 10 mg 02/06/25 16:30 02/08/25 11:28 Metoclopramide Hcl 10 Mg Tablet PO Not Given ACHS OSE[facility] Metronidazole 500 mg 02/06/25 14:00 02/08/25 05:51 Metronidazole 500 Mg Tablet PO 02/08/25 22:01 500 mg Q8HR OSEAS Administration Ondansetron HCl 4 mg 02/07/25 18:34 Ondansetron Inj 4 Mg/2 Ml Vial IV PUSH Q6H PRN Nausea And Vomiting Oxybutynin Chloride 5 mg 02/04/25 09:00 02/08/25 10:25 Oxybutynin Chloride 5 Mg Tablet PO Not Given Q12HR OSE[facility] Pantoprazole Sodium 40 mg 02/08/25 09:00 02/08/25 10:25 Pantoprazole 40 Mg Tablet PO Not Given QAM [facility] Rosuvastatin Calcium 10 mg 02/04/25 09:00 02/08/25 10:25 Rosuvastatin 10 Mg Tablet PO Not Given DAILY OSE[facility] Trazodone HCl 100 mg 02/04/25 21:00 02/07/25 21:12 Trazodone Hcl 50 Mg Tablet PO 100 mg QHS OSEAS Administration Radiology Results: ITS Impressions Abdomen/Pelvis CT 02/04/25 07:25 IMPRESSION: 1. No specific etiology for the patient's symptoms. 2. Healing subacute fracture of right inferior pubic ramus. Labs Labs: Laboratory Results - last 24 hr 02/07/25 02/07/25 02/08/25 16:16 20:10 06:10 WBC 8.5 RBC 3.28 L Hgb 10.6 L Hct 31.5 L MCV 96.0 MCH 32.3 MCHC 33.7 RDW 14.6 H Plt Count 318 MPV 8.3 Immature Gran % (Auto) 0.6 H Neut % (Auto) 53.3 Lymph % (Auto) 27.5 [place] % (Auto) 14.1 H Eos % (Auto) 3.9 Baso % (Auto) 0.6 Lymph # (Auto) 2.33 [place] # (Auto) 1.2 H Eos # (Auto) 0.3 Baso # (Auto) 0.1 Abs Immat Gran (auto) 0.05 H Absolute Neuts (auto) 4.5 Absolute Nucleated RBC 0.000 Nucleated RBC % 0.0 Sodium 136 L Potassium 3.5 Chloride 108 H Carbon Dioxide 21 L Anion Gap 7 BUN 6 L Creatinine 1.05 H Estim Creat Clear Calc 27 Estimated GFR 49 L Glucose 93 POC Capillary Glucose 84 105 Calcium 8.5 Total Bilirubin 0.5 AST 27 ALT 10 Alkaline Phosphatase 76 Total Protein 6.7 Albumin 3.1 L 02/08/25 02/08/25 02/08/25 07:36 11:38 14:02 WBC RBC Hgb Hct MCV MCH MCHC RDW Plt Count MPV Immature Gran % (Auto) Neut % (Auto) Lymph % (Auto) [place] % (Auto) Eos % (Auto) Baso % (Auto) Lymph # (Auto) [place] # (Auto) Eos # (Auto) Baso # (Auto) Abs Immat Gran (auto) Absolute Neuts (auto) Absolute Nucleated RBC Nucleated RBC % Sodium Potassium Chloride Carbon Dioxide Anion Gap BUN Creatinine Estim Creat Clear Calc Estimated GFR Glucose POC Capillary Glucose 96 92 86 Calcium Total Bilirubin AST ALT Alkaline Phosphatase Total Protein Albumin
--- NOTE | 2025-02-08 14:37 | PCPTNOTE ---
Pt out of room in GI lab currently. Will continue to follow.
[2025-02-09 04:56] VITALS: BP 144/90; PULSE 44; RESP 18; TEMP 36.5; O2SAT 100
[2025-02-09 07:01] LABS: Hematocrit 32.9 % (37.0-47.0); Hemoglobin 11.1 g/dL (12.0-15.0); Immature Granulocyte Percent A 0.7 % (0-0.5); Lymphocytes Absolute Auto 2.29 K/mm3 (0.9-3.2); Mean Corpuscular HGB Conc 33.7 g/dl (32-36); Mean Corpuscular Hemoglobin 31.8 pg (26-34); Mean Corpuscular Volume 94.3 fl (80-100); Nucleated Red Blood Cells Absolute Auto 0.000 K/mm3 (0.0-0.012); Nucleated Red Blood Cells Perc 0.0 % (0.0-0.2); Platelet Count Result 360 k/mm3 (150-375); Red Blood Count 3.49 M/mm3 (4.2-5.4); White Blood Count 9.1 K/mm3 (4.5-10.0)
[2025-02-09] MEDS: SODIUM CHLORIDE 0.9% IV 1,000 ML 75 ML IV CONT (07:16)
[2025-02-09 07:21] LABS: Alanine Aminotransferase 7 U/L (6-35); Albumin Level 3.4 g/dL (3.5-5.1); Alkaline Phosphatase 73 U/L (38-126); Anion Gap 10 mmol/L (4-12); Aspartate Amino Transferase 24 U/L (14-36); Bilirubin,Total 0.6 mg/dL (0.2-1.3); Blood Urea Nitrogen 7 mg/dL (7-17); Calcium 8.5 mg/dL (8.4-10.2); Carbon Dioxide 20 mmol/L (22-30); Chloride 105 mmol/L (98-107); Estimated CRCL calculation 30 ml/min; Estimated Glomerular Filt Rate 55; Glucose 106 mg/dL (65-110); Potassium 3.1 mmol/L (3.4-5.0); Sodium 135 mmol/L (137-145); Total Protein 7.0 g/dL (6.3-8.2)
[2025-02-09 08:16] VITALS: BP 143/68; PULSE 40; O2SAT 100
--- NOTE | 2025-02-09 08:46 | ECG_ITS ---
Test Date: 2025-02-09 09:09:45 Measurements Intervals [place] Rate: 82 P: 34 OK: 175 QRS: -5 QRSD: 92 T: 68 QT: 423 QTc: 495 Interpretive Statements SINUS RHYTHM WITH VENTRICULAR BIGEMINY BORDERLINE R WAVE PROGRESSION, ANTERIOR LEADS BORDERLINE ST-T WAVE ABNORMALITY- HIGH LATERAL LEADS BASELINE ARTIFACT- I, II, III, AVR, AVL, AVF ABNORMAL ECG No previous ECG available for comparison Electronically Signed On 02-09-2025 09:26:11 [employer] by Kee Melgar D.O.
--- NOTE | 2025-02-09 09:14 | PM.IMPN2 ---
Assessment and Plan Assessment and Plan (1) Colitis: Code(s): K52.9 - Noninfective gastroenteritis and colitis, unspecified Status: Acute Assessment and Plan: Per CT Will continue flagyl and rocephin started in ED, 02/04 Follow daily labs, WBC WDL today Follow BC - no growth in 48 hours -Hgb normalized, will continue with daily labs -Eliquis home med -Switched to Cipro on 02/06 (2) Acute UTI: Code(s): N39.0 - Urinary tract infection, site not specified Status: Acute Assessment and Plan: Will continue flagyl and Rocephin started in ED, 02/04 Follow daily labs, WBC WDL today Follow BC - NGTD -UC yielding E coli, switched to cipro PO on 02/06 (3) Diabetes mellitus with diabetic neuropathy, without long-term current use of insulin: Qualifiers: Diabetes mellitus type: type 2 Qualified Code(s): E11.40 - Type 2 diabetes mellitus with diabetic neuropathy, unspecified Code(s): E11.40 - Type 2 diabetes mellitus with diabetic neuropathy, unspecified Status: Acute Assessment and Plan: Non insulin-dependent type 2 diabetes: Sliding scale insulin, Accu-Cheks a.c. HS, hypoglycemia protocol. Semaglutide on hold BS reviewed (4) Essential (primary) hypertension: Code(s): I10 - Essential (primary) hypertension Status: Acute Assessment and Plan: Restarted Lisinopril home med 02/06, will continue to re-assess -Has been unable to take lisinopril due to achalasia, hydral orders placed today for HTN (5) Protein S deficiency: Code(s): D68.59 - Other primary thrombophilia Status: Acute Assessment and Plan: Unable to tolerate PO meds, hold eliquis at this time -Started Lovenox 12/14 AM (6) Closed fracture of right inferior pubic ramus: Qualifiers: Encounter type: initial encounter Qualified Code(s): S32.591A - Other specified fracture of right pubis, initial encounter for closed fracture Code(s): S32.591A - Other specified fracture of right pubis, initial encounter for closed fracture Status: Acute Assessment and Plan: Recent hx of, PT/OT while inpt (7) Acute kidney injury: Code(s): N17.9 - Acute kidney failure, unspecified Status: Acute Assessment and Plan: Resolved LIZETH on CKD3a: avoid nephrotoxic agents -Daily labs, labs trending back down to baseline -Continue IVF due to kidney levels and low appetite -K 3.1 today, unable to tolerate PO, will give IV k suppl. Probable due to low calorie intake. Dobhoff placement tomorrow. 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 Status: Acute Assessment and Plan: Confirmed via EGD 02/08 with need for outpt manometry, GI placed referral to [facility] for this Continue to report nausea with very little intake --Plan for Dobhoff placement tomorrow 02/10, IR is not staffed today --Dietitian consult placed --D5 LR Plan Continue to trend labs, treat achalasia until manometry performed with dobhoff tube feeds (02/10), continue working with OT/PT, await Medical Record Review I have reviewed the following patient records and this information was taken into consideration when formulating the assessment and plan.: previous labs Consultations Consultations: I have discussed the care of this pt with the consulting providers. Time Spent With Patient Time with patient: 25 - 35 minutes Subjective Date/time seen: 02/09/25 0825 Interval history: Pt lying in her bed upon my arrival, her son, Hussein, at the bedside. Pt reports that she has really not been able to eat, drink, or take pills, very little with encouragement. Denies any other sx including V/D, CP, SOB, or any other sx. Reviewed POC of dobhoff placement hopeful for 02/10, dietitian consult, and f/u with [facility] for manometry with pt and son Hussein, both in agreement. We also discussed the results of the EGD yesterday. Review of Systems Review of Systems: All systems reviewed & are unremarkable except as noted in HPI and below Exam Const: General: comfortable and no acute distress HENMT: Face/Nose/Sinus: Normal nares present Other: tacky mucous membranes Eyes: General: appearance normal, both eyes and all related structures Sclera: sclerae normal Neck: Neck: supple Resp: Effort & Inspection: normal respiratory effort Auscultation: clear to auscultation bilaterally Cardio: Rate: regular rate Rhythm: regular rhythm GI: Auscultation: normal bowel sounds Skin: General skin exam: normal color and no rashes or lesions noted Neuro: Speech: normal speech Motor exam (neuro): Normal motor muscle tone present throughout Sensory Exam: normal sensation Extrem: General: normal to inspection Psych: Mental Status: mental status grossly normal Affect: normal affect Objective Data Vital Signs Vital Signs: Vital Signs - 24 hr 02/08/25 09:30 02/08/25 13:54 02/08/25 14:00 Temperature 98.0 F 97.3 F L Pulse Rate 92 52 L Respiratory Rate 24 H 17 Blood Pressure 140/70 129/55 L Pulse Oximetry 100 93 Oxygen Delivery Room Air Room Air Oxygen Flow Rate 02/08/25 14:15 02/08/25 14:25 02/08/25 14:35 Temperature Pulse Rate 65 63 67 Respiratory Rate 18 15 22 H Blood Pressure 121/63 138/67 144/74 H Pulse Oximetry 100 100 100 Oxygen Delivery Nasal Cannula Nasal Cannula Room Air Oxygen Flow Rate 4 4 02/08/25 14:42 02/08/25 20:00 02/08/25 21:11 Temperature 98.4 F Pulse Rate 58 L 40 L Respiratory Rate 20 16 Blood Pressure 158/70 H 167/69 H Pulse Oximetry 100 98 Oxygen Delivery Room Air Room Air Oxygen Flow Rate 02/09/25 04:56 02/09/25 08:16 Temperature 97.7 F Pulse Rate 44 L 40 L Respiratory Rate 18 Blood Pressure 144/90 H 143/68 H Pulse Oximetry 100 100 Oxygen Delivery Oxygen Flow Rate Intake/Output Intake/Output: Intake & Output 02/06/25 02/07/25 02/08/25 02/09/25 23:59 23:59 23:59 23:59 Intake Total 2589.3 2627.5 1070 1250 Output Total 1500 1500 850 850 Balance 1089.3 1127.5 220 400 Meds/Results Medications: Active Medications Generic Name Dose Route Start Last Admin Trade Name Freq PRN Reason Stop Dose Admin Hydrocodone Bitart/Acetaminophen 1 tab 02/04/25 08:07 Hydrocodone/Acetaminophen (*Crx) 5-325 Mg Tablet PO Q6H PRN Pain Rated 7-10 Dextrose 12.5 gm 02/04/25 08:14 Dextrose 50% 25 Gm/50 Ml Syringe IV PUSH PRN PRN Hypoglycemia Protocol Docusate Sodium 100 mg 02/06/25 21:00 02/08/25 22:48 Docusate Sodium 100 Mg Capsule PO Not Given Q12HR [facility] Escitalopram Oxalate 5 mg 02/04/25 09:00 02/08/25 10:25 Escitalopram Oxalate 5 Mg Tablet BY MOUTH Not Given QAM [facility] Gabapentin 1,200 mg 02/04/25 18:00 02/07/25 17:52 Gabapentin 400 Mg Capsule PO 1,200 mg On Hold: 02/08/25 17:00 QPM OSEAS Administration Glucagon 1 mg 02/04/25 08:14 Glucagon For Inj 1 Mg Vial IM PRN PRN Hypoglycemia Protocol Glucose 15 gm 02/04/25 08:14 Glucose Oral Gel 15 Gm Of Glucse In 37.5 Gm Tube PO PRN PRN Hypoglycemia Protocol Dextrose 1,000 mls @ 100 mls/hr 02/04/25 08:14 Dextrose 5% 1,000 Ml IVPB PRN PRN Hypoglycemia Protocol Insulin Aspart 2 - 5 units 02/04/25 08:30 02/09/25 08:10 Insulin Aspart (*Bk) 100 Units/Ml SUB-Q Not Given TIDWM [facility] Protocol Levothyroxine Sodium 50 mcg 02/04/25 08:30 02/09/25 05:17 Levothyroxine Sodium 50 Mcg Tablet BY MOUTH Not Given DAILY@0630 [facility] Lisinopril 20 mg 02/06/25 09:00 02/08/25 09:36 Lisinopril 20 Mg Tablet PO 20 mg DAILY [facility] Administration Metoclopramide HCl 10 mg 02/06/25 16:30 02/09/25 05:17 Metoclopramide Hcl 10 Mg Tablet PO Not Given ACHS [facility] Ondansetron HCl 4 mg 02/07/25 18:34 Ondansetron Inj 4 Mg/2 Ml Vial IV PUSH Q6H PRN Nausea And Vomiting Oxybutynin Chloride 5 mg 02/04/25 09:00 02/08/25 22:48 Oxybutynin Chloride 5 Mg Tablet PO Not Given Q12HR [facility] Pantoprazole Sodium 40 mg 02/08/25 09:00 02/08/25 10:25 Pantoprazole 40 Mg Tablet PO Not Given QAM [facility] Rosuvastatin Calcium 10 mg 02/04/25 09:00 02/08/25 10:25 Rosuvastatin 10 Mg Tablet PO Not Given DAILY [facility] Trazodone HCl 100 mg 02/04/25 21:00 02/08/25 22:48 Trazodone Hcl 50 Mg Tablet PO Not Given QHS [facility] Radiology Results: ITS Impressions Abdomen/Pelvis CT 02/04/25 07:25 IMPRESSION: 1. No specific etiology for the patient's symptoms. 2. Healing subacute fracture of right inferior pubic ramus. Labs Labs: Laboratory Results - last 24 hr 02/08/25 02/08/25 02/08/25 11:38 14:02 14:35 WBC RBC Hgb Hct MCV MCH MCHC RDW Plt Count MPV Immature Gran % (Auto) Neut % (Auto) Lymph % (Auto) [place] % (Auto) Eos % (Auto) Baso % (Auto) Lymph # (Auto) [place] # (Auto) Eos # (Auto) Baso # (Auto) Abs Immat Gran (auto) Absolute Neuts (auto) Absolute Nucleated RBC Nucleated RBC % Sodium Potassium Chloride Carbon Dioxide Anion Gap BUN Creatinine Estim Creat Clear Calc Estimated GFR Glucose POC Capillary Glucose 92 86 84 Calcium Total Bilirubin AST ALT Alkaline Phosphatase Total Protein Albumin 02/08/25 02/08/25 02/08/25 16:36 17:56 19:49 WBC RBC Hgb Hct MCV MCH MCHC RDW Plt Count MPV Immature Gran % (Auto) Neut % (Auto) Lymph % (Auto) [place] % (Auto) Eos % (Auto) Baso % (Auto) Lymph # (Auto) [place] # (Auto) Eos # (Auto) Baso # (Auto) Abs Immat Gran (auto) Absolute Neuts (auto) Absolute Nucleated RBC Nucleated RBC % Sodium Potassium Chloride Carbon Dioxide Anion Gap BUN Creatinine Estim Creat Clear Calc Estimated GFR Glucose POC Capillary Glucose 68 135 H 112 H Calcium Total Bilirubin AST ALT Alkaline Phosphatase Total Protein Albumin 02/09/25 02/09/25 06:25 07:36 WBC 9.1 RBC 3.49 L Hgb 11.1 L Hct 32.9 L MCV 94.3 MCH 31.8 MCHC 33.7 RDW 14.8 H Plt Count 360 MPV 8.5 Immature Gran % (Auto) 0.7 H Neut % (Auto) 54.7 Lymph % (Auto) 25.1 [place] % (Auto) 14.1 H Eos % (Auto) 4.7 H Baso % (Auto) 0.7 Lymph # (Auto) 2.29 [place] # (Auto) 1.3 H Eos # (Auto) 0.4 H Baso # (Auto) 0.1 Abs Immat Gran (auto) 0.06 H Absolute Neuts (auto) 5.0 Absolute Nucleated RBC 0.000 Nucleated RBC % 0.0 Sodium 135 L Potassium 3.1 L Chloride 105 Carbon Dioxide 20 L Anion Gap 10 BUN 7 Creatinine 0.96 Estim Creat Clear Calc 30 Estimated GFR 55 L Glucose 106 POC Capillary Glucose 112 H Calcium 8.5 Total Bilirubin 0.6 AST 24 ALT 7 Alkaline Phosphatase 73 Total Protein 7.0 Albumin 3.4 L Quality VTE Prophylaxis VTE prophylaxis: pharmacologic ordered (Lovenox)
[2025-02-09] MEDS: DEXTROSE 5%/LACTATED RINGERS 1,000 ML 100 ML IV CONT (09:52)
[2025-02-09] MEDS: ENOXAPARIN 40 MG/0.4 ML SYRINGE SUB-Q (10:28)
[2025-02-09 13:10] VITALS: BP 160/84; PULSE 52; RESP 14; TEMP 37.4; O2SAT 100
[2025-02-09] MEDS: POTASSIUM CHLORIDE INJ 40 MEQ in SODIUM CHLORIDE 0.9% IV 500 ML 130 MEQ IVPB (13:35)
--- NOTE | 2025-02-09 15:15 | PCOTNOTE ---
Attempted to see pt for OT treatment today. Pt was laying on her side with pt's son present. Pt declined to participate in therapy stating increase fatigue and generalized not feeling well. Per son, pt has not eaten for several weeks and will be getting a tube for supplemental nutrition tomorrow. Will continue per poc duration/frequency tomorrow.
[2025-02-09] MEDS: ONDANSETRON INJ 4 MG/2 ML VIAL IV PUSH (17:52)
[2025-02-09 20:43] VITALS: BP 166/64; PULSE 43; RESP 16; TEMP 36.3; O2SAT 97
[2025-02-10] MEDS: DEXTROSE 5%/LACTATED RINGERS 1,000 ML 100 ML IV CONT (04:37)
[2025-02-10 05:52] VITALS: BP 164/84; PULSE 41; RESP 17; TEMP 36.4; O2SAT 97
[2025-02-10 06:04] LABS: Hematocrit 33.5 % (37.0-47.0); Hemoglobin 11.3 g/dL (12.0-15.0); Immature Granulocyte Percent A 0.5 % (0-0.5); Lymphocytes Absolute Auto 2.34 K/mm3 (0.9-3.2); Mean Corpuscular HGB Conc 33.7 g/dl (32-36); Mean Corpuscular Hemoglobin 31.6 pg (26-34); Mean Corpuscular Volume 93.6 fl (80-100); Nucleated Red Blood Cells Absolute Auto 0.000 K/mm3 (0.0-0.012); Nucleated Red Blood Cells Perc 0.0 % (0.0-0.2); Platelet Count Result 397 k/mm3 (150-375); Red Blood Count 3.58 M/mm3 (4.2-5.4); White Blood Count 8.8 K/mm3 (4.5-10.0)
[2025-02-10 06:37] LABS: Alanine Aminotransferase 9 U/L (6-35); Albumin Level 3.3 g/dL (3.5-5.1); Alkaline Phosphatase 74 U/L (38-126); Anion Gap 4 mmol/L (4-12); Aspartate Amino Transferase 26 U/L (14-36); Bilirubin,Total 0.6 mg/dL (0.2-1.3); Blood Urea Nitrogen 5 mg/dL (7-17); Calcium 8.7 mg/dL (8.4-10.2); Carbon Dioxide 26 mmol/L (22-30); Chloride 103 mmol/L (98-107); Estimated CRCL calculation 33 ml/min; Estimated Glomerular Filt Rate > 60; Glucose 164 mg/dL (65-110); Potassium 3.2 mmol/L (3.4-5.0); Sodium 133 mmol/L (137-145); Total Protein 7.1 g/dL (6.3-8.2)
--- NOTE | 2025-02-10 09:38 | PM.IMPN2 ---
Assessment and Plan Assessment and Plan (1) Colitis: Code(s): K52.9 - Noninfective gastroenteritis and colitis, unspecified Status: Acute Assessment and Plan: Per CT Flagyl and Rocephin started in ED, 02/04; complete. Follow daily labs, WBC WDL today Follow BC - no growth in 48 hours -Hgb normalized, will continue with daily labs -Eliquis home med (switched to Lovenox due to decreased oral intake) -Switched to Cipro on 02/06, completed. (2) Acute UTI: Code(s): N39.0 - Urinary tract infection, site not specified Status: Acute Assessment and Plan: Follow daily labs, WBC WDL today Follow BC - NGTD -UC yielding E coli, switched to cipro PO on 02/06, completed (3) Diabetes mellitus with diabetic neuropathy, without long-term current use of insulin: Qualifiers: Diabetes mellitus type: type 2 Qualified Code(s): E11.40 - Type 2 diabetes mellitus with diabetic neuropathy, unspecified Code(s): E11.40 - Type 2 diabetes mellitus with diabetic neuropathy, unspecified Status: Acute Assessment and Plan: Non insulin-dependent type 2 diabetes: Sliding scale insulin, Accu-Cheks a.c. HS, hypoglycemia protocol. Pt now on D5 LR for nutrition source due to decreased PO intake Semaglutide on hold BS reviewed (4) Essential (primary) hypertension: Code(s): I10 - Essential (primary) hypertension Status: Acute Assessment and Plan: Restarted Lisinopril home med 02/06, will continue to re-assess -Has been unable to take lisinopril due to achalasia, hydral orders placed for HTN (5) Protein S deficiency: Code(s): D68.59 - Other primary thrombophilia Status: Acute Assessment and Plan: Unable to tolerate PO meds, hold eliquis at this time -Started Lovenox 1214 AM (6) Closed fracture of right inferior pubic ramus: Qualifiers: Encounter type: initial encounter Qualified Code(s): S32.591A - Other specified fracture of right pubis, initial encounter for closed fracture Code(s): S32.591A - Other specified fracture of right pubis, initial encounter for closed fracture Status: Acute Assessment and Plan: Recent hx of, PT/OT while inpt (7) Acute kidney injury: Code(s): N17.9 - Acute kidney failure, unspecified Status: Acute Assessment and Plan: Resolved LIZETH on CKD3a: avoid nephrotoxic agents -Daily labs, labs trending back down to baseline -Continue IVF due to kidney levels and low appetite, D5LR now -K 3.2 today, unable to tolerate PO, will give IV k suppl again. Probable due to low calorie intake. 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 Confirmed with Dr. Blake, [facility] with reach out to pt Continue to report nausea with very little intake --Plan for Dobhoff placement today 02/10 --Dietitian consult placed --D5 LR Plan Continue to trend labs, treat achalasia until manometry performed with dobhoff tube feeds (02/10), continue working with OT/PT, await Medical Record Review I have reviewed the following patient records and this information was taken into consideration when formulating the assessment and plan.: previous labs Consultations Consultations: I have discussed the care of this pt with the consulting providers. Time Spent With Patient Time with patient: 25 - 35 minutes Subjective Date/time seen: 02/10/25 0847 Interval history: Pt lying in her bed upon my arrival, her son, Hussein, and her daughter, Natanael at the bedside. Pt continues to report nausea and not being able to tolerate PO. Denies any other sx including V/D, CP, SOB, or any other sx. Reviewed POC of dobhoff placement today with dietitian consult following. [facility] will reach out to contact on chart for follow-up. Review of Systems Review of Systems: All systems reviewed & are unremarkable except as noted in HPI and below Exam Const: General: comfortable and no acute distress HENMT: Face/Nose/Sinus: Normal nares present Other: tacky mucous membranes Eyes: General: appearance normal, both eyes and all related structures Sclera: sclerae normal Neck: Neck: supple Resp: Effort & Inspection: normal respiratory effort Auscultation: clear to auscultation bilaterally Cardio: Rate: regular rate Rhythm: regular rhythm GI: Auscultation: abnormal bowel sounds (hypoactive throughout) Skin: General skin exam: normal color and no rashes or lesions noted Neuro: Speech: normal speech Motor exam (neuro): Normal motor muscle tone present throughout Sensory Exam: normal sensation Extrem: General: normal to inspection Psych: Mental Status: mental status grossly normal Affect: normal affect Objective Data Vital Signs Vital Signs: Vital Signs - 24 hr 02/09/25 13:10 02/09/25 20:43 02/10/25 05:52 Temperature 99.3 F 97.3 F L 97.5 F L Pulse Rate 52 L 43 L 41 L Respiratory Rate 14 16 17 Blood Pressure 160/84 H 166/64 H 164/84 H Pulse Oximetry 100 97 97 Intake/Output Intake/Output: Intake & Output 02/07/25 02/08/25 02/09/25 02/10/25 23:59 23:59 23:59 23:59 Intake Total 2627.5 1070 3560 Output Total 5099 811 4161 1000 Balance 1127.5 220 1810 -1000 Meds/Results Medications: Active Medications Generic Name Dose Route Start Last Admin Trade Name Freq PRN Reason Stop Dose Admin Hydrocodone Bitart/Acetaminophen 1 tab 02/04/25 08:07 Hydrocodone/Acetaminophen (*Crx) 5-325 Mg Tablet PO Q6H PRN Pain Rated 7-10 Dextrose 12.5 gm 02/04/25 08:14 Dextrose 50% 25 Gm/50 Ml Syringe IV PUSH PRN PRN Hypoglycemia Protocol Docusate Sodium 100 mg 02/06/25 21:00 02/09/25 21:06 Docusate Sodium 100 Mg Capsule PO Not Given Q12HR OSEAS Enoxaparin Sodium 40 mg 02/10/25 09:00 Enoxaparin 40 Mg/0.4 Ml Syringe SUB-Q DAILY OSEAS Escitalopram Oxalate 5 mg 02/04/25 09:00 02/09/25 09:51 Escitalopram Oxalate 5 Mg Tablet BY MOUTH Not Given QAM OSEAS Gabapentin 1,200 mg 02/04/25 18:00 02/07/25 17:52 Gabapentin 400 Mg Capsule PO 1,200 mg On Hold: 02/08/25 17:00 QPM OSEAS Administration Glucagon 1 mg 02/04/25 08:14 Glucagon For Inj 1 Mg Vial IM PRN PRN Hypoglycemia Protocol Glucose 15 gm 02/04/25 08:14 Glucose Oral Gel 15 Gm Of Glucse In 37.5 Gm Tube PO PRN PRN Hypoglycemia Protocol Hydralazine HCl 10 mg 02/09/25 12:25 Hydralazine Hcl 20 Mg/Ml Vial IV PUSH Q6H PRN Blood Pressure - High Dextrose 1,000 mls @ 100 mls/hr 02/04/25 08:14 Dextrose 5% 1,000 Ml IVPB PRN PRN Hypoglycemia Protocol Dextrose/Lactated Ringer's 1,000 mls @ 100 mls/hr 02/09/25 09:15 02/10/25 04:37 Dextrose 5%/Lactated Ringers IV CONT 100 mls/hr .Q10H OSEAS Administration Insulin Aspart 2 - 5 units 02/04/25 08:30 02/09/25 17:29 Insulin Aspart (*Bkc) 100 Units/Ml SUB-Q Not Given TIDWM [facility] Protocol Levothyroxine Sodium 50 mcg 02/04/25 08:30 02/10/25 04:37 Levothyroxine Sodium 50 Mcg Tablet BY MOUTH Not Given DAILY@0630 [facility] Lisinopril 20 mg 02/06/25 09:00 02/09/25 09:51 Lisinopril 20 Mg Tablet PO Not Given DAILY OSEAS Metoclopramide HCl 10 mg 02/06/25 16:30 02/10/25 04:37 Metoclopramide Hcl 10 Mg Tablet PO Not Given ACHS [facility] Ondansetron HCl 4 mg 02/07/25 18:34 02/09/25 17:52 Ondansetron Inj 4 Mg/2 Ml Vial IV PUSH 4 mg Q6H PRN Administration Nausea And Vomiting Oxybutynin Chloride 5 mg 02/04/25 09:00 02/09/25 21:07 Oxybutynin Chloride 5 Mg Tablet PO Not Given Q12HR [facility] Pantoprazole Sodium 40 mg 02/08/25 09:00 02/09/25 09:52 Pantoprazole 40 Mg Tablet PO Not Given QAM [facility] Rosuvastatin Calcium 10 mg 02/04/25 09:00 02/09/25 09:52 Rosuvastatin 10 Mg Tablet PO Not Given DAILY [facility] Trazodone HCl 100 mg 02/04/25 21:00 02/09/25 21:07 Trazodone Hcl 50 Mg Tablet PO Not Given QHS [facility] Radiology Results: ITS Impressions Abdomen/Pelvis CT 02/04/25 07:25 IMPRESSION: 1. No specific etiology for the patient's symptoms. 2. Healing subacute fracture of right inferior pubic ramus. Labs Labs: Laboratory Results - last 24 hr 02/09/25 02/09/25 02/09/25 11:12 16:33 20:12 WBC RBC Hgb Hct MCV MCH MCHC RDW Plt Count MPV Immature Gran % (Auto) Neut % (Auto) Lymph % (Auto) Valley % (Auto) Eos % (Auto) Baso % (Auto) Lymph # (Auto) Valley # (Auto) Eos # (Auto) Baso # (Auto) Abs Immat Gran (auto) Absolute Neuts (auto) Absolute Nucleated RBC Nucleated RBC % Sodium Potassium Chloride Carbon Dioxide Anion Gap BUN Creatinine Estim Creat Clear Calc Estimated GFR Glucose POC Capillary Glucose 128 H 87 139 H Calcium Total Bilirubin AST ALT Alkaline Phosphatase Total Protein Albumin 02/10/25 02/10/25 05:30 07:37 WBC 8.8 RBC 3.58 L Hgb 11.3 L Hct 33.5 L MCV 93.6 MCH 31.6 MCHC 33.7 RDW 14.4 Plt Count 397 H MPV 8.4 Immature Gran % (Auto) 0.5 Neut % (Auto) 51.3 Lymph % (Auto) 26.7 Valley % (Auto) 14.6 H Eos % (Auto) 6.3 H Baso % (Auto) 0.6 Lymph # (Auto) 2.34 Valley # (Auto) 1.3 H Eos # (Auto) 0.6 H Baso # (Auto) 0.1 Abs Immat Gran (auto) 0.04 H Absolute Neuts (auto) 4.5 Absolute Nucleated RBC 0.000 Nucleated RBC % 0.0 Sodium 133 L Potassium 3.2 L Chloride 103 Carbon Dioxide 26 Anion Gap 4 BUN 5 L Creatinine 0.85 Estim Creat Clear Calc 33 Estimated GFR > 60 Glucose 164 H POC Capillary Glucose 170 H Calcium 8.7 Total Bilirubin 0.6 AST 26 ALT 9 Alkaline Phosphatase 74 Total Protein 7.1 Albumin 3.3 L Quality VTE Prophylaxis VTE prophylaxis: pharmacologic ordered (Lovenox)
--- NOTE | 2025-02-10 10:09 | PCPTNOTE ---
Attempted to see patient for PT, however patient was out of the room for procedure.
[2025-02-10] MEDS: ESCITALOPRAM OXALATE 5 MG TABLET BY MOUTH (10:50)
[2025-02-10] MEDS: PANTOPRAZOLE 40 MG TABLET PO (10:51)
[2025-02-10] MEDS: ROSUVASTATIN 10 MG TABLET PO (10:52)
[2025-02-10] MEDS: POTASSIUM CHLORIDE 20 MEQ PACKET (FOR LIQUID) 40 MEQ FEED TUBE (10:52)
[2025-02-10] MEDS: APIXABAN 5 MG TABLET PO (11:06)
[2025-02-10] MEDS: METOCLOPRAMIDE HCL 10 MG TABLET PO (11:06)
--- NOTE | 2025-02-10 11:27 | PCOTNOTE ---
Patient unable to participate in OT session at this time. Patient just returned from having a dobb fortino placed and per daughter is very unhappy at this time. Patient refusing all activity and communication.
[2025-02-10 12:17] VITALS: BMI 25.4
[2025-02-10 14:00] VITALS: BP 163/73; PULSE 48; RESP 18; TEMP 37.1; O2SAT 98
--- NOTE | 2025-02-10 18:14 | PM.EVENT ---
Event Note Event Note Event Note: Was called to see patient for comfort care. At bedside daughter and Son freddy were present. Daughter Sandrine Ha is POA, both daughter and patient expressed clearly she has decided to transition to comfort care. Also requested to have NG tube removed. Patient placed on comfort care per her requrest and hospice consulted.
--- NOTE | 2025-02-11 09:54 | PCPTNOTE ---
Attempted to see patient for PT, however patient declined. Patient and family plan to be discussing hospice later today.
--- NOTE | 2025-02-11 11:27 | PM.DS ---
DS: Admitting Diagnosis Discharge Date 02/11/2025 Admitting Diagnosis N/V/D, FTT, UTI DS: Discharge Diagnosis Discharge Diagnosis (1) Colitis: Code(s): K52.9 - Noninfective gastroenteritis and colitis, unspecified Status: Acute Assessment and Plan: Per CT Flagyl and Rocephin started in ED, 02/04; complete. Follow daily labs, WBC WDL today Follow BC - no growth in 48 hours -Hgb normalized, will continue with daily labs -Eliquis home med (switched to Lovenox due to decreased oral intake) -Switched to Cipro on 02/06, completed. (2) Acute UTI: Code(s): N39.0 - Urinary tract infection, site not specified Status: Acute Assessment and Plan: Follow daily labs, WBC WDL today Follow BC - NGTD -UC yielding E coli, switched to cipro PO on 02/06, completed (3) Diabetes mellitus with diabetic neuropathy, without long-term current use of insulin: Qualifiers: Diabetes mellitus type: type 2 Qualified Code(s): E11.40 - Type 2 diabetes mellitus with diabetic neuropathy, unspecified Code(s): E11.40 - Type 2 diabetes mellitus with diabetic neuropathy, unspecified Status: Acute Assessment and Plan: Non insulin-dependent type 2 diabetes: Sliding scale insulin, Accu-Cheks a.c. HS, hypoglycemia protocol. Pt now on D5 LR for nutrition source due to decreased PO intake Semaglutide on hold BS reviewed (4) Essential (primary) hypertension: Code(s): I10 - Essential (primary) hypertension Status: Acute Assessment and Plan: Restarted Lisinopril home med 02/06, will continue to re-assess -Has been unable to take lisinopril due to achalasia, hydral orders placed for HTN (5) Protein S deficiency: Code(s): D68.59 - Other primary thrombophilia Status: Acute Assessment and Plan: Eliquis (6) Closed fracture of right inferior pubic ramus: Qualifiers: Encounter type: initial encounter Qualified Code(s): S32.591A - Other specified fracture of right pubis, initial encounter for closed fracture Code(s): S32.591A - Other specified fracture of right pubis, initial encounter for closed fracture Status: Acute Assessment and Plan: Recent hx of, PT/OT while inpt (7) Acute kidney injury: Code(s): N17.9 - Acute kidney failure, unspecified Status: Acute Assessment and Plan: Resolved LIZETH on CKD3a: avoid nephrotoxic agents -Daily labs, labs trending back down to baseline -Continue IVF due to kidney levels and low appetite, D5LR now -K 3.2 today, unable to tolerate PO, will give IV k suppl again. Probable due to low calorie intake. 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 Confirmed with Dr. Blake, [facility] with reach out to pt Continue to report nausea with very little intake Dobhoff placement 02/10, pt did not tolerate well. Cross coverage team was called to the bedside and pt transferred to hospice care. Pt to return to her facility and have hospice set up there. Plan Continue to trend labs, treat achalasia until manometry performed with dobhoff tube feeds (02/10), continue working with OT/PT, await BC DS: Summary Hospital Course Reason for hospitalization: N/V/D, FTT, UTI Hospital Course: The patient is an 89-year-old female with a complex medical history including chronic kidney disease stage 3a, type 2 diabetes mellitus with neuropathy, protein S deficiency on anticoagulation, hypothyroidism, prior stroke, peripheral artery disease, and a recent right inferior pubic ramus fracture. She was admitted from a rehabilitation facility with several days of nausea, vomiting (including episodes of coffee-ground emesis), diarrhea, and poor oral intake. On arrival, she was afebrile but appeared volume depleted, with laboratory evidence of leukocytosis, acute kidney injury (creatinine 2.18 mg/dL, baseline 0.8), hyponatremia, and hyperglycemia. Urinalysis was notable for pyuria and bacteriuria, and urine culture later grew E. coli. CT imaging revealed right colonic wall thickening suggestive of colitis, bladder wall thickening, and a healing right pubic ramus fracture. She was initially managed with intravenous fluids, empiric antibiotics (Flagyl and Rocephin), and supportive care. Her antibiotics were later narrowed to oral ciprofloxacin based on urine culture results. Her acute kidney injury improved with hydration, and her leukocytosis resolved. Blood cultures remained negative. Her diabetes was managed with sliding scale insulin, and semaglutide was held during stay. Despite resolution of infection and normalization of laboratory parameters, the patient continued to experience persistent nausea, early satiety, and poor oral intake. She was noted to have episodes of coffee-ground emesis, but remained hemodynamically stable without significant anemia. Gastroenterology was consulted, and an EGD was performed, revealing retained food in the proximal esophagus, mild distal esophageal exudates (biopsied for possible Liudmila), mild antral gastritis, and a dilated esophageal lumen. No active upper GI bleeding was identified. These findings were highly suggestive of an esophageal motility disorder, most likely achalasia. A referral for esophageal manometry at a tertiary center was placed for definitive diagnosis and consideration of endoscopic therapy (POEM). During her hospitalization, the patient?s oral intake remained poor, and she was unable to tolerate supplemental nutrition. A Dobhoff tube was placed for enteral feeding, but she did not tolerate this intervention. Given her persistent symptoms, functional decline, and poor prognosis, the decision was made in conjunction with her family to transition to hospice care. She was discharged in stable condition to her facility with hospice services arranged. At discharge, her antibiotics had been completed, and her acute kidney injury had resolved.. Her chronic medications were adjusted as appropriate, and she was provided with comfort-focused care instructions. Status at Discharge Overall status at discharge: patient is not back to baseline Time Spent with Patient Time attestation: Total time spent providing and/or coordinating discharge services: Time spent: Greater than 30 minutes Exam Const: General: comfortable and no acute distress HENMT: Face/Nose/Sinus: Normal nares present Mouth: Yes moist mucous membranes Other: tacky mucous membranes Eyes: General: appearance normal, both eyes and all related structures Sclera: sclerae normal Neck: Neck: supple Resp: Effort & Inspection: normal respiratory effort Auscultation: clear to auscultation bilaterally Cardio: Rate: regular rate Rhythm: regular rhythm GI: Auscultation: normal bowel sounds and abnormal bowel sounds (hypoactive throughout) Other: hypoactive bs Skin: General skin exam: normal color and no rashes or lesions noted Neuro: Speech: normal speech Motor exam (neuro): Normal motor muscle tone present throughout Sensory Exam: normal sensation Extrem: General: normal to inspection Psych: Mental Status: mental status grossly normal Affect: normal affect DS: Data Data Completed and Pending Completed studies during hospitalization: Pending at discharge 02/08/25 14:12 Surgical [PTH] Routine Labs on day of discharge: Labs from last 24 hours 02/10/25 02/10/25 16:24 11:29 POC Capillary Glucose 137 H 124 H Discharge Plan Discharge Attending physician on discharge: Ernie Balderrama Consulting providers: Kandi Saunders Discharging Clinician: Kandi Saunders Anticipated Discharge Date/Time: 02/11/25 12:00 Patient Disposition: NH Half-Way/Asst Living Activity: as tolerated Diet: as tolerated Discharge Instructions: Follow-up with hospice, Kary, at your facility. Thank you for allowing [facility] to care for you. Patient Instructions: Apixaban (By mouth) Patient Language: Honduran Stand Alone Forms: General Discharge Information Discharge Medications: Continued (DME) orthopedic shoes See Rx Instructions .Route .MEDSUPPLY Qty: 1 0RF Rx Instructions: As directed hydrocodone-acetaminophen 5-325 mg Tablet 1 tablet PO Q6H PRN (Reason: Pain Rated 7-10) Qty: 10 0RF gabapentin 600 mg tablet 1,200 mg PO .evening loperamide [Imodium A-D] 2 mg capsule 2 mg PO Q6H PRN (Reason: loose stool) oxybutynin chloride 5 mg tablet 5 mg PO BID Qty: 180 1RF levothyroxine 50 mcg tablet See Rx Instructions .ROUTE .COMPLEX Qty: 90 1RF Dose Instruction: TAKE 1 TABLET BY MOUTH DAILY Rx Instructions: TAKE 1 TABLET BY MOUTH DAILY escitalopram oxalate 5 mg tablet See Rx Instructions .ROUTE .COMPLEX Qty: 90 1RF Dose Instruction: TAKE 1 TABLET BY MOUTH DAILY Rx Instructions: TAKE 1 TABLET BY MOUTH DAILY trazodone 100 mg tablet 100 mg PO QHS Qty: 90 1RF Discontinued semaglutide 7 mg tablet 7 mg PO DAILY Qty: 90 3RF rosuvastatin 10 mg tablet 10 mg PO DAILY Qty: 90 3RF lisinopril 40 mg tablet 20 mg PO DAILY 90 Days Qty: 45 2RF Eliquis 5 mg tablet See Rx Instructions .ROUTE .COMPLEX Qty: 180 1RF Dose Instruction: TAKE 1 TABLET BY MOUTH TWICE DAILY Rx Instructions: TAKE 1 TABLET BY MOUTH TWICE DAILY Date of admission: 02/04/25 10:48 Primary Care Provider: Kait Zhao Admitting Provider: Juana Bellamy Attending physician on admission: Juana Bellamy Condition: Stable Hospitalist MIPS Heart Failure (Exclusion) Patient has history of Heart Transplant or Left Ventricular Assistive Device?: No IF YES, STOP HERE Heart Failure (Qualifier) Patient has current or prior documentation of LVEF less than or equal to 40%, or mod/servere depressed LVSF?: No IF NO, STOP HERE
--- NOTE | 2025-02-11 12:07 | PCNFU ---
Nutrition Follow-Up Complete: Inadequate energy intake related to altered GI function as evidenced by need for alternative nutrition support Goal:Meet estimated needs Pt not meeting goal. Pt current nutrition is NPO, dobhoff removed and tube feeding discontinued. Nutrition recommendation: comfort measures Last recorded weight is 65 kg. Bowel Motility: No BM recorded Labs Reviewed: Hgb:11.3, HCT:33.5, Na:133, K:3.2, Glu:164 Meds Noted: eliquis, novolog, protonix, reglan Skin: WNL Additional Notes: Pt NPO, had a dobhoff placed with tube feeding started, tube is not pulled. Pt and family wanting to transition to comfort care with hospice. No nutrition recommendations at this time. Monitor plan of care, wt, labs. Follow up in 3 days
== END 2025-02-11 13:06 | disposition hospice, home (50) | DRG 392 ==
LOC: ANHED 02-04 02:35 → ANH3MEDSUR 02-04 02:52
PROVIDERS: Emergency Medicine; Internal Medicine Gastroenterology; Admitting Provider Internal Medicine; Emergency Provider Physician Assistant; PCP Family Medicine
PROC: 0DJ08ZZ Inspection of Upper Intestinal Tract, Via Natural or Artificial Opening Endoscopic (ICD-10-PCS; principal; 2025-02-08 13:25)
DX: K22.0 Achalasia of cardia (principal); N39.0 Urinary tract infection, site not specified; N17.9 Acute kidney failure, unspecified; D68.59 Other primary thrombophilia; K52.9 Noninfective gastroenteritis and colitis, unspecified; I12.9 Hypertensive chronic kidney disease with stage 1 through stage 4 chronic kidney disease, or unspecified chronic kidney disease; N18.31 Chronic kidney disease, stage 3a; E11.40 Type 2 diabetes mellitus with diabetic neuropathy, unspecified; E11.51 Type 2 diabetes mellitus with diabetic peripheral angiopathy without gangrene; E11.22 Type 2 diabetes mellitus with diabetic chronic kidney disease; E78.2 Mixed hyperlipidemia; E03.9 Hypothyroidism, unspecified; K29.70 Gastritis, unspecified, without bleeding; Z96.611 Presence of right artificial shoulder joint; Z96.643 Presence of artificial hip joint, bilateral; Z96.653 Presence of artificial knee joint, bilateral; S32.591D Other specified fracture of right pubis, subsequent encounter for fracture with routine healing; Z89.429 Acquired absence of other toe(s), unspecified side; Z79.01 Long term (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; Z86.73 Personal history of transient ischemic attack (TIA), and cerebral infarction without residual deficits; Z51.5 Encounter for palliative care
CPT/HCPCS: 36415; 43752; 74176; 80053; 81001; 82948; 83605; 83690; 85014; 85018; 85025; 87040; 87086; 87186; 87636; 88305; 93005; 96361; 96365; 96375; 97110; 97161; 97165; 97530; 99285; A9270; G0378; J0696; J1650; J1836; J2003; J2185; J2405; J2470; J2704; J3480; J7030; J7040; J7120; J7121